=== PATIENT | female | born 1975 | race Hispanic/Latino ===

== ENCOUNTER 2018-06-13 13:14 | Outpatient (CLI) | payer OTHER | END 2018-06-13 13:15 | disposition home or self-care (01) | LOC: DTY/OP 13:14 | PROVIDERS: ATTEND Surgery | DX: E66.01 Morbid (severe) obesity due to excess calories (principal) | CPT/HCPCS: 97802 ==

== ENCOUNTER 2018-08-03 14:37 | Outpatient (CLI) | payer OTHER | END 2018-08-03 14:38 | disposition home or self-care (01) | LOC: DTY/OP 14:37 | PROVIDERS: ATTEND Surgery | DX: E66.01 Morbid (severe) obesity due to excess calories (principal) | CPT/HCPCS: 97802 ==

== ENCOUNTER 2018-08-14 11:24 | Outpatient (CLI) | payer OTHER | END 2018-08-14 11:25 | disposition home or self-care (01) | LOC: DTY/OP 11:24 | PROVIDERS: ATTEND Surgery | DX: E66.01 Morbid (severe) obesity due to excess calories (principal) | CPT/HCPCS: 97802 ==

== ENCOUNTER 2018-09-11 11:43 | Outpatient (CLI) | payer OTHER | END 2018-09-11 11:44 | disposition home or self-care (01) | LOC: DTY/OP 11:43 | PROVIDERS: ATTEND Family Medicine | DX: E66.01 Morbid (severe) obesity due to excess calories (principal) | CPT/HCPCS: 97802 ==

== ENCOUNTER 2018-11-16 05:34 | Outpatient (CLI) | payer OTHER ==
[2018-11-16 14:06] LABS: #Basophils 0.1 thou/uL (0.0-0.2); #Eosinphils 0.2 thou/uL (0.0-0.7); #Lymphocytes 2.9 thou/uL (1.20-3.40); #Monocytes 0.9 thou/uL (0.11-0.59); %Basophils 0.5 % (0.0-1.0); %Lymphocytes 26.1 % (21.0-51.0); %Monocytes 8.1 % (0.0-10.0); %Neutrophils 63.3 % (42.0-75.0); Hemoglobin 14.1 g/dL (12.0-16.0); Mean Corpuscular HGB CONC 34.5 g/dL (32.0-36.0); Mean Corpuscular Hemoglobin 34.3 pg (27.0-31.0); Mean Corpuscular Volume 99.5 fL (78.0-98.0); Mean Platelet Volume 10.2 fL (7.4-10.4); Platelet Count 221 thou/uL (130-400); RBC Distribution Width 10.5 % (11.5-14.5); White Blood Cell (WBC) Count 11.1 thou/uL (4.8-10.8)
--- NOTE | 2018-11-16 14:16 | RAD ---
EXAM: Chest 2 views: HISTORY: Preoperative radiograph COMPARISON: 01/08/2017 FINDINGS: There is a normal-sized cardiomediastinal silhouette. A cardiac monitoring device projects over the left chest wall. There is no evidence of consolidation, mass, or pleural effusion. The bones are unremarkable. IMPRESSION: No evidence of acute cardiopulmonary disease
[2018-11-16 14:21] LABS: Hemoglobin A1c 5.3 % (4.0-6.0)
[2018-11-16 14:25] LABS: ALT (SGPT) 37 U/L (8-55); AST (SGOT) 27 U/L (5-34); Albumin 4.1 g/dL (3.5-5.0); Alkaline Phosphatase 106 U/L (40-150); Anion Gap 10 mmol/L (10-20); BUN (Urea Nitrogen) 16 mg/dL (7.0-18.7); Bilirubin, Direct 0.2 mg/dL (0.1-0.3); Bilirubin, Total 0.4 mg/dL (0.2-1.2); Calc. Creatinine Clearance 0 mL/min (70-130); Carbon Dioxide 26 mmol/L (22-29); Chloride 105 mmol/L (98-107); Estimated GFR-MDRD 76; Globulin 3.2 g/dL (2.4-3.5); Glucose 92 mg/dL (70-105); Potassium 3.5 mmol/L (3.5-5.1); Protein, Total 7.3 g/dL (6.0-8.3); Sodium 137 mmol/L (136-145)
--- NOTE | 2018-11-17 07:05 | EKG ---
Test Reason : Blood Pressure : / mmHG Vent. Rate : 060 BPM Atrial Rate : 060 BPM P-R Int : 176 ms QRS Dur : 090 ms QT Int : 458 ms P-R-T Axes : 047 091 031 degrees QTc Int : 458 ms Normal sinus rhythm Rightward axis Borderline ECG No previous ECGs available Confirmed by DR. Minda TANNER ([id number]) on 11/17/2018 7:05:49 AM Referred By: ISAIAS Confirmed By:DR. Minda TANNER
== END 2018-11-16 05:35 | disposition home or self-care (01) ==
LOC: LABBT 05:34
PROVIDERS: ATTEND Surgery
DX: Z01.818 Encounter for other preprocedural examination (principal); E66.01 Morbid (severe) obesity due to excess calories
CPT/HCPCS: 71046; 80053; 80076; 83036; 85025; 93005; 93010

== ENCOUNTER 2018-11-16 11:15 | Inpatient (IN) | payer OTHER ==
[2018-11-21] MEDS ORDERED: Heparin 5,000 UNITS/ML VIAL ONE (10:20)
[2018-11-21] MEDS ORDERED: Bupivacaine/Epinephrine 0.25% 30 ML VIAL ONE ×2 (10:37→10:39)
[2018-11-21] MEDS ORDERED: Famotidine/PF 20 mg/2ml Vial ONE (11:08)
[2018-11-21] MEDS ORDERED: Fentanyl 100 MCG/2 ML VIAL ONE ×3 (11:08→14:05)
[2018-11-21] MEDS ORDERED: Meperidine HCl/PF 25 MG/ML VIAL ONE (11:08)
[2018-11-21] MEDS ORDERED: diphenhydrAMINE 50 MG/ML VIAL IVP PRN ×2 (13:17→15:32)
[2018-11-21] MEDS ORDERED: Dextrose 50% Abboject 50 ML SYRINGE SLOW IVP PRN (13:17)
[2018-11-21] MEDS ORDERED: hydrALAZINE 20 MG/ML VIAL SLOW IVP PRN (13:17)
[2018-11-21] MEDS ORDERED: Dextrose 5% in Water 1,000 ML IV PRN (13:17)
[2018-11-21] MEDS ORDERED: Hydrocodone-Acetamin 15 ML UDCUP PO PRN (13:17)
[2018-11-21] MEDS ORDERED: Promethazine HCl 25 MG/ML VIAL IM PRN ×3 (13:17→15:32)
[2018-11-21] MEDS ORDERED: Ondansetron PF 4 MG/2 ML Vial IVP PRN (13:17)
[2018-11-21] MEDS ORDERED: PROPOFOL 200 MG/20 ML VIAL ONE (13:24)
[2018-11-21] MEDS ORDERED: Rocuronium Bromide 10 MG/ML (10ML VIAL) ONE (13:24)
[2018-11-21] MEDS ORDERED: Lidocaine 1% PF 5 ML VIAL ONE (13:24)
[2018-11-21] MEDS ORDERED: Glycopyrrolate 0.2 MG/ML 5 ML SYRINGE ONE (13:24)
[2018-11-21] MEDS ORDERED: Metoclopramide HCl 10 MG/2 ML VIAL ONE (13:24)
[2018-11-21] MEDS ORDERED: Ondansetron PF 4 MG/2 ML Vial ONE (13:24)
[2018-11-21] MEDS ORDERED: Dexamethasone 20 MG/5 ML VIAL ONE (13:24)
[2018-11-21] MEDS ORDERED: Ketorolac Tromethamine 30 MG/ML VIAL ONE (13:24)
[2018-11-21] MEDS ORDERED: Meperidine HCl/PF 25 MG/ML VIAL SLOW IVP PRN (13:31)
[2018-11-21] MEDS ORDERED: Promethazine HCl 25 MG/ML VIAL SLOW IVP PRN (13:31)
[2018-11-21] MEDS ORDERED: Ondansetron HCl/PF 4 MG/2 ML Vial IVP PRN (13:31)
[2018-11-21] MEDS ORDERED: Promethazine HCl 25 MG/ML VIAL ONE (14:05)
[2018-11-21] MEDS ORDERED: diphenhydrAMINE 50 MG/ML VIAL IM PRN (15:32)
[2018-11-21] MEDS ORDERED: Naloxone HCl 0.4 mg/ml Vial IV PRN (15:32)
[2018-11-21] MEDS ORDERED: Zolpidem Tartrate 5 MG TAB PO PRN (15:32)
[2018-11-21] MEDS ORDERED: fentaNYL Citrate/PF 2,000 MCG in Sodium Chloride 0.9% 60 ML IV PRN (15:32)
[2018-11-21] MEDS ORDERED: diphenhydrAMINE 25 MG CAP PO PRN (15:32)
[2018-11-21] MEDS ORDERED: CEFAZOLIN 2 GM in Premix Bag 1 BAG IVPB SCH (18:00)
[2018-11-21] MEDS ORDERED: Ketorolac Tromethamine 30 MG/ML VIAL IVP SCH (18:00)
[2018-11-21] MEDS: Communication Order-Pharmacy FS SCH (18:15)
[2018-11-21] MEDS: Ondansetron PF 4 MG/2 ML Vial IVP PRN (20:07)
[2018-11-21] MEDS: CEFAZOLIN 2 GM in Premix Bag 1 BAG IVPB SCH (20:08)
[2018-11-21] MEDS: Ketorolac Tromethamine 30 MG/ML VIAL IVP SCH (20:08)
[2018-11-21] MEDS: D5 1/2 NS w/20 mEq KCL 1,000 ML IV SCH ×2 (20:09→20:37)
[2018-11-21 22:57] VITALS: BMI 36.0
[2018-11-21] MEDS ORDERED: Sodium Chloride 0.9% 500 ML IVPB SCH (23:30)
[2018-11-21] MEDS ORDERED: Pantoprazole 40 MG VIAL IVP SCH (23:45)
[2018-11-22 00:30] LABS: Hemoglobin 12.9 g/dL (12.0-16.0)
[2018-11-22] MEDS: Ketorolac Tromethamine 30 MG/ML VIAL IVP SCH ×4 (02:55→19:47)
[2018-11-22] MEDS: Ondansetron PF 4 MG/2 ML Vial IVP PRN ×2 (02:56→09:45)
[2018-11-22] MEDS: CEFAZOLIN 2 GM in Premix Bag 1 BAG IVPB SCH (03:01)
[2018-11-22] MEDS: D5 1/2 NS w/20 mEq KCL 1,000 ML IV SCH ×3 (04:31→22:51)
[2018-11-22 07:44] LABS: #Lymphocytes 1.9 thou/uL (1.20-3.40); #Monocytes 1.4 thou/uL (0.11-0.59); #Neutrophils 10.2 thou/uL (1.40-6.50); %Basophils 0.4 % (0.0-1.0); %Eosinophils 0.1 % (0.0-10.0); %Lymphocytes 14.4 % (21.0-51.0); %Neutrophils 75.2 % (42.0-75.0); Hemoglobin 11.9 g/dL (12.0-16.0); Mean Corpuscular HGB CONC 33.2 g/dL (32.0-36.0); Mean Corpuscular Hemoglobin 33.9 pg (27.0-31.0); Mean Platelet Volume 10.3 fL (7.4-10.4); Platelet Count 189 thou/uL (130-400); RBC Distribution Width 10.5 % (11.5-14.5); Red Blood Cell (RBC) Count 3.51 mill/uL (4.20-5.40); White Blood Cell (WBC) Count 13.5 thou/uL (4.8-10.8)
[2018-11-22 08:02] LABS: Anion Gap 13 mmol/L (10-20); BUN (Urea Nitrogen) 19 mg/dL (7.0-18.7); Calc. Creatinine Clearance 155 mL/min (70-130); Calcium 8.1 mg/dL (7.8-10.44); Carbon Dioxide 18 mmol/L (22-29); Chloride 109 mmol/L (98-107); Estimated GFR-MDRD 85; Glucose 116 mg/dL (70-105); Potassium 3.7 mmol/L (3.5-5.1); Sodium 136 mmol/L (136-145)
[2018-11-22] MEDS: Pantoprazole 40 MG VIAL IVP SCH (08:22)
[2018-11-22] MEDS ORDERED: Enoxaparin Sodium 40 MG/0.4 ML SYRINGE SC SCH (09:00)
--- NOTE | 2018-11-22 10:39 | OP ---
DATE OF PROCEDURE: 11/21/2018 PREOPERATIVE DIAGNOSIS: Morbid obesity. PROCEDURES PERFORMED: Laparoscopic sleeve gastrectomy, hiatal hernia repair, and esophagogastroduodenoscopy. INDICATIONS: The patient is a 43-year-old female, morbidly obese, who has attempted multiple weight loss programs without success. FINDINGS: She had a moderate-size hiatal hernia, which was repaired with a posterior crural plication. A 38-Palestinian bougie was used. DESCRIPTION OF PROCEDURE: After informed consent was obtained, the patient was taken to the operating room and given general endotracheal anesthesia, placed in the supine position. Abdomen was prepped and draped in usual fashion. Local anesthesia was infiltrated subcutaneously and deep and a 12 mm incision was performed approximately 8 inches above the xiphoid slightly to the left. Veress needle inserted. Drop test performed. Pneumoperitoneum was created to a volume of 2 L of carbon dioxide. Utilizing a bladeless 12 mm trocar and 0-degree laparoscope, direct visual entry abdominal cavity was performed. Pneumoperitoneum was created to a pressure of 15 mmHg. A 0-degree laparoscope was inserted under direct vision. A Carline liver retractor was inserted. Left lobe of liver retracted superiorly. The pylorus was identified. A 12 mm port placed on the right beneath it and two 12s placed left subcostal. The omentum was taken off the greater curvature 5 cm from the pylorus utilizing the LigaSure. The short gastrics divided with LigaSure and left crura defined with LigaSure. The gastrophrenic ligament was opened utilizing the LigaSure and the peritoneum was incised anteriorly utilizing the LigaSure. Posteriorly, dissection was performed to completely reduce the hiatal hernia. The posterior crural plication was performed over the 38-Palestinian bougie leaving a gap anteriorly utilizing interrupted 0 Ethibond suture with this Sew-Right and Ti-Knot device. Then, the bougie was further advanced into the pylorus. The antrum was divided utilizing a linear 60 mm green load stapler to the bougie, a gold load along the bougie, and a series of blues through the angle of His. Intraoperative endoscopy was performed. The videoendoscope inserted under direct vision, advanced under direct vision into the sleeve. The staple line inspected. There was no bleeding. Staple line then tested by inflating the new stomach with pressurized air and water, there was no air leak. Stomach decompressed. Scope removed. The remnants of the stomach removed from the abdomen through the left lateral port site. The fascia closed with 0 Vicryl suture and the GraNee needle. The skin closed with interrupted 4-0 Rapide. Dermabond applied. The patient tolerated the procedure well. Sponge and needle count verified correct x2. Job ID: [id number]
[2018-11-22] MEDS ORDERED: GASTROGRAFIN 30 ML BOT ONE (11:51)
--- NOTE | 2018-11-22 14:55 | RAD ---
Upper GI series contrast swallow single column: DATE: 11/22/2018 HISTORY: 43-year-old female status post vertical gastric slightly TECHNIQUE: 15 mL of Gastrografin administered by mouth upright. 10 minute delayed supine KUB. FINDINGS: Contrast material fills the marrow gastric channel. There is delayed emptying into the duodenum, but eventually at the 10 minute image, contrast is present throughout the duodenum to the ligament of Treitz. There is no leakage. IMPRESSION: 1. Status post vertical sleeve gastrectomy. 2. No evidence of major complications.
[2018-11-22] MEDS: Communication Order-Pharmacy FS SCH (15:37)
--- NOTE | 2018-11-22 18:09 | PRG ---
DATE OF SERVICE: 11/22/2018 SUBJECTIVE: The patient has had a rough day today. She has had quite a bit of nausea. She is continuing to have pain on the left side and periumbilical. OBJECTIVE: VITAL SIGNS: Her temperature is 97.9, pulse 73, blood pressure 111/75. GENERAL: She looks okay. The incisions are healing well. There is no evidence of bleeding. LABORATORY DATA: Her white count is 13, H and H are 11.9 and 35.8. Her electrolytes are okay. Her swallow study was fine. No evidence of leak, traversed the stomach well. ASSESSMENT: Still having difficulty staying hydrated. PLAN: We will keep another night and continue IV fluids. Job ID: [id number]
[2018-11-23] MEDS: Ketorolac Tromethamine 30 MG/ML VIAL IVP SCH ×2 (02:01→08:20)
[2018-11-23] MEDS: D5 1/2 NS w/20 mEq KCL 1,000 ML IV SCH (05:26)
[2018-11-23] MEDS: Pantoprazole 40 MG VIAL IVP SCH (08:19)
[2018-11-23 12:02] VITALS: BP 116/79; TEMP 98.1
--- NOTE | 2018-11-24 08:48 | DIS ---
DATE OF ADMISSION: 11/21/2018 DATE OF DISCHARGE: 11/23/2018 DISCHARGE DIAGNOSES: Morbid obesity and hiatal hernia. PROCEDURES DURING ADMISSION: Laparoscopic sleeve gastrectomy, hiatal hernia repair, and esophagogastroduodenoscopy. HOSPITAL COURSE: The patient was admitted, taken to the operating room, where she underwent a sleeve gastrectomy and repair of hiatal hernia with intraoperative esophagogastroscopy. Postoperatively, she had a Gastrografin swallow, which was fine, however, she had excessive nausea and was unable to tolerate fluids that has now improved and she is tolerating fluids. She is discharged home in good condition on hydrocodone and Zofran. She will follow up with me in 2 weeks. Job ID: [id number]
== END 2018-11-23 12:11 | disposition home or self-care (01) | DRG 621 ==
LOC: SURG A 11-21 09:46 → EDSTATUS 11-21 11:15 → SURG B 11-21 13:17
PROVIDERS: ADMIT Surgery; ATTEND Surgery
PROC: 0DB64Z3 Excision of Stomach, Percutaneous Endoscopic Approach, Vertical (ICD-10-PCS; principal; 2018-11-21)
PROC: 0BQT4ZZ Repair Diaphragm, Percutaneous Endoscopic Approach (ICD-10-PCS; 2018-11-21)
PROC: 0DJ08ZZ Inspection of Upper Intestinal Tract, Via Natural or Artificial Opening Endoscopic (ICD-10-PCS; 2018-11-21)
DX: E66.01 Morbid (severe) obesity due to excess calories (principal); K44.9 Diaphragmatic hernia without obstruction or gangrene; Z68.36 Body mass index [BMI] 36.0-36.9, adult; Z88.8 Allergy status to other drugs, medicaments and biological substances
CPT/HCPCS: 36415; 74241; 80048; 85014; 85018; 85025; 88307; 88312; 94760; C9113; J0131; J0690; J1100; J1644; J1885; J2001; J2175; J2405; J2550; J2704; J2765; J3010; J3490; Q9963; S0028

== ENCOUNTER 2018-11-24 17:04 | Observation (INO) | payer OTHER ==
[~2018-11-24 17:04] MED LIST: ISOVUE-370 76%-LOCM 1 ML ONE; Iopamidol 370 76% 50 ML VIAL FS ONE
[2018-11-24] MEDS ORDERED: Fentanyl 100 MCG/2 ML VIAL ONE (17:51)
[2018-11-24] MEDS ORDERED: Ondansetron ODT 4 MG TAB PO PRN (21:10)
[2018-11-24] MEDS ORDERED: hydrALAZINE 20 MG/ML VIAL SLOW IVP PRN (21:10)
[2018-11-24] MEDS ORDERED: Ondansetron PF 4 MG/2 ML Vial IVP PRN (21:10)
[2018-11-24] MEDS ORDERED: Morphine 2 MG/ML SYRINGE SLOW IVP PRN (21:10)
[2018-11-24] MEDS ORDERED: Morphine 4 MG/ML VIAL SLOW IVP PRN (21:10)
[2018-11-24] MEDS ORDERED: Acetaminophen 500 MG TAB PO PRN (21:14)
[2018-11-24] MEDS ORDERED: traMADol HCl 50 MG TAB PO PRN ×2 (21:14)
[2018-11-24] MEDS ORDERED: Hydrocodone-Acetamin 15 ML UDCUP PO PRN (21:14)
[2018-11-24] MEDS ORDERED: Morphine 4 MG/ML VIAL ONE (21:36)
[2018-11-24] MEDS ORDERED: Enoxaparin Sodium 40 MG/0.4 ML SYRINGE SC SCH (22:00)
--- NOTE | 2018-11-24 22:32 | CT ---
Contrast-enhanced CT images abdomen and pelvis obtained on 11/24/2018. Comparison made to previous CT of abdomen and pelvis from 11/24/2018 at [facility]. Contrast-enhanced CT images of the abdomen pelvis obtained after administration of IV and oral contra st. A given areas of lung consolidation seen in the lung bases. No evidence of free intraperitoneal air seen. Gastric surgical krystyna seen. The liver and spleen are unremarkable. Gastric surgical krysytna seen. No evidence of hematoma or adjacent abscess seen. Contrast is seen in the small bowel and colon. No evidence of bowel obstruction seen. The urinary bladder is unremarkable. Both kidneys are unremarkable. Pancreas is unremarkable. IMPRESSION: 1: Bibasilar lung consolidation. 2: No evidence of perisurgical abnormality seen adjacent to the stomach.
[2018-11-24] MEDS: Ketorolac Tromethamine 30 MG/ML VIAL IVP PRN (23:18)
[2018-11-24] MEDS: D5 1/2 NS w/20 mEq KCL 1,000 ML IV SCH (23:20)
[2018-11-24] MEDS ORDERED: ALPRAZolam 1 MG TAB PO SCH (23:30)
--- NOTE | 2018-11-25 02:42 | HP ---
HISTORY OF PRESENT ILLNESS: Beba Tripathi is a 43-year-old female, morbidly obese, followed by Dr. Juan Alberto Thompson. The patient underwent workup through our bariatric program and underwent laparoscopic sleeve gastrectomy on 11/21/2018, this week. Dr. Thompson performed this operation repairing a moderate-sized hiatal hernia with a 38-Norwegian bougie, and postoperatively she did well, undergone upper GI series on 11/22/2018, revealing absence of any leak and without problems. She tolerated her diet and was discharged home on 11/23/2018, yesterday, . She lives out of town. She states that she takes flecainide for tachyarrhythmia. Her technician semiconductor development is in the [place] area. The patient tried to get a hold of him today, but could not. Her heart rate is up to 120. She presented to the [place] [facility] and underwent a CTA that was normal without PE. She underwent a CT scan of the abdomen and pelvis without contrast, noting absence of any air or fluid to suggest leak, but again this was performed without oral contrast. The patient's EKG is normal. She is in normal sinus rhythm at this institution and has not had sinus tachycardia since being evaluated. She is noted to have significant atelectasis on her CAT scan in [place], thought to have atelectasis or early pneumonia. She complains of quite a bit of abdominal pain, but no fever, no nausea, no vomiting. She did have a very small left pleural effusion which is not uncommon. She has findings of post cholecystectomy and post hysterectomy. Urinalysis was normal. Chest x-ray was normal. White count was 8.2, hemoglobin 12. Bilirubin 0.7, albumin 3.4. MEDICATIONS AT HOME: 1. Tizanidine. 2. Oxycodone. 3. Zofran. 4. Metoprolol. 5. Linzess. 6. Levsin. 7. Gabapentin. 8. Flecainide. 9. Colace. 10. Cholecalciferol. 11. Aspirin. 12. Alprazolam as needed at bedtime 1 mg. PAST MEDICAL HISTORY: 1. Laparoscopic sleeve gastrectomy as noted above. 2. Tachyarrhythmia, on flecainide. 3. Fibromyalgia. 4. History of GERD. 5. History of atrial tachycardia. 6. Anxiety. 7. Depression. PAST SURGICAL HISTORY: 1. Hemorrhoidectomy. 2. Cholecystectomy. 3. Appendectomy. 4. Tubal ligation. 5. livestock farm workers implant, left chest. Note, her metoprolol in the past was 50 b.i.d., flecainide in the past was 100 b.i.d., she has been taking Dexilant 60 mg a day and aspirin 81 mg a day. PHYSICAL EXAMINATION: VITAL SIGNS: Blood pressure 128/68, heart rate 78. HEAD, EARS, EYES, NOSE, AND THROAT: Unremarkable. LUNGS: Clear to auscultation, rhonchi at bases. Decreased breath sounds at base. No wheezing. ABDOMEN: Soft, mild tenderness. No peritoneal signs. EXTREMITIES: Unremarkable. ASSESSMENT AND PLAN: 1. Atelectasis. Increase mobility and incentive spirometer. 2. Repeat her CAT scan of abdomen with p.o. contrast and IV contrast tonight to rule out any complications, but on initial noncontrast CAT scan in [place], there is no evidence of leak or free air. I suspect her abdominal pain complaints are due to her atelectasis and lack of mobility, but we will await repeat CAT scan. 3. Anxiety. 4. Fibromyalgia. 5. Other medical problems as noted above. Job ID: [id number]
[2018-11-25] MEDS: Ketorolac Tromethamine 30 MG/ML VIAL IVP PRN ×2 (04:50→11:55)
[2018-11-25 05:51] LABS: #Basophils 0.1 thou/uL (0.0-0.2); #Eosinphils 0.2 thou/uL (0.0-0.7); #Lymphocytes 2.1 thou/uL (1.20-3.40); #Monocytes 0.6 thou/uL (0.11-0.59); #Neutrophils 3.7 thou/uL (1.40-6.50); %Basophils 0.8 % (0.0-1.0); %Eosinophils 3.4 % (0.0-10.0); %Lymphocytes 31.7 % (21.0-51.0); %Monocytes 8.3 % (0.0-10.0); %Neutrophils 55.9 % (42.0-75.0); Hemoglobin 10.7 g/dL (12.0-16.0); Mean Corpuscular HGB CONC 33.7 g/dL (32.0-36.0); Mean Corpuscular Hemoglobin 34.2 pg (27.0-31.0); Mean Platelet Volume 9.9 fL (7.4-10.4); Platelet Count 193 thou/uL (130-400); RBC Distribution Width 10.7 % (11.5-14.5); Red Blood Cell (RBC) Count 3.12 mill/uL (4.20-5.40); White Blood Cell (WBC) Count 6.7 thou/uL (4.8-10.8)
[2018-11-25 06:17] LABS: ALT (SGPT) 19 U/L (8-55); AST (SGOT) 22 U/L (5-34); Albumin 3.1 g/dL (3.5-5.0); Alkaline Phosphatase 78 U/L (40-150); Anion Gap 11 mmol/L (10-20); BUN (Urea Nitrogen) 5 mg/dL (7.0-18.7); Bilirubin, Total 0.5 mg/dL (0.2-1.2); Calc. Creatinine Clearance 167 mL/min (70-130); Carbon Dioxide 24 mmol/L (22-29); Chloride 108 mmol/L (98-107); Estimated GFR-MDRD Greater than 90; Globulin 2.3 g/dL (2.4-3.5); Glucose 102 mg/dL (70-105); Potassium 3.3 mmol/L (3.5-5.1); Protein, Total 5.4 g/dL (6.0-8.3); Sodium 140 mmol/L (136-145)
[2018-11-25] MEDS: D5 1/2 NS w/20 mEq KCL 1,000 ML IV SCH ×2 (08:20→15:39)
[2018-11-25] MEDS ORDERED: Pregabalin 75 MG CAP PO SCH ×2 (09:00)
[2018-11-25] MEDS ORDERED: Aspirin 81 mg Enteric Coated Tablet PO SCH (09:00)
[2018-11-25] MEDS ORDERED: Pantoprazole 40 MG GRANULES PACKET PO SCH (09:00)
[2018-11-25] MEDS ORDERED: Multivitamins, Adult 10 ML, Folic Acid 1 MG, Thiamine HCl 100 MG in Dextrose 5 %-0.45 %... IV SCH (09:00)
[2018-11-25] MEDS ORDERED: Aspirin Chewable 81 MG TAB PO SCH (09:00)
[2018-11-25] MEDS ORDERED: Flecainide 50 MG TAB PO SCH (09:00)
[2018-11-25] MEDS ORDERED: Multivitamins, Adult 10 ML, Thiamine HCl 100 MG, Folic Acid 1 MG in Dextrose 5 %-0.45 %... IV SCH (09:00)
[2018-11-25] MEDS ORDERED: Polyethylene Glycol 3350 17 GM Packet PO SCH (09:00)
[2018-11-25 12:26] VITALS: BP 115/70; TEMP 98.3
[2018-11-25 13:44] VITALS: BMI 35.2
--- NOTE | 2018-11-25 15:20 | PRG ---
DATE OF SERVICE: SUBJECTIVE: Beba Tripathi is doing well today. Her CT scan of her abdomen p.o. and IV contrast does not reveal any problems related to her sleeve gastrectomy. She is tolerating her bariatric liquids. OBJECTIVE: VITAL SIGNS: Temperature 98.3 degrees, pulse 67, blood pressure 115/70. LUNGS: Clear to auscultation. CARDIAC: Regular rate and rhythm without murmur or gallop. ABDOMEN: Soft. Tenderness postoperatively expected. Laparoscopic wounds well healed. EXTREMITIES: Unremarkable. No ankle edema. Homans negative. LABORATORY DATA: This morning, her white count is 6, hemoglobin 10.7. Her basic metabolic profile is normal. ASSESSMENT AND PLAN: Postoperative pain. Reassured the patient that should improve with time. Encouraged ambulation and mobility as she has atelectasis on her CAT scans. She has an incentive spirometer at home. She will take one from the hospital to home with her. She will resume her home medication. She will follow up with Dr. Thompson per appointment. Job ID: [id number]
[2018-11-25] MEDS ORDERED: Enoxaparin Sodium 40 MG/0.4 ML SYRINGE SC SCH (21:00)
[2018-11-25] MEDS ORDERED: ALPRAZolam 1 MG TAB PO SCH (21:00)
--- NOTE | 2018-11-26 05:01 | DIS ---
DATE OF ADMISSION: 11/24/2018 DATE OF DISCHARGE: 11/25/2018 DISCHARGE DIAGNOSES: 1. Postoperative pain and atelectasis. 2. Chronic medical problems include sleep apnea, morbid obesity, 5 foot 6 inches, 35 BMI, supraventricular tachycardia on flecainide and metoprolol, chronic low blood pressures 90s to 100. DISCHARGE MEDICATIONS: 1. Tizanidine 1 cap p.o. t.i.d. 2. Tylenol with hydrocodone p.r.n. 3. Metoprolol 1 tab p.o. b.i.d. at home, decreased to one tab daily here at the hospital due to blood pressures in 90s and 100s. 4. Levsin p.r.n. 5. Gabapentin. 6. Flecainide. 7. Colace. 8. Dexilant. 9. Aspirin. 10. Alprazolam. HISTORY: A 43-year-old female underwent laparoscopic sleeve gastrectomy early in the week, discharged home after normal swallow study, tolerating liquids, sent home 2 days postoperatively. She had pain and SVT of 120 at home. She had been on flecainide and metoprolol, and has a electronic prepress operator in [place]. She could not get hold of him. She presented to [facility], was transferred to this facility and admitted for pain control. She was hydrated. In [place], she underwent a CTA that was negative for pulmonary embolus but did reveal atelectasis. She underwent a noncontrast CAT scan abdomen, did not reveal any fluid collection or air. She did have soft tissue gas consistent with recent laparoscopy. The patient was transferred to this hospital and ER physician discussed with me. We repeated her CAT scan abdomen, p.o. and IV contrast and again, there was no evidence of leak or problems. Her white count and hemoglobin remained normal. She was observed overnight and discharged home the next day to resume her home medications. Her metoprolol was decreased from twice a day to once a day due to her chronic blood pressure in the in 90s to high 80s to low 100s, which is chronic. Her flecainide was resumed. She had been off this for several days. She was encouraged to see her electronic prepress operator in [place] in the next few days. Diet and activity as tolerated. No lifting restrictions. I told her she did not have to crush her medications. She can break in half or thirds for larger medications. She should use incentive spirometer frequently. She should be up in a chair and ambulate multiple times a day. Job ID: [id number]
== END 2018-11-25 16:17 | disposition home or self-care (01) ==
LOC: ERS 17:04 → 2SW 22:54
PROVIDERS: ADMIT Specialist; ATTEND Specialist
DX: J95.89 Other postprocedural complications and disorders of respiratory system, not elsewhere classified (principal); J98.11 Atelectasis; G89.18 Other acute postprocedural pain; M79.7 Fibromyalgia; K21.9 Gastro-esophageal reflux disease without esophagitis; F41.9 Anxiety disorder, unspecified; F32.9 Major depressive disorder, single episode, unspecified; G47.30 Sleep apnea, unspecified; I47.1 Supraventricular tachycardia; I95.9 Hypotension, unspecified; E66.01 Morbid (severe) obesity due to excess calories; Z68.35 Body mass index [BMI] 35.0-35.9, adult; Z79.82 Long term (current) use of aspirin; Z79.899 Other long term (current) drug therapy; Z88.5 Allergy status to narcotic agent; Z98.84 Bariatric surgery status; Z98.890 Other specified postprocedural states
CPT/HCPCS: 36415; 74177; 80053; 85025; 96361; 96374; 96375; 96376; G0378; J1650; J1885; J2270; J3010; J3411; J7042; Q9966; Q9967

== ENCOUNTER 2019-03-16 23:06 | Inpatient (IN) | payer OTHER ==
[2019-03-17] MEDS ORDERED: Ondansetron PF 4 MG/2 ML Vial ONE (00:09)
[2019-03-17] MEDS ORDERED: Morphine 4 MG/ML VIAL ONE (00:09)
[2019-03-17] MEDS ORDERED: Potassium Chloride 10 MEQ in Premix Bag 1 BAG IVPB SCH (02:15)
[2019-03-17 02:17] VITALS: BMI 26.8
--- NOTE | 2019-03-17 02:35 | PDOC.EVN ---
Event Note - Event Note Event Note: H&P dictated [id number]
[2019-03-17] MEDS: Sodium Chloride 0.9% 1,000 ML IV SCH ×3 (02:39→18:42)
[2019-03-17] MEDS: Morphine 4 MG/ML VIAL SLOW IVP PRN ×5 (02:44→19:45)
[2019-03-17] MEDS: metroNIDAZOLE 500 MG in Premix Bag 1 BAG IVPB SCH ×4 (03:05→20:02)
[2019-03-17] MEDS: Cefepime 1 GM in Sodium Chloride 0.9% 100 ML IVPB SCH ×2 (03:59→14:55)
--- NOTE | 2019-03-17 05:01 | HP ---
CHIEF COMPLAINT: Abdominal pain and diarrhea. HISTORY OF PRESENT ILLNESS: Ms. Tripathi is a 43-year-old female with a past medical history of atrial arrhythmias, ? fibrillation with implanted court recording monitor, gastric sleeve surgery, GERD, hypertension, presented to emergency room with abdominal pain and diarrhea that started yesterday. The patient started seeing blood after the abdominal pain started. Initially, it was dark and lately it became bright red. CT of the abdomen was done, which showed acute colitis. The patient was started on IV antibiotics. The patient is being admitted to hospital for further management. PAST MEDICAL HISTORY: 1. Atrial arrhythmia, ? fibrillation with implanted court recording monitor. 2. Hypertension. PAST SURGICAL HISTORY: 1. Gastric sleeve surgery. 2. Cholecystectomy. 3. Appendectomy. 4. Tubal ligation. 5. Hysterectomy. 6. Lumpectomy. SOCIAL HISTORY: Denies smoking, alcohol drinking, or drug abuse. FAMILY HISTORY: Reviewed and noncontributory. HOME MEDICATIONS: Please see home medication reconciliation form for updated medications. ALLERGIES: THE PATIENT IS ALLERGIC TO DILAUDID(HYDROMORPHONE). REVIEW OF SYSTEMS: Review of 14 systems is negative except what is mentioned in the history of present illness. PHYSICAL EXAMINATION: GENERAL: The patient is awake, alert, in moderate to severe distress secondary to pain. VITAL SIGNS: Blood pressure 113/71, pulse is 54, respiratory rate 18, temperature 98.9. HEAD AND NECK: Normocephalic, atraumatic. Neck is supple. No JVD. CHEST: Fair bilateral air entry. HEART: S1, S2. Regular, bradycardic. ABDOMEN: Soft, diffusely tender, bowel sounds present. NEUROLOGIC: Awake, alert, oriented x3. PSYCH: Normal mood. EXTREMITIES: No clubbing, no cyanosis. LABORATORY DATA: WBC count elevated to 16,000. Potassium was low at 3.3. CT of abdomen and pelvis as mentioned above in the history of present illness. ASSESSMENT AND PLAN: 1. Acute colitis. 2. Leukocytosis. 3. Hypokalemia. 4. History of atrial arrhythmia/atrial fibrillation with implanted court recording monitor. 5. Hypertension. PLAN: 1. Admit. 2. Keep n.p.o. 3. IV fluid hydration. 4. IV antibiotics. 5. Pain management. 6. Reconcile home medications. 7. DVT prophylaxis with SCDs/early ambulation. 8. Expected length of stay, 2 midnights or more. Job ID: [id number]
[2019-03-17] MEDS: Ondansetron PF 4 MG/2 ML Vial IVP PRN ×4 (05:26→19:46)
[2019-03-17 05:46] LABS: #Lymphocytes 2.2 thou/uL (1.20-3.40); #Monocytes 0.9 thou/uL (0.11-0.59); #Neutrophils 10.2 thou/uL (1.40-6.50); %Basophils 0.1 % (0.0-1.0); %Eosinophils 0.3 % (0.0-10.0); %Lymphocytes 16.3 % (21.0-51.0); %Monocytes 6.8 % (0.0-10.0); %Neutrophils 76.5 % (42.0-75.0); Hemoglobin 12.8 g/dL (12.0-16.0); Mean Corpuscular HGB CONC 34.4 g/dL (32.0-36.0); Mean Corpuscular Hemoglobin 35.1 pg (27.0-31.0); Mean Platelet Volume 10.7 fL (7.4-10.4); Platelet Count 167 thou/uL (130-400); RBC Distribution Width 11.5 % (11.5-14.5); Red Blood Cell (RBC) Count 3.64 mill/uL (4.20-5.40); White Blood Cell (WBC) Count 13.3 thou/uL (4.8-10.8)
[2019-03-17 06:06] LABS: Anion Gap 11 mmol/L (10-20); BUN (Urea Nitrogen) 12 mg/dL (7.0-18.7); Calc. Creatinine Clearance 129 mL/min (70-130); Calcium 8.2 mg/dL (7.8-10.44); Carbon Dioxide 19 mmol/L (22-29); Chloride 110 mmol/L (98-107); Estimated GFR-MDRD Greater than 90; Glucose 81 mg/dL (70-105); Potassium 3.6 mmol/L (3.5-5.1); Sodium 136 mmol/L (136-145)
[2019-03-17] MEDS: Famotidine/PF 20 mg/2ml Vial SLOW IVP SCH ×2 (08:37→20:03)
--- NOTE | 2019-03-17 17:00 | PDOC.HOSPP ---
- Subjective Encounter Date: 03/17/19 Encounter Time: 09:20 Subjective: Pt seen for followup re; ESRD needing dialysis. Feels well, no complaints. - Objective Vital Signs & Weight: Vital Signs (12 hours) Temp Pulse Resp BP Pulse Ox 03/17/19 08:03 98.2 F 59 L 16 97/61 96 Weight Weight 166 lb I&O: 03/16/19 03/17/19 03/18/19 06:59 06:59 06:59 Intake Total 400 Balance 400 Result Diagrams: 03/17/19 05:16 03/17/19 05:16 Additional Labs: Labs and MARs reviewed by tx Hospitalist ROS - Review of Systems Cardiovascular: denies: chest pain, palpitations, orthopnea, paroxysmal noc. dyspnea, edema, light headedness Gastrointestinal: denies: nausea, vomiting, abdominal pain, diarrhea, constipation, melena, hematochezia - Medication Medications: Active Medications Generic Name Dose Route Start Last Admin Trade Name Freq PRN Reason Stop Dose Admin Famotidine 20 mg 03/17/19 09:00 03/17/19 08:37 Pepcid SLOW IVP 20 mg Q12HR JOSE Administration Sodium Chloride 1,000 mls @ 125 mls/hr 03/17/19 02:15 03/17/19 10:51 Normal Saline 0.9% IV 1,000 mls .Q8H JOSE Administration Metronidazole 500 mg/ Device 100 mls @ 100 mls/hr 03/17/19 03:00 03/17/19 14: 54 IVPB 100 mls 0300,0900,1500,2100 JOSE Administration Cefepime HCl 1 gm/ Sodium 100 mls @ 200 mls/hr 03/17/19 04:00 03/17/19 14:55 Chloride IVPB 100 mls 0400,1600 JOSE Administration Morphine Sulfate 4 mg 03/17/19 02:14 03/17/19 14:54 Morphine SLOW IVP 4 mg Q4H PRN Administration Breakthrough Pain Ondansetron HCl 4 mg 03/17/19 05:14 03/17/19 14:53 Zofran IVP 4 mg Q4H PRN Administration Nausea/Vomiting - Exam General Appearance: NAD Eye: anicteric sclera ENT: moist mucosa Neck: supple Heart: RRR Respiratory: CTAB, no wheezes Gastrointestinal: soft, non-tender Extremities: 1+ LE edema Neurological: no weakness Psychiatric: normal affect, normal behavior Hosp A/P (1) ESRD needing dialysis Code(s): N18.6 - END STAGE RENAL DISEASE; Z99.2 - DEPENDENCE ON RENAL DIALYSIS Status: Acute (2) DM2 (diabetes mellitus, type 2) Status: Acute
[2019-03-17] MEDS ORDERED: Clopidogrel Bisulfate 75 MG TAB ONE (20:05)
--- NOTE | 2019-03-17 21:12 | CON ---
DATE OF CONSULTATION: 03/17/2019 CHIEF COMPLAINT: Bloody diarrhea. HISTORY OF PRESENT ILLNESS: Ms. Tripathi is a 43-year-old woman who was admitted with bloody diarrhea and abdominal pain. She woke up yesterday morning and ate her usual breakfast with lucio and eggs, and just did not feel like finishing her meal, but otherwise would not have any problems. By 11 a.m., she started having sharp, diffuse abdominal pain and cramping that became continuous and worse and then developed diarrhea that then became bloody diarrhea. She has had probably 20 stools in the last 2 days with the bloody diarrhea, now she is mostly just passing all blood with her most recent bowel movements. She has had nausea, but not vomiting with this. No fever; however, her white blood cell count was noted to be elevated. No sick contacts. She had a cervical ablation procedure on . She had gastric sleeve surgery back in November. She states that she has been drinking her usual fluids and protein shakes since her gastric sleeve surgery. She runs in the mornings for 5 miles, typically 3 days per week, but the last day that she ran was on Tuesday. The day before the onset of her symptoms, she just had a cauliflower pizza, but no other food intake. Her weight has been stable lately. She has had no prior history of bloody diarrhea. No chronic symptoms to go with this. The pain has been a continuous sharp pain since its onset and it is diffuse in her abdomen and does not radiate. PAST MEDICAL HISTORY: Hypertension, arrhythmia, gastroesophageal reflux. PAST SURGICAL HISTORY: Sleeve gastrectomy in November of 2018, cholecystectomy, appendectomy, tubal ligation, hysterectomy, lumpectomy. FAMILY HISTORY: Negative for GI malignancy. SOCIAL HISTORY: No alcohol, tobacco, or drugs. ALLERGIES: DILAUDID. MEDICATIONS: Prior to admission include, 1. Biotin. 2. Metoprolol. 3. Percocet occasionally. She took one dose this past , but none since then. 4. Aspirin 81 mg daily. 5. Flecainide. 6. Gabapentin. 7. Tizanidine. REVIEW OF SYSTEMS: Negative x10 systems reviewed, except as stated in the history of present illness. PHYSICAL EXAMINATION: VITAL SIGNS: Temperature 98.2, pulse 59, blood pressure 97/61. GENERAL: She is in no acute distress. She is alert and oriented x3. HEENT: Eyes have no scleral icterus. Oropharynx is clear without lesions. No cervical or supraclavicular lymphadenopathy. LUNGS: Clear to auscultation bilaterally. HEART: Regular rate and rhythm with a 2/6 systolic murmur at the left lower sternal border. ABDOMEN: Diffusely tender to light palpation, but it is soft. Bowel sounds are present. EXTREMITIES: No lower extremity edema. NEUROLOGIC: Cranial nerves are gross grossly intact. LABORATORY DATA: Creatinine 0.66. White blood cell count 13.3, hemoglobin 12.8, platelets 167. Eosinophil count 0.3. Her bilirubin 0.5, AST 17, ALT 20, alkaline phosphatase 98, albumin 4.2. IMAGING STUDIES: She had a CT scan of the abdomen and pelvis yesterday, which showed thickening in the right and left colon, but more so on the left. The celiac artery, superior mesenteric artery, and inferior mesenteric artery were identified and appeared patent. IMPRESSION: Acute colitis with bloody diarrhea. She most likely has an acute infectious colitis. Her Clostridium difficile is negative. The Campylobacter and Shiga toxin antigens are negative. We will await culture and check ova and parasite. Other possibility would be ischemic colitis given that she has been on blood pressure medication and is at increased risk for dehydration given her sleeve gastrectomy. There is no obvious hypotensive episode leading up to this, however. At this point, the treatment will be the same with fluids and antibiotics. RECOMMENDATIONS: 1. Await stool culture and ova and parasites. 2. Continue antibiotics. She is on ceftriaxone and metronidazole now. 3. Her symptoms certainly could persist for the next 5 to 7 days. 4. Continue IV fluids. Job ID: [id number]
[2019-03-18] MEDS: Sodium Chloride 0.9% 1,000 ML IV SCH ×3 (00:30→17:04)
[2019-03-18] MEDS: Ondansetron PF 4 MG/2 ML Vial IVP PRN ×2 (01:08→07:34)
[2019-03-18] MEDS: Morphine 4 MG/ML VIAL SLOW IVP PRN ×4 (01:08→21:07)
[2019-03-18] MEDS: metroNIDAZOLE 500 MG in Premix Bag 1 BAG IVPB SCH ×4 (03:15→21:01)
[2019-03-18] MEDS: Cefepime 1 GM in Sodium Chloride 0.9% 100 ML IVPB SCH ×2 (03:21→15:43)
[2019-03-18] MEDS ORDERED: tiZANidine HCl 4 MG TAB PO PRN (08:34)
[2019-03-18] MEDS ORDERED: Promethazine HCl 25 MG/ML VIAL IM/IV PRN (08:35)
[2019-03-18] MEDS ORDERED: oxyCODONE/Acetaminophen 5 mg/325 mg Tablet PO PRN (08:42)
[2019-03-18 09:00] LABS: #Eosinphils 0.1 thou/uL (0.0-0.7); #Lymphocytes 2.2 thou/uL (1.20-3.40); #Monocytes 0.7 thou/uL (0.11-0.59); #Neutrophils 8.1 thou/uL (1.40-6.50); %Basophils 0.2 % (0.0-1.0); %Eosinophils 0.7 % (0.0-10.0); %Lymphocytes 19.6 % (21.0-51.0); %Monocytes 6.4 % (0.0-10.0); Mean Corpuscular HGB CONC 34.4 g/dL (32.0-36.0); Mean Corpuscular Hemoglobin 35.3 pg (27.0-31.0); Platelet Count 156 thou/uL (130-400); RBC Distribution Width 11.4 % (11.5-14.5); Red Blood Cell (RBC) Count 3.41 mill/uL (4.20-5.40)
[2019-03-18] MEDS ORDERED: BIOTIN PO SCH (09:00)
[2019-03-18 09:24] LABS: Anion Gap 12 mmol/L (10-20); BUN (Urea Nitrogen) 6 mg/dL (7.0-18.7); Calc. Creatinine Clearance 145 mL/min (70-130); Calcium 7.7 mg/dL (7.8-10.44); Carbon Dioxide 19 mmol/L (22-29); Chloride 111 mmol/L (98-107); Estimated GFR-MDRD Greater than 90; Glucose 75 mg/dL (70-105); Potassium 3.5 mmol/L (3.5-5.1); Sodium 138 mmol/L (136-145)
[2019-03-18] MEDS: Famotidine/PF 20 mg/2ml Vial SLOW IVP SCH ×2 (09:29→20:57)
[2019-03-18] MEDS: Flecainide 50 MG TAB PO SCH ×2 (09:29→20:59)
[2019-03-18] MEDS: Gabapentin 300 MG CAP PO SCH ×2 (09:30→20:59)
[2019-03-18] MEDS: Metoprolol Tartrate 50 MG TAB PO SCH ×2 (09:31→21:00)
--- NOTE | 2019-03-18 11:06 | PRG ---
DATE OF SERVICE: 03/18/2019 SUBJECTIVE: Ms. Tripathi continues to have diarrhea, nonproductive urges. She is feeling a little bit better today than she was yesterday. OBJECTIVE: VITAL SIGNS: Temperature is 98.3, pulse 62, blood pressure 112/66. GENERAL: She is in no acute distress. Alert and oriented x3. LUNGS: Clear to auscultation bilaterally. HEART: Regular rate and rhythm without murmur. ABDOMEN: Soft, tender diffusely to light palpation without guarding. Bowel sounds are present. EXTREMITIES: No lower extremity edema. IMPRESSION: Acute infectious colitis. It is possible that she has ischemic colitis. However, given the acute nature and thickening of both sides of the colon, I would favor infectious. The treatment is same at this point with antibiotics and IV fluids. She will just need more time to get better. We will continue clear liquids today, but advance when she feels ready. RECOMMENDATIONS: 1. Continue current treatment with fluids and antibiotics. 2. Continue clear liquids for now and advance when she feels ready. 3. Await stool culture and ova and parasite. Job ID: [id number]
[2019-03-18] MEDS ORDERED: traMADol HCl 50 MG TAB PO PRN ×2 (11:43)
[2019-03-18] MEDS ORDERED: Acetaminophen/Codeine 30-300mg Tablet PO PRN ×2 (11:45)
[2019-03-18] MEDS ORDERED: Fentanyl 100 MCG/2 ML VIAL SLOW IVP PRN (11:49)
--- NOTE | 2019-03-18 16:53 | PDOC.HOSPP ---
- Subjective Encounter Date: 03/18/19 Encounter Time: 10:00 Subjective: Pt seen for followup re: colitis. c/o abdo pain. c/o nausea. No fevers. No bowel movement since yesterday. - Objective Vital Signs & Weight: Vital Signs (12 hours) Temp Pulse Resp BP Pulse Ox 03/18/19 08:02 98.3 F 62 16 112/66 95 Weight Weight 166 lb I&O: 03/17/19 03/18/19 03/19/19 06:59 06:59 06:59 Intake Total 400 1700 Balance 400 1700 Result Diagrams: 03/18/19 08:50 03/18/19 08:50 Additional Labs: Labs and MARs reviewed by [facility] Hospitalist ROS - Review of Systems Cardiovascular: denies: chest pain, palpitations, orthopnea, paroxysmal noc. dyspnea, edema, light headedness Gastrointestinal: reports: nausea, abdominal pain. denies: vomiting, diarrhea, constipation, melena, hematochezia - Medication Medications: Active Medications Generic Name Dose Route Start Last Admin Trade Name Antoineq PRN Reason Stop Dose Admin Famotidine 20 mg 03/17/19 09:00 03/18/19 09:29 Pepcid SLOW IVP 20 mg Q12HR JOSE Administration Flecainide Acetate 50 mg 03/18/19 09:00 03/18/19 09:29 Tambocor PO 50 mg BID JOSE Administration Gabapentin 300 mg 03/18/19 09:00 03/18/19 09:30 Neurontin PO 300 mg BID JOSE Administration Sodium Chloride 1,000 mls @ 125 mls/hr 03/17/19 02:15 03/18/19 09:30 Normal Saline 0.9% IV 1,000 mls .Q8H JOSE Administration Metronidazole 500 mg/ Device 100 mls @ 100 mls/hr 03/17/19 03:00 03/18/19 15: 43 IVPB 100 mls 0300,0900,1500,2100 JOSE Administration Cefepime HCl 1 gm/ Sodium 100 mls @ 200 mls/hr 03/17/19 04:00 03/18/19 15:43 Chloride IVPB 100 mls 0400,1600 JOSE Administration Metoprolol Tartrate 50 mg 03/18/19 09:00 03/18/19 09:31 Lopressor PO Not Given BID JOSE Morphine Sulfate 4 mg 03/17/19 02:14 03/18/19 07:35 Morphine SLOW IVP 4 mg Q4H PRN Administration Breakthrough Pain Promethazine HCl 25 mg 03/18/19 08:35 03/18/19 11:10 Phenergan IM/IV 25 mg Q6H PRN Administration Nausea/Vomiting - Exam General Appearance: NAD Eye: anicteric sclera ENT: moist mucosa Neck: supple Heart: RRR Respiratory: CTAB Gastrointestinal: soft, normal bowel sounds, tender to palpation Skin: no rashes Psychiatric: normal affect Hosp A/P (1) Colitis Code(s): K52.9 - NONINFECTIVE GASTROENTERITIS AND COLITIS, UNSPECIFIED Status : Acute (2) Abdominal pain Code(s): R10.9 - UNSPECIFIED ABDOMINAL PAIN Status: Acute (3) Tachyarrhythmia Code(s): R00.0 - TACHYCARDIA, UNSPECIFIED Status: Chronic - Plan continue antibiotics, out of bed/ambulate, DVT proph w/SCDs Continue cefepime and Flagyl, follow stool studies. GI following. Trial fentanyl for pain. Continue flecainide.
[2019-03-19] MEDS: Promethazine HCl 25 MG in Sodium Chloride 0.9% 50 ML IVPB PRN ×3 (01:07→23:43)
[2019-03-19] MEDS: Sodium Chloride 0.9% 1,000 ML IV SCH ×4 (01:10→20:40)
[2019-03-19] MEDS: metroNIDAZOLE 500 MG in Premix Bag 1 BAG IVPB SCH ×4 (02:30→20:45)
[2019-03-19] MEDS: Cefepime 1 GM in Sodium Chloride 0.9% 100 ML IVPB SCH ×2 (03:06→16:59)
[2019-03-19 06:09] LABS: #Eosinphils 0.1 thou/uL (0.0-0.7); #Lymphocytes 2.3 thou/uL (1.20-3.40); #Monocytes 0.7 thou/uL (0.11-0.59); #Neutrophils 6.2 thou/uL (1.40-6.50); %Basophils 0.1 % (0.0-1.0); %Eosinophils 0.6 % (0.0-10.0); %Lymphocytes 25.1 % (21.0-51.0); %Monocytes 7.4 % (0.0-10.0); %Neutrophils 66.9 % (42.0-75.0); Hemoglobin 12.8 g/dL (12.0-16.0); Mean Corpuscular HGB CONC 34.1 g/dL (32.0-36.0); Mean Platelet Volume 10.5 fL (7.4-10.4); Platelet Count 164 thou/uL (130-400); RBC Distribution Width 11.5 % (11.5-14.5); Red Blood Cell (RBC) Count 3.65 mill/uL (4.20-5.40); White Blood Cell (WBC) Count 9.3 thou/uL (4.8-10.8)
[2019-03-19 06:26] LABS: Anion Gap 10 mmol/L (10-20); BUN (Urea Nitrogen) 5 mg/dL (7.0-18.7); Calc. Creatinine Clearance 138 mL/min (70-130); Calcium 7.8 mg/dL (7.8-10.44); Carbon Dioxide 22 mmol/L (22-29); Chloride 111 mmol/L (98-107); Estimated GFR-MDRD Greater than 90; Glucose 84 mg/dL (70-105); Potassium 3.4 mmol/L (3.5-5.1); Sodium 140 mmol/L (136-145)
[2019-03-19] MEDS ORDERED: Docusate 100 MG CAP PO PRN (08:43)
[2019-03-19] MEDS ORDERED: Potassium Chloride 20 MEQ TAB PO SCH (08:45)
[2019-03-19] MEDS: Flecainide 50 MG TAB PO SCH ×2 (09:18→20:45)
[2019-03-19] MEDS: Gabapentin 300 MG CAP PO SCH ×2 (09:19→20:44)
[2019-03-19] MEDS: Famotidine 20 MG TAB PO SCH ×2 (09:23→20:43)
[2019-03-19] MEDS: Aspirin Chewable 81 MG TAB PO SCH (09:23)
[2019-03-19] MEDS: Saccharomyces boulardii 250 MG CAP PO SCH (09:23)
[2019-03-19] MEDS: Metoprolol Tartrate 50 MG TAB PO SCH ×2 (09:24→20:44)
[2019-03-19] MEDS: Morphine 4 MG/ML VIAL SLOW IVP PRN (09:37)
--- NOTE | 2019-03-19 13:14 | PRG ---
DATE OF SERVICE: 03/19/2019 SUBJECTIVE: Ms. Tripathi had no bowel movements yesterday, but has had multiple liquidy stools today. She only has some flecks of blood in the stool now. She is tolerating some clear liquids but taking very little by mouth. She is having no fever. OBJECTIVE: VITAL SIGNS: Her temperature is 98, pulse 72, blood pressure 132/86. GENERAL: She is in no acute distress. Alert and oriented x3. LUNGS: Clear to auscultation bilaterally. HEART: Regular rate and rhythm. ABDOMEN: Tender diffusely with light palpation. Bowel sounds are present. EXTREMITIES: No lower extremity edema. LABORATORY DATA: White blood cell count has come down to 9.3, hemoglobin 12.8, platelets 11.5. Creatinine 0.62. IMPRESSION: Acute bloody diarrhea, most likely secondary to an acute infectious colitis. The final stool culture is pending. Ova and parasites have been collected and are pending. Clostridium difficile was negative. I would expect most likely the stools , but this is still most likely infectious source. Ischemic colitis would be another consideration, but less likely. There is no obvious reason for her to have ischemic colitis at this point. Also, the colon was inflamed on both sides of the colon with two different vascular supplies. Overall, I think she is clinically improving. She did have an uptake in her diarrhea today, but the bleeding has decreased, and her white blood cell count coming down. RECOMMENDATIONS: 1. Continue fluids and antibiotics. Continue to advance her diet as she tolerates. She can take Levsin as needed. 2. Await the final stool study results. Job ID: [id number]
[2019-03-19] MEDS: Morphine 2 MG/ML SYRINGE SLOW IVP PRN ×2 (14:02→20:32)
[2019-03-19] MEDS: Potassium Chloride 20 MEQ TAB PO SCH (17:00)
--- NOTE | 2019-03-19 22:52 | PDOC.HOSPP ---
- Subjective Encounter Date: 03/19/19 Encounter Time: 08:15 Subjective: Patient seen and examined for abd pain/colitis. Diarrhea/Nausea +. No new complaints. No overnight events - Objective Vital Signs & Weight: Vital Signs (12 hours) Temp Pulse Resp BP Pulse Ox 03/19/19 20:00 98.0 F 56 L 20 107/59 L 95 Weight Weight 166 lb I&O: 03/18/19 03/19/19 03/20/19 06:59 06:59 06:59 Intake Total 1700 1675 Balance 1700 1675 Result Diagrams: 03/19/19 05:44 03/19/19 05:44 Radiology Reviewed by me: Yes (CT abd - colitis) Hospitalist ROS - Review of Systems Cardiovascular: denies: chest pain, palpitations, orthopnea, paroxysmal noc. dyspnea, edema, light headedness, other Gastrointestinal: denies: nausea, vomiting, abdominal pain, diarrhea, constipation, melena, hematochezia, other - Medication Medications: Active Medications Generic Name Dose Route Start Last Admin Trade Name Freq PRN Reason Stop Dose Admin Aspirin 81 mg 03/19/19 09:00 03/19/19 09:23 Aspirin Chewable PO 81 mg DAILY JOSE Administration Famotidine 20 mg 03/19/19 09:00 03/19/19 20:43 Pepcid PO 20 mg BID JOSE Administration Flecainide Acetate 50 mg 03/18/19 09:00 03/19/19 20:45 Tambocor PO 50 mg BID JOSE Administration Gabapentin 300 mg 03/18/19 09:00 03/19/19 20:44 Neurontin PO 300 mg BID JOSE Administration Hyoscyamine Sulfate 0.125 mg 03/18/19 08:34 03/19/19 20:56 Levsin PO 0.125 mg Q4H PRN Administration Abdominal Distention Sodium Chloride 1,000 mls @ 125 mls/hr 03/17/19 02:15 03/19/19 20:40 Normal Saline 0.9% IV 1,000 mls .Q8H JOSE Administration Metronidazole 500 mg/ Device 100 mls @ 100 mls/hr 03/17/19 03:00 03/19/19 20: 45 IVPB 100 mls 0300,0900,1500,2100 JOSE Administration Cefepime HCl 1 gm/ Sodium 100 mls @ 200 mls/hr 03/17/19 04:00 03/19/19 16:59 Chloride IVPB 100 mls 0400,1600 JOSE Administration Promethazine HCl 25 mg/ Sodium 51 mls @ 204 mls/hr 03/19/19 00:55 03/19/19 14 :35 Chloride IVPB 51 mls Q6H PRN Administration Nausea/Vomiting Metoprolol Tartrate 50 mg 03/18/19 09:00 03/19/19 20:44 Lopressor PO Not Given BID JOSE Morphine Sulfate 2 mg 03/19/19 11:40 03/19/19 20:32 Morphine SLOW IVP 03/21/19 11:41 2 mg Q4H PRN Administration Breakthrough Pain Potassium Chloride 20 meq 03/19/19 17:00 03/19/19 17:00 K-Dur PO 20 meq BID-WM JOSE Administration Promethazine HCl 25 mg 03/18/19 08:35 03/18/19 11:10 Phenergan IM/IV 25 mg Q6H PRN Administration Nausea/Vomiting Saccharomyces Boulardii 250 mg 03/19/19 09:00 03/19/19 09:23 Florastor PO 250 mg DAILY JOSE Administration - Exam General Appearance: NAD Heart: RRR, no rubs Respiratory: CTAB, no rales Gastrointestinal: soft, normal bowel sounds, tender to palpation (mild - generalized) Extremities: no edema Hosp A/P (1) Infectious colitis Code(s): A09 - INFECTIOUS GASTROENTERITIS AND COLITIS, UNSPECIFIED Status: Acute (2) DM2 (diabetes mellitus, type 2) Status: Chronic (3) Hypokalemia Code(s): E87.6 - HYPOKALEMIA Status: Acute (4) Tachyarrhythmia Code(s): R00.0 - TACHYCARDIA, UNSPECIFIED Status: Chronic - Plan DVT proph w/SCDs Advance diet as tolerated Restart ASA Cont Atbx Cont other home meds as above
[2019-03-20] MEDS: metroNIDAZOLE 500 MG in Premix Bag 1 BAG IVPB SCH ×4 (02:45→20:54)
[2019-03-20] MEDS: Sodium Chloride 0.9% 1,000 ML IV SCH ×3 (02:45→19:18)
[2019-03-20] MEDS: Morphine 2 MG/ML SYRINGE SLOW IVP PRN ×2 (03:10→13:13)
[2019-03-20] MEDS: Cefepime 1 GM in Sodium Chloride 0.9% 100 ML IVPB SCH ×2 (03:15→16:28)
[2019-03-20] MEDS: Potassium Chloride 20 MEQ TAB PO SCH ×2 (08:14→16:30)
[2019-03-20] MEDS: Saccharomyces boulardii 250 MG CAP PO SCH (08:14)
[2019-03-20] MEDS: Cyanocobalamin (Vitamin B-12) 1,000 MCG TAB PO SCH (08:14)
[2019-03-20] MEDS: Flecainide 50 MG TAB PO SCH ×2 (08:14→20:37)
[2019-03-20] MEDS: Aspirin Chewable 81 MG TAB PO SCH (08:15)
[2019-03-20] MEDS: Folic Acid 1 MG TAB PO SCH (08:15)
[2019-03-20] MEDS: Metoprolol Tartrate 50 MG TAB PO SCH ×2 (08:15→20:54)
[2019-03-20] MEDS: Famotidine 20 MG TAB PO SCH ×2 (08:16→20:37)
[2019-03-20] MEDS: Multivit, Therapeutic 1 TAB PO SCH (08:16)
[2019-03-20] MEDS: Gabapentin 300 MG CAP PO SCH ×2 (08:16→20:37)
--- NOTE | 2019-03-20 16:07 | PDOC.HOSPP ---
- Subjective Encounter Date: 03/20/19 Encounter Time: 15:57 Subjective: Patient seen and examined for colitis. Had 3 loose BM with small amt of blood. Gen abd pain. Nausea +. No new complaints. No overnight events - Objective Vital Signs & Weight: Vital Signs (12 hours) Temp Pulse Resp BP Pulse Ox 03/20/19 12:00 98 F 55 L 17 117/71 93 L 03/20/19 07:57 98 F 53 L 17 123/78 95 Weight Weight 166 lb I&O: 03/19/19 03/20/19 03/21/19 06:59 06:59 06:59 Intake Total 1675 1999 Balance 1675 1999 Result Diagrams: 03/19/19 05:44 03/19/19 05:44 Hospitalist ROS - Review of Systems Respiratory: denies: cough, dry, shortness of breath, hemoptysis, SOB with excertion, pleuritic pain, sputum, wheezing, other Cardiovascular: denies: chest pain, palpitations, orthopnea, paroxysmal noc. dyspnea, edema, light headedness, other - Medication Medications: Active Medications Generic Name Dose Route Start Last Admin Trade Name Freq PRN Reason Stop Dose Admin Aspirin 81 mg 03/19/19 09:00 03/20/19 08:15 Aspirin Chewable PO 81 mg DAILY JOSE Administration Cyanocobalamin 1,000 mcg 03/20/19 09:00 03/20/19 08:14 Vitamin B-12 PO 1,000 mcg DAILY JOSE Administration Famotidine 20 mg 03/19/19 09:00 03/20/19 08:16 Pepcid PO 20 mg BID JOSE Administration Flecainide Acetate 50 mg 03/18/19 09:00 03/20/19 08:14 Tambocor PO 50 mg BID JOSE Administration Folic Acid 1 mg 03/20/19 09:00 03/20/19 08:15 Folvite PO 1 mg DAILY JOSE Administration Gabapentin 300 mg 03/18/19 09:00 03/20/19 08:16 Neurontin PO 300 mg BID JOSE Administration Hyoscyamine Sulfate 0.125 mg 03/18/19 08:34 03/20/19 03:11 Levsin PO 0.125 mg Q4H PRN Administration Abdominal Distention Sodium Chloride 1,000 mls @ 125 mls/hr 03/17/19 02:15 03/20/19 09:34 Normal Saline 0.9% IV 1,000 mls .Q8H JOSE Administration Metronidazole 500 mg/ Device 100 mls @ 100 mls/hr 03/17/19 03:00 03/20/19 14: 27 IVPB 100 mls 0300,0900,1500,2100 JOSE Administration Cefepime HCl 1 gm/ Sodium 100 mls @ 200 mls/hr 03/17/19 04:00 03/20/19 03:15 Chloride IVPB 100 mls 0400,1600 OJSE Administration Promethazine HCl 25 mg/ Sodium 51 mls @ 204 mls/hr 03/19/19 00:55 03/19/19 23 :43 Chloride IVPB 51 mls Q6H PRN Administration Nausea/Vomiting Metoprolol Tartrate 50 mg 03/18/19 09:00 03/20/19 08:15 Lopressor PO 50 mg BID JOSE Administration Morphine Sulfate 2 mg 03/19/19 11:40 03/20/19 13:13 Morphine SLOW IVP 03/21/19 11:41 2 mg Q4H PRN Administration Breakthrough Pain Multivitamins 1 tab 03/20/19 09:00 03/20/19 08:16 Theragran PO 1 tab DAILY JOSE Administration Oxycodone/Acetaminophen 1 tab 03/18/19 08:42 03/20/19 08:14 Percocet 5/325 PO 1 tab TIDPRN PRN Administration Severe Pain (7-10) Potassium Chloride 20 meq 03/19/19 17:00 03/20/19 08:14 K-Dur PO 20 meq BID-WM JOSE Administration Promethazine HCl 25 mg 03/18/19 08:35 03/18/19 11:10 Phenergan IM/IV 25 mg Q6H PRN Administration Nausea/Vomiting Saccharomyces Boulardii 250 mg 03/19/19 09:00 03/20/19 08:14 Florastor PO 250 mg DAILY JOSE Administration - Exam General Appearance: ill appearing Neck: supple, no JVD Heart: RRR, no gallops Respiratory: CTAB, no rales Gastrointestinal: soft, normal bowel sounds, tender to palpation Extremities: no edema Psychiatric: A&O x 3 Hosp A/P (1) Infectious colitis Code(s): A09 - INFECTIOUS GASTROENTERITIS AND COLITIS, UNSPECIFIED Status: Acute (2) DM2 (diabetes mellitus, type 2) Status: Chronic (3) Hypokalemia Code(s): E87.6 - HYPOKALEMIA Status: Acute (4) Tachyarrhythmia Code(s): R00.0 - TACHYCARDIA, UNSPECIFIED Status: Chronic - Plan Cont Full liqd diet Stool w/u and culture - negative Cont current Atbx Ambulate Cont other home meds as above DC in 24-48 hr if stable
[2019-03-20] MEDS: Promethazine HCl 25 MG in Sodium Chloride 0.9% 50 ML IVPB PRN (16:20)
--- NOTE | 2019-03-20 18:49 | PRG ---
DATE OF SERVICE: 03/20/2019 SUBJECTIVE: Ms. Tripathi had 8 or 9 bowel movements yesterday; however, she only had a couple of bowel movements this morning. She has no nausea or vomiting. She still has the abdominal pain, but is doing a little bit better today. OBJECTIVE: VITAL SIGNS: Temperature 98.0, pulse 53, blood pressure 118/62. GENERAL: She is in no acute distress. Alert and oriented x3. HEENT: Eyes have no scleral icterus. LUNGS: Clear to auscultation bilaterally. HEART: Regular rate and rhythm without murmur. ABDOMEN: Soft, diffusely tender, but less so than before. Her bowel sounds are present. EXTREMITIES: No lower extremity edema. LABORATORY DATA: Her final stool culture was negative for enteric pathogens. Her ova and parasite rapid screen was also negative. C difficile was negative. IMPRESSION: Acute colitis, most likely infectious. She is clinically improving. Ischemic colitis is a consideration. However, she really has no risk factors for that and her CT showed thickening on both sides of the colon, so this is again less likely. RECOMMENDATIONS: Continue current supportive management with fluids and antibiotics and time. She will continue full liquid diet, but if she is feeling better tomorrow, then she can advance her diet further. Job ID: [id number]
[2019-03-20] MEDS: Morphine 4 MG/ML VIAL SLOW IVP PRN (20:27)
[2019-03-21] MEDS: Promethazine HCl 25 MG in Sodium Chloride 0.9% 50 ML IVPB PRN ×3 (00:01→13:01)
[2019-03-21] MEDS: Sodium Chloride 0.9% 1,000 ML IV SCH (01:58)
[2019-03-21] MEDS: Morphine 4 MG/ML VIAL SLOW IVP PRN ×5 (01:59→23:57)
[2019-03-21] MEDS: metroNIDAZOLE 500 MG in Premix Bag 1 BAG IVPB SCH ×4 (04:08→21:23)
[2019-03-21] MEDS: Cefepime 1 GM in Sodium Chloride 0.9% 100 ML IVPB SCH ×2 (05:36→16:09)
[2019-03-21 05:52] LABS: Hemoglobin 13.8 g/dL (12.0-16.0); Platelet Count 196 thou/uL (130-400)
[2019-03-21 06:13] LABS: Albumin 3.4 g/dL (3.5-5.0); Anion Gap 10 mmol/L (10-20); BUN (Urea Nitrogen) 4 mg/dL (7.0-18.7); BUN/Creatinine Ratio 6.25; Calc. Creatinine Clearance 133 mL/min (70-130); Calcium 8.4 mg/dL (7.8-10.44); Carbon Dioxide 26 mmol/L (22-29); Chloride 111 mmol/L (98-107); Estimated GFR-MDRD Greater than 90; Glucose 96 mg/dL (70-105); Phosphorus 3.6 mg/dL (2.3-4.7); Potassium 3.8 mmol/L (3.5-5.1); Sodium 143 mmol/L (136-145)
[2019-03-21] MEDS: 1/2 NS w/KCL 20 mEq 1,000 ML IV SCH ×2 (08:09→22:02)
[2019-03-21] MEDS: Saccharomyces boulardii 250 MG CAP PO SCH (08:11)
[2019-03-21] MEDS: Cyanocobalamin (Vitamin B-12) 1,000 MCG TAB PO SCH (08:11)
[2019-03-21] MEDS: Famotidine 20 MG TAB PO SCH ×2 (08:11→21:24)
[2019-03-21] MEDS: Flecainide 50 MG TAB PO SCH ×2 (08:11→21:24)
[2019-03-21] MEDS: Multivit, Therapeutic 1 TAB PO SCH (08:11)
[2019-03-21] MEDS: Gabapentin 300 MG CAP PO SCH ×2 (08:12→21:24)
[2019-03-21] MEDS: Potassium Chloride 20 MEQ TAB PO SCH (08:12)
[2019-03-21] MEDS: Folic Acid 1 MG TAB PO SCH (08:12)
[2019-03-21] MEDS: Metoprolol Tartrate 50 MG TAB PO SCH ×2 (08:13→21:24)
--- NOTE | 2019-03-21 15:47 | PRG ---
DATE OF SERVICE: 03/21/2019 SUBJECTIVE: Ms. Tripathi is feeling better today. She ate solid food and then vomited some of that back up; however, still overall she is doing better today than the previous several days. She has had 2 bowel movements today. No blood in the stool. OBJECTIVE: VITAL SIGNS: Temperature 97.6, pulse 52, blood pressure 119/76. GENERAL: She is in no acute distress. Alert and oriented x3. LUNGS: Clear to auscultation bilaterally. HEART: Regular rate and rhythm without murmur. ABDOMEN: Soft. She is tender diffusely to palpation, but less so than over the last few days. Her bowel sounds are present. EXTREMITIES: No lower extremity edema. LABORATORY DATA: Hemoglobin is 13.8, creatinine is 0.64. IMPRESSION: Acute colitis, most likely an acute infectious colitis. Her stool studies have been negative. I think ischemic colitis is less likely without any other obvious risk factors and thickening of the colon on both sides of the colon. She is clinically significantly improving. Her white count has returned to normal. Her diarrhea is improving. Her abdominal pain is improving. RECOMMENDATIONS: Continue fluids and antibiotics. If she is doing much better tomorrow and tolerating her diet, then she should be able to discharge home soon and antibiotics course can be completed with just what she has received here in the hospital. Job ID: [id number]
--- NOTE | 2019-03-21 15:52 | PDOC.HOSPP ---
- Subjective Encounter Date: 03/21/19 Encounter Time: 08:45 Subjective: Patient seen and examined for abd pain/colitis. Diarrhea/abd pain slowly improving. No fever or chills. No new complaints. No overnight events - Objective Vital Signs & Weight: Vital Signs (12 hours) Temp Pulse Resp BP Pulse Ox 03/21/19 08:00 97.6 F 52 L 16 119/76 93 L Weight Weight 166 lb I&O: 03/20/19 03/21/19 03/22/19 06:59 06:59 06:59 Intake Total 1999 1480 150 Balance 1999 1480 150 Result Diagrams: 03/21/19 05:36 03/21/19 05:36 Hospitalist ROS - Review of Systems Respiratory: denies: cough, dry, shortness of breath, hemoptysis, SOB with excertion, pleuritic pain, sputum, wheezing, other Cardiovascular: denies: chest pain, palpitations, orthopnea, paroxysmal noc. dyspnea, edema, light headedness, other - Medication Medications: Active Medications Generic Name Dose Route Start Last Admin Trade Name Antoineq PRN Reason Stop Dose Admin Aspirin 81 mg 03/19/19 09:00 03/20/19 08:15 Aspirin Chewable PO 81 mg DAILY JOSE Administration Cyanocobalamin 1,000 mcg 03/20/19 09:00 03/21/19 08:11 Vitamin B-12 PO 1,000 mcg DAILY JOSE Administration Famotidine 20 mg 03/19/19 09:00 03/21/19 08:11 Pepcid PO 20 mg BID JOSE Administration Flecainide Acetate 50 mg 03/18/19 09:00 03/21/19 08:11 Tambocor PO 50 mg BID JOSE Administration Folic Acid 1 mg 03/20/19 09:00 03/21/19 08:12 Folvite PO 1 mg DAILY JOSE Administration Gabapentin 300 mg 03/18/19 09:00 03/21/19 08:12 Neurontin PO 300 mg BID JOSE Administration Hyoscyamine Sulfate 0.125 mg 03/18/19 08:34 03/21/19 12:14 Levsin PO 0.125 mg Q4H PRN Administration Abdominal Distention Metronidazole 500 mg/ Device 100 mls @ 100 mls/hr 03/17/19 03:00 03/21/19 08: 09 IVPB 100 mls 0300,0900,1500,2100 JOSE Administration Cefepime HCl 1 gm/ Sodium 100 mls @ 200 mls/hr 03/17/19 04:00 03/21/19 05:36 Chloride IVPB 100 mls 0400,1600 JOSE Administration Promethazine HCl 25 mg/ Sodium 51 mls @ 102 mls/hr 03/20/19 16:01 03/21/19 13 :01 Chloride IVPB 51 mls Q6H PRN Administration Nausea Potassium Chloride/Sodium Chloride 1,000 mls @ 75 mls/hr 03/21/19 06:30 03/21 08:09 1/2 Ns W/Kcl 20 Meq IV 1,000 mls .[id number] JOSE Administration Metoprolol Tartrate 50 mg 03/18/19 09:00 03/21/19 08:13 Lopressor PO Not Given BID JOSE Morphine Sulfate 4 mg 03/20/19 16:00 03/21/19 12:13 Morphine SLOW IVP 03/22/19 16:01 4 mg Q4H PRN Administration Severe Pain (7-10) Multivitamins 1 tab 03/20/19 09:00 03/21/19 08:11 Theragran PO 1 tab DAILY JOSE Administration Oxycodone/Acetaminophen 1 tab 03/18/19 08:42 03/20/19 08:14 Percocet 5/325 PO 1 tab TIDPRN PRN Administration Severe Pain (7-10) Potassium Chloride 20 meq 03/19/19 17:00 03/21/19 08:12 K-Dur PO 20 meq BID-WM JOSE Administration Saccharomyces Boulardii 250 mg 03/19/19 09:00 03/21/19 08:11 Florastor PO 250 mg DAILY JOSE Administration - Exam General Appearance: NAD Heart: RRR, no rubs Respiratory: CTAB, no rales Gastrointestinal: soft, non-distended, tender to palpation (mild) Neurological: no new deficit Hosp A/P (1) Infectious colitis Code(s): A09 - INFECTIOUS GASTROENTERITIS AND COLITIS, UNSPECIFIED Status: Acute (2) DM2 (diabetes mellitus, type 2) Status: Chronic (3) Hypokalemia Code(s): E87.6 - HYPOKALEMIA Status: Acute (4) Tachyarrhythmia Code(s): R00.0 - TACHYCARDIA, UNSPECIFIED Status: Chronic - Plan Advance diet to low residue Cont Cefepime and Flagyl Cont Florastor Cont Potassium supp Change IVF to 1/2 NS DC IVF when tolerated Cont other home meds as above DC in 24-48 hr if stable
[2019-03-22] MEDS: Promethazine HCl 25 MG in Sodium Chloride 0.9% 50 ML IVPB PRN ×2 (01:06→11:30)
[2019-03-22] MEDS: 1/2 NS w/KCL 20 mEq 1,000 ML IV SCH (01:43)
[2019-03-22] MEDS: metroNIDAZOLE 500 MG in Premix Bag 1 BAG IVPB SCH ×2 (03:21→09:15)
[2019-03-22] MEDS: Morphine 4 MG/ML VIAL SLOW IVP PRN ×2 (04:53→09:08)
[2019-03-22] MEDS: Cefepime 1 GM in Sodium Chloride 0.9% 100 ML IVPB SCH (04:54)
[2019-03-22] MEDS: Metoprolol Tartrate 50 MG TAB PO SCH (09:07)
[2019-03-22] MEDS: Folic Acid 1 MG TAB PO SCH (09:07)
[2019-03-22] MEDS: Gabapentin 300 MG CAP PO SCH (09:07)
[2019-03-22] MEDS: Saccharomyces boulardii 250 MG CAP PO SCH (09:07)
[2019-03-22] MEDS: Multivit, Therapeutic 1 TAB PO SCH (09:07)
[2019-03-22] MEDS: Cyanocobalamin (Vitamin B-12) 1,000 MCG TAB PO SCH (09:07)
[2019-03-22] MEDS: Flecainide 50 MG TAB PO SCH (09:07)
[2019-03-22] MEDS: Famotidine 20 MG TAB PO SCH (09:07)
--- NOTE | 2019-03-22 11:49 | DIS ---
DATE OF ADMISSION: 03/17/2019 DATE OF DISCHARGE: 03/22/2019 DISCHARGE DISPOSITION: Home. FOLLOWUP: 1. Follow up with primary care physician, Dr. Stubbs in [place] in 1 week. 2. Follow up with Dr. Velazquez, Gastroenterology in 1 to 2 weeks. ALLERGIES: THE PATIENT IS ALLERGIC TO HYDROMORPHONE. THE PATIENT WAS SEEN ON THE DAY OF DISCHARGE. DENIES ANY NEW COMPLAINTS. VITAL SIGNS ON THE DAY OF DISCHARGE SHOWED TEMPERATURE 98.2, PULSE OF 56, RESPIRATIONS OF 18, BLOOD PRESSURE OF 120/80 WITH O2 SATURATION 95% ON ROOM AIR. BRIEF HOSPITAL COURSE: The patient is a 43-year-old female with hypertension and gastric sleeve surgery in the past, presented to the hospital with abdominal discomfort along with diarrhea. CT scan of the abdomen in the emergency room was consistent with diffuse colitis, particularly more pronounced within the left colon. She was monitored on the medical floor. Her WBC count on admission was 16.4, that improved to 9.3. She was initially kept n.p.o. Her diet was gradually advanced. She is currently on low residue diet. She was evaluated by Gastroenterology, Dr. Velazquez as well. The patient has been cleared by Dr. Velazquez for discharge. Her abdominal pain has significantly improved. DISCHARGE MEDICATIONS: 1. Florastor 250 mg daily. 2. Multivitamin one tablet daily. 3. Phenergan as needed. 4. All other home medications were left unchanged. FINAL DIAGNOSES: 1. Sepsis secondary to diffuse colitis, suspected infectious. 2. Diabetes mellitus type 2. 3. Hypokalemia. 4. Dehydration. 5. Abdominal pain with diarrhea on admission improved. 6. History of gastric sleeve surgery. 7. History of atrial arrhythmia. 8. Hypertension. 9. 3.3 cm cyst in the region of the left adnexa. Primary care physician advised to follow. 10. Mild protein calorie malnutrition. 11. Metabolic acidosis on admission secondary to diarrhea. PLAN: Plan of care was discussed with the patient in detail. She stated understanding. Job ID: [id number]
[2019-03-22 12:10] VITALS: BP 121/88; TEMP 98.1
== END 2019-03-22 12:43 | disposition home or self-care (01) | DRG 391 ==
LOC: ERS 23:06 → T4-B 03-17 00:43
PROVIDERS: ADMIT Internal Medicine; ATTEND Internal Medicine
DX: A09 Infectious gastroenteritis and colitis, unspecified (principal); A41.9 Sepsis, unspecified organism; E87.2 Acidosis; E44.1 Mild protein-calorie malnutrition; Z98.84 Bariatric surgery status; K21.9 Gastro-esophageal reflux disease without esophagitis; I10 Essential (primary) hypertension; Z90.49 Acquired absence of other specified parts of digestive tract; Z88.8 Allergy status to other drugs, medicaments and biological substances; E87.6 Hypokalemia; Z79.82 Long term (current) use of aspirin; N83.8 Other noninflammatory disorders of ovary, fallopian tube and broad ligament; Z68.26 Body mass index [BMI] 26.0-26.9, adult; I48.91 Unspecified atrial fibrillation
CPT/HCPCS: 36415; 80048; 80069; 82274; 83735; 85014; 85018; 85025; 85049; 87045; 87046; 87324; 87328; 87329; 87427; 87449; 96374; 96375; J0692; J2270; J2405; J2550; J3010; J3480; J3490; S0028

== ENCOUNTER 2019-08-07 14:48 | Inpatient (IN) | payer OTHER ==
[2019-08-07 17:31] VITALS: BMI 20.6
[2019-08-07] MEDS ORDERED: Multivit, Adult Inj 10 ML VIAL IV SCH (18:30)
[2019-08-07] MEDS ORDERED: Sodium Chloride 0.9% (PF) 10 ML VIAL FS PRN (19:14)
[2019-08-07] MEDS ORDERED: Multivitamins, Adult 10 ML in Sodium Chloride 0.9% 500 ML IV SCH (20:00)
[2019-08-07] MEDS: Ketorolac Tromethamine 30 MG/ML VIAL IVP PRN (21:00)
[2019-08-07] MEDS: D5 1/2 NS w/20 mEq KCL 1,000 ML IV SCH (21:00)
[2019-08-08] MEDS: Ondansetron PF 4 MG/2 ML Vial IVP PRN ×2 (00:11→06:21)
--- NOTE | 2019-08-08 01:02 | HP ---
CHIEF COMPLAINT: Intractable vomiting. HISTORY OF PRESENT ILLNESS: This is a 43-year-old female, underwent sleeve gastrectomy in November of 2018. She said that over the last 2 months, she has had progressive dysphagia. She was supposed to see Dr. Velazquez in a couple of weeks. Over the last couple days, she has been unable to take anything by mouth without vomiting. She reports no flatus since yesterday. She had diarrhea yet last night. PAST MEDICAL HISTORY: Atrial arrhythmias, hypertension. PAST SURGICAL HISTORY: She has had a sleeve cholecystectomy, appendectomy, bilateral tubal ligation, total abdominal hysterectomy, lumpectomy. SOCIAL HISTORY: No tobacco or alcohol. FAMILY HISTORY: Noncontributory. MEDICATIONS: Include tizanidine one t.i.d., oxycodone, Levsin, flecainide, gabapentin, aspirin, Zofran, multivitamins, and Phenergan. OBJECTIVE: VITAL SIGNS: Her temperature is 97.4, pulse 68, blood pressure 114/69. GENERAL: She is awake, alert. She has an NG tube in place, is not actively vomiting at this time. HEENT: Unremarkable. LUNGS: Clear. HEART: Regular rate and rhythm. ABDOMEN: Soft, nondistended. She has some tenderness, but no peritoneal signs and it is fairly generalized. EXTREMITIES: Unremarkable. LABORATORY DATA: Her white count is 6.5, H and H 12 and 41, and platelet count 218. PTT 27. Electrolytes are fine. Liver function tests normal. Urinalysis showed trace ketones. CT scan of the abdomen and pelvis showed no free fluid, no free air, no abnormality. ASSESSMENT: Progressive dysphagia. PLAN: EKG, thiamine, multivitamins, Protonix, Toradol, GI consultation, hydration. Job ID: [id number]
[2019-08-08 05:35] LABS: #Eosinphils 0.1 thou/uL (0.0-0.7); #Lymphocytes 2.6 thou/uL (1.20-3.40); #Monocytes 0.6 thou/uL (0.11-0.59); %Basophils 0.6 % (0.0-1.0); %Eosinophils 2.2 % (0.0-10.0); %Lymphocytes 48.7 % (21.0-51.0); %Monocytes 10.9 % (0.0-10.0); %Neutrophils 37.6 % (42.0-75.0); Hemoglobin 11.2 g/dL (12.0-16.0); Mean Corpuscular HGB CONC 31.9 g/dL (32.0-36.0); Mean Corpuscular Hemoglobin 32.8 pg (27.0-31.0); Mean Platelet Volume 9.9 fL (7.4-10.4); Platelet Count 168 thou/uL (130-400); RBC Distribution Width 10.5 % (11.5-14.5); Red Blood Cell (RBC) Count 3.43 mill/uL (4.20-5.40); White Blood Cell (WBC) Count 5.3 thou/uL (4.8-10.8)
[2019-08-08] MEDS: Ketorolac Tromethamine 30 MG/ML VIAL IVP PRN ×2 (05:36→20:40)
[2019-08-08] MEDS: D5 1/2 NS w/20 mEq KCL 1,000 ML IV SCH ×3 (05:37→20:29)
[2019-08-08 05:53] LABS: Anion Gap 8 mmol/L (10-20); BUN (Urea Nitrogen) 7 mg/dL (7.0-18.7); Calc. Creatinine Clearance 108 mL/min (70-130); Calcium 7.7 mg/dL (7.8-10.44); Carbon Dioxide 25 mmol/L (22-29); Chloride 111 mmol/L (98-107); Estimated GFR-MDRD Greater than 90; Glucose 93 mg/dL (70-105); Potassium 3.8 mmol/L (3.5-5.1); Sodium 140 mmol/L (136-145)
[2019-08-08] MEDS ORDERED: Acetaminophen 650 MG Suppository PR PRN (08:54)
[2019-08-08] MEDS ORDERED: Acetaminophen 325 MG TAB PO PRN (08:54)
[2019-08-08] MEDS ORDERED: Pantoprazole 40 MG VIAL IVP SCH (09:00)
[2019-08-08] MEDS ORDERED: Enoxaparin Sodium 40 MG/0.4 ML SYRINGE SC SCH (09:00)
[2019-08-08] MEDS ORDERED: Multivit, Adult Inj 10 ML VIAL IV SCH (09:30)
[2019-08-08] MEDS ORDERED: Magnesium 2 GM/50 ML 2 GM in Premix Bag 1 BAG IVPB SCH (09:45)
--- NOTE | 2019-08-08 10:32 | CON ---
DATE OF CONSULTATION: 08/08/2019 REASON FOR CONSULTATION: Medical management. CHIEF COMPLAINT: Nausea and vomiting. HISTORY OF PRESENT ILLNESS: The patient is a 43-year-old female with progressive worsening dysphagia over the last 2 months or so, presented to the emergency room with intractable vomiting and nausea. She is admitted under General Surgery. She presented to [facility] initially and was transferred to this facility. She also has generalized abdominal pain. She has some loose stool as well. She was unable to keep any food down. The swallowing difficulty is mainly for solids. However, recently, she has difficulty with liquids as well. At this time, the patient's symptoms have partially improved. She has NG tube in place. PAST MEDICAL HISTORY: 1. Diabetes mellitus type 2, diet controlled. 2. History of atrial arrhythmias, on flecainide. 3. Hypertension. 4. History of left adnexal cyst. 5. Hospitalization for diffuse colitis in March of 2019. PAST SURGICAL HISTORY: 1. Gastric sleeve surgery. 2. Cholecystectomy. 3. Appendectomy. 4. Tubal ligation. 5. Hysterectomy. 6. Lumpectomy. ALLERGIES: THE PATIENT IS ALLERGIC TO DILAUDID. SOCIAL HISTORY: No smoking, alcohol, or drug use. FAMILY HISTORY: Negative for heart disease. REVIEW OF SYSTEMS: All other review of systems was reviewed and was found negative. CURRENT HOME MEDICATIONS: 1. Flecainide 25 mg b.i.d. 2. Gabapentin 300 mg b.i.d. 3. Oxycodone as needed. 4. Tizanidine as needed. 5. Phenergan as needed. 6. Multivitamin as needed. 7. Aspirin 81 mg daily. 8. Levsin as needed. 9. Zofran as needed. PHYSICAL EXAMINATION: VITAL SIGNS: In the emergency room showed temperature 97.4, pulse rate of 80, respirations of 20, blood pressure 131/85, with O2 saturation 100% on room air. GENERAL: A 43-year-old female, in mild distress due to abdominal discomfort. HEENT: Head, atraumatic and normocephalic. Sclerae are anicteric. Moist mucous membrane. NG tube noted. NECK: Supple. No JVD. LUNGS: Clear to auscultation bilaterally. No wheezing, rales, or rhonchi. HEART: S1 and S2 present. Regular. No rubs or gallops. ABDOMEN: Soft. Generalized tender. No guarding or rigidity. EXTREMITIES: No edema or calf tenderness. NEUROLOGIC: Grossly nonfocal. Moves all 4 extremities. PSYCHIATRIC: Alert, awake, and oriented x3. SKIN: Warm and dry. LYMPH NODES: No palpable lymph nodes in the neck. PERIPHERAL VASCULAR: Radial pulses palpable bilaterally. MUSCULOSKELETAL: No joint swelling or tenderness. LABORATORY FINDINGS: CBC showed WBC 5.3 with hemoglobin 11.2, hematocrit 35.3, platelets 168. Chemistry showed sodium 140, potassium 3.8, chloride 111, bicarb 25, BUN of 7, creatinine 0.61, magnesium 1.7. CT scan of the abdomen was negative for acute findings. IMPRESSION: 1. Nausea, vomiting, diarrhea with dysphagia. 2. History of atrial arrhythmia, on flecainide. 3. Hypertension. 4. History of diabetes mellitus in the past, currently diet controlled. 5. Hypomagnesemia. 6. Macrocytic anemia. Vitamin B12, thiamine, and folic acid were normal 4 months ago. 7. Dehydration. PLAN: The patient is currently admitted under General Surgery Service. We will continue NG tube suctioning. We will replace magnesium. Continue IV fluids with dextrose and potassium. DVT prophylaxis. We will resume low-dose aspirin after 24 hours. Resume gabapentin. Continue IV PPIs. Consult walking program. We will add IV morphine for pain control. She is allergic to hydromorphone, however, is able to tolerate IV morphine. The patient understands the above plan of care. Thank you, Dr. Thompson, for this consultation. We will follow with you. Job ID: [id number]
[2019-08-08] MEDS ORDERED: Lidocaine 1% PF 5 ML VIAL ONE (10:42)
[2019-08-08] MEDS ORDERED: PROPOFOL 200 MG/20 ML VIAL ONE (10:42)
--- NOTE | 2019-08-08 11:16 | PRG ---
DATE OF SERVICE: 08/08/2019 SUBJECTIVE: The patient is still having some nausea, but is better. She has had very minimal out through her NG tube. OBJECTIVE: GENERAL: She is not retching. She looks comfortable. VITAL SIGNS: Her temperature is 97.7, pulse is 58, blood pressure is 105/68. ABDOMEN: Soft, nondistended. Again, only about 50 mL out her NG tube. LABORATORY DATA: White count 5.3, H and H of 11 and 35, platelet count 168. Electrolytes are fine. ASSESSMENT: Intractable vomiting. PLAN: GI consultation. We will discontinue the NG tube. Job ID: [id number]
[2019-08-08] MEDS ORDERED: Promethazine HCl 25 MG/ML VIAL SLOW IVP PRN (13:57)
[2019-08-08] MEDS ORDERED: Promethazine HCl 25 MG/ML VIAL IM PRN (13:57)
[2019-08-08] MEDS ORDERED: Ondansetron HCl/PF 4 MG/2 ML Vial IVP PRN (13:57)
[2019-08-08] MEDS: Morphine 2 MG/ML SYRINGE SLOW IVP PRN ×2 (14:27→18:34)
[2019-08-08] MEDS: Flecainide 50 MG TAB PER TUBE SCH ×2 (14:28→20:39)
--- NOTE | 2019-08-08 17:06 | OP ---
DATE OF PROCEDURE: 08/08/2019 PROCEDURE PERFORMED: Esophagogastroduodenoscopy with biopsy and snare polypectomy. PREMEDICATION: Given by Anesthesiology Department. PREPROCEDURE DIAGNOSES: 1. Nausea, vomiting, and associated abdominal pain. 2. History of gastric sleeve, 11/2018. 3. Unremarkable abdominal and pelvic CT. POSTPROCEDURE DIAGNOSES: 1. Patent sleeve with a 1 cm linear ulcer at the proximal edge of the sleeve. 2. A 6 mm sessile antral polyp. 3. Otherwise, normal upper endoscopy without any evidence of gastric outlet obstruction. DESCRIPTION OF PROCEDURE: Written consents were obtained prior to procedure. After adequate sedation, forward-viewing endoscope was advanced down the stomach under direct vision to the third portion of the duodenum. The duodenum and the bulb appeared normal. Pylorus was patent. A 6 mm sessile polyp was noted in the gastric antrum. This was removed with snare electrocautery with good hemostasis and retrieved. The antrum appeared normal. The distal margin of the sleeve began at 45 cm, and the proximal margin of the sleeve is located at approximately 40 cm. GE junction is located at 36 cm. In the proximal margin, a 1 cm linear ulcer was seen. The sleeve itself appears normal. There was passage of the scope without resistance. Biopsies were obtained from the antrum for Helicobacter pylori. The GE junction and the esophagus appeared normal. ASSESSMENT: 1. Linear ulcer in the proximal edge of the sleeve, unknown whether this is the cause of her nausea and vomiting or not. 2. Antral polyp, status post polypectomy. 3. Otherwise, normal upper endoscopy. RECOMMENDATIONS: 1. Await biopsy result. 2. Pantoprazole 40 mg p.o. b.i.d. Job ID: [id number]
[2019-08-08] MEDS: Promethazine HCl 12.5 MG in Sodium Chloride 0.9% 50 ML IVPB PRN (17:14)
--- NOTE | 2019-08-08 17:57 | CON ---
DATE OF CONSULTATION: 08/08/2019 HISTORY OF PRESENT ILLNESS: Ms. Tripathi is a 43-year-old female, who was admitted to the hospital with chief complaint of having persistent nausea and vomiting. Her history is significant for gastric sleeve in November 2018, with subsequent 110-pound weight loss. She did fairly well until 4 months ago when she was admitted with bloody diarrhea and abdominal pain. CT scan performed at that time showed diffuse thickening of the colon consistent with colitis. Stool studies were negative. However, she was empirically treated with antibiotics for presumptive infectious colitis and eventually did make a full recovery. She was evaluated by Dr. Velazquez at that time. She now presents with a 2-month history of intermittent nausea and vomiting unrelated to eating. However, over the last 3 days, the nausea and vomiting had been more persistent to the point of not be able to keep anything down. She describes having diffuse abdominal pain without any localization. There is no evidence of GI bleeding such as melena, hematochezia, or rectal bleeding. She reports having lost 3 to 5 pounds over the last 1 week. PAST MEDICAL HISTORY: 1. Hypertension. 2. History of arrhythmia. 3. GE reflux disease. 4. Status post sleeve gastrectomy in 11/2018. 5. Status post cholecystectomy/appendectomy. 6. Status post tubal ligation. 7. Status post hysterectomy. 8. History of lumpectomy. ALLERGIES: HYDROMORPHONE. MEDICATIONS: At home include: 1. Tizanidine 1 mg t.i.d. as needed. 2. Levsin sublingual as needed. 3. Flecainide 25 mg b.i.d. 4. Gabapentin unknown dose p.o. b.i.d. 5. Aspirin 81 mg daily. 6. Multivitamin. 7. Percocet p.r.n. as needed for pain. SOCIAL HISTORY: The patient denies any tobacco or alcohol usage. FAMILY HISTORY: Negative for any known GI problem, liver disease, or GI malignancy. REVIEW OF SYSTEMS: Ten-point review of systems did not show any other pertinent positives or negatives. PHYSICAL EXAMINATION: VITAL SIGNS: Temperature is 97.7, blood pressure 105/68, pulse of 58. GENERAL: She is alert and comfortable from the NG tube, but otherwise in no distress. HEENT: Exam shows anicteric sclerae. Oropharynx is clear. NECK: Supple. CV: Shows normal S1 and S2. Regular rate and rhythm. CHEST: Shows breath sounds. ABDOMEN: Flat. No distention. No tympany. Mildly diffusely tender, but no peritoneal sign such as guarding or rebound. She does have active bowel sounds. EXTREMITIES: Exam shows no edema. LABORATORY DATA: WBCs 5.3, hemoglobin 11.2, platelet count 168. Electrolytes within normal range. Magnesium 1.7. ASSESSMENT: 1. Two-month history of intermittent nausea and vomiting, now with much more persistence. There is persistence of symptoms over the last 3 days. She does describe diffuse abdominal pain, but a benign abdomen on physical exam. 2. Status post sleeve gastrectomy in 11/2018. RECOMMENDATIONS: 1. Diagnostic upper endoscopy to evaluate for any peptic ulcer disease, gastric outlet obstruction, or any other etiology for her symptoms. 2. Further recommendation to follow pending above findings. Job ID: [id number]
[2019-08-08] MEDS: Gabapentin 300 MG CAP PO SCH (20:30)
[2019-08-09] MEDS: Morphine 2 MG/ML SYRINGE SLOW IVP PRN ×5 (00:03→22:28)
[2019-08-09] MEDS: Promethazine HCl 12.5 MG in Sodium Chloride 0.9% 50 ML IVPB PRN ×2 (00:22→08:23)
[2019-08-09] MEDS: D5 1/2 NS w/20 mEq KCL 1,000 ML IV SCH ×4 (02:56→20:11)
[2019-08-09 05:26] LABS: #Eosinphils 0.2 thou/uL (0.0-0.7); #Lymphocytes 2.4 thou/uL (1.20-3.40); #Monocytes 0.7 thou/uL (0.11-0.59); #Neutrophils 5.1 thou/uL (1.40-6.50); %Basophils 0.5 % (0.0-1.0); %Eosinophils 2.6 % (0.0-10.0); %Lymphocytes 28.4 % (21.0-51.0); %Monocytes 8.2 % (0.0-10.0); %Neutrophils 60.4 % (42.0-75.0); Hemoglobin 10.8 g/dL (12.0-16.0); Mean Corpuscular HGB CONC 32.6 g/dL (32.0-36.0); Mean Platelet Volume 10.3 fL (7.4-10.4); Platelet Count 166 thou/uL (130-400); RBC Distribution Width 10.5 % (11.5-14.5); Red Blood Cell (RBC) Count 3.18 mill/uL (4.20-5.40); White Blood Cell (WBC) Count 8.5 thou/uL (4.8-10.8)
[2019-08-09 05:46] LABS: ALT (SGPT) Less than 7 U/L (8-55); AST (SGOT) 13 U/L (5-34); Albumin 2.7 g/dL (3.5-5.0); Alkaline Phosphatase 64 U/L (40-110); Anion Gap 9 mmol/L (10-20); BUN (Urea Nitrogen) Less than 4 mg/dL (7.0-18.7); Bilirubin, Total 0.5 mg/dL (0.2-1.2); Calc. Creatinine Clearance 106 mL/min (70-130); Calcium 7.7 mg/dL (7.8-10.44); Carbon Dioxide 23 mmol/L (22-29); Chloride 111 mmol/L (98-107); Estimated GFR-MDRD Greater than 90; Globulin 2.2 g/dL (2.4-3.5); Glucose 88 mg/dL (70-105); Magnesium 1.8 mg/dL (1.6-2.6); Potassium 4.1 mmol/L (3.5-5.1); Protein, Total 4.9 g/dL (6.0-8.3); Sodium 139 mmol/L (136-145)
[2019-08-09] MEDS ORDERED: Magnesium Sulfate 2 GM in Sodium Chloride 0.9% 100 ML IVPB SCH (07:45)
[2019-08-09] MEDS ORDERED: Magnesium 2 GM/50 ML 2 GM in Premix Bag 1 BAG IVPB SCH (08:00)
[2019-08-09] MEDS: Gabapentin 300 MG CAP PO SCH ×2 (08:22→20:04)
[2019-08-09] MEDS: Flecainide 50 MG TAB PO SCH ×2 (08:23→20:04)
[2019-08-09] MEDS: Multivit, Therapeutic 1 TAB PO SCH (08:23)
[2019-08-09] MEDS ORDERED: Aspirin Chewable 81 MG TAB PO SCH (09:00)
[2019-08-09] MEDS ORDERED: Aspirin 325 MG TAB PO SCH (09:00)
--- NOTE | 2019-08-09 11:39 | PRG ---
DATE OF SERVICE: 08/09/2019 The patient had an EGD yesterday that showed a linear ulcer in the upper part of her sleeve. She was started on liquids, but she says that whenever she tries to drink anything it creates pain and nausea. OBJECTIVE: VITAL SIGNS: 98.2, pulse 73, blood pressure 98/57. GENERAL: She is awake, alert, does not appear to be in any distress. GI: Her abdomen is soft, nondistended, really no significant tenderness. LABORATORY DATA: White count is 8.5, H and H 10 and 33, platelet count 166. Electrolytes are okay. ASSESSMENT: Dysphagia related to this ulcer. PLAN: Repeat the CT with oral contrast just to be sure that there are no other anatomical issues and also start Carafate slurry. Job ID: [id number]
[2019-08-09] MEDS ORDERED: Iopamidol 370 76% 100 ML VIAL ONE (13:16)
[2019-08-09] MEDS: Metoclopramide HCl 10 MG/2 ML VIAL IVP PRN ×2 (13:43→20:03)
--- NOTE | 2019-08-09 14:55 | CT ---
CT abdomen with IV and oral contrast HISTORY: Abdominal pain. Odynophagia. Bariatric surgery. COMPARISON: 08/07/2019. FINDINGS: Minimal left pleural fluid and atelectasis at left base now evident. Postoperative changes of the stomach consistent with recent bariatric surgery. No fluid or contrast seen outside of the stomach or bowel. Large amount of stool within the partially visualized portions of the colon has increased. The gallbl adder is surgically absent. Pelvis was not imaged. IMPRESSION: Recent bariatric surgery. No evidence of complication. No acute abnormalities are demonst rated. Constipation.
[2019-08-09] MEDS: Promethazine 25 MG TAB PO PRN (15:39)
[2019-08-09] MEDS: Sucralfate 1 GM/10 ML UDCUP PO SCH (20:05)
--- NOTE | 2019-08-09 20:15 | PRG ---
DATE OF SERVICE: 08/09/2019 SUBJECTIVE: A 43-year-old female with worsening nausea along with vomiting and dysphagia of 2 months duration. The patient underwent EGD yesterday by Dr. Mcknight that showed 1 cm linear ulcer at the proximal edge of the sleeve. She continues to have some nausea. Abdominal pain has somewhat improved. No fever or chills reported. REVIEW OF SYSTEMS: No chest pain, palpitations, lightheadedness, dizziness, or syncope reported. OBJECTIVE: VITAL SIGNS: Temperature 97.3, pulse of 60, respirations 18, blood pressure of 100/63, respirations of 18, O2 saturation 98% on room air. GENERAL: A 43-year-old female, in no apparent distress. LUNGS: Clear to auscultation bilaterally. No wheezing, rales, or rhonchi. HEART: S1 and S2 present, regular. ABDOMEN: Soft. Mild epigastric tenderness. No rebound or guarding. Bowel sounds present. EXTREMITIES: No edema or calf tenderness. NEUROLOGIC: Grossly nonfocal. LABORATORY FINDINGS: Magnesium 1.8, creatinine 0.62, sodium 139, potassium 4.1. Hemoglobin 10.8, hematocrit 33.1. CT scan of the abdomen and pelvis by my review was negative for acute findings. It showed findings consistent with constipation. IMPRESSION: 1. Nausea, vomiting, diarrhea, probably due to gastric ulcer. 2. History of gastric sleeve in November of 2018. 3. History of atrial arrhythmia, on flecainide. 4. Hypomagnesemia. 5. Hypertension. 6. Macrocytic anemia. 7. Dehydration. 8. History of diabetes in the past. PLAN: Magnesium will be replaced. We will continue PPIs. We will reduce IV fluid to [address] scan was reviewed. The patient was advised to ambulate with a walking program. Continue flecainide and gabapentin. Sucralfate was added. We will continue clear liquid diet. Job ID: [id number]
[2019-08-09] MEDS: Ketorolac Tromethamine 30 MG/ML VIAL IVP PRN (20:35)
[2019-08-09] MEDS ORDERED: Enoxaparin Sodium 40 MG/0.4 ML SYRINGE SC SCH (21:00)
--- NOTE | 2019-08-09 21:11 | PRG ---
DATE OF SERVICE: 08/09/2019 SUBJECTIVE: Ms. Tripathi still has epigastric discomfort and nausea. She is tolerating some clear liquids now. OBJECTIVE: VITAL SIGNS: Temperature 98.4, pulse 68, and blood pressure 107/72. GENERAL: She is in no acute distress. Alert and oriented x3. LUNGS: Clear to auscultation bilaterally. HEART: Regular rate and rhythm without murmur. ABDOMEN: Soft, tender in the epigastric region without guarding. Bowel sounds are present. EXTREMITIES: No lower extremity edema. LABORATORY DATA: White blood cell count 8.5, hemoglobin 10.8, platelets 166, creatinine 0.62, bilirubin 0.5, and albumin 2.7. IMPRESSION: Gastric ulcer in the proximal stomach, which could be the cause of her nausea and epigastric abdominal pain. This is proximal to the gastric sleeve. She did undergo sleeve gastrectomy last spring. She has not been on a proton-pump inhibitor for the last few months and it may just be that she will clinically improve when she has been on the proton pump inhibitor for a couple weeks. In the meantime, we will try to optimize her nutrition with full liquids and protein supplementation. RECOMMENDATIONS: 1. Proton-pump inhibitor daily. 2. We will try to advance to full liquid diet in the morning. However, it could take a couple of weeks before we see full benefit from the proton-pump inhibitor and healing hopefully of the ulceration. Job ID: [id number]
[2019-08-10] MEDS: Promethazine 25 MG TAB PO PRN ×2 (03:52→10:57)
[2019-08-10] MEDS: Morphine 2 MG/ML SYRINGE SLOW IVP PRN ×3 (03:53→13:59)
[2019-08-10] MEDS: Metoclopramide HCl 10 MG/2 ML VIAL IVP PRN (08:55)
[2019-08-10] MEDS: Flecainide 50 MG TAB PO SCH (08:55)
[2019-08-10] MEDS: Gabapentin 300 MG CAP PO SCH (08:56)
[2019-08-10] MEDS: Multivit, Therapeutic 1 TAB PO SCH (08:57)
[2019-08-10] MEDS: Sucralfate 1 GM/10 ML UDCUP PO SCH (08:59)
[2019-08-10] MEDS ORDERED: Clopidogrel Bisulfate 75 MG TAB PO SCH (09:00)
--- NOTE | 2019-08-10 09:29 | PDOC.HOSPP ---
- Subjective Encounter Date: 08/10/19 Encounter Time: 08:00 Subjective: Patient seen and examined for for med mngt. Some nausea without vomiting. Abd pain slightly better. No new complaints. No overnight events - Objective Vital Signs & Weight: Vital Signs (12 hours) Temp Pulse Resp BP Pulse Ox 08/10/19 07:52 98 F 67 20 100/63 94 L 08/10/19 03:56 97.6 F 70 16 101/66 96 08/10/19 00:12 98.1 F 72 16 103/64 97 Weight Weight 127 lb 13.89 oz I&O: 08/09/19 08/10/19 08/11/19 06:59 06:59 06:59 Intake Total 4440 3230 Output Total 2900 2500 Balance 1540 730 Result Diagrams: 08/09/19 04:53 08/09/19 04:53 Radiology Reviewed by me: Yes (CT abd - negative) Hospitalist ROS - Review of Systems Respiratory: denies: cough, dry, shortness of breath, hemoptysis, SOB with excertion, pleuritic pain, sputum, wheezing, other Cardiovascular: denies: chest pain, palpitations, orthopnea, paroxysmal noc. dyspnea, edema, light headedness, other - Medication Medications: Active Medications Generic Name Dose Route Start Last Admin Trade Name Freq PRN Reason Stop Dose Admin Clopidogrel Bisulfate 75 mg 08/10/19 09:00 08/10/19 08:56 Plavix PO 75 mg DAILY JOSE Administration Enoxaparin Sodium 40 mg 08/09/19 21:00 08/09/19 20:05 Lovenox SC 40 mg 2100 JOSE Administration Flecainide Acetate 25 mg 08/09/19 09:00 08/10/19 08:55 Tambocor PO 25 mg BID JOSE Administration Gabapentin 300 mg 08/08/19 21:00 08/10/19 08:56 Neurontin PO 300 mg BID JOSE Administration Thiamine HCl 100 mg/ Sodium 51 mls @ 100 mls/hr 08/07/19 20:00 08/09/19 20:04 Chloride IVPB 51 mls 2000 JOSE Administration Promethazine HCl 12.5 mg/ 50.5 mls @ 102 mls/hr 08/08/19 08:40 08/09/19 08:23 Sodium Chloride IVPB 50.5 mls Q6H PRN Administration Nausea Potassium Chloride/Dextrose/Sod Cl 1,000 mls @ 70 mls/hr 08/09/19 07:42 08/09 20:11 D5 1/2 Ns W/20 Meq Kcl IV 1,000 mls .[id number] JOSE Administration Metoclopramide HCl 10 mg 08/09/19 08:44 08/10/19 08:55 Reglan IVP 10 mg Q6H PRN Administration Nausea/Vomiting Morphine Sulfate 2 mg 08/08/19 08:40 08/10/19 08:57 Morphine SLOW IVP 08/11/19 08:41 2 mg Q4H PRN Administration Pain Multivitamins 1 tab 08/09/19 09:00 08/10/19 08:57 Theragran PO Not Given DAILY JOSE Pantoprazole Sodium 40 mg 08/08/19 21:00 08/10/19 08:56 Protonix PO 40 mg BID JOSE Administration Promethazine HCl 25 mg 08/09/19 07:42 08/10/19 03:52 Phenergan PO 25 mg Q6H PRN Administration Nausea Sucralfate 1 gm 08/09/19 21:00 08/10/19 08:59 Carafate PO 1 gm BID JOSE Administration - Exam General Appearance: NAD Heart: RRR, no gallops Respiratory: no wheezes, no rales Gastrointestinal: soft, non-distended, normal bowel sounds, no guarding, no rigidity, tender to palpation Neurological: no new deficit Hosp A/P - Plan DVT proph w/SCDs IMPRESSION: 1. Nausea, vomiting, diarrhea, probably due to gastric ulcer. 2. History of gastric sleeve in November of 2018. 3. History of atrial arrhythmia, on flecainide. 4. Hypomagnesemia - replaced. 5. Hypertension. 6. Macrocytic anemia. 7. Dehydration. 8. History of diabetes in the past. PLAN: Continue PPIs/Sucralfate Cont gentle IVF Pain control Continue flecainide and gabapentin. Advance diet as tolerated Consult paper cutter
[2019-08-10 11:19] VITALS: TEMP 97.6
--- NOTE | 2019-08-10 15:34 | PRG ---
DATE OF SERVICE: 08/10/2019 SUBJECTIVE: Ms. Tripathi feels a little better today. She has continued her proton pump inhibitor. She is tolerating some full liquids. She is taking the Ensure, but did vomit a small amount this morning. She is taking in more than she missed on. OBJECTIVE: VITAL SIGNS: Temperature is 97.6, pulse 70, and blood pressure 104/71. GENERAL: She is in no acute distress. Alert and oriented x3. LUNGS: Clear to auscultation bilaterally. HEART: Regular rate and rhythm without murmur. ABDOMEN: Soft. Mild tenderness in the epigastric region without guarding. Bowel sounds are present. EXTREMITIES: No lower extremity edema. IMPRESSION: 1. Nausea and vomiting and upper abdominal pain. 2. Proximal gastric ulcer above the level of the gastric sleeve. This could be the cause of her symptoms and she will be treated with a proton pump inhibitor and continued on full liquids for now. RECOMMENDATIONS: 1. She will continue proton pump inhibitor and full liquids. 2. Anticipate discharge home today. Job ID: [id number]
[2019-08-10 17:46] VITALS: BP 104/69
--- NOTE | 2019-08-13 09:32 | DIS ---
DATE OF ADMISSION: 08/07/2019 DATE OF DISCHARGE: 08/10/2019 DISCHARGE DIAGNOSES: Gastric ulcer, nausea, vomiting, dehydration. PROCEDURES DURING ADMISSION: EGD, CT scan of abdomen and pelvis with contrast. HOSPITAL COURSE: The patient was admitted. She was given IV fluids, antiemetics. NG tube was placed for the first night to control emesis. GI saw her. They performed endoscopy that showed an ulcer of the upper portion of the stomach as the probable source. The patient had been taking aspirin for heart valvular issues. The aspirin was stopped. She was treated with proton pump inhibitor. She is feeling much better. She is tolerating full liquids. She is discharged home on full liquid diet. We switched her aspirin to Plavix. We will continue Dexilant. She will follow up with me in 2 weeks. Job ID: [id number]
== END 2019-08-10 15:25 | disposition home or self-care (01) | DRG 384 ==
LOC: SURG B 16:46
PROVIDERS: ADMIT Surgery; ATTEND Surgery
PROC: 0DB78ZZ Excision of Stomach, Pylorus, Via Natural or Artificial Opening Endoscopic (ICD-10-PCS; principal; 2019-08-08)
PROC: 0DB78ZX Excision of Stomach, Pylorus, Via Natural or Artificial Opening Endoscopic, Diagnostic (ICD-10-PCS; 2019-08-08)
DX: K25.9 Gastric ulcer, unspecified as acute or chronic, without hemorrhage or perforation (principal); I10 Essential (primary) hypertension; Z90.49 Acquired absence of other specified parts of digestive tract; Z98.51 Tubal ligation status; Z90.710 Acquired absence of both cervix and uterus; E11.9 Type 2 diabetes mellitus without complications; E83.42 Hypomagnesemia; D53.9 Nutritional anemia, unspecified; E86.0 Dehydration; K21.9 Gastro-esophageal reflux disease without esophagitis; K31.7 Polyp of stomach and duodenum; Z98.84 Bariatric surgery status; Z88.8 Allergy status to other drugs, medicaments and biological substances; Z79.82 Long term (current) use of aspirin; Z79.899 Other long term (current) drug therapy
CPT/HCPCS: 36415; 74160; 80048; 80053; 83735; 84425; 85025; 88305; 88312; C9113; J1650; J1885; J2001; J2270; J2405; J2550; J2704; J2765; J3411; J3475; J7050; Q0169; Q9967

== ENCOUNTER 2019-10-24 14:23 | Outpatient (CLI) | payer OTHER ==
[2019-10-24 15:20] LABS: #Basophils 0.1 thou/uL (0.0-0.2); #Eosinphils 0.1 thou/uL (0.0-0.7); #Lymphocytes 2.5 thou/uL (1.20-3.40); #Monocytes 0.4 thou/uL (0.11-0.59); #Neutrophils 2.9 thou/uL (1.40-6.50); %Basophils 1.1 % (0.0-1.0); %Eosinophils 1.3 % (0.0-10.0); %Lymphocytes 42.2 % (21.0-51.0); %Monocytes 6.1 % (0.0-10.0); %Neutrophils 49.4 % (42.0-75.0); Mean Corpuscular Hemoglobin 34.1 pg (27.0-31.0); Mean Platelet Volume 10.4 fL (7.4-10.4); Platelet Count 195 thou/uL (130-400); RBC Distribution Width 10.7 % (11.5-14.5); Red Blood Cell (RBC) Count 4.12 mill/uL (4.20-5.40); White Blood Cell (WBC) Count 5.8 thou/uL (4.8-10.8)
[2019-10-24 15:41] LABS: ALT (SGPT) 13 U/L (8-55); AST (SGOT) 20 U/L (5-34); Albumin 4.7 g/dL (3.5-5.0); Alkaline Phosphatase 98 U/L (40-110); Anion Gap 16 mmol/L (10-20); BUN (Urea Nitrogen) 10 mg/dL (7.0-18.7); Bilirubin, Total 0.5 mg/dL (0.2-1.2); Calc. Creatinine Clearance 0 mL/min (70-130); Calcium 9.5 mg/dL (7.8-10.44); Carbon Dioxide 23 mmol/L (22-29); Chloride 107 mmol/L (98-107); Estimated GFR-MDRD 80; Globulin 3.2 g/dL (2.4-3.5); Glucose 75 mg/dL (70-105); Potassium 3.8 mmol/L (3.5-5.1); Protein, Total 7.9 g/dL (6.0-8.3); Sodium 142 mmol/L (136-145)
--- NOTE | 2019-10-26 06:56 | EKG ---
Test Reason : PREOP Blood Pressure : / mmHG Vent. Rate : 070 BPM Atrial Rate : 070 BPM P-R Int : 130 ms QRS Dur : 134 ms QT Int : 426 ms P-R-T Axes : 066 110 056 degrees QTc Int : 460 ms Normal sinus rhythm Right bundle branch block Abnormal ECG Confirmed by DR. Minda TANNER ([id number]) on 10/26/2019 6:55:48 AM Referred By: ISAIAS Confirmed By:DR. Minda TANNER
== END 2019-10-24 14:24 | disposition home or self-care (01) ==
LOC: LABBT 14:23
PROVIDERS: ATTEND Surgery
DX: Z01.818 Encounter for other preprocedural examination (principal); E43 Unspecified severe protein-calorie malnutrition; R13.10 Dysphagia, unspecified
CPT/HCPCS: 80053; 85025; 93005; 93010

== ENCOUNTER 2019-10-24 14:30 | Inpatient (IN) | payer OTHER ==
[2019-10-31] MEDS ORDERED: Bupivacaine 0.25% HCL 30 ML VIAL ONE (06:42)
[2019-10-31] MEDS ORDERED: Lidocaine 1% w/Epinephrine 1:100K 20 ML VIAL ONE (06:42)
[2019-10-31] MEDS ORDERED: Heparin 5,000 UNITS/ML VIAL ONE (06:51)
[2019-10-31] MEDS ORDERED: Midazolam HCl 2 mg/2 ml Vial ONE (07:10)
[2019-10-31] MEDS ORDERED: Fentanyl 250 MCG/5 ML VIAL ONE ×2 (07:17→10:23)
[2019-10-31] MEDS ORDERED: PROPOFOL 200 MG/20 ML VIAL ONE (08:17)
[2019-10-31] MEDS ORDERED: Ondansetron PF 4 MG/2 ML Vial ONE (08:17)
[2019-10-31] MEDS ORDERED: Rocuronium Bromide 10 MG/ML (10ML VIAL) ONE (08:17)
[2019-10-31] MEDS ORDERED: Metoprolol Tartrate 5 MG/5 ML VIAL ONE (08:17)
[2019-10-31] MEDS ORDERED: Heparin 1,000 UNITS/ML VIAL ONE (09:04)
[2019-10-31] MEDS ORDERED: Fentanyl 100 MCG/2 ML VIAL ONE ×3 (10:25→14:22)
[2019-10-31] MEDS ORDERED: SUGAMMADEX SODIUM 200 MG/2 ML VIAL ONE (11:06)
[2019-10-31] MEDS ORDERED: hydrALAZINE 20 MG/ML VIAL SLOW IVP PRN (11:21)
[2019-10-31] MEDS ORDERED: Dextrose 50% Abboject 50 ML SYRINGE SLOW IVP PRN (11:21)
[2019-10-31] MEDS ORDERED: Promethazine HCl 25 MG/ML VIAL IM PRN ×2 (11:21→11:24)
[2019-10-31] MEDS ORDERED: Dextrose 5% in Water 1,000 ML IV PRN (11:21)
[2019-10-31] MEDS ORDERED: diphenhydrAMINE 50 MG/ML VIAL IVP PRN ×2 (11:21→11:24)
[2019-10-31] MEDS ORDERED: Ondansetron PF 4 MG/2 ML Vial IVP PRN (11:21)
[2019-10-31] MEDS ORDERED: Naloxone HCl 0.4 mg/ml Vial IV PRN (11:24)
[2019-10-31] MEDS ORDERED: diphenhydrAMINE 25 MG CAP PO PRN (11:24)
[2019-10-31] MEDS ORDERED: diphenhydrAMINE 50 MG/ML VIAL IM PRN (11:24)
[2019-10-31] MEDS ORDERED: Ondansetron HCl/PF 4 MG/2 ML Vial IVP PRN ×2 (11:24→12:18)
[2019-10-31] MEDS ORDERED: Promethazine HCl 25 MG/ML VIAL SLOW IVP PRN (11:24)
[2019-10-31] MEDS ORDERED: Communication Order-Pharmacy FS SCH (11:30)
[2019-10-31] MEDS ORDERED: Meperidine HCl/PF 25 MG/ML VIAL ONE (11:41)
[2019-10-31] MEDS ORDERED: Meperidine HCl/PF 25 MG/ML VIAL IV PRN (12:18)
[2019-10-31] MEDS ORDERED: Meperidine HCl/PF 25 MG/ML VIAL SLOW IVP PRN (12:18)
[2019-10-31] MEDS ORDERED: Promethazine HCl 25 MG/ML VIAL IM/IV PRN (12:18)
--- NOTE | 2019-10-31 13:08 | OP ---
DATE OF PROCEDURE: 10/31/2019 PREOPERATIVE DIAGNOSES: Severe malnutrition, dysphagia, one year after sleeve gastrectomy. FINDINGS: Very large hiatal hernia with a partial gastric obstruction due to adhesions within the hiatal hernia, severe angulation of the sleeve. PROCEDURE PERFORMED: Laparoscopic Kelly-en-Y gastric bypass, esophagogastroduodenoscopy, and hiatal hernia repair. DESCRIPTION OF PROCEDURE: After informed consent was obtained, the patient was taken to the operating room, given general endotracheal anesthesia, placed in supine position. Abdomen was prepped and draped in usual fashion. Local anesthesia infiltrated subcutaneously and deep. A 12 mm incision was performed approximately 8 inches above the xiphoid slightly to the left. Veress needle inserted. Drop test performed. Pneumoperitoneum was created to a volume of 2 L of carbon dioxide. Utilizing a bladeless 12 mm trocar and 0-degree laparoscope, direct visual entry in abdominal cavity was performed, pneumoperitoneum was created to a pressure of 15 mmHg. A 0-degree laparoscope inserted under direct vision, one 12 mm port was placed on the left and two on the right. The ligament of Treitz was found, 50 cm measured off, and the jejunum was divided utilizing the 90 mm white load stapler. Then, distally it was measured off 80 cm, and a [id number] functional end-to-end anastomosis was performed. The enterotomies were performed, the linear 60 mm white load stapler was placed within each limb of bowel, closed and fired. The common enterotomy was inspected, no bleeding. Common enterotomy closed with a running PDS V-Loc. Then, the patient was placed in reverse Trendelenburg position. Carline liver retractor inserted. Left lobe of liver retracted superiorly, noticed a large hiatal hernia. I had to dissect this out, there was a lot of scarring, the sleeve of the stomach was angulated and scarred within the hiatal hernia. I was able to get it all dissected out. Then, distal to the right gastric artery, the sleeve was divided with a 60 mm blue load stapler. Then, the Kelly limb was brought up, after the potential hernia space of Williamson was closed with a 2-0 silk suture tied intracorporeally, a gastrotomy was performed first with electrocautery, then further dilated with [place] dissector and then a blunt dissector. Then enterotomy was performed in the Kelly limb. The linear 60 mm blue load stapler was inserted, one limb in the Kelly limb, one limb in the gastric pouch, closed and fired. The common enterotomy closed with a running 3-0 V-Loc PDS. Then, endoscopy was performed. There was a blind pouch. There was no opening there. So, I took this down. It turned out, I had gone submucosal, did not enter the mucosa, so I took off this, divided the Kelly limb just distal to this and took that tissue off the stomach, using the scope as an internal guide, it was very difficult to get through the mucosa for some reason. I was able to cauterize down to the mucosa, then finally was able to right on the scope, open up that mucosa. Allowed the scope to penetrate so that I could be sure I got this within the lumen. Then, again in the Kelly limb, an enterotomy was performed on the side. The blue load 60 mm stapler inserted in the Kelly limb, then into this gastric pouch through the defined mucosal opening. I looked back with the scope and ensured that the silver of the scope was within the stomach and it was. This was closed, held for 20 seconds and fired. The common enterotomy closed with a running 3-0 PDS V-Loc, then re-scoped and checked for air. There was no air leak. It was patent into the Kelly limb. The stomach decompressed. Scope removed. Hemostasis was assured. The fascia closed with a 2-0 Vicryl in the GraNee needle. Skin closed with interrupted 4-0 Rapide. Dermabond applied. The patient tolerated the procedure well, transferred to Recovery in good condition. Sponge and needle count verified correct x2. Job ID: [id number]
[2019-10-31] MEDS: Ketorolac Tromethamine 30 MG/ML VIAL IVP SCH ×3 (15:51→23:19)
[2019-10-31] MEDS: 1/2 NS w/KCL 20 mEq 1,000 ML IV SCH ×3 (15:51→19:57)
[2019-10-31] MEDS ORDERED: Sodium Chloride 0.9% 500 ML IV SCH (17:00)
[2019-10-31 17:26] LABS: #Lymphocytes 0.3 thou/uL (1.20-3.40); #Monocytes 0.5 thou/uL (0.11-0.59); #Neutrophils 9.5 thou/uL (1.40-6.50); %Basophils 0.2 % (0.0-1.0); %Eosinophils 0.1 % (0.0-10.0); %Lymphocytes 3.2 % (21.0-51.0); %Monocytes 4.8 % (0.0-10.0); %Neutrophils 91.8 % (42.0-75.0); Hemoglobin 12.6 g/dL (12.0-16.0); Mean Corpuscular HGB CONC 33.8 g/dL (32.0-36.0); Mean Corpuscular Hemoglobin 34.4 pg (27.0-31.0); Mean Platelet Volume 9.4 fL (7.4-10.4); Platelet Count 152 thou/uL (130-400); RBC Distribution Width 10.6 % (11.5-14.5); Red Blood Cell (RBC) Count 3.66 mill/uL (4.20-5.40); White Blood Cell (WBC) Count 10.4 thou/uL (4.8-10.8)
[2019-10-31] MEDS ORDERED: Flecainide 50 MG TAB PO SCH (17:45)
[2019-10-31] MEDS ORDERED: Fentanyl 100 MCG/2 ML VIAL SLOW IVP PRN (18:28)
[2019-10-31] MEDS: Ondansetron PF 4 MG/2 ML Vial IVP PRN (19:03)
[2019-10-31] MEDS: Zolpidem Tartrate 5 MG TAB PO PRN (20:20)
[2019-11-01] MEDS: fentaNYL Citrate/PF 2,000 MCG in Sodium Chloride 0.9% 60 ML IV PRN ×2 (04:19→15:53)
[2019-11-01] MEDS: Ketorolac Tromethamine 30 MG/ML VIAL IVP SCH ×4 (04:59→23:04)
[2019-11-01 05:19] LABS: #Lymphocytes 1.2 thou/uL (1.20-3.40); #Monocytes 0.3 thou/uL (0.11-0.59); #Neutrophils 7.5 thou/uL (1.40-6.50); %Basophils 0.3 % (0.0-1.0); %Eosinophils 0.2 % (0.0-10.0); %Lymphocytes 13.4 % (21.0-51.0); %Monocytes 2.8 % (0.0-10.0); %Neutrophils 83.4 % (42.0-75.0); Hemoglobin 11.6 g/dL (12.0-16.0); Mean Corpuscular HGB CONC 33.6 g/dL (32.0-36.0); Mean Platelet Volume 9.5 fL (7.4-10.4); Platelet Count 121 thou/uL (130-400); RBC Distribution Width 10.6 % (11.5-14.5); Red Blood Cell (RBC) Count 3.33 mill/uL (4.20-5.40)
[2019-11-01] MEDS: Promethazine HCl 25 MG/ML VIAL IM PRN ×3 (05:34→17:57)
[2019-11-01 05:38] LABS: Anion Gap 11 mmol/L (10-20); BUN (Urea Nitrogen) 12 mg/dL (7.0-18.7); Calc. Creatinine Clearance 107 mL/min (70-130); Calcium 7.8 mg/dL (7.8-10.44); Carbon Dioxide 22 mmol/L (22-29); Chloride 105 mmol/L (98-107); Estimated GFR-MDRD Greater than 90; Glucose 79 mg/dL (70-105); Potassium 3.9 mmol/L (3.5-5.1); Sodium 134 mmol/L (136-145)
[2019-11-01] MEDS: Ondansetron PF 4 MG/2 ML Vial IVP PRN (08:41)
[2019-11-01] MEDS: Pantoprazole 40 MG VIAL IVP SCH (08:41)
[2019-11-01] MEDS: Enoxaparin Sodium 40 MG/0.4 ML SYRINGE SC SCH (08:41)
[2019-11-01] MEDS: Flecainide 50 MG TAB PO SCH ×2 (08:41→20:49)
--- NOTE | 2019-11-01 10:19 | PRG ---
DATE OF SERVICE: 11/01/2019 SUBJECTIVE: The patient is 1 day status post revision of sleeve gastrectomy to gastric bypass with repair of hiatal hernia. She is having a lot of pain, having difficulty getting comfortable. She has some nausea. She is not taking much by mouth. PHYSICAL EXAMINATION: VITAL SIGNS: Her temperature is 98.4, pulse 90, and blood pressure 95/60. GENERAL: She is awake, but very uncomfortable. ABDOMEN: Nondistended. Incisions looked okay. : She is urinating. LABORATORY DATA: Her white count is 9, hemoglobin and hematocrit are 11.6 and 34, platelet count 121. Her electrolytes are fine. She had not had her x-ray yet. ASSESSMENT: This pain maybe from combination of things, the hiatal hernia repair which is very uncomfortable, the placement of fascial sutures, especially since she has lost a lot of weight, is very uncomfortable causing muscle spasms. The plan is to get the Gastrografin swallow, make sure everything is okay. Allow her to have some liquids. We will not send her home until she is more comfortable. Job ID: [id number]
--- NOTE | 2019-11-01 10:54 | RAD ---
Exam: 15 mL Gastrografin swallow HISTORY: Status post Kelly-en-Y. Gastric sleeve revision Exposure: 0.6 minutes, 8.15 Gy per centimeter square FINDINGS: Patient was ministered 15 cc of Gastrografin which passed from the esophagus into the resid ual stomach and into the Kelly-en-Y loop. No evidence of leak or extravasation. Postprocedure 2 view chest radiograph demonstrates pneumoperitoneum, compatible with patient's recent surgery. No leak or extravasation. IMPRESSION: No leak or extravasation
[2019-11-01] MEDS: 1/2 NS w/KCL 20 mEq 1,000 ML IV SCH ×2 (11:14→18:00)
--- NOTE | 2019-11-01 13:58 | RAD ---
CHEST TWO VIEWS: 11/01/19 INDICATION: History of postop for gastric sleeve procedure. FINDINGS: There is mild pneumoperitoneum overlying the hemidiaphragms. There is chest wall emphysema seen bilat erally. No definite pneumothorax is evident. The lungs are clear. There is surgical clips within the upper abdomen. There is enteric contrast within loops of small bowel in the left upper quadrant. Ther e is a loop recorder on the left chest wall. IMPRESSION: 1. Pneumoperitoneum with chest wall emphysema likely postoperative in nature. 2. No definite acute cardiopulmonary abnormality. POS: BH
[2019-11-01] MEDS: Zolpidem Tartrate 5 MG TAB PO PRN (23:49)
[2019-11-02] MEDS: Ketorolac Tromethamine 30 MG/ML VIAL IVP SCH ×3 (05:29→18:30)
[2019-11-02] MEDS: 1/2 NS w/KCL 20 mEq 1,000 ML IV SCH ×3 (05:31→18:29)
--- NOTE | 2019-11-02 09:30 | PRG ---
DATE OF SERVICE: 11/02/2019 SUBJECTIVE: The patient she feels a little bit better. She is tolerating some clear liquids. OBJECTIVE: VITAL SIGNS: Her temperature is 98.2, pulse 91, and blood pressure 98/61. GENERAL: She is in the shower. Wounds are okay. ASSESSMENT: Doing well. PLAN: She will need to stay another day at least for pain control. Job ID: [id number]
[2019-11-02] MEDS: Enoxaparin Sodium 40 MG/0.4 ML SYRINGE SC SCH (10:16)
[2019-11-02] MEDS: Flecainide 50 MG TAB PO SCH ×2 (10:16→20:39)
[2019-11-02] MEDS: Promethazine HCl 25 MG/ML VIAL IM PRN ×2 (10:16→15:50)
[2019-11-02] MEDS: Pantoprazole 40 MG VIAL IVP SCH (10:16)
[2019-11-02] MEDS: fentaNYL Citrate/PF 2,000 MCG in Sodium Chloride 0.9% 60 ML IV PRN ×2 (10:18→22:30)
[2019-11-02] MEDS: Acetaminophen 500 MG TAB PO SCH (18:30)
[2019-11-02] MEDS: Zolpidem Tartrate 5 MG TAB PO PRN (22:05)
[2019-11-02] MEDS: Ondansetron PF 4 MG/2 ML Vial IVP PRN (22:05)
[2019-11-03] MEDS: Ketorolac Tromethamine 30 MG/ML VIAL IVP SCH ×4 (00:15→17:44)
[2019-11-03] MEDS: Acetaminophen 500 MG TAB PO SCH ×4 (00:16→17:44)
[2019-11-03] MEDS: 1/2 NS w/KCL 20 mEq 1,000 ML IV SCH ×4 (04:15→20:31)
[2019-11-03] MEDS: Ondansetron PF 4 MG/2 ML Vial IVP PRN (04:36)
[2019-11-03] MEDS: Enoxaparin Sodium 40 MG/0.4 ML SYRINGE SC SCH (09:19)
[2019-11-03] MEDS: Flecainide 50 MG TAB PO SCH ×2 (09:19→20:30)
[2019-11-03] MEDS: Pantoprazole 40 MG VIAL IVP SCH (09:19)
[2019-11-03] MEDS: Promethazine HCl 25 MG/ML VIAL IM PRN ×2 (09:19→20:30)
[2019-11-03] MEDS: fentaNYL Citrate/PF 2,000 MCG in Sodium Chloride 0.9% 60 ML IV PRN (15:53)
--- NOTE | 2019-11-03 18:16 | PRG ---
DATE OF SERVICE: 11/03/2019 SUBJECTIVE: Ms. Tripathi is seen for Dr. Thompson. OBJECTIVE: Temperature 98 degrees, heart rate 82, blood pressure 105/67. She still complains of epigastric pain. ROLLER COASTER ENGINEER is helping her control this. She is taking Phenergan and Zofran. She is tolerating her liquids. She is not having any vomiting. LABORATORY DATA: None. PHYSICAL EXAMINATION: Lungs: Clear to auscultation. CARDIAC: Regular rate and rhythm. No murmur or gallop. ABDOMEN: Soft. Surgical wounds look good. Abdomen is not distended. It is not tympanitic. EXTREMITIES: Unremarkable. ASSESSMENT AND PLAN: Status post conversion sleeve gastrectomy, Kelly-en-Y gastric bypass and hiatal hernia repair. Pain from her hiatal hernia repair as expected. Continue ROLLER COASTER ENGINEER pump and pain control. She is tolerating liquids. Whenever we can get her pain under control, she will be discharged home on liquids. She is 3 days postoperatively. Job ID: [id number]
[2019-11-03] MEDS: Zolpidem Tartrate 5 MG TAB PO PRN (20:30)
[2019-11-04] MEDS: Ketorolac Tromethamine 30 MG/ML VIAL IVP SCH ×4 (00:17→19:16)
[2019-11-04] MEDS: Acetaminophen 500 MG TAB PO SCH ×3 (00:18→12:27)
[2019-11-04] MEDS: Promethazine HCl 25 MG/ML VIAL IM PRN ×3 (05:18→21:04)
[2019-11-04] MEDS: Enoxaparin Sodium 40 MG/0.4 ML SYRINGE SC SCH (07:39)
[2019-11-04] MEDS: Pantoprazole 40 MG VIAL IVP SCH (07:40)
[2019-11-04] MEDS: Flecainide 50 MG TAB PO SCH ×2 (07:40→21:04)
[2019-11-04] MEDS: fentaNYL Citrate/PF 2,000 MCG in Sodium Chloride 0.9% 60 ML IV PRN ×2 (09:26→19:15)
[2019-11-04] MEDS: 1/2 NS w/KCL 20 mEq 1,000 ML IV SCH (12:26)
--- NOTE | 2019-11-04 14:44 | PRG ---
DATE OF SERVICE: 11/04/2019 SUBJECTIVE: Ms. Tripathi states she feels somewhat better today, but she is still having pain, requiring a CHEMICAL PROCESS ENGINEER. OBJECTIVE: VITAL SIGNS: Temperature 97.8, pulse 74, blood pressure 110/71. LUNGS: Clear to auscultation. CARDIAC: Regular rate and rhythm without murmur or gallop. ABDOMEN: Soft, nondistended, nontender. Surgical wounds look good. LABORATORY DATA: No labs since 10/31. ASSESSMENT AND PLAN: Postoperative hiatal hernia repair. Pain. Continue CHEMICAL PROCESS ENGINEER. The patient had on 11/01/2019 upper GI contrast that was negative and a chest x-ray that was unremarkable. Management per Dr. Thompson tomorrow. Job ID: [id number]
[2019-11-04] MEDS: Zolpidem Tartrate 5 MG TAB PO PRN (21:04)
[2019-11-05] MEDS: Ketorolac Tromethamine 30 MG/ML VIAL IVP SCH ×3 (00:52→11:09)
[2019-11-05] MEDS: Promethazine HCl 25 MG/ML VIAL IM PRN ×4 (03:25→20:01)
[2019-11-05] MEDS: 1/2 NS w/KCL 20 mEq 1,000 ML IV SCH ×2 (03:30→20:05)
[2019-11-05] MEDS: Enoxaparin Sodium 40 MG/0.4 ML SYRINGE SC SCH (08:03)
[2019-11-05] MEDS: Flecainide 50 MG TAB PO SCH ×2 (08:03→19:55)
[2019-11-05] MEDS: Pantoprazole 40 MG VIAL IVP SCH (08:03)
--- NOTE | 2019-11-05 09:30 | PRG ---
DATE OF SERVICE: 11/05/2019 SUBJECTIVE: The patient is still hurting quite a bit, but it has improved. She is passing some gas. She is tolerating some clear liquids. PHYSICAL EXAMINATION: VITAL SIGNS: Temperature 98, pulse 73, blood pressure is 105/67. GENERAL: She is awake, alert. She looks better. LUNGS: Clear. ABDOMEN: Soft, nondistended. Incisions healing well. ASSESSMENT: Pain, probably related to the hiatal hernia repair. PLAN: Full liquid diet. When she is able to take enough orally, I will let her go home. Job ID: [id number]
[2019-11-05] MEDS: Hydrocodone-Acetamin 15 ML UDCUP PO PRN ×3 (11:09→21:31)
[2019-11-05] MEDS: Ketorolac Tromethamine 30 MG/ML VIAL IVP PRN (18:47)
[2019-11-06] MEDS: Hydrocodone-Acetamin 15 ML UDCUP PO PRN ×3 (01:23→21:55)
[2019-11-06] MEDS: Promethazine HCl 25 MG/ML VIAL IM PRN (01:25)
[2019-11-06] MEDS ORDERED: Nitroglycerin 0.4 MG TAB (25 Tab Bottle) ONE (05:30)
[2019-11-06] MEDS: Nitroglycerin 0.4 MG TAB (25 Tab Bottle) SL PRN ×2 (05:31→05:40)
[2019-11-06] MEDS ORDERED: Morphine 4 MG/ML VIAL SLOW IVP SCH (05:45)
[2019-11-06 05:55] LABS: #Eosinphils 0.3 thou/uL (0.0-0.7); #Lymphocytes 2.4 thou/uL (1.20-3.40); #Monocytes 0.6 thou/uL (0.11-0.59); #Neutrophils 4.4 thou/uL (1.40-6.50); %Basophils 0.5 % (0.0-1.0); %Eosinophils 4.4 % (0.0-10.0); %Lymphocytes 30.4 % (21.0-51.0); %Monocytes 8.2 % (0.0-10.0); %Neutrophils 56.4 % (42.0-75.0); Hemoglobin 10.8 g/dL (12.0-16.0); Mean Corpuscular HGB CONC 32.9 g/dL (32.0-36.0); Mean Corpuscular Hemoglobin 34.3 pg (27.0-31.0); Mean Platelet Volume 8.4 fL (7.4-10.4); Platelet Count 239 thou/uL (130-400); RBC Distribution Width 10.7 % (11.5-14.5); Red Blood Cell (RBC) Count 3.14 mill/uL (4.20-5.40); White Blood Cell (WBC) Count 7.8 thou/uL (4.8-10.8)
[2019-11-06 06:02] LABS: INR-International Normal Ratio 0.9; Prothrombin Time 12.4 SEC (12.0-14.7)
--- NOTE | 2019-11-06 06:07 | PDOC.HHP ---
Hospitalist HPI - History of Present Illness Abdominal pain History of Present Illness: Patient is a 44 year old female with PMH dysphagia, atrial arrhythmia, HTN admitted to surgery service under Dr Thompson for hiatal hernia repair, gastric bypass, EGD performed 10/31/19, internal medicine consulted for abdominal pain, severe and sudden, 04/12, patient in distress on arrival, wincing and guarding, complains of pain most in the epigastric region, sent for emergent CT on concern for surgical complication, CT read rapidly and reported as contrast from previous swallow study passing through to colon, subcutaneous and retrosternal air, unable to tell if normal post surgical appearance or complication from ct imaging alone, patient transferred to [facility], communicated with Dr Thompson who will evaluate patient this morning. EKG without STEMI. Hospitalist ROS - Review of Systems Constitutional: denies: fever, chills, sweats, weakness, malaise, other Eyes: denies: pain, vision change, conjunctivae inflammation, eyelid inflammation, redness, other ENT: denies: ear pain, ear discharge, nose pain, nose discharge, nose congestion , mouth pain, mouth swelling, throat pain, throat swelling, other Respiratory: denies: cough, dry, shortness of breath, hemoptysis, SOB with excertion, pleuritic pain, sputum, wheezing, other Cardiovascular: reports: chest pain. denies: palpitations, orthopnea, paroxysmal noc. dyspnea, edema, light headedness, other Gastrointestinal: reports: abdominal pain. denies: nausea, vomiting, diarrhea, constipation, melena, hematochezia, other Genitourinary: denies: dysuria, frequency, incontinence, hematuria, retention, other Musculoskeletal: denies: neck pain, shoulder pain, arm pain, back pain, hand pain, leg pain, foot pain, other Skin: denies: rash, lesions, denis, bruising, other Neurological: denies: weakness, numbness, incoordination, change in speech, confusion, seizures, other All other systems reviewed; all pertinent +/- noted in HPI/Subj - Medication Medications: Active Medications Generic Name Dose Route Start Last Admin Trade Name Freq PRN Reason Stop Dose Admin Hydrocodone Bitart/Acetaminophen 15 ml 10/31/19 11:21 11/06/19 01:23 Hydrocodone-Apap 7.5-325/15 PO 15 ml Q4H PRN Administration Moderate Pain (4-6) Enoxaparin Sodium 40 mg 11/01/19 09:00 11/05/19 08:03 Lovenox SC 40 mg 0900 JOSE Administration Flecainide Acetate 50 mg 11/01/19 09:00 11/05/19 19:55 Tambocor PO 50 mg BID JOSE Administration Potassium Chloride/Sodium Chloride 1,000 mls @ 60 mls/hr 11/03/19 17:08 11/04 20:05 1/2 Ns W/Kcl 20 Meq IV 1,000 mls .[id number] JOSE Administration Ketorolac Tromethamine 30 mg 11/05/19 18:37 11/05/19 18:47 Toradol IVP 11/10/19 18:38 30 mg Q6H PRN Administration Pain Ondansetron HCl 4 mg 10/31/19 11:24 11/03/19 04:36 Zofran IVP 4 mg Q6H PRN Administration Nausea/Vomiting Pantoprazole Sodium 40 mg 11/01/19 09:00 11/05/19 08:03 Protonix IVP 40 mg DAILY JOSE Administration Promethazine HCl 12.5 mg 10/31/19 11:24 11/06/19 01:25 Phenergan IM 12.5 mg Q4H PRN Administration Nausea/Vomiting Sodium Chloride 10 ml 10/31/19 11:21 11/05/19 08:03 Flush - Normal Saline IVF 10 ml PRN PRN Administration Saline Flush Zolpidem Tartrate 5 mg 10/31/19 11:24 11/04/19 21:04 Ambien PO 5 mg HSPRN PRN Administration Insomnia Hospitalist History - Past Medical History Other Medical History: htn atrial arrhythmia - Past Surgical History Other Surgical History: sleeve cholecystectomy, appendectomy, tubal ligation, hysterctomy, lumpectomy - Family History Family History: reports: no pertinent history - Social History Smoking Status: Never smoker Alcohol: reports: None - Exam General Appearance: NAD, awake alert, ill appearing Eye: PERRL, anicteric sclera ENT: normocephalic atraumatic, no oropharyngeal lesions, moist mucosa Neck: supple, symmetric, no JVD, no thyromegaly, no lymphadenopathy, no carotid bruit Heart: RRR, no murmur, no gallops, no rubs, normal peripheral pulses Respiratory: CTAB, no wheezes, no rales, no ronchi, normal chest expansion, no tachypnea, normal percussion Gastrointestinal: tender to palpation Gastrointestinal - other findings: guarding, rigid, peritoneal signs and extreme tenderness Extremities: no cyanosis, no clubbing, no edema Skin: normal turgor, no lesions, no rashes Neurological: cranial nerve grossly intact, normal sensation to touch, no weakness, no focal deficits, no new deficit Musculoskeletal: normal tone, normal strength, no muscle wasting Psychiatric: normal affect, normal behavior, A&O x 3 Hospitalist Results - Labs Result Diagrams: 11/06/19 05:36 11/01/19 04:57 Lab results: WBC 7.8 thou/uL (4.8-10.8) 11/06/19 05:36 Hgb 10.8 g/dL (12.0-16.0) L 11/06/19 05:36 Hct 32.7 % (36.0-47.0) L 11/06/19 05:36 MCV 104.0 fL (78.0-98.0) H 11/06/19 05:36 Plt Count 239 thou/uL (130-400) 11/06/19 05:36 Neutrophils % 56.4 % (42.0-75.0) 11/06/19 05:36 Sodium 134 mmol/L (136-145) L 11/01/19 04:57 Potassium 3.9 mmol/L (3.5-5.1) 11/01/19 04:57 Chloride 105 mmol/L (98-107) 11/01/19 04:57 Carbon Dioxide 22 mmol/L (22-29) 11/01/19 04:57 BUN 12 mg/dL (7.0-18.7) 11/01/19 04:57 Creatinine 0.61 mg/dL (0.6-1.1) 11/01/19 04:57 Glucose 79 mg/dL (70-105) 11/01/19 04:57 Calcium 7.8 mg/dL (7.8-10.44) 11/01/19 04:57 - EKG Interpretation EKG: EKG reviewed, sinus tachycardia, no stemi Hospitalist H&P A/P - Plan Plan: Patient is a 44 year old female with PMH dysphagia, atrial arrhythmia, HTN admitted to surgery service under Dr Thompson for hiatal hernia repair, gastric bypass, EGD performed 10/31/19, internal medicine consulted for abdominal pain. # severe abdominal pain - sudden and with signs concerning for intestinal emergency, sent for CT on concern for surgical complication, CT read rapidly and reported as contrast from previous swallow study passing through to colon, subcutaneous and retrosternal air, unable to tell if normal post surgical appearance or complication from ct imaging alone, CTA without thoracic process, patient transferred to [facility], communicated with Dr Thompson who will evaluate patient this morning. EKG without STEMI. - transferred to [facility] - morphine PRN w benadryl if itching - NPO - updated Dr Thompson, appreciate surgery and radiology prompt response and assistance - empiric zosyn and vancomycin, blood cultures, lactic acid, chemostry/ hematology labs 45 minutes critical care time
[2019-11-06 06:15] LABS: ALT (SGPT) 28 U/L (8-55); AST (SGOT) 33 U/L (5-34); Albumin 3.1 g/dL (3.5-5.0); Alkaline Phosphatase 102 U/L (40-110); Anion Gap 17 mmol/L (10-20); BUN (Urea Nitrogen) Less than 4 mg/dL (7.0-18.7); Bilirubin, Total 0.7 mg/dL (0.2-1.2); Calc. Creatinine Clearance 107 mL/min (70-130); Calcium 8.5 mg/dL (7.8-10.44); Carbon Dioxide 24 mmol/L (22-29); Chloride 105 mmol/L (98-107); Estimated GFR-MDRD Greater than 90; Globulin 2.6 g/dL (2.4-3.5); Glucose 75 mg/dL (70-105); Lipase 8 U/L (8-78); Protein, Total 5.7 g/dL (6.0-8.3); Sodium 142 mmol/L (136-145)
[2019-11-06] MEDS: Piperacillin/Tazobactam 3.375 GM in Sodium Chloride 0.9% 100 ML IVPB SCH ×4 (06:27→23:55)
[2019-11-06] MEDS ORDERED: Aspirin 325 MG TAB PO SCH (06:30)
[2019-11-06] MEDS ORDERED: Thiamine HCl 200 MG/2 ML VIAL SLOW IVP SCH (07:00)
--- NOTE | 2019-11-06 07:16 | PRG ---
DATE OF SERVICE: 11/06/2019 SUBJECTIVE: At 04:30 this morning, the patient called the nursing with severe chest pain, high epigastric, radiating to both shoulders down both arms to the wrists and then down her leg, especially the left leg. No nausea or vomiting. OBJECTIVE: VITAL SIGNS: When she is writhing around in pain, her heart rate is about 117. When she is lying still, it goes to 90. Blood pressure was 115/79 at 03:30 this morning. Now, it is like 150 systolic. LABORATORY DATA: Her white count is 7.8, H and H 10 and 32, platelet count of 239, normal differential. Her electrolytes are normal. Her troponin is normal. She had a CT angio, that did not show any pulmonary embolus. CT of the abdomen and pelvis with IV and oral contrast showed no leak. There was some persistent free air. ASSESSMENT AND PLAN: Severe abdominal pain, very irregular and unusual with radiation pattern that is very unusual. appears distended. Incisions show no evidence of infection. Possible thiamine deficiency. We will give her thiamine IV and multivitamins, start her on TPN and pain control. If it persists, a diagnostic laparoscopy may be indicated. Job ID: [id number]
--- NOTE | 2019-11-06 07:38 | CT ---
CTA CHEST WITH CONTRAST CT ABDOMEN AND PELVIS WITH CONTRAST: Date: 11/06/2019 HISTORY: Status post recent gastric sleeve procedure/gastric bypass with sudden onset of abdominal and chest p ain. TECHNIQUE: 1. Multiple contiguous axial images were obtained in a CTA of the chest with contrast per pulmonary embolism protocol. 3D oblique MIP reformats and direct coronal reformats were performed. 2. Multiple contiguous axial images were obtained in a CT of the abdomen and pelvis with contrast. S agittal and coronal reformats were performed. FINDINGS: CTA CHEST: There are small bilateral pleural effusions with adjacent atelectasis. The pulmonary arteries are wel l opacified without filling defects to suggest pulmonary emboli. There is a small pericardial effusio n seen anteriorly. There is a small amount of air behind the sternum. There may also be a small amoun t of air adjacent to the esophagus in the posterior mediastinum. Air is seen in the chest wall. Diffu se soft tissue anasarca is seen. The bones of the thorax are unremarkable. CT ABDOMEN/PELVIS: The patient is status post cholecystectomy. Postsurgical changes are seen in the stomach. There is en largement of the common bile duct to 9 mm with mild central intrahepatic biliary dilatation. This may be a reservoir effect for cholecystectomy. The liver, kidneys, adrenal glands, spleen, and pancreas are unremarkable. A small amount of free air in the abdomen is likely secondary to recent surgery. The large and small bowel are normal in caliber. The uterus is not definitely seen and may have been removed. Diffuse soft tissue anasarca is seen. No abdominal or pelvic lymphadenopathy seen. The large and smal l bowel are normal in caliber. Contrast is seen in the colon and stomach from recent contrast adminis tration from upper GI on 11/01/2019. The bones of the pelvis and lumbar spine are unremarkable. IMPRESSION: 1. No evidence of pulmonary thromboembolism. 2. Small bilateral pleural effusions with adjacent atelectasis. 3. Small pericardial effusion. 4. There is air in the mediastinum, chest wall, and a small amount of free air in the abdomen. This most likely is secondary to recent surgery. 5. Enlargement of the biliary tree is likely a reservoir effect from cholecystectomy. 6. There is enteric contrast in the stomach and colon. There is no evidence of obvious leak of contr ast from the patient's gastric sleeve/bypass. Dr. Aterno notified of findings at 0615 hours on 11/06/2019. CODE CR. POS: NATALY
[2019-11-06] MEDS ORDERED: Vancomycin 1 GM in Premix Bag 1 BAG IVPB SCH (08:00)
[2019-11-06] MEDS ORDERED: Cyanocobalamin 1000 MCG/ML VIAL IM SCH (09:00)
[2019-11-06] MEDS: Morphine 4 MG/ML VIAL SLOW IVP PRN ×5 (09:18→23:55)
[2019-11-06] MEDS ORDERED: Succinylcholine Chloride 20 MG/ML 10 ml SYRINGE FS ONE (09:56)
[2019-11-06] MEDS ORDERED: Lidocaine 1% PF 5 ML VIAL ONE (09:56)
[2019-11-06] MEDS ORDERED: Ketorolac Tromethamine 30 MG/ML VIAL ONE (09:56)
[2019-11-06] MEDS ORDERED: Ondansetron PF 4 MG/2 ML Vial ONE (09:56)
[2019-11-06] MEDS ORDERED: Rocuronium Bromide 10 MG/ML (10ML VIAL) ONE (09:56)
[2019-11-06] MEDS ORDERED: PROPOFOL 200 MG/20 ML VIAL ONE (09:56)
[2019-11-06] MEDS ORDERED: Glycopyrrolate 0.2 MG/ML 5 ML SYRINGE ONE (09:56)
[2019-11-06] MEDS ORDERED: Iopamidol 370 76% 100 ML VIAL ONE (10:14)
[2019-11-06] MEDS ORDERED: Iopamidol 370 76% 50 ML VIAL FS ONE (10:14)
--- NOTE | 2019-11-06 10:39 | SPC ---
Ultrasound guided left upper extremity PICC placement HISTORY: Malnutrition. Needs long-term IV access for parenteral nutrition. FINDINGS: Informed consent obtained prior to the procedure. An appropriate access site was determined with ultrasound guidance. The area was then meticulously pr epped and draped in usual sterile fashion. Skin overlying the left brachial vein anesthetized with 1% buffered lidocaine. Utilizing direct sonog raphic guidance, vascular access is obtained via the left brachial vein, and an 0.018in guidewire was advanced to the cavoatrial junction. Intravascular length is calculated at 39 cm, and the PICC is cut accordingly. Needle is removed and replaced with a peel-away sheath. The PICC was advanced over the wire. Wire and peel-away sheath were removed. The tip of the catheter overlies the cavoatrial junction. The catheter was accessed and aspirated/flushed easily. FINDINGS: Technically successful placement of a 39 centimeter double-lumen 5 [place] left upper extremity PICC l ine. IMPRESSION: Successful ultrasound guided placement of a left upper extremity PICC.
[2019-11-06] MEDS: Flecainide 50 MG TAB PO SCH ×2 (11:06→21:32)
[2019-11-06] MEDS: Enoxaparin Sodium 40 MG/0.4 ML SYRINGE SC SCH (11:11)
[2019-11-06] MEDS ORDERED: CEFAZOLIN 2 GM in Premix Bag 1 BAG IVPB SCH (11:15)
[2019-11-06] MEDS: Pantoprazole 40 MG VIAL IVP SCH (11:24)
[2019-11-06 12:01] LABS: CRP (Inflammatory) 12.58 mg/dL (= or < 0.5)
[2019-11-06] MEDS ORDERED: Fentanyl 100 MCG/2 ML VIAL ONE ×3 (13:48→16:25)
[2019-11-06] MEDS ORDERED: Bupivacaine PF 0.5% 30 ML VIAL ONE (13:54)
[2019-11-06] MEDS ORDERED: Lidocaine 1% w/Epinephrine 1:100K 20 ML VIAL ONE (13:54)
[2019-11-06] MEDS ORDERED: Promethazine HCl 25 MG/ML VIAL IM PRN (16:00)
[2019-11-06] MEDS ORDERED: Vancomycin HCl 750 MG in Sodium Chloride 0.9% 250 ML 250 ML IVPB SCH (16:00)
[2019-11-06] MEDS ORDERED: Promethazine HCl 25 MG/ML VIAL SLOW IVP PRN (16:00)
[2019-11-06] MEDS ORDERED: Ondansetron HCl/PF 4 MG/2 ML Vial IVP PRN (16:00)
[2019-11-06] MEDS: Dextrose 5 %-0.45 % NaCl 1,000 ML IV SCH ×2 (16:47→19:00)
[2019-11-06 19:14] LABS: ALT (SGPT) 28 U/L (8-55); AST (SGOT) 37 U/L (5-34); Albumin 2.8 g/dL (3.5-5.0); Alkaline Phosphatase 96 U/L (40-110); Anion Gap 15 mmol/L (10-20); BUN (Urea Nitrogen) Less than 4 mg/dL (7.0-18.7); Bilirubin, Total 0.5 mg/dL (0.2-1.2); Calc. Creatinine Clearance 112 mL/min (70-130); Calcium 8.2 mg/dL (7.8-10.44); Carbon Dioxide 26 mmol/L (22-29); Cardiac Risk 4.5 (Less than 4.5); Chloride 104 mmol/L (98-107); Cholesterol 112 mg/dl (< 200 Desired); Estimated GFR-MDRD Greater than 90; Globulin 2.8 g/dL (2.4-3.5); Glucose 93 mg/dL (70-105); HDL Cholesterol 25 mg/dL (>60 Neg Risk); LDL Cholesterol, Calculated 65 mg/dL; Magnesium 1.5 mg/dL (1.6-2.6); Phosphorus 4.3 mg/dL (2.3-4.7); Potassium 3.8 mmol/L (3.5-5.1); Protein, Total 5.6 g/dL (6.0-8.3); Sodium 141 mmol/L (136-145); Triglycerides 108 mg/dL (Less than 150)
[2019-11-06] MEDS: Gabapentin 300 MG CAP PO SCH (21:32)
[2019-11-06] MEDS: Multivitamins, Adult 10 ML, TRACE ELEMENT CONCENTRATE 1 ML in D15W-AA 5% with Lytes 2,0... IV SCH (21:46)
[2019-11-06] MEDS: Ondansetron PF 4 MG/2 ML Vial IVP PRN (21:46)
[2019-11-07] MEDS: Morphine 4 MG/ML VIAL SLOW IVP PRN ×8 (03:31→23:01)
[2019-11-07] MEDS: Dextrose 5 %-0.45 % NaCl 1,000 ML IV SCH (04:53)
[2019-11-07] MEDS: Piperacillin/Tazobactam 3.375 GM in Sodium Chloride 0.9% 100 ML IVPB SCH ×4 (05:24→22:51)
[2019-11-07] MEDS: Promethazine HCl 25 MG/ML VIAL IM PRN (05:40)
[2019-11-07] MEDS: Ketorolac Tromethamine 30 MG/ML VIAL IVP PRN (05:41)
[2019-11-07 06:43] LABS: Band 6 % (5-11); Eosinophils 1 % (0-10); Hemoglobin 9.3 g/dL (12.0-16.0); Lymphocytes 21 % (21-51); MDiff Complete? YES; Macrocytosis SLIGHT = 6-15 cells (100X) (0-5/hpf); Mean Corpuscular Hemoglobin 33.7 pg (27.0-31.0); Mean Platelet Volume 8.1 fL (7.4-10.4); Monocytes 6 % (0-10); Neutrophil 66 % (42-75); Platelet Count 253 thou/uL (130-400); Platelet Morphology Comment Appears Adequate; RBC Distribution Width 10.8 % (11.5-14.5); Red Blood Cell (RBC) Count 2.74 mill/uL (4.20-5.40)
[2019-11-07 06:48] LABS: ALT (SGPT) 25 U/L (8-55); AST (SGOT) 32 U/L (5-34); Albumin 2.6 g/dL (3.5-5.0); Alkaline Phosphatase 81 U/L (40-110); Anion Gap 9 mmol/L (10-20); BUN (Urea Nitrogen) 5 mg/dL (7.0-18.7); Bilirubin, Total 0.4 mg/dL (0.2-1.2); Calc. Creatinine Clearance 114 mL/min (70-130); Calcium 7.8 mg/dL (7.8-10.44); Carbon Dioxide 30 mmol/L (22-29); Chloride 104 mmol/L (98-107); Estimated GFR-MDRD Greater than 90; Globulin 2.6 g/dL (2.4-3.5); Glucose 133 mg/dL (70-105); Magnesium 1.6 mg/dL (1.6-2.6); Potassium 3.5 mmol/L (3.5-5.1); Protein, Total 5.2 g/dL (6.0-8.3); Sodium 139 mmol/L (136-145)
[2019-11-07 06:50] LABS: Phosphorus 3.3 mg/dL (2.3-4.7)
--- NOTE | 2019-11-07 07:49 | OP ---
DATE OF PROCEDURE: 11/06/2019 PREOPERATIVE DIAGNOSIS: Severe epigastric abdominal pain postoperatively. PROCEDURES PERFORMED: Diagnostic laparoscopy, esophagogastroduodenoscopy, removal of anterior diaphragmatic suture, culture of peritoneal fluid. INDICATIONS: The patient is a 44-year-old female, who is one week status post revision of sleeve to gastric bypass for malnutrition and repair of a large hiatal hernia. She has had severe pain since surgery, which became much worse last night with tachycardia. A CT scan did not show leak and did show some free air. FINDINGS: There was some bloody peritoneal fluid, which was sent for culture. The anastomosis was inspected. There was no evidence of abscess or air leak. Both the gastrojejunostomy as well as the jejunojejunostomy were inspected. The diaphragmatic crura suture, the Ethibond was removed from the anterior one, it was left in place posterior. The endoscope was inserted under direct vision and advanced into the gastric pouch and into the Kelly limb. This Kelly limb was then insufflated with air maximally. There was no evidence of air leak. The Kelly limb and stomach decompressed. The scope was removed. The abdomen was thoroughly irrigated. Irrigation fluid was removed. Trocars and retractors were removed. The skin was closed with interrupted 4-0 Rapide. Dermabond was applied. The patient tolerated the procedure well, transferred to Recovery in good condition. Sponge and needle count verified, correct x2. Job ID: [id number]
[2019-11-07] MEDS: Enoxaparin Sodium 40 MG/0.4 ML SYRINGE SC SCH (08:27)
[2019-11-07] MEDS: Gabapentin 300 MG CAP PO SCH ×2 (08:27→21:00)
[2019-11-07] MEDS: Flecainide 50 MG TAB PO SCH ×2 (08:27→21:00)
[2019-11-07] MEDS: Pantoprazole 40 MG VIAL IVP SCH (08:27)
--- NOTE | 2019-11-07 10:37 | PDOC.HOSPP ---
- Subjective Encounter Date: 11/07/19 Encounter Time: 08:30 Subjective: Patient seen and examined. No overnight events, pt reports that with IM injection she gets more pain as she has no more muscles - Objective Vital Signs & Weight: Vital Signs (12 hours) Temp Pulse Resp BP Pulse Ox 11/07/19 07:13 98.4 F 82 14 129/88 95 11/07/19 03:33 98.5 F 80 16 115/77 94 L 11/07/19 00:06 98.8 F 89 18 128/84 94 L Weight Weight 128 lb Most Recent Monitor Data Heart Rate from ECG 74 NIBP 168/98 NIBP BP-Mean 121 Respiration from ECG 22 SpO2 100 I&O: 11/06/19 11/07/19 11/08/19 06:59 06:59 06:59 Intake Total 1920 1746 Output Total 2200 Balance 1920 -454 Result Diagrams: 11/07/19 06:15 11/07/19 06:15 Radiology Reviewed by me: Yes EKG Reviewed by me: Yes Hospitalist ROS - Review of Systems Eyes: denies: pain, vision change, conjunctivae inflammation, eyelid inflammation, redness, other ENT: denies: ear pain, ear discharge, nose pain, nose discharge, nose congestion , mouth pain, mouth swelling, throat pain, throat swelling, other Respiratory: denies: cough, dry, shortness of breath, hemoptysis, SOB with excertion, pleuritic pain, sputum, wheezing, other Cardiovascular: denies: chest pain, palpitations, orthopnea, paroxysmal noc. dyspnea, edema, light headedness, other Gastrointestinal: reports: nausea, abdominal pain. denies: vomiting, diarrhea, constipation, melena, hematochezia, other Genitourinary: denies: dysuria, frequency, incontinence, hematuria, retention, other Musculoskeletal: denies: neck pain, shoulder pain, arm pain, back pain, hand pain, leg pain, foot pain, other Skin: denies: rash, lesions, denis, bruising, other - Medication Medications: Active Medications Generic Name Dose Route Start Last Admin Trade Name Freq PRN Reason Stop Dose Admin Hydrocodone Bitart/Acetaminophen 15 ml 10/31/19 11:21 11/06/19 21:55 Hydrocodone-Apap 7.5-325/15 PO 15 ml Q4H PRN Administration Moderate Pain (4-6) Cyanocobalamin 1,000 mcg 11/06/19 09:00 11/06/19 11:10 Vitamin B-12 IM 1,000 mcg Q30D [facility] Administration Enoxaparin Sodium 40 mg 11/01/19 09:00 11/07/19 08:27 Lovenox SC 40 mg 0900 [facility] Administration Flecainide Acetate 50 mg 11/01/19 09:00 11/07/19 08:27 Tambocor PO 50 mg BID JOSE Administration Gabapentin 300 mg 11/06/19 21:00 11/07/19 08:27 Neurontin PO 300 mg BID [facility] Administration Piperacillin Sod/Tazobactam 100 mls @ 200 mls/hr 11/06/19 06:00 11/07/19 05: 24 Sod 3.375 gm/ Sodium Chloride IVPB 100 mls Q6HR JOSE Administration Thiamine HCl 100 mg/ Sodium 51 mls @ 100 mls/hr 11/06/19 08:00 11/07/19 10:34 Chloride IVPB 51 mls Q24HR JOSE Administration Dextrose/Sodium Chloride 1,000 mls @ 125 mls/hr 11/06/19 11:30 11/07/19 04:53 D5 1/2 Ns IV Not Given .Q8H JOSE Multivitamins 10 ml/ Chromium/ 2,261 mls @ 94.208 mls/hr 11/06/19 22:00 11/05 21:46 Copper/Manganese/Seleni/Zn 1 IV 2,261 mls ml/ Amino Acids/Electrolytes/ 2200 JOSE Administration Fat Emulsion Intravenous Ketorolac Tromethamine 30 mg 11/05/19 18:37 11/07/19 05:41 Toradol IVP 11/10/19 18:38 30 mg Q6H PRN Administration Pain Morphine Sulfate 4 mg 11/06/19 05:58 11/07/19 08:27 Morphine SLOW IVP 4 mg Q2H PRN Administration severe pain 4-10 Nitroglycerin 0.4 mg 11/06/19 06:20 11/06/19 05:40 Nitrostat SL 0.4 mg Q5MIN PRN Administration Chest Pain Ondansetron HCl 4 mg 10/31/19 11:24 11/06/19 21:46 Zofran IVP 4 mg Q6H PRN Administration Nausea/Vomiting Pantoprazole Sodium 40 mg 11/01/19 09:00 11/07/19 08:27 Protonix IVP 40 mg DAILY JOSE Administration Promethazine HCl 12.5 mg 10/31/19 11:24 11/07/19 05:40 Phenergan IM 12.5 mg Q4H PRN Administration Nausea/Vomiting Sodium Chloride 10 ml 10/31/19 11:21 11/05/19 08:03 Flush - Normal Saline IVF 10 ml PRN PRN Administration Saline Flush Zolpidem Tartrate 5 mg 10/31/19 11:24 11/04/19 21:04 Ambien PO 5 mg HSPRN PRN Administration Insomnia - Exam General Appearance: NAD, awake alert Eye: PERRL, anicteric sclera ENT: normocephalic atraumatic, no oropharyngeal lesions Neck: supple, symmetric, no JVD, no thyromegaly Heart: RRR, no murmur, no gallops, no rubs Respiratory: CTAB, no wheezes, no rales, no ronchi Gastrointestinal: soft, non-tender, non-distended Gastrointestinal - other findings: surgical site clean Extremities: no cyanosis, no clubbing Skin: normal turgor, no lesions Neurological: no focal deficits Musculoskeletal: normal tone, normal strength, generalized weakness, diffuse muscle atrophy Psychiatric: normal affect, normal behavior Hosp A/P (1) Peritonitis Code(s): K65.9 - PERITONITIS, UNSPECIFIED Status: Suspected (2) Abdominal pain Code(s): R10.9 - UNSPECIFIED ABDOMINAL PAIN Status: Acute Qualifiers: Abdominal location: generalized Qualified Code(s): R10.84 - Generalized abdominal pain (3) Protein-calorie malnutrition, moderate Code(s): E44.0 - MODERATE PROTEIN-CALORIE MALNUTRITION Status: Chronic (4) Macrocytic anemia Code(s): D53.9 - NUTRITIONAL ANEMIA, UNSPECIFIED Status: Chronic - Plan old records reviewed/req, continue antibiotics curently on TPN continue empiric zosyn pending culture result will change phenergan from IM to IV medication reviewed and continue to provide symptomatic care
--- NOTE | 2019-11-07 11:33 | PDOC.HOSPP ---
- Subjective Encounter Date: 11/07/19 Subjective: Patient is alert, awake but complains of abdominal pain. - Objective Vital Signs & Weight: Vital Signs (12 hours) Temp Pulse Resp BP Pulse Ox 11/07/19 07:13 98.4 F 82 14 129/88 95 11/07/19 03:33 98.5 F 80 16 115/77 94 L 11/07/19 00:06 98.8 F 89 18 128/84 94 L Weight Weight 128 lb Most Recent Monitor Data Heart Rate from ECG 74 NIBP 168/98 NIBP BP-Mean 121 Respiration from ECG 22 SpO2 100 I&O: 11/06/19 11/07/19 11/08/19 06:59 06:59 06:59 Intake Total 1920 1746 Output Total 2200 Balance 1920 -454 Result Diagrams: 11/07/19 06:15 11/07/19 06:15 Additional Labs: Accuchecks 11/07/19 10:42 POC Glucose 162 H Radiology Reviewed by me: Yes EKG Reviewed by me: Yes Hospitalist ROS - Review of Systems Constitutional: reports: weakness, malaise Eyes: reports: pain Cardiovascular: reports: palpitations Gastrointestinal: reports: nausea, vomiting. denies: abdominal pain, diarrhea, constipation, melena, hematochezia, other Genitourinary: denies: dysuria, frequency, incontinence, hematuria, retention, other Musculoskeletal: reports: hand pain, foot pain Skin: denies: rash, lesions, denis, bruising, other Neurological: reports: weakness, numbness. denies: incoordination, change in speech, confusion, seizures, other - Medication Medications: Active Medications Generic Name Dose Route Start Last Admin Trade Name Freq PRN Reason Stop Dose Admin Hydrocodone Bitart/Acetaminophen 15 ml 10/31/19 11:21 11/06/19 21:55 Hydrocodone-Apap 7.5-325/15 PO 15 ml Q4H PRN Administration Moderate Pain (4-6) Cyanocobalamin 1,000 mcg 11/06/19 09:00 11/06/19 11:10 Vitamin B-12 IM 1,000 mcg Q30D JOSE Administration Enoxaparin Sodium 40 mg 11/01/19 09:00 11/07/19 08:27 Lovenox SC 40 mg 09 JOSE Administration Flecainide Acetate 50 mg 11/01/19 09:00 11/07/19 08:27 Tambocor PO 50 mg BID JOSE Administration Gabapentin 300 mg 11/06/19 21:00 11/07/19 08:27 Neurontin PO 300 mg BID JOSE Administration Piperacillin Sod/Tazobactam 100 mls @ 200 mls/hr 11/06/19 06:00 11/07/19 05: 24 Sod 3.375 gm/ Sodium Chloride IVPB 100 mls Q6HR JOSE Administration Thiamine HCl 100 mg/ Sodium 51 mls @ 100 mls/hr 11/06/19 08:00 11/07/19 10:34 Chloride IVPB 51 mls Q24HR JOSE Administration Dextrose/Sodium Chloride 1,000 mls @ 125 mls/hr 11/06/19 11:30 11/07/19 04:53 D5 1/2 Ns IV Not Given .Q8H JOSE Multivitamins 10 ml/ Chromium/ 2,261 mls @ 94.208 mls/hr 11/06/19 22:00 11/05 21:46 Copper/Manganese/Seleni/Zn 1 IV 2,261 mls ml/ Amino Acids/Electrolytes/ 2200 JOSE Administration Fat Emulsion Intravenous Ketorolac Tromethamine 30 mg 11/05/19 18:37 11/07/19 05:41 Toradol IVP 11/10/19 18:38 30 mg Q6H PRN Administration Pain Morphine Sulfate 4 mg 11/06/19 05:58 11/07/19 10:46 Morphine SLOW IVP 4 mg Q2H PRN Administration severe pain 4-10 Nitroglycerin 0.4 mg 11/06/19 06:20 11/06/19 05:40 Nitrostat SL 0.4 mg Q5MIN PRN Administration Chest Pain Ondansetron HCl 4 mg 10/31/19 11:24 11/06/19 21:46 Zofran IVP 4 mg Q6H PRN Administration Nausea/Vomiting Pantoprazole Sodium 40 mg 11/01/19 09:00 11/07/19 08:27 Protonix IVP 40 mg DAILY JOSE Administration Sodium Chloride 10 ml 10/31/19 11:21 11/05/19 08:03 Flush - Normal Saline IVF 10 ml PRN PRN Administration Saline Flush Zolpidem Tartrate 5 mg 10/31/19 11:24 11/04/19 21:04 Ambien PO 5 mg HSPRN PRN Administration Insomnia - Exam General Appearance: ill appearing Eye: PERRL, anicteric sclera ENT: normocephalic atraumatic Neck: supple Heart: RRR Respiratory: CTAB Gastrointestinal: soft, tender to palpation Extremities: no cyanosis, no clubbing, no edema Skin: normal turgor, no lesions, no rashes Neurological: cranial nerve grossly intact, normal sensation to touch, no weakness Musculoskeletal: normal tone Musculoskeletal - other findings: muscle bulk decreased Psychiatric: A&O x 3 Hosp A/P (1) Thiamine deficiency Code(s): E51.9 - THIAMINE DEFICIENCY, UNSPECIFIED Status: Acute (2) Macrocytic anemia Code(s): D53.9 - NUTRITIONAL ANEMIA, UNSPECIFIED Status: Chronic (3) Protein-calorie malnutrition, moderate Code(s): E44.0 - MODERATE PROTEIN-CALORIE MALNUTRITION Status: Chronic (4) Peritonitis Code(s): K65.9 - PERITONITIS, UNSPECIFIED Status: Suspected (5) Abdominal pain Code(s): R10.9 - UNSPECIFIED ABDOMINAL PAIN Status: Acute Qualifiers: Abdominal location: generalized Qualified Code(s): R10.84 - Generalized abdominal pain (6) Infectious colitis Code(s): A09 - INFECTIOUS GASTROENTERITIS AND COLITIS, UNSPECIFIED Status: Acute (7) Tachyarrhythmia Code(s): R00.0 - TACHYCARDIA, UNSPECIFIED Status: Chronic - Plan old records reviewed/req, PT/OT, DVT proph w/SCDs 44 year old with protein calorie malnutrition, s/p gastric sleeve consulted for thiamine deficiency. Thiamine level pending. Agree with thiamine and B12 supplementation. Continue supportive measures. Continue medical management per primary team. Patient should follow up with neurologist as outpatient for extensive peripheral neuropathy work up and management. No further recommendations from neurological standpoint.
[2019-11-07] MEDS ORDERED: Diabetic Tussin 200 MG/10 ML UDCUP PO PRN (11:36)
[2019-11-07] MEDS ORDERED: Senokot S 8.6-50 MG TAB PO PRN (11:36)
[2019-11-07] MEDS ORDERED: Cepastat Lozenges 1 LOZ PO PRN (11:36)
[2019-11-07] MEDS ORDERED: Artificial Tears 18 DROP/0.9 ML EA EYE PRN (11:36)
[2019-11-07] MEDS ORDERED: Bisacodyl 5 MG TAB PO PRN (11:36)
[2019-11-07] MEDS ORDERED: Calcium Carbonate 500 MG ChewTAB PO PRN (11:36)
[2019-11-07] MEDS: Promethazine HCl 12.5 MG in Sodium Chloride 0.9% 50 ML IVPB PRN ×2 (12:38→21:01)
--- NOTE | 2019-11-07 13:04 | PRG ---
DATE OF SERVICE: 11/07/2019 SUBJECTIVE: She states that she is still having quite a bit of pain, she says it is better than last time however. She is complaining of some nausea, but she is taking a lot of narcotics. PHYSICAL EXAMINATION: VITAL SIGNS: Her temperature is 97.6, pulse 88, blood pressure 123/84. GENERAL: She is awake, alert. She is getting her TPN. ABDOMEN: Soft and nondistended. The incisions are healing well. LABORATORY DATA: Her white count is 9, hemoglobin and hematocrit are 9.3 and 28, platelet count 253. Electrolytes are fine. Cultures of the peritoneal fluid, no organisms. ASSESSMENT: Stable. PLAN: I have encouraged her to kind of be careful with the narcotics, they are going to make her constipated, may be the cause of her nausea. I would like to get her out of bed. We are going to start her on clear liquid diet. Job ID: [id number]
[2019-11-07] MEDS: Multivitamins, Adult 10 ML, TRACE ELEMENT CONCENTRATE 1 ML in D15W-AA 5% with Lytes 2,0... IV SCH (22:51)
[2019-11-08] MEDS: Dextrose 5 %-0.45 % NaCl 1,000 ML IV SCH (00:54)
[2019-11-08] MEDS: Morphine 4 MG/ML VIAL SLOW IVP PRN ×3 (03:13→18:29)
[2019-11-08] MEDS: Promethazine HCl 12.5 MG in Sodium Chloride 0.9% 50 ML IVPB PRN ×3 (03:20→20:17)
[2019-11-08] MEDS: Piperacillin/Tazobactam 3.375 GM in Sodium Chloride 0.9% 100 ML IVPB SCH ×2 (06:25→12:44)
[2019-11-08 06:45] LABS: Band 11 % (5-11); Eosinophils 2 % (0-10); Hemoglobin 9.7 g/dL (12.0-16.0); Lymphocytes 20 % (21-51); MDiff Complete? YES; Mean Corpuscular HGB CONC 32.2 g/dL (32.0-36.0); Mean Corpuscular Hemoglobin 33.2 pg (27.0-31.0); Mean Platelet Volume 7.9 fL (7.4-10.4); Monocytes 14 % (0-10); Neutrophil 53 % (42-75); Platelet Count 297 thou/uL (130-400); Platelet Morphology Comment Appears Adequate; RBC Distribution Width 11.1 % (11.5-14.5); Red Blood Cell (RBC) Count 2.92 mill/uL (4.20-5.40); White Blood Cell (WBC) Count 8.3 thou/uL (4.8-10.8)
[2019-11-08 06:53] LABS: Phosphorus 3.9 mg/dL (2.3-4.7)
[2019-11-08 06:56] LABS: ALT (SGPT) 29 U/L (8-55); AST (SGOT) 44 U/L (5-34); Albumin 2.8 g/dL (3.5-5.0); Alkaline Phosphatase 85 U/L (40-110); Anion Gap 12 mmol/L (10-20); BUN (Urea Nitrogen) 9 mg/dL (7.0-18.7); Bilirubin, Total 0.4 mg/dL (0.2-1.2); Calc. Creatinine Clearance 118 mL/min (70-130); Calcium 7.8 mg/dL (7.8-10.44); Carbon Dioxide 28 mmol/L (22-29); Chloride 107 mmol/L (98-107); Estimated GFR-MDRD Greater than 90; Globulin 2.9 g/dL (2.4-3.5); Glucose 90 mg/dL (70-105); Magnesium 1.8 mg/dL (1.6-2.6); Potassium 3.7 mmol/L (3.5-5.1); Protein, Total 5.7 g/dL (6.0-8.3); Sodium 143 mmol/L (136-145)
[2019-11-08] MEDS: Gabapentin 300 MG CAP PO SCH ×2 (09:55→19:35)
[2019-11-08] MEDS: Flecainide 50 MG TAB PO SCH ×2 (09:56→19:35)
[2019-11-08] MEDS: Pantoprazole 40 MG VIAL IVP SCH (09:56)
[2019-11-08] MEDS: Enoxaparin Sodium 40 MG/0.4 ML SYRINGE SC SCH (09:56)
[2019-11-08] MEDS: Hydrocodone-Acetamin 15 ML UDCUP PO PRN ×4 (09:59→22:25)
--- NOTE | 2019-11-08 10:06 | PDOC.HOSPP ---
- Subjective Encounter Date: 11/08/19 Encounter Time: 08:30 Subjective: Patient seen and examined. No new complaints. No overnight events - Objective Vital Signs & Weight: Vital Signs (12 hours) Temp Pulse Resp BP Pulse Ox 11/08/19 08:10 98.0 F 82 14 133/93 H 97 11/08/19 04:00 98.8 F 88 18 120/81 96 11/08/19 00:00 98.8 F 88 16 116/76 95 Weight Admit Weight 128 lb Weight 130 lb Most Recent Monitor Data Heart Rate from ECG 74 NIBP 168/98 NIBP BP-Mean 121 Respiration from ECG 22 SpO2 100 I&O: 11/07/19 11/08/19 11/09/19 06:59 06:59 06:59 Intake Total 1746 1868 Output Total 2200 Balance -454 1868 Result Diagrams: 11/08/19 06:00 11/08/19 06:00 Additional Labs: Accuchecks 11/07/19 11/07/19 15:43 10:42 POC Glucose 136 H 162 H Hospitalist ROS - Review of Systems ENT: denies: ear pain, ear discharge, nose pain, nose discharge, nose congestion , mouth pain, mouth swelling, throat pain, throat swelling, other Respiratory: denies: cough, dry, shortness of breath, hemoptysis, SOB with excertion, pleuritic pain, sputum, wheezing, other Cardiovascular: denies: chest pain, palpitations, orthopnea, paroxysmal noc. dyspnea, edema, light headedness, other Gastrointestinal: reports: abdominal pain. denies: nausea, vomiting, diarrhea, constipation, melena, hematochezia, other Genitourinary: denies: dysuria, frequency, incontinence, hematuria, retention, other Musculoskeletal: denies: neck pain, shoulder pain, arm pain, back pain, hand pain, leg pain, foot pain, other Skin: denies: rash, lesions, denis, bruising, other - Medication Medications: Active Medications Generic Name Dose Route Start Last Admin Trade Name Freq PRN Reason Stop Dose Admin Hydrocodone Bitart/Acetaminophen 15 ml 10/31/19 11:21 11/08/19 09:59 Hydrocodone-Apap 7.5-325/15 PO 15 ml Q4H PRN Administration Moderate Pain (4-6) Cyanocobalamin 1,000 mcg 11/06/19 09:00 11/06/19 11:10 Vitamin B-12 IM 1,000 mcg Q30D JOSE Administration Enoxaparin Sodium 40 mg 11/01/19 09:00 11/08/19 09:56 Lovenox SC 40 mg 0900 JOSE Administration Flecainide Acetate 50 mg 11/01/19 09:00 11/08/19 09:56 Tambocor PO 50 mg BID JOSE Administration Gabapentin 300 mg 11/06/19 21:00 11/08/19 09:55 Neurontin PO 300 mg BID JOSE Administration Piperacillin Sod/Tazobactam 100 mls @ 200 mls/hr 11/06/19 06:00 11/08/19 06: 25 Sod 3.375 gm/ Sodium Chloride IVPB 100 mls Q6HR JOSE Administration Thiamine HCl 100 mg/ Sodium 51 mls @ 100 mls/hr 11/06/19 08:00 11/08/19 09:58 Chloride IVPB 51 mls Q24HR JOSE Administration Multivitamins 10 ml/ Chromium/ 2,261 mls @ 94.208 mls/hr 11/06/19 22:00 11/06 22:51 Copper/Manganese/Seleni/Zn 1 IV 2,261 mls ml/ Amino Acids/Electrolytes/ 2200 JOSE Administration Fat Emulsion Intravenous Promethazine HCl 12.5 mg/ 50.5 mls @ 202 mls/hr 11/07/19 10:35 11/08/19 03:20 Sodium Chloride IVPB 50.5 mls Q6H PRN Administration Nausea/Vomiting Ketorolac Tromethamine 30 mg 11/05/19 18:37 11/07/19 05:41 Toradol IVP 11/10/19 18:38 30 mg Q6H PRN Administration Pain Morphine Sulfate 4 mg 11/06/19 05:58 11/08/19 06:24 Morphine SLOW IVP 4 mg Q2H PRN Administration severe pain 4-10 Nitroglycerin 0.4 mg 11/06/19 06:20 11/06/19 05:40 Nitrostat SL 0.4 mg Q5MIN PRN Administration Chest Pain Ondansetron HCl 4 mg 10/31/19 11:24 11/06/19 21:46 Zofran IVP 4 mg Q6H PRN Administration Nausea/Vomiting Pantoprazole Sodium 40 mg 11/01/19 09:00 11/08/19 09:56 Protonix IVP 40 mg DAILY JOSE Administration Sodium Chloride 10 ml 10/31/19 11:21 11/05/19 08:03 Flush - Normal Saline IVF 10 ml PRN PRN Administration Saline Flush Zolpidem Tartrate 5 mg 10/31/19 11:24 11/04/19 21:04 Ambien PO 5 mg HSPRN PRN Administration Insomnia - Exam General Appearance: NAD, awake alert Eye: PERRL, anicteric sclera ENT: normocephalic atraumatic, no oropharyngeal lesions Neck: supple, symmetric, no JVD, no thyromegaly Heart: RRR, no murmur, no gallops, no rubs Respiratory: CTAB, no wheezes, no rales, no ronchi Gastrointestinal: soft, non-tender, non-distended, normal bowel sounds Extremities: no cyanosis, no clubbing, no edema Skin: normal turgor, no lesions Neurological: no focal deficits Musculoskeletal: normal tone, normal strength Psychiatric: normal affect, normal behavior Hosp A/P (1) Peritonitis Code(s): K65.9 - PERITONITIS, UNSPECIFIED Status: Suspected (2) Abdominal pain Code(s): R10.9 - UNSPECIFIED ABDOMINAL PAIN Status: Acute Qualifiers: Abdominal location: generalized Qualified Code(s): R10.84 - Generalized abdominal pain (3) Protein-calorie malnutrition, moderate Code(s): E44.0 - MODERATE PROTEIN-CALORIE MALNUTRITION Status: Chronic (4) Macrocytic anemia Code(s): D53.9 - NUTRITIONAL ANEMIA, UNSPECIFIED Status: Chronic (5) Thiamine deficiency Code(s): E51.9 - THIAMINE DEFICIENCY, UNSPECIFIED Status: Acute - Plan old records reviewed/req, continue antibiotics curently on TPN continue empiric zosyn pending culture result will change phenergan from IM to IV medication reviewed and continue to provide symptomatic care 11/08/19 if culture negative by tomorrow, consider DC antibiotics diet as tolerated continue TPN possible DC when cleared by surgeon and tolerates diet ambulate as tolerated minimize narcotics
--- NOTE | 2019-11-08 12:46 | PRG ---
DATE OF SERVICE: 11/08/2019 SUBJECTIVE: The patient states she feels better, less pain. She is tolerating some clear liquids, but not enough yet. She is on TPN. OBJECTIVE: VITAL SIGNS: Her temperature is 98, pulse 82, blood pressure 133/93. GENERAL: She looks good. She looks . ABDOMEN: Soft, nondistended, and nontender. Incisions healing well. ASSESSMENT: Stable. PLAN: Full liquid diet. We will discharge when she is able to take enough volume p.o. Job ID: [id number]
[2019-11-08] MEDS: Ondansetron PF 4 MG/2 ML Vial IVP PRN (13:06)
[2019-11-08] MEDS: Multivitamins, Adult 10 ML, TRACE ELEMENT CONCENTRATE 1 ML in D15W-AA 5% with Lytes 2,0... IV SCH (22:25)
[2019-11-08] MEDS: Zolpidem Tartrate 5 MG TAB PO PRN (22:56)
[2019-11-09] MEDS: Morphine 4 MG/ML VIAL SLOW IVP PRN ×2 (02:47→17:48)
[2019-11-09] MEDS: Hydrocodone-Acetamin 15 ML UDCUP PO PRN ×5 (03:28→20:54)
[2019-11-09 03:58] LABS: Phosphorus 4.2 mg/dL (2.3-4.7)
[2019-11-09 04:01] LABS: ALT (SGPT) 31 U/L (8-55); AST (SGOT) 44 U/L (5-34); Albumin 2.8 g/dL (3.5-5.0); Alkaline Phosphatase 85 U/L (40-110); Anion Gap 12 mmol/L (10-20); BUN (Urea Nitrogen) 9 mg/dL (7.0-18.7); Bilirubin, Total 0.4 mg/dL (0.2-1.2); Calc. Creatinine Clearance 112 mL/min (70-130); Calcium 8.2 mg/dL (7.8-10.44); Carbon Dioxide 27 mmol/L (22-29); Chloride 108 mmol/L (98-107); Estimated GFR-MDRD Greater than 90; Globulin 2.8 g/dL (2.4-3.5); Glucose 80 mg/dL (70-105); Magnesium 2.1 mg/dL (1.6-2.6); Potassium 3.9 mmol/L (3.5-5.1); Protein, Total 5.6 g/dL (6.0-8.3); Sodium 143 mmol/L (136-145)
[2019-11-09 04:09] LABS: Band 3 % (5-11); Hemoglobin 9.7 g/dL (12.0-16.0); MDiff Complete? YES; Mean Corpuscular HGB CONC 33.7 g/dL (32.0-36.0); Mean Corpuscular Hemoglobin 34.7 pg (27.0-31.0); Mean Platelet Volume 8.1 fL (7.4-10.4); Monocytes 5 % (0-10); Platelet Count 341 thou/uL (130-400); RBC Distribution Width 11.3 % (11.5-14.5); White Blood Cell (WBC) Count 7.3 thou/uL (4.8-10.8)
[2019-11-09 04:17] LABS: Lymphocytes 40 % (21-51); Neutrophil 47 % (42-75)
[2019-11-09 04:18] LABS: Eosinophils 5 % (0-10)
--- NOTE | 2019-11-09 08:17 | PRG ---
DATE OF SERVICE: 11/09/2019 SUBJECTIVE: The patient is doing better. She is taking more by mouth. No bowel movement, but passing flatus. Pain has improved. She had a little bit of nausea yesterday, but that is none since. OBJECTIVE: VITAL SIGNS: Temperature 98, pulse 83, and blood pressure 123/79. GENERAL: She is up walking. She is very cachectic. GASTROINTESTINAL: Her abdomen is soft and nondistended. The incisions are healing well. LABORATORY DATA: White count 7.3, H and H 9.7 and 28, platelet count 341. Electrolytes are fine. ASSESSMENT: Severe malnutrition, improving. PLAN: Continue TPN. Hopefully, she can tolerate more and may be go home on Tuesday. Job ID: [id number]
[2019-11-09] MEDS: Flecainide 50 MG TAB PO SCH ×2 (08:27→20:56)
[2019-11-09] MEDS: Gabapentin 300 MG CAP PO SCH ×2 (08:27→20:56)
[2019-11-09] MEDS: Pantoprazole 40 MG VIAL IVP SCH (08:27)
[2019-11-09] MEDS: Enoxaparin Sodium 40 MG/0.4 ML SYRINGE SC SCH (08:27)
[2019-11-09] MEDS: Ondansetron PF 4 MG/2 ML Vial IVP PRN ×2 (09:32→17:44)
[2019-11-09] MEDS: Ketorolac Tromethamine 30 MG/ML VIAL IVP PRN ×2 (09:39→15:30)
[2019-11-09] MEDS: Promethazine HCl 12.5 MG in Sodium Chloride 0.9% 50 ML IVPB PRN ×2 (11:51→21:06)
[2019-11-09 14:08] VITALS: BMI 20.9
--- NOTE | 2019-11-09 16:12 | PDOC.HOSPP ---
- Subjective Encounter Date: 11/09/19 Subjective: The patient was seen and examined. She is still complaining of abdominal pain and nausea. She is able to tolerate some liquid diet. She tries to ambulate as much as she can. - Objective Vital Signs & Weight: Vital Signs (12 hours) Temp Pulse Resp BP Pulse Ox 11/09/19 15:06 98.7 F 86 16 120/73 100 11/09/19 11:10 98 F 86 18 127/80 99 11/09/19 07:12 98 F 83 16 123/79 97 11/09/19 04:13 98.4 F 60 16 118/79 95 Weight Admit Weight 128 lb Weight 130 lb Most Recent Monitor Data Heart Rate from ECG 74 NIBP 168/98 NIBP BP-Mean 121 Respiration from ECG 22 SpO2 100 I&O: 11/08/19 11/09/19 11/10/19 06:59 06:59 06:59 Intake Total 1868 2648 Balance 1868 2648 Result Diagrams: 11/09/19 03:20 11/09/19 03:20 Hospitalist ROS - Medication Medications: Active Medications Generic Name Dose Route Start Last Admin Trade Name Freq PRN Reason Stop Dose Admin Hydrocodone Bitart/Acetaminophen 15 ml 10/31/19 11:21 11/09/19 12:17 Hydrocodone-Apap 7.5-325/15 PO 15 ml Q4H PRN Administration Moderate Pain (4-6) Cyanocobalamin 1,000 mcg 11/06/19 09:00 11/06/19 11:10 Vitamin B-12 IM 1,000 mcg Q30D JOSE Administration Enoxaparin Sodium 40 mg 11/01/19 09:00 11/09/19 08:27 Lovenox SC 40 mg 0900 JOSE Administration Flecainide Acetate 50 mg 11/01/19 09:00 11/09/19 08:27 Tambocor PO 50 mg BID JOSE Administration Gabapentin 300 mg 11/06/19 21:00 11/09/19 08:27 Neurontin PO 300 mg BID JOSE Administration Thiamine HCl 100 mg/ Sodium 51 mls @ 100 mls/hr 11/06/19 08:00 11/09/19 08:28 Chloride IVPB 51 mls Q24HR JOSE Administration Multivitamins 10 ml/ Chromium/ 2,261 mls @ 94.208 mls/hr 11/06/19 22:00 11/07 22:25 Copper/Manganese/Seleni/Zn 1 IV 2,261 mls ml/ Amino Acids/Electrolytes/ 2200 JOSE Administration Fat Emulsion Intravenous Promethazine HCl 12.5 mg/ 50.5 mls @ 202 mls/hr 11/07/19 10:35 11/09/19 11:51 Sodium Chloride IVPB 50.5 mls Q6H PRN Administration Nausea/Vomiting Ketorolac Tromethamine 30 mg 11/05/19 18:37 11/09/19 15:30 Toradol IVP 11/10/19 18:38 30 mg Q6H PRN Administration Pain Morphine Sulfate 4 mg 11/06/19 05:58 11/09/19 02:47 Morphine SLOW IVP 4 mg Q2H PRN Administration severe pain 4-10 Nitroglycerin 0.4 mg 11/06/19 06:20 11/06/19 05:40 Nitrostat SL 0.4 mg Q5MIN PRN Administration Chest Pain Ondansetron HCl 4 mg 10/31/19 11:24 11/09/19 09:32 Zofran IVP 4 mg Q6H PRN Administration Nausea/Vomiting Pantoprazole Sodium 40 mg 11/01/19 09:00 11/09/19 08:27 Protonix IVP 40 mg DAILY JOSE Administration Sodium Chloride 10 ml 10/31/19 11:21 11/05/19 08:03 Flush - Normal Saline IVF 10 ml PRN PRN Administration Saline Flush Zolpidem Tartrate 5 mg 10/31/19 11:24 11/08/19 22:56 Ambien PO 5 mg HSPRN PRN Administration Insomnia - Exam General Appearance: awake alert ENT: normocephalic atraumatic Neck: supple Heart: RRR Respiratory: normal chest expansion, no tachypnea Gastrointestinal: soft, non-distended, normal bowel sounds, tender to palpation Hosp A/P (1) Complications of gastric bypass surgery Code(s): K91.89 - OTH POSTPROCEDURAL COMPLICATIONS AND DISORDERS OF DGSTV SYS; Y83.2 - ANASTOMOS,BYPASS OR GRFT CAUSE ABN REACT/COMPL, W/O MISADVNT Status: Acute (2) Thiamine deficiency Code(s): E51.9 - THIAMINE DEFICIENCY, UNSPECIFIED Status: Acute (3) Macrocytic anemia Code(s): D53.9 - NUTRITIONAL ANEMIA, UNSPECIFIED Status: Chronic (4) Protein-calorie malnutrition, moderate Code(s): E44.0 - MODERATE PROTEIN-CALORIE MALNUTRITION Status: Chronic (5) Peritonitis Code(s): K65.9 - PERITONITIS, UNSPECIFIED Status: Suspected (6) Tachyarrhythmia Code(s): R00.0 - TACHYCARDIA, UNSPECIFIED Status: Chronic - Plan The patient status post gastric bypass. Patient's laparotomy did not reveal any acute complications related to her persistent pain. Cultures of peritoneal fluid were obtained and did not show any growth. Peritonitis is unlikely and IV antibiotics will be discontinued. Continue PPN and continue to advance diet as tolerated. Encourage ambulation. Continue post gastric bypass management per surgical team.
[2019-11-09] MEDS: Zolpidem Tartrate 5 MG TAB PO PRN (22:11)
[2019-11-09] MEDS: Multivitamins, Adult 10 ML, TRACE ELEMENT CONCENTRATE 1 ML in D15W-AA 5% with Lytes 2,0... IV SCH (22:11)
[2019-11-10] MEDS: Morphine 4 MG/ML VIAL SLOW IVP PRN ×3 (00:28→18:39)
[2019-11-10] MEDS: Hydrocodone-Acetamin 15 ML UDCUP PO PRN ×5 (02:32→20:39)
[2019-11-10 05:53] LABS: Hemoglobin 8.7 g/dL (12.0-16.0); Mean Corpuscular HGB CONC 32.5 g/dL (32.0-36.0); Mean Corpuscular Hemoglobin 33.6 pg (27.0-31.0); Mean Platelet Volume 8.3 fL (7.4-10.4); Platelet Count 355 thou/uL (130-400); RBC Distribution Width 11.5 % (11.5-14.5); Red Blood Cell (RBC) Count 2.57 mill/uL (4.20-5.40); White Blood Cell (WBC) Count 8.8 thou/uL (4.8-10.8)
[2019-11-10 06:00] LABS: Band 3 % (5-11); Eosinophils 5 % (0-10); Lymphocytes 39 % (21-51); MDiff Complete? YES; Monocytes 11 % (0-10); Neutrophil 42 % (42-75)
[2019-11-10 06:07] LABS: Phosphorus 4.5 mg/dL (2.3-4.7)
[2019-11-10 06:12] LABS: Albumin 2.7 g/dL (3.5-5.0); Alkaline Phosphatase 75 U/L (40-110); Anion Gap 9 mmol/L (10-20); BUN (Urea Nitrogen) 11 mg/dL (7.0-18.7); Bilirubin, Total 0.3 mg/dL (0.2-1.2); Calc. Creatinine Clearance 105 mL/min (70-130); Calcium 7.9 mg/dL (7.8-10.44); Carbon Dioxide 27 mmol/L (22-29); Chloride 107 mmol/L (98-107); Estimated GFR-MDRD Greater than 90; Globulin 2.7 g/dL (2.4-3.5); Glucose 85 mg/dL (70-105); Potassium 4.3 mmol/L (3.5-5.1); Protein, Total 5.4 g/dL (6.0-8.3); Sodium 139 mmol/L (136-145)
[2019-11-10 06:13] LABS: ALT (SGPT) 25 U/L (8-55); AST (SGOT) 24 U/L (5-34); Magnesium 2.2 mg/dL (1.6-2.6)
[2019-11-10] MEDS: Enoxaparin Sodium 40 MG/0.4 ML SYRINGE SC SCH (08:25)
[2019-11-10] MEDS: Ondansetron PF 4 MG/2 ML Vial IVP PRN (08:25)
[2019-11-10] MEDS: Pantoprazole 40 MG VIAL IVP SCH (08:25)
[2019-11-10] MEDS: Flecainide 50 MG TAB PO SCH ×2 (08:26→20:38)
[2019-11-10] MEDS: Gabapentin 300 MG CAP PO SCH ×2 (08:26→20:38)
--- NOTE | 2019-11-10 09:19 | PRG ---
DATE OF SERVICE: 11/10/2019 SUBJECTIVE: Ms. Tripathi is complaining more bloating today. She has not had a bowel movement since surgery. She is ambulating, not taking much p.o., just a small amount of liquids. OBJECTIVE: VITAL SIGNS: She is afebrile. Vital signs are stable. ABDOMEN: Soft. Her wounds are healing well. ASSESSMENT: Postop gastric bypass, hiatal hernia repair with postop diagnostic laparoscopy negative. PLAN: Continue slow advance of liquids. We will add MiraLAX. She takes Linzess at home for her chronic constipation, but I cannot see that is available here in the hospital. Job ID: [id number]
[2019-11-10] MEDS: Polyethylene Glycol 3350 17 GM Packet PO SCH (09:35)
[2019-11-10] MEDS: Promethazine HCl 12.5 MG in Sodium Chloride 0.9% 50 ML IVPB PRN ×2 (13:11→21:38)
--- NOTE | 2019-11-10 18:57 | PDOC.HOSPP ---
- Subjective Encounter Date: 11/10/19 Encounter Time: 10:00 Subjective: no overnight events. This morning, complains of worsening abdominal pain with some nausea, mostly epigastric, bloating and increased gas passage, not having a bowel movement for about a week. Pain worse after a meal. Otherwise no complaints. - Objective Vital Signs & Weight: Vital Signs (12 hours) Temp Pulse Resp BP Pulse Ox 11/10/19 16:02 99.4 F 82 16 108/71 97 11/10/19 10:49 98.9 F 85 16 117/74 99 11/10/19 07:02 98.7 F 85 16 123/74 98 Weight Admit Weight 128 lb Weight 130 lb Most Recent Monitor Data Heart Rate from ECG 74 NIBP 168/98 NIBP BP-Mean 121 Respiration from ECG 22 SpO2 100 I&O: 11/09/19 11/10/19 11/11/19 06:59 06:59 06:59 Intake Total 2648 2936 2484 Balance 2648 2936 2484 Result Diagrams: 11/10/19 05:35 11/10/19 05:35 Hospitalist ROS - Review of Systems Constitutional: denies: fever, chills, sweats, weakness, malaise, other Respiratory: denies: cough, dry, shortness of breath, hemoptysis, SOB with excertion, pleuritic pain, sputum, wheezing, other Cardiovascular: denies: chest pain, palpitations, orthopnea, paroxysmal noc. dyspnea, edema, light headedness, other Gastrointestinal: reports: nausea, abdominal pain, constipation. denies: vomiting, diarrhea, melena, hematochezia, other - Medication Medications: Active Medications Generic Name Dose Route Start Last Admin Trade Name Freq PRN Reason Stop Dose Admin Hydrocodone Bitart/Acetaminophen 15 ml 11/10/19 12:46 11/10/19 17:05 Hydrocodone-Apap 7.5-325/15 PO 15 ml Q4H PRN Administration Pain Cyanocobalamin 1,000 mcg 11/06/19 09:00 11/06/19 11:10 Vitamin B-12 IM 1,000 mcg Q30D JOSE Administration Enoxaparin Sodium 40 mg 11/01/19 09:00 11/10/19 08:25 Lovenox SC 40 mg 09 [facility] Administration Flecainide Acetate 50 mg 11/01/19 09:00 11/10/19 08:26 Tambocor PO 50 mg BID JOSE Administration Gabapentin 300 mg 11/06/19 21:00 11/10/19 08:26 Neurontin PO 300 mg BID JOSE Administration Thiamine HCl 100 mg/ Sodium 51 mls @ 100 mls/hr 11/06/19 08:00 11/10/19 08:26 Chloride IVPB 51 mls Q24HR JOSE Administration Multivitamins 10 ml/ Chromium/ 2,261 mls @ 94.208 mls/hr 11/06/19 22:00 11/08 22:11 Copper/Manganese/Seleni/Zn 1 IV 2,261 mls ml/ Amino Acids/Electrolytes/ 2200 JOSE Administration Fat Emulsion Intravenous Promethazine HCl 12.5 mg/ 50.5 mls @ 202 mls/hr 11/07/19 10:35 11/10/19 13:11 Sodium Chloride IVPB 50.5 mls Q6H PRN Administration Nausea/Vomiting Morphine Sulfate 4 mg 11/06/19 05:58 11/10/19 18:39 Morphine SLOW IVP 4 mg Q2H PRN Administration severe pain 4-10 Nitroglycerin 0.4 mg 11/06/19 06:20 11/06/19 05:40 Nitrostat SL 0.4 mg Q5MIN PRN Administration Chest Pain Ondansetron HCl 4 mg 10/31/19 11:24 11/10/19 08:25 Zofran IVP 4 mg Q6H PRN Administration Nausea/Vomiting Pantoprazole Sodium 40 mg 11/01/19 09:00 11/10/19 08:25 Protonix IVP 40 mg DAILY JOSE Administration Polyethylene Glycol 17 gm 11/10/19 09:00 11/10/19 09:35 Miralax PO 17 gm DAILY JOSE Administration Sodium Chloride 10 ml 10/31/19 11:21 11/05/19 08:03 Flush - Normal Saline IVF 10 ml PRN PRN Administration Saline Flush Zolpidem Tartrate 5 mg 10/31/19 11:24 11/09/19 22:11 Ambien PO 5 mg HSPRN PRN Administration Insomnia - Exam General Appearance: awake alert General - other findings: in moderate distress due to abdominal pain Heart: RRR, no murmur, no gallops, no rubs Gastrointestinal: soft, non-distended Gastrointestinal - other findings: diffuse tenderness, attenuated bowel sounds Extremities: no edema Psychiatric: normal affect, normal behavior, A&O x 3 Hosp A/P - Plan #abdominal pain #R&Y gastric bypass -worsening abdominal pain, diffuse but mostly epigastric -has been on pantoprazole IVP, less likley marginal ulceration -no bowel movement for more than a week, attenuated bowel sounds -early dumping syndrome vs. constipation; -consider reducing simple carbohydrates in meals to determine if helps; defer to surgery -miralax as per surgery -consider abdominal xray
[2019-11-10] MEDS: Multivitamins, Adult 10 ML, TRACE ELEMENT CONCENTRATE 1 ML in D15W-AA 5% with Lytes 2,0... IV SCH (22:07)
[2019-11-10] MEDS: Zolpidem Tartrate 5 MG TAB PO PRN (22:07)
[2019-11-11] MEDS: Hydrocodone-Acetamin 15 ML UDCUP PO PRN ×5 (01:20→21:01)
[2019-11-11] MEDS: Ondansetron PF 4 MG/2 ML Vial IVP PRN ×3 (06:36→21:01)
[2019-11-11 07:21] LABS: Phosphorus 4.6 mg/dL (2.3-4.7)
[2019-11-11 07:25] LABS: ALT (SGPT) 28 U/L (8-55); AST (SGOT) 34 U/L (5-34); Albumin 3.2 g/dL (3.5-5.0); Alkaline Phosphatase 88 U/L (40-110); Anion Gap 12 mmol/L (10-20); BUN (Urea Nitrogen) 12 mg/dL (7.0-18.7); Bilirubin, Total 0.2 mg/dL (0.2-1.2); Calc. Creatinine Clearance 99 mL/min (70-130); Calcium 8.1 mg/dL (7.8-10.44); Carbon Dioxide 26 mmol/L (22-29); Chloride 107 mmol/L (98-107); Estimated GFR-MDRD Greater than 90; Glucose 102 mg/dL (70-105); Magnesium 2.1 mg/dL (1.6-2.6); Protein, Total 6.2 g/dL (6.0-8.3); Sodium 141 mmol/L (136-145)
[2019-11-11 08:19] LABS: Band 3 % (5-11); Eosinophils 1 % (0-10); Hemoglobin 9.5 g/dL (12.0-16.0); Lymphocytes 32 % (21-51); MDiff Complete? YES; Mean Corpuscular HGB CONC 32.9 g/dL (32.0-36.0); Mean Platelet Volume 8.3 fL (7.4-10.4); Monocytes 6 % (0-10); Neutrophil 56 % (42-75); Platelet Count 435 thou/uL (130-400); RBC Distribution Width 11.6 % (11.5-14.5); Red Blood Cell (RBC) Count 2.78 mill/uL (4.20-5.40); White Blood Cell (WBC) Count 9.2 thou/uL (4.8-10.8)
[2019-11-11] MEDS: Flecainide 50 MG TAB PO SCH ×2 (08:57→20:00)
[2019-11-11] MEDS: Pantoprazole 40 MG VIAL IVP SCH (08:57)
[2019-11-11] MEDS: Polyethylene Glycol 3350 17 GM Packet PO SCH (08:57)
[2019-11-11] MEDS: Gabapentin 300 MG CAP PO SCH ×2 (08:58→20:00)
[2019-11-11] MEDS: Enoxaparin Sodium 40 MG/0.4 ML SYRINGE SC SCH (08:58)
[2019-11-11] MEDS: Morphine 4 MG/ML VIAL SLOW IVP PRN ×2 (09:02→12:50)
[2019-11-11] MEDS ORDERED: Milk Of Magnesia 30 ML UDCUP PO SCH (09:15)
--- NOTE | 2019-11-11 09:34 | PRG ---
DATE OF SERVICE: 11/11/2019 SUBJECTIVE: Ms. Tripathi feels better than yesterday. Her bloating is slightly improved. She did have small bowel movement with MiraLAX. The Linzess is not available in the hospital. OBJECTIVE: VITAL SIGNS: She is afebrile, and her vital signs are stable. ABDOMEN: Soft and appropriately tender. LABORATORY DATA: White blood cell count is 9, hemoglobin 9.5. Creatinine 0.67. Pre-albumin yesterday was 10. ASSESSMENT: Postoperative gastric bypass, protein-calorie malnutrition. PLAN: Continue TPN, liquid diet. I really think that some of her bloating is related to being backed up. We will give her a dose of milk of magnesia and continue the MiraLAX, but she seems to be improving daily. Job ID: [id number]
[2019-11-11] MEDS: Promethazine HCl 12.5 MG in Sodium Chloride 0.9% 50 ML IVPB PRN ×2 (10:53→17:41)
--- NOTE | 2019-11-11 15:49 | EKG ---
Test Reason : STAT Blood Pressure : / mmHG Vent. Rate : 112 BPM Atrial Rate : 112 BPM P-R Int : 000 ms QRS Dur : 128 ms QT Int : 394 ms P-R-T Axes : 082 105 028 degrees QTc Int : 537 ms Sinus tachycardia Right bundle branch block Abnormal ECG When compared with ECG of 24-OCT-2019 14:56, Vent. rate has increased BY 42 BPM Confirmed by MAIN CESPEDES (2) on 11/11/2019 3:49:30 PM Referred By: ISAIAS Confirmed By:MAIN CESPEDES
--- NOTE | 2019-11-11 22:06 | PDOC.HOSPP ---
- Subjective Encounter Date: 11/11/19 Encounter Time: 11:00 Subjective: no overnight events. This morning, abdominal pain mildly improved. Attempts to be mobile but limited by pain. Flatulence persists. otherwise no complaints. - Objective Vital Signs & Weight: Vital Signs (12 hours) Temp Pulse Resp BP Pulse Ox 11/11/19 19:24 99.1 F 87 18 101/62 100 11/11/19 15:14 98.4 F 102 H 14 101/63 97 11/11/19 12:30 97.9 F 81 14 118/75 100 Weight Admit Weight 128 lb Weight 130 lb Most Recent Monitor Data Heart Rate from ECG 74 NIBP 168/98 NIBP BP-Mean 121 Respiration from ECG 22 SpO2 100 I&O: 11/10/19 11/11/19 11/12/19 06:59 06:59 06:59 Intake Total 2936 6158 7808 Output Total 2180 Balance 2936 6158 5623 Result Diagrams: 11/11/19 06:50 11/11/19 06:50 Hospitalist ROS - Review of Systems Constitutional: denies: fever, chills, sweats, weakness, malaise, other ENT: denies: ear pain, ear discharge, nose pain, nose discharge, nose congestion , mouth pain, mouth swelling, throat pain, throat swelling, other Respiratory: denies: cough, dry, shortness of breath, hemoptysis, SOB with excertion, pleuritic pain, sputum, wheezing, other Cardiovascular: denies: chest pain, palpitations, orthopnea, paroxysmal noc. dyspnea, edema, light headedness, other Gastrointestinal: reports: nausea, abdominal pain, constipation. denies: vomiting, diarrhea, melena, hematochezia - Medication Medications: Active Medications Generic Name Dose Route Start Last Admin Trade Name Freq PRN Reason Stop Dose Admin Hydrocodone Bitart/Acetaminophen 15 ml 11/10/19 12:46 11/11/19 21:01 Hydrocodone-Apap 7.5-325/15 PO 15 ml Q4H PRN Administration Pain Cyanocobalamin 1,000 mcg 11/06/19 09:00 11/06/19 11:10 Vitamin B-12 IM 1,000 mcg Q30D JOSE Administration Enoxaparin Sodium 40 mg 11/01/19 09:00 11/11/19 08:58 Lovenox SC 40 mg 0900 JOSE Administration Flecainide Acetate 50 mg 11/01/19 09:00 11/11/19 20:00 Tambocor PO 50 mg BID JOSE Administration Gabapentin 300 mg 11/06/19 21:00 11/11/19 20:00 Neurontin PO 300 mg BID JOSE Administration Thiamine HCl 100 mg/ Sodium 51 mls @ 100 mls/hr 11/06/19 08:00 11/11/19 08:57 Chloride IVPB 51 mls Q24HR JOSE Administration Multivitamins 10 ml/ Chromium/ 2,261 mls @ 94.208 mls/hr 11/06/19 22:00 11/09 22:07 Copper/Manganese/Seleni/Zn 1 IV 2,261 mls ml/ Amino Acids/Electrolytes/ 2200 JOSE Administration Fat Emulsion Intravenous Promethazine HCl 12.5 mg/ 50.5 mls @ 202 mls/hr 11/07/19 10:35 11/11/19 17:41 Sodium Chloride IVPB 50.5 mls Q6H PRN Administration Nausea/Vomiting Morphine Sulfate 4 mg 11/06/19 05:58 11/11/19 12:50 Morphine SLOW IVP 4 mg Q2H PRN Administration severe pain 4-10 Nitroglycerin 0.4 mg 11/06/19 06:20 11/06/19 05:40 Nitrostat SL 0.4 mg Q5MIN PRN Administration Chest Pain Ondansetron HCl 4 mg 10/31/19 11:24 11/11/19 21:01 Zofran IVP 4 mg Q6H PRN Administration Nausea/Vomiting Pantoprazole Sodium 40 mg 11/01/19 09:00 11/11/19 08:57 Protonix IVP 40 mg DAILY JOSE Administration Polyethylene Glycol 17 gm 11/10/19 09:00 11/11/19 08:57 Miralax PO 17 gm DAILY JOSE Administration Sodium Chloride 10 ml 10/31/19 11:21 11/05/19 08:03 Flush - Normal Saline IVF 10 ml PRN PRN Administration Saline Flush Zolpidem Tartrate 5 mg 10/31/19 11:24 11/10/19 22:07 Ambien PO 5 mg HSPRN PRN Administration Insomnia - Exam General Appearance: awake alert General - other findings: mild distress due to pain Heart: RRR, no murmur, no gallops, no rubs Respiratory: CTAB, no wheezes, no rales, no ronchi Gastrointestinal: soft, non-distended, tender to palpation Gastrointestinal - other findings: improved bowel sounds compared to yesterday Extremities: no edema Psychiatric: normal affect, normal behavior, A&O x 3 Hosp A/P - Plan #abdominal pain #R&Y gastric bypass -remains constipated but bowel sounds improved -surgery added milk of magnesia -if no bowel movement, should consider AXR to determine if there is distal impaction requiring disimpaction
[2019-11-11] MEDS: Multivitamins, Adult 10 ML, TRACE ELEMENT CONCENTRATE 1 ML in D15W-AA 5% with Lytes 2,0... IV SCH (22:09)
[2019-11-11 22:37] LABS: Vitamin B6-Pyridoxal Phosphate 2.5 ug/L (2.0-32.8)
[2019-11-11] MEDS: Zolpidem Tartrate 5 MG TAB PO PRN (23:22)
[2019-11-12] MEDS: Hydrocodone-Acetamin 15 ML UDCUP PO PRN ×5 (02:06→20:40)
[2019-11-12] MEDS: Promethazine HCl 12.5 MG in Sodium Chloride 0.9% 50 ML IVPB PRN ×2 (02:07→20:29)
[2019-11-12 03:17] LABS: ALT (SGPT) 24 U/L (8-55); AST (SGOT) 23 U/L (5-34); Albumin 2.8 g/dL (3.5-5.0); Alkaline Phosphatase 78 U/L (40-110); Anion Gap 11 mmol/L (10-20); BUN (Urea Nitrogen) 12 mg/dL (7.0-18.7); Bilirubin, Total Less than 0.2 mg/dL (0.2-1.2); Calc. Creatinine Clearance 92 mL/min (70-130); Calcium 7.6 mg/dL (7.8-10.44); Carbon Dioxide 26 mmol/L (22-29); Chloride 109 mmol/L (98-107); Estimated GFR-MDRD 88; Globulin 2.7 g/dL (2.4-3.5); Glucose 94 mg/dL (70-105); Magnesium 2.1 mg/dL (1.6-2.6); Phosphorus 4.1 mg/dL (2.3-4.7); Protein, Total 5.5 g/dL (6.0-8.3); Sodium 142 mmol/L (136-145)
[2019-11-12] MEDS: Ondansetron PF 4 MG/2 ML Vial IVP PRN ×2 (06:05→12:50)
[2019-11-12] MEDS ORDERED: Mineral Oil PER 1 ML PO SCH (09:00)
--- NOTE | 2019-11-12 09:32 | PRG ---
DATE OF SERVICE: 11/12/2019 SUBJECTIVE: The patient is reporting that she still has crampy abdominal pain. She had some small rabbit pellets out of her bottom. She is passing gas. She is tolerating some liquids. OBJECTIVE: VITAL SIGNS: Her temperature is 98, pulse 81, and blood pressure 106/65. GENERAL: She looks better. GASTROINTESTINAL: Her abdomen is soft, nondistended, and nontender. Incisions are healing well. ASSESSMENT: Doing well. PLAN: We will try some mineral oil p.o. When her bowels work, we will let her go home, if she is tolerating more by mouth. Job ID: [id number]
[2019-11-12] MEDS: Gabapentin 300 MG CAP PO SCH ×2 (09:41→20:35)
[2019-11-12] MEDS: Enoxaparin Sodium 40 MG/0.4 ML SYRINGE SC SCH (09:41)
[2019-11-12] MEDS: Pantoprazole 40 MG VIAL IVP SCH (09:41)
[2019-11-12] MEDS: Flecainide 50 MG TAB PO SCH ×2 (09:41→20:35)
[2019-11-12] MEDS: Polyethylene Glycol 3350 17 GM Packet PO SCH (09:42)
--- NOTE | 2019-11-12 16:16 | PDOC.HOSPP ---
- Subjective Encounter Date: 11/12/19 Encounter Time: 09:00 Subjective: no overnight events. Had two very small bowel movements. Was started on mineral oil by surgery. Pain somewhat improved but still flatulent - Objective Vital Signs & Weight: Vital Signs (12 hours) Temp Pulse Resp BP Pulse Ox 11/12/19 15:56 98.8 F 97 16 112/76 94 L 11/12/19 12:00 96 11/12/19 11:07 98.4 F 86 18 109/69 96 11/12/19 08:00 98 11/12/19 07:10 98.5 F 81 16 106/65 98 Weight Admit Weight 128 lb Weight 130 lb Most Recent Monitor Data Heart Rate from ECG 74 NIBP 168/98 NIBP BP-Mean 121 Respiration from ECG 22 SpO2 100 I&O: 11/11/19 11/12/19 11/13/19 06:59 06:59 06:59 Intake Total 6158 7808 Output Total 2185 Balance 6158 5686 Result Diagrams: 11/11/19 06:50 11/12/19 02:41 Hospitalist ROS - Review of Systems Constitutional: denies: fever, chills, sweats, weakness, malaise, other Respiratory: denies: cough, dry, shortness of breath, hemoptysis, SOB with excertion, pleuritic pain, sputum, wheezing, other Cardiovascular: denies: chest pain, palpitations, orthopnea, paroxysmal noc. dyspnea, edema, light headedness, other Gastrointestinal: reports: abdominal pain, constipation. denies: nausea, vomiting, diarrhea, melena, hematochezia Genitourinary: denies: dysuria, frequency, incontinence, hematuria, retention - Medication Medications: Active Medications Generic Name Dose Route Start Last Admin Trade Name Freq PRN Reason Stop Dose Admin Hydrocodone Bitart/Acetaminophen 15 ml 11/10/19 12:46 11/12/19 15:44 Hydrocodone-Apap 7.5-325/15 PO 15 ml Q4H PRN Administration Pain Cyanocobalamin 1,000 mcg 11/06/19 09:00 11/06/19 11:10 Vitamin B-12 IM 1,000 mcg Q30D JOSE Administration Enoxaparin Sodium 40 mg 11/01/19 09:00 11/12/19 09:41 Lovenox SC 40 mg 0900 JOSE Administration Flecainide Acetate 50 mg 11/01/19 09:00 11/12/19 09:41 Tambocor PO 50 mg BID JOSE Administration Gabapentin 300 mg 11/06/19 21:00 11/12/19 09:41 Neurontin PO 300 mg BID JOSE Administration Thiamine HCl 100 mg/ Sodium 51 mls @ 100 mls/hr 11/06/19 08:00 11/12/19 09:40 Chloride IVPB 51 mls Q24HR JOSE Administration Multivitamins 10 ml/ Chromium/ 2,261 mls @ 94.208 mls/hr 11/06/19 22:00 11/10 22:09 Copper/Manganese/Seleni/Zn 1 IV 2,261 mls ml/ Amino Acids/Electrolytes/ 2200 JOSE Administration Fat Emulsion Intravenous Promethazine HCl 12.5 mg/ 50.5 mls @ 202 mls/hr 11/07/19 10:35 11/12/19 02:07 Sodium Chloride IVPB 50.5 mls Q6H PRN Administration Nausea/Vomiting Morphine Sulfate 4 mg 11/06/19 05:58 11/11/19 12:50 Morphine SLOW IVP 4 mg Q2H PRN Administration severe pain 4-10 Nitroglycerin 0.4 mg 11/06/19 06:20 11/06/19 05:40 Nitrostat SL 0.4 mg Q5MIN PRN Administration Chest Pain Ondansetron HCl 4 mg 10/31/19 11:24 11/12/19 12:50 Zofran IVP 4 mg Q6H PRN Administration Nausea/Vomiting Pantoprazole Sodium 40 mg 11/01/19 09:00 11/12/19 09:41 Protonix IVP 40 mg DAILY JOSE Administration Polyethylene Glycol 17 gm 11/10/19 09:00 11/12/19 09:42 Miralax PO 17 gm DAILY JOSE Administration Sodium Chloride 10 ml 10/31/19 11:21 11/05/19 08:03 Flush - Normal Saline IVF 10 ml PRN PRN Administration Saline Flush Zolpidem Tartrate 5 mg 10/31/19 11:24 11/11/19 23:22 Ambien PO 5 mg HSPRN PRN Administration Insomnia - Exam General Appearance: NAD, awake alert Neck: no JVD Heart: RRR, no murmur, no gallops, no rubs, normal peripheral pulses Respiratory: CTAB, no wheezes, no rales, no ronchi, normal chest expansion, no tachypnea, normal percussion Gastrointestinal: soft, non-distended, normal bowel sounds Gastrointestinal - other findings: mildly diffusely tender Extremities: no edema Psychiatric: normal affect, normal behavior, A&O x 3 Hosp A/P - Plan #abdominal pain #R&Y gastric bypass -remains constipated, hyperactive bowel sounds; surgery added mineral oil
[2019-11-12] MEDS: Morphine 4 MG/ML VIAL SLOW IVP PRN ×2 (18:33→23:43)
[2019-11-12] MEDS: Multivitamins, Adult 10 ML, TRACE ELEMENT CONCENTRATE 1 ML in D15W-AA 5% with Lytes 2,0... IV SCH (22:06)
[2019-11-12] MEDS: Zolpidem Tartrate 5 MG TAB PO PRN (22:06)
[2019-11-13] MEDS: Hydrocodone-Acetamin 15 ML UDCUP PO PRN ×3 (01:13→15:28)
[2019-11-13] MEDS: Ondansetron PF 4 MG/2 ML Vial IVP PRN ×2 (01:15→10:51)
[2019-11-13] MEDS: tiZANidine HCl 4 MG TAB PO PRN ×2 (02:55→11:53)
[2019-11-13] MEDS: Promethazine HCl 12.5 MG in Sodium Chloride 0.9% 50 ML IVPB PRN (02:55)
[2019-11-13] MEDS: Enoxaparin Sodium 40 MG/0.4 ML SYRINGE SC SCH (09:43)
[2019-11-13] MEDS: Flecainide 50 MG TAB PO SCH (09:43)
[2019-11-13] MEDS: Polyethylene Glycol 3350 17 GM Packet PO SCH (09:44)
[2019-11-13] MEDS: Pantoprazole 40 MG VIAL IVP SCH (09:44)
[2019-11-13] MEDS: Gabapentin 300 MG CAP PO SCH (09:44)
--- NOTE | 2019-11-13 10:26 | ULT ---
EXAM: Bilateral lower extremity venous Doppler HISTORY: Right thigh pain. FINDINGS: Grayscale, color-flow, Doppler evaluation, spectral analysis of the bilateral lower extremity venous structures is performed with 2-D imaging. The bilateral common femoral, superficial femoral, popliteal, posterior tibial, proximal greater saphenous and profunda femoral veins are imaged. There is normal luminal compressibility, flow, and augmentation in the visualized deep venous structu res of the bilateral lower extremities. IMPRESSION: No evidence of a deep vein thrombosis in the visualized deep venous structures bilateral lower extrem ities.
[2019-11-13 15:47] VITALS: BP 94/60; TEMP 98.4
--- NOTE | 2019-11-14 08:40 | PQF ---
IRLANDADGALECIA, FRANCIS [id number] [facility] A- 3329 [id number] CLINICAL DOCUMENTATION CLARIFICATION FORM: POST DISCHARGE Addendum to original discharge summary date: ____ Late entry note date: __ DATE: 11/14/2019 ATTN: Francis Agarwal Please exercise your independent, professional judgment in responding to the clarification form. Clinical indicators are provided on the bottom of this form for your review Please check appropriate box(s): Conflicting documentation was noted in the Medical Record, please clarify if patient is being treated/monitored for: [ ] Severe protein calorie malnutrition [ x] Moderate protein calorie malnutrition [ ] Other diagnosis For continuity of documentation, please document condition throughout progress notes and discharge summary. Thank You. CLINICAL INDICATORS - SIGNS / SYMPTOMS/ LABS "Preoperative Dx: severe malnutrition" - 10/30 Operative note Jay "Protein calorie malnutrition, moderate" - 11/[address] Dalton BMI 20.9 - Dietitian Notes 11/11 Labs Albumin: 11/05=2.8 11/08=2.8 11/11=2.8 RISK FACTORS 44 year old female - HP 11/05 Dr. Gorman s/p gastric bypass - HP 11/05 Dr. Gorman Hiatal hernia PN p1 10/31 Infectious colitis PN p7 11/11 TREATMENT PICC placement for fci IV access for parenteral nutrition Interventional Proc 11/06/19 Dominic Lo MD TPN - Hospitalist PN 11/[address] Omar Dalton IVF SEP 04 Dietitian consult Consult 11/12 Recommend Ensure enlive Consult 11/12 (This form is maintained as a part of the permanent medical record) 2014 [employer]. All Rights Reserved [email or web address]
--- NOTE | 2019-11-14 08:43 | PQF ---
DG FOURNIER, NIMESH [id number] [facility] A- 3329 [id number] CLINICAL DOCUMENTATION CLARIFICATION FORM: POST DISCHARGE Addendum to original discharge summary date: ____ Late entry note date: __ DATE: 11/14/2019 ATTN: Nimesh Agarwal Please exercise your independent, professional judgment in responding to the clarification form. Clinical indicators are provided on the bottom of this form for your review Please check appropriate box(s) to clarify if the following diagnosis has been ruled in or ruled out: Peritonitis? Peritonitis [ ] Ruled in diagnosis [ ] Continue to treat [ ] Resolved [ x ] Ruled out diagnosis [ ] Cannot rule out diagnosis [ ] Other diagnosis In addition, please specify: Present on Admission (POA): [ ] Yes [ ] No [ ] Unable to determine For continuity of documentation, please document condition throughout progress notes and discharge summary. Thank You. CLINICAL INDICATORS - SIGNS / SYMPTOMS / LABS "severe abdominal pain, very irregular and unusual with radiation pattern" - PN 11/05 Dr. Thompson "there was some bloody peritoneal fluid" - 11/[address] Thompson "peritonitis is unlikely and IV antibiotics will be discontinued" - Hospitalist PN 11/08 Dr. James Peritonitis - Hospitalist PN 11/06 Dr. Dalton small amount of free air in the abdomen - CT of abdomen Collected 11/05 Labs WBC: 10/30=10.4 11/06=9.0 11/08=7.3 11/10=9.2 Vital signs 11/07: temp=98.9 Pulse=88 Respi=16 GJ=816/77 Peritoneal fluid:No organism seen - Collected 11/05 RISK FACTORS s/p gastric bypass - HP 11/05 Dr. Gorman Hiatal hernia PN p1 10/31 PCM PN p6 11/11 Infectious colitis PN p7 11/11 TREATMENTS Diagnostic Laparoscopy - 11/[address] Thompson Vancomycin HCl 200mL @ 200mL/hr IVPB - SEP 05 CT of abdomen/Pelvis Collected 11/05 Peritoneal fluid culture Collected 11/05 Cefazolin 2gm IV SEP 04 IVF SEP 04 MTDD
--- NOTE | 2019-11-14 10:04 | DIS ---
DATE OF ADMISSION: 10/31/2019 DATE OF DISCHARGE: 11/13/2019 DISCHARGE DIAGNOSES: Severe malnutrition, hiatal hernia, severe abdominal pain, constipation. PROCEDURES DURING ADMISSION: Laparoscopic Kelly-en-Y gastric bypass, esophagogastroduodenoscopy, subsequent diagnostic laparoscopy and esophagogastroduodenoscopy, PICC line placement, TPN therapy. HOSPITAL COURSE: The patient was admitted and taken to the operating room. She underwent a conversion from sleeve to gastric bypass and repair of hiatal hernia. She had excruciating pain postoperatively. CAT scan looked fine, but she continued to have pain. Due to the fact she still had a little bit more free-air than I would like and her pain level despite normal labs, I took her back to the OR for a laparoscopy, really looked at everything, could not find any problems. I wound up cutting one diaphragmatic stitch thinking maybe that was contributing to her pain. Postprocedure, she continued to have pain and developed severe constipation probably related to all the narcotics she was using. We put a PICC line in, treated with TPN as she was not taking much orally. Eventually, we gave her laxatives. The bowels started working and she was able to tolerate full liquids well. She is now discharged on hydrocodone elixir, Zofran. She is afebrile. She is tolerating liquids well. She will follow up with me in 2 weeks. Job ID: [id number]
== END 2019-11-13 18:00 | disposition home or self-care (01) | DRG 327 ==
LOC: SURG A 10-31 06:00 → IMCU/EMU 11-06 06:11 → SURG A 11-06 17:49
PROVIDERS: ADMIT Surgery; ATTEND Surgery
PROC: 0D164ZA Bypass Stomach to Jejunum, Percutaneous Endoscopic Approach (ICD-10-PCS; principal; 2019-10-31)
PROC: 0BQT4ZZ Repair Diaphragm, Percutaneous Endoscopic Approach (ICD-10-PCS; 2019-10-31)
PROC: 0W9G4ZX Drainage of Peritoneal Cavity, Percutaneous Endoscopic Approach, Diagnostic (ICD-10-PCS; 2019-11-06)
PROC: 0BC Respiratory System, Extirpation (ICD-10-PCS; 2019-11-06)
PROC: 02HV33Z Insertion of Infusion Device into Superior Vena Cava, Percutaneous Approach (ICD-10-PCS; 2019-11-06)
PROC: B548ZZA Ultrasonography of Superior Vena Cava, Guidance (ICD-10-PCS; 2019-11-06)
DX: K95.89 Other complications of other bariatric procedure (principal); K44.0 Diaphragmatic hernia with obstruction, without gangrene; E51.9 Thiamine deficiency, unspecified; A09 Infectious gastroenteritis and colitis, unspecified; R64 Cachexia; E44.0 Moderate protein-calorie malnutrition; Z11.59 Encounter for screening for other viral diseases; R13.10 Dysphagia, unspecified; I49.8 Other specified cardiac arrhythmias; D53.9 Nutritional anemia, unspecified; G62.9 Polyneuropathy, unspecified; K59.00 Constipation, unspecified; Y83.8 Other surgical procedures as the cause of abnormal reaction of the patient, or of later complication, without mention of misadventure at the time of the procedure; Z68.21 Body mass index [BMI] 21.0-21.9, adult; I10 Essential (primary) hypertension; Z79.899 Other long term (current) drug therapy; Z90.710 Acquired absence of both cervix and uterus
CPT/HCPCS: 36415; 36416; 36569; 71046; 71275; 74177; 74240; 80048; 80053; 80061; 82085; 82550; 82607; 82746; 83605; 83690; 83735; 84100; 84134; 84207; 84425; 84484; 85007; 85025; 85027; 85610; 85652; 85730; 86140; 87040; 87070; 87205; 87635; 93005; 93010; 93970; 94760; C1751; C9113; J0690; J1644; J1650; J1885; J2001; J2175; J2250; J2270; J2405; J2543; J2550; J2704; J3010; J3370; J3411; J3420; J3480; J3490; Q9967; S0020; U0003

== ENCOUNTER 2019-10-30 08:01 | Outpatient (CLI) | payer OTHER ==
[2019-10-30 17:06] LABS: SARS-CoV-2 MS2 Positive; SARS-CoV-2 N Gene Negative; SARS-CoV-2 S Gene Negative; SARS-CoV-2 orf1ab Negative
== END 2019-10-30 08:02 | disposition home or self-care (01) ==
LOC: LABBT 08:01
PROVIDERS: ATTEND Surgery
DX: Z01.812 Encounter for preprocedural laboratory examination (principal); Z11.59 Encounter for screening for other viral diseases; E43 Unspecified severe protein-calorie malnutrition; R13.10 Dysphagia, unspecified
CPT/HCPCS: 87635; U0003

== ENCOUNTER 2019-12-18 10:10 | Outpatient (CLI) | payer OTHER ==
[2019-12-18 14:22] LABS: #Eosinphils 0.1 thou/uL (0.0-0.7); #Lymphocytes 2.1 thou/uL (1.20-3.40); #Monocytes 0.5 thou/uL (0.11-0.59); #Neutrophils 3.7 thou/uL (1.40-6.50); %Basophils 0.6 % (0.0-1.0); %Eosinophils 1.5 % (0.0-10.0); %Lymphocytes 33.1 % (21.0-51.0); %Monocytes 7.3 % (0.0-10.0); %Neutrophils 57.5 % (42.0-75.0); Hemoglobin 13.1 g/dL (12.0-16.0); Mean Corpuscular HGB CONC 33.1 g/dL (32.0-36.0); Mean Corpuscular Hemoglobin 34.4 pg (27.0-31.0); Mean Platelet Volume 9.2 fL (7.4-10.4); Platelet Count 237 thou/uL (130-400); RBC Distribution Width 11.5 % (11.5-14.5); Red Blood Cell (RBC) Count 3.81 mill/uL (4.20-5.40); White Blood Cell (WBC) Count 6.5 thou/uL (4.8-10.8)
[2019-12-18 14:45] LABS: ALT (SGPT) 22 U/L (8-55); AST (SGOT) 21 U/L (5-34); Albumin 4.6 g/dL (3.5-5.0); Alkaline Phosphatase 97 U/L (40-110); Anion Gap 15 mmol/L (10-20); BUN (Urea Nitrogen) 12 mg/dL (7.0-18.7); Bilirubin, Total 0.6 mg/dL (0.2-1.2); Calc. Creatinine Clearance 0 mL/min (70-130); Calcium 8.9 mg/dL (7.8-10.44); Carbon Dioxide 25 mmol/L (22-29); Chloride 107 mmol/L (98-107); Estimated GFR-MDRD 86; Globulin 3.1 g/dL (2.4-3.5); Glucose 91 mg/dL (70-105); Potassium 3.7 mmol/L (3.5-5.1); Protein, Total 7.7 g/dL (6.0-8.3); Sodium 143 mmol/L (136-145)
[2019-12-19 12:46] LABS: SARS-CoV-2 MS2 Positive; SARS-CoV-2 N Gene Negative; SARS-CoV-2 S Gene Negative; SARS-CoV-2 orf1ab Negative
== END 2019-12-18 10:11 | disposition home or self-care (01) ==
LOC: LABBT 10:10
PROVIDERS: ATTEND Surgery
DX: Z01.818 Encounter for other preprocedural examination (principal); R13.10 Dysphagia, unspecified; E46 Unspecified protein-calorie malnutrition
CPT/HCPCS: 80053; 85025; 87635; 93005; 93010; U0003

== ENCOUNTER 2019-12-21 07:08 | Inpatient (IN) | payer OTHER ==
[2019-12-21] MEDS ORDERED: Bupivacaine 0.25% HCL 30 ML VIAL ONE (08:53)
[2019-12-21] MEDS ORDERED: Lidocaine 1% w/Epinephrine 1:100K 20 ML VIAL ONE (08:53)
[2019-12-21] MEDS ORDERED: Fentanyl 100 MCG/2 ML VIAL ONE ×3 (08:58→12:26)
[2019-12-21] MEDS ORDERED: Dextrose 50% Abboject 50 ML SYRINGE SLOW IVP PRN (10:42)
[2019-12-21] MEDS ORDERED: diphenhydrAMINE 50 MG/ML VIAL IVP PRN (10:42)
[2019-12-21] MEDS ORDERED: Dextrose 5% in Water 1,000 ML IV PRN (10:42)
[2019-12-21] MEDS ORDERED: Promethazine HCl 25 MG/ML VIAL IM PRN ×2 (10:42→11:26)
[2019-12-21] MEDS ORDERED: hydrALAZINE 20 MG/ML VIAL SLOW IVP PRN (10:42)
[2019-12-21] MEDS ORDERED: PROPOFOL 200 MG/20 ML VIAL ONE (10:52)
[2019-12-21] MEDS ORDERED: Glycopyrrolate 0.2 MG/ML 5 ML SYRINGE ONE (10:52)
[2019-12-21] MEDS ORDERED: Ondansetron PF 4 MG/2 ML Vial ONE (10:52)
[2019-12-21] MEDS ORDERED: Lidocaine 1% PF 5 ML VIAL ONE (10:52)
[2019-12-21] MEDS ORDERED: Dexamethasone 20 MG/5 ML VIAL ONE (10:52)
[2019-12-21] MEDS ORDERED: Rocuronium Bromide 10 MG/ML (10ML VIAL) ONE (10:52)
[2019-12-21] MEDS ORDERED: Promethazine HCl 25 MG/ML VIAL ONE (10:58)
[2019-12-21] MEDS ORDERED: Promethazine HCl 25 MG/ML VIAL SLOW IVP PRN (11:26)
--- NOTE | 2019-12-21 13:03 | OP ---
DATE OF PROCEDURE: 12/21/2019 PREOPERATIVE DIAGNOSIS: Severe malnutrition. PROCEDURE PERFORMED: Laparoscopic placement of feeding jejunostomy tube. INDICATIONS: This is a 44-year-old female, who has severe dysphagia and malnutrition. She has lost two-thirds of her body weight and cannot maintain her nutrition. FINDINGS: 12-Sinhala tube placed just distal to the jejunojejunostomy anastomosis on the left side. DESCRIPTION OF PROCEDURE: After informed consent was obtained, the patient was taken to the operating room, given general endotracheal anesthesia. She was placed in the supine position. Her abdomen was prepped and draped in usual fashion. Local anesthesia was infiltrated subcutaneously and deep. A 5-mm incision was performed right lateral abdomen. A Veress needle inserted. Drop test performed. Pneumoperitoneum was created to a volume of 2 L of carbon dioxide. Utilizing a bladeless 5-mm trocar and 0-degree laparoscope, direct visual entry into the abdominal cavity was performed. Pneumoperitoneum was created to a pressure of 15 mmHg. A 0-degree laparoscope inserted under direct vision. The second 5-mm port and then an 8-mm port were also placed on the right lateral abdomen. The Kelly limb was traced down to the jejunojejunostomy, then found the distal limb. Then, a 5-mm incision was performed on the left and a 5-mm trocar inserted intra-abdominally. Then, the grasper was brought through this 5-mm port and the port removed, so I could grasp the 12-Sinhala feeding jejunostomy tube and brought into the abdominal cavity. Then, the antimesenteric border of the jejunum was scored with electrocautery and opened utilizing a [place] dissector. Then, the jejunostomy tube was threaded into the bowel and threaded distally all the way to the balloon. The balloon was inserted intraluminal and then inflated with 3 mL of saline and that allowed to position the tube. A pursestring of 2-0 silk was then placed around this opening and then a Witzel maneuver was performed to suture bowel over the tube for a distance of 2 cm. Then, the jejunum was approximated to the anterior abdominal wall with 2 interrupted 2-0 silk sutures, one to the lateral aspect and one to the medial aspect. The system was checked and flushed easily with saline. Then, the hemostasis was assured. The bowel was run, it looked good. The abdomen was decompressed. Scope removed. Trocars were removed. The wafer was sutured to the abdominal wall with a 2-0 Prolene suture and a sterile bandage applied. The incisions were closed with interrupted 4-0 Rapide. Dermabond applied. The patient tolerated the procedure well, transferred to Recovery in good condition. Sponge and needle count verified correct x2. Job ID: [id number]
[2019-12-21] MEDS: Ketorolac Tromethamine 30 MG/ML VIAL IVP SCH ×3 (13:15→23:21)
[2019-12-21] MEDS: D5 1/2 NS w/20 mEq KCL 1,000 ML IV SCH ×2 (13:16→18:04)
[2019-12-21] MEDS: Morphine 4 MG/ML VIAL SLOW IVP PRN ×2 (13:54→15:35)
[2019-12-21] MEDS: Ondansetron PF 4 MG/2 ML Vial IVP PRN (15:35)
[2019-12-21] MEDS: CEFAZOLIN 2 GM in Premix Bag 1 BAG IVPB SCH (18:04)
[2019-12-21] MEDS: Hydrocodone-Acetamin 15 ML UDCUP PO PRN (20:04)
[2019-12-21] MEDS: Gabapentin 300 MG CAP PO SCH (20:05)
[2019-12-21] MEDS: Promethazine HCl 25 MG/ML VIAL SLOW IVP PRN ×2 (20:05→23:00)
[2019-12-21] MEDS: Flecainide 50 MG TAB PO SCH (20:05)
[2019-12-21] MEDS: Morphine 2 MG/ML SYRINGE SLOW IVP PRN (22:52)
[2019-12-21] MEDS: Zolpidem Tartrate 5 MG TAB PO PRN (22:53)
[2019-12-22] MEDS: CEFAZOLIN 2 GM in Premix Bag 1 BAG IVPB SCH (01:18)
[2019-12-22] MEDS: D5 1/2 NS w/20 mEq KCL 1,000 ML IV SCH ×4 (01:18→22:11)
[2019-12-22] MEDS: Hydrocodone-Acetamin 15 ML UDCUP PO PRN ×4 (02:49→18:33)
[2019-12-22] MEDS: Promethazine HCl 25 MG/ML VIAL SLOW IVP PRN ×4 (03:08→20:38)
[2019-12-22] MEDS: Ketorolac Tromethamine 30 MG/ML VIAL IVP SCH ×4 (05:03→23:41)
[2019-12-22] MEDS: Morphine 4 MG/ML VIAL SLOW IVP PRN ×6 (05:03→22:07)
[2019-12-22] MEDS: Enoxaparin Sodium 40 MG/0.4 ML SYRINGE SC SCH (07:33)
[2019-12-22] MEDS: Flecainide 50 MG TAB PO SCH ×2 (07:33→20:08)
[2019-12-22] MEDS: Gabapentin 300 MG CAP PO SCH ×2 (07:33→20:08)
[2019-12-22] MEDS: Pantoprazole 40 MG VIAL IVP SCH (07:34)
[2019-12-22] MEDS: Ondansetron PF 4 MG/2 ML Vial IVP PRN (12:42)
[2019-12-22 12:59] LABS: #Eosinphils 0.1 thou/uL (0.0-0.7); #Lymphocytes 2.9 thou/uL (1.20-3.40); #Monocytes 0.5 thou/uL (0.11-0.59); #Neutrophils 4.1 thou/uL (1.40-6.50); %Basophils 0.6 % (0.0-1.0); %Eosinophils 1.9 % (0.0-10.0); %Lymphocytes 37.8 % (21.0-51.0); %Monocytes 5.9 % (0.0-10.0); %Neutrophils 53.7 % (42.0-75.0); Hemoglobin 10.2 g/dL (12.0-16.0); Mean Corpuscular HGB CONC 33.8 g/dL (32.0-36.0); Mean Corpuscular Hemoglobin 35.3 pg (27.0-31.0); Mean Platelet Volume 9.4 fL (7.4-10.4); Platelet Count 174 thou/uL (130-400); RBC Distribution Width 11.4 % (11.5-14.5); White Blood Cell (WBC) Count 7.7 thou/uL (4.8-10.8)
--- NOTE | 2019-12-22 13:04 | PRG ---
DATE OF SERVICE: 12/22/2019 SUBJECTIVE: Ms. Tripathi is postoperative day #1 from a laparoscopic jejunostomy, feeding tube placed by Dr. Thompson. She is receiving tube feeds at 30 mL/h. She is also still receiving IV fluids and liquid diet. She tells me she is tolerating all this well. She has appropriate abdominal discomfort. No nausea or vomiting. She has not yet had a bowel movement. OBJECTIVE: VITAL SIGNS: She is afebrile, pulse 69, and blood pressure 99/62. LUNGS: Clear to auscultation. ABDOMEN: Soft with minimal tenderness. Bowel sounds present and normoactive. Jejunostomy feeding tube was in the left upper abdomen. LABORATORY DATA: There are no labs. ASSESSMENT AND PLAN: The patient is stable, receiving tube feeds through her feeding jejunostomy. We will continue these over the weekend and assess her for discharge home with tube feeds to be in this next week. Job ID: [id number]
[2019-12-22 13:22] LABS: Anion Gap 8 mmol/L (10-20); BUN (Urea Nitrogen) 8 mg/dL (7.0-18.7); Calc. Creatinine Clearance 83 mL/min (70-130); Calcium 7.7 mg/dL (7.8-10.44); Carbon Dioxide 28 mmol/L (22-29); Chloride 110 mmol/L (98-107); Estimated GFR-MDRD Greater than 90; Glucose 121 mg/dL (70-105); Potassium 3.9 mmol/L (3.5-5.1); Sodium 142 mmol/L (136-145)
[2019-12-22] MEDS: Zolpidem Tartrate 5 MG TAB PO PRN (22:07)
[2019-12-23] MEDS: Hydrocodone-Acetamin 15 ML UDCUP PO PRN ×3 (00:56→10:58)
[2019-12-23] MEDS: Morphine 4 MG/ML VIAL SLOW IVP PRN ×6 (02:35→20:41)
[2019-12-23] MEDS: Promethazine HCl 25 MG/ML VIAL SLOW IVP PRN ×5 (02:36→21:43)
[2019-12-23] MEDS: D5 1/2 NS w/20 mEq KCL 1,000 ML IV SCH ×2 (05:09→17:43)
[2019-12-23] MEDS: Ketorolac Tromethamine 30 MG/ML VIAL IVP SCH ×4 (05:28→23:20)
[2019-12-23] MEDS: Gabapentin 300 MG CAP PO SCH ×2 (08:38→20:46)
[2019-12-23] MEDS: Flecainide 50 MG TAB PO SCH ×2 (08:38→20:46)
[2019-12-23] MEDS: Enoxaparin Sodium 40 MG/0.4 ML SYRINGE SC SCH (08:38)
[2019-12-23] MEDS: Pantoprazole 40 MG VIAL IVP SCH (08:39)
--- NOTE | 2019-12-23 09:33 | PRG ---
DATE OF SERVICE: 12/23/2019 SUBJECTIVE: Ms. Tripathi remains in her bed on the surgical floor. She is postoperative day #2 from laparoscopic jejunostomy feeding tube. She complains of appropriate soreness. She tells me that she has been up walking. She notes abdominal soreness at the operative sites. She denies vomiting. She has taken a clear liquid diet. She denies bowel movement. OBJECTIVE: VITAL SIGNS: On examination, she is afebrile. Pulse is 81, blood pressure 101/67. LUNGS: Clear to auscultation. ABDOMEN: Soft with minimal tenderness. Bowel sounds are present, but hypoactive. ASSESSMENT AND PLAN: In summary, she is stable. Continues to receive tube feeds in treatment of her malnutrition. Continue current care. Job ID: [id number]
[2019-12-23] MEDS: Ondansetron PF 4 MG/2 ML Vial IVP PRN ×2 (10:58→20:39)
[2019-12-23] MEDS: Zolpidem Tartrate 5 MG TAB PO PRN (21:43)
[2019-12-24] MEDS: Hydrocodone-Acetamin 15 ML UDCUP PO PRN ×2 (00:50→11:06)
[2019-12-24] MEDS: D5 1/2 NS w/20 mEq KCL 1,000 ML IV SCH ×3 (00:58→17:07)
[2019-12-24] MEDS: Morphine 4 MG/ML VIAL SLOW IVP PRN ×6 (02:32→19:35)
[2019-12-24] MEDS: Ondansetron PF 4 MG/2 ML Vial IVP PRN ×2 (04:38→19:32)
[2019-12-24] MEDS: Ketorolac Tromethamine 30 MG/ML VIAL IVP SCH ×3 (05:26→17:14)
[2019-12-24] MEDS: Promethazine HCl 25 MG/ML VIAL SLOW IVP PRN ×5 (06:26→20:49)
[2019-12-24] MEDS: Enoxaparin Sodium 40 MG/0.4 ML SYRINGE SC SCH (08:13)
[2019-12-24] MEDS: Gabapentin 300 MG CAP PO SCH ×2 (08:14→20:51)
[2019-12-24] MEDS: Flecainide 50 MG TAB PO SCH ×2 (08:14→20:51)
[2019-12-24] MEDS: Pantoprazole 40 MG VIAL IVP SCH (08:15)
[2019-12-24] MEDS ORDERED: Bisacodyl 10 MG SUPP PR PRN (13:32)
--- NOTE | 2019-12-24 13:55 | PRG ---
DATE OF SERVICE: 12/24/2019 SUBJECTIVE: The patient reports she is still having quite a bit of pain, more so on the left than the right. She is still having a difficult time taking much by mouth, but she is taking some. The tube feedings are going fine. She did pass some gas. No bowel movement. OBJECTIVE: VITAL SIGNS: On exam, her temperature is 98.3, pulse 108, and blood pressure 106/70. GENERAL: She is awake, alert. Grimaces periodically. LUNGS: Clear. ABDOMEN: Soft. Really does not appear to be distended at all. Wounds are fine. ASSESSMENT: Abdominal pain of unclear etiology. PLAN: We will check some labs. Continue tube feedings. Job ID: [id number]
[2019-12-24] MEDS: Zolpidem Tartrate 5 MG TAB PO PRN (21:59)
[2019-12-25] MEDS: Ketorolac Tromethamine 30 MG/ML VIAL IVP SCH ×4 (00:54→17:52)
[2019-12-25] MEDS: Morphine 4 MG/ML VIAL SLOW IVP PRN ×6 (00:57→22:11)
[2019-12-25] MEDS: Promethazine HCl 25 MG/ML VIAL SLOW IVP PRN ×2 (00:59→08:09)
[2019-12-25] MEDS: D5 1/2 NS w/20 mEq KCL 1,000 ML IV SCH ×4 (01:02→20:09)
[2019-12-25] MEDS: Hydrocodone-Acetamin 15 ML UDCUP PO PRN ×3 (02:15→20:04)
[2019-12-25 04:45] LABS: #Eosinphils 0.1 thou/uL (0.0-0.7); #Monocytes 0.5 thou/uL (0.11-0.59); #Neutrophils 4.5 thou/uL (1.40-6.50); %Basophils 0.3 % (0.0-1.0); %Lymphocytes 28.1 % (21.0-51.0); %Monocytes 6.8 % (0.0-10.0); %Neutrophils 62.6 % (42.0-75.0); Hemoglobin 10.5 g/dL (12.0-16.0); Mean Corpuscular HGB CONC 32.7 g/dL (32.0-36.0); Mean Corpuscular Hemoglobin 34.4 pg (27.0-31.0); Mean Platelet Volume 10.1 fL (7.4-10.4); Platelet Count 183 thou/uL (130-400); RBC Distribution Width 11.4 % (11.5-14.5); Red Blood Cell (RBC) Count 3.06 mill/uL (4.20-5.40); White Blood Cell (WBC) Count 7.1 thou/uL (4.8-10.8)
[2019-12-25 05:25] LABS: ALT (SGPT) 20 U/L (8-55); AST (SGOT) 20 U/L (5-34); Albumin 3.3 g/dL (3.5-5.0); Alkaline Phosphatase 117 U/L (40-110); Anion Gap 8 mmol/L (10-20); BUN (Urea Nitrogen) 9 mg/dL (7.0-18.7); Bilirubin, Total 0.2 mg/dL (0.2-1.2); Calc. Creatinine Clearance 0 mL/min (70-130); Calcium 8.2 mg/dL (7.8-10.44); Carbon Dioxide 32 mmol/L (22-29); Chloride 104 mmol/L (98-107); Estimated GFR-MDRD Greater than 90; Globulin 2.7 g/dL (2.4-3.5); Glucose 144 mg/dL (70-105); Potassium 4.6 mmol/L (3.5-5.1); Sodium 139 mmol/L (136-145)
[2019-12-25] MEDS: Gabapentin 300 MG CAP PO SCH ×2 (08:06→19:51)
[2019-12-25] MEDS: Flecainide 50 MG TAB PO SCH ×2 (08:06→19:50)
[2019-12-25] MEDS: Enoxaparin Sodium 40 MG/0.4 ML SYRINGE SC SCH (08:09)
[2019-12-25] MEDS: Pantoprazole 40 MG VIAL IVP SCH (08:09)
[2019-12-25] MEDS ORDERED: Multivit, Adult Inj 10 ML VIAL IV SCH (09:15)
[2019-12-25] MEDS ORDERED: Fleet Enema 133 ML BOT PR SCH (09:15)
--- NOTE | 2019-12-25 09:28 | PRG ---
DATE OF SERVICE: 12/25/2019 SUBJECTIVE: The patient is consuming some oral things of food, but not much. She is on full nutrition via J-tube. Her pain is better. She still is real depressed. OBJECTIVE: Her temperature is 97.5, pulse 101, blood pressure 117/75. She is awake and alert. Her abdomen is soft, nondistended, nontender. She is passing flatus. No bowel movement. LABORATORY DATA: White count 7.1, hemoglobin and hematocrit 10 and 32, platelet count 183. Her electrolytes are fine. ASSESSMENT: Severe malnutrition. PLAN: We will work with the dietitian to get her on a 12-hour feeding schedule so that we can get her home with Home Health. Job ID: [id number]
[2019-12-25] MEDS ORDERED: Multivitamins, Adult 10 ML in D5 1/2 NS w/20 mEq KCL 1,000 ML IV SCH (10:00)
[2019-12-25] MEDS ORDERED: Sodium Bicarbonate Tab 325 MG TAB PER TUBE PRN (10:10)
[2019-12-25] MEDS ORDERED: Pancrelipase DR 12000 1 CAP PER TUBE PRN (10:10)
[2019-12-25] MEDS: ALPRAZolam 1 MG TAB PO PRN (16:05)
[2019-12-25] MEDS: Ondansetron PF 4 MG/2 ML Vial IVP PRN (19:40)
[2019-12-25] MEDS: Nystatin 500,000 UNITS/5 ML UDCUP SSW SCH (20:19)
[2019-12-25] MEDS: Zolpidem Tartrate 5 MG TAB PO PRN (22:18)
[2019-12-26] MEDS: Ketorolac Tromethamine 30 MG/ML VIAL IVP SCH ×3 (00:42→11:22)
[2019-12-26] MEDS: Morphine 4 MG/ML VIAL SLOW IVP PRN ×5 (03:00→19:45)
[2019-12-26] MEDS: Promethazine HCl 25 MG/ML VIAL SLOW IVP PRN ×4 (03:03→19:45)
[2019-12-26] MEDS: D5 1/2 NS w/20 mEq KCL 1,000 ML IV SCH ×3 (03:11→20:27)
[2019-12-26] MEDS: Hydrocodone-Acetamin 15 ML UDCUP PO PRN (05:27)
[2019-12-26] MEDS: Ondansetron PF 4 MG/2 ML Vial IVP PRN (05:29)
[2019-12-26] MEDS: Gabapentin 300 MG CAP PO SCH ×2 (08:28→19:44)
[2019-12-26] MEDS: Nystatin 500,000 UNITS/5 ML UDCUP SSW SCH ×2 (08:29→19:44)
[2019-12-26] MEDS: Enoxaparin Sodium 40 MG/0.4 ML SYRINGE SC SCH (08:29)
[2019-12-26] MEDS: Pantoprazole 40 MG VIAL IVP SCH (08:30)
[2019-12-26] MEDS: Flecainide 50 MG TAB PO SCH ×2 (08:36→20:26)
[2019-12-26] MEDS: ALPRAZolam 1 MG TAB PO PRN (17:30)
--- NOTE | 2019-12-26 19:01 | PRG ---
DATE OF SERVICE: 12/26/2019 SUBJECTIVE: Ms. Tripathi is complaining of intermittent nausea. She is doing some clear liquids. She is urinating frequently. OBJECTIVE: VITAL SIGNS: She is afebrile. Vital signs are stable. ABDOMEN: Soft, appropriately tender. No infection. ASSESSMENT: Chronic failure to thrive, now with feeding J-tube. Continue night J-tube feeds. Full liquids as tolerated with TKO IV fluids. Continue in the hospital until she is tolerating the tube feeds without question. Job ID: [id number]
[2019-12-27] MEDS: Hydrocodone-Acetamin 15 ML UDCUP PO PRN ×4 (00:18→20:31)
[2019-12-27] MEDS: Promethazine HCl 25 MG/ML VIAL SLOW IVP PRN ×3 (00:42→20:32)
[2019-12-27] MEDS: Ondansetron PF 4 MG/2 ML Vial IVP PRN ×2 (02:45→14:06)
[2019-12-27] MEDS: Morphine 4 MG/ML VIAL SLOW IVP PRN ×4 (02:45→22:18)
[2019-12-27] MEDS: Enoxaparin Sodium 40 MG/0.4 ML SYRINGE SC SCH (08:21)
[2019-12-27] MEDS: Gabapentin 300 MG CAP PO SCH ×2 (08:22→20:34)
[2019-12-27] MEDS: Pantoprazole 40 MG VIAL IVP SCH (08:27)
[2019-12-27] MEDS: Flecainide 50 MG TAB PO SCH ×2 (08:39→20:34)
[2019-12-27] MEDS: Nystatin 500,000 UNITS/5 ML UDCUP SSW SCH ×2 (08:39→20:34)
[2019-12-27] MEDS: Morphine 2 MG/ML SYRINGE SLOW IVP PRN (09:46)
[2019-12-27] MEDS: ALPRAZolam 1 MG TAB PO PRN (12:54)
[2019-12-27] MEDS: Metoclopramide HCl 10 MG TAB PO SCH ×2 (14:06→20:35)
[2019-12-27] MEDS: D5 1/2 NS w/20 mEq KCL 1,000 ML IV SCH (20:34)
[2019-12-27] MEDS: Zolpidem Tartrate 5 MG TAB PO PRN (22:21)
[2019-12-28] MEDS: Morphine 4 MG/ML VIAL SLOW IVP PRN ×2 (00:18→05:36)
[2019-12-28] MEDS: Hydrocodone-Acetamin 15 ML UDCUP PO PRN ×5 (04:00→22:36)
[2019-12-28] MEDS: Promethazine HCl 25 MG/ML VIAL SLOW IVP PRN (04:00)
[2019-12-28] MEDS: Ondansetron PF 4 MG/2 ML Vial IVP PRN (05:36)
[2019-12-28] MEDS: ALPRAZolam 1 MG TAB PO PRN (06:31)
--- NOTE | 2019-12-28 09:48 | PRG ---
DATE OF SERVICE: 12/28/2019 SUBJECTIVE: Ms. Tripathi remains depressed ___with slightly improved nausea on the Reglan. She received Xanax, Lortab, and morphine overnight for discomfort. OBJECTIVE: VITAL SIGNS: She is afebrile. Vital signs are stable. ABDOMEN: Soft. She is minimally distended, but she has active bowel sounds. Her wounds are healing well. ASSESSMENT: Chronic failure to thrive after multiple abdominal procedures, now with feeding jejunostomy tube, getting nighttime feeds. PLAN: We will stop morphine, stop Phenergan, and use only the Lortab for pain. Encouraged her to continue ambulation. Home Health is setting ___up for home___ ____ feedings, likely needs to be here for few more days until slightly clinically improved. Dr. Robles is covering for the weekend. Job ID: [id number] MTDD
[2019-12-28] MEDS: Flecainide 50 MG TAB PO SCH ×2 (09:58→19:55)
[2019-12-28] MEDS: Enoxaparin Sodium 40 MG/0.4 ML SYRINGE SC SCH (09:58)
[2019-12-28] MEDS: Gabapentin 300 MG CAP PO SCH ×2 (09:58→19:55)
[2019-12-28] MEDS: Nystatin 500,000 UNITS/5 ML UDCUP SSW SCH ×2 (09:59→19:55)
[2019-12-28] MEDS: Metoclopramide HCl 10 MG TAB PO SCH ×3 (09:59→19:55)
[2019-12-28] MEDS: Pantoprazole 40 MG VIAL IVP SCH (09:59)
--- NOTE | 2019-12-28 11:17 | PQF ---
CLINICAL DOCUMENTATION IMPROVEMENT CLARIFICATION FORM: ICD-10 Updated PLEASE DO AN ADDENDUM TO THE PROGRESS NOTE WITH ANY DOCUMENTATION UPDATES OR ADDITIONS AND CARRY THROUGH TO DC SUMMARY. THANK YOU. DATE: 12/28/19 ATTN: DR. ESPARZA Please exercise your independent, professional judgment in responding to the clarification form. Clinical indicators are provided on the bottom of this form for your review Please check appropriate box(s): [ ] Severe Malnutrition & Adult FTT is a complication of previous bariatric gastric bypass procedures [ ] Severe Malnutrition & Adult FTT is NOT a complication of previous bariatric gastric bypass procedures [ x ] Unable to determine In addition, please specify: Present on Admission (POA): [ x ] Yes [ ] No [ ] Unable to determine For continuity of documentation, please document condition throughout progress notes and discharge summary. Thank You. CLINICAL INDICATORS - SIGNS / SYMPTOMS / LABS / RESULTS AND LOCATION IN EMR No H&P in chart. Anesthesiologist H&P: Gastric Sleeve 2018, Gastric Bypass Kelly-en-Y Oct 2019; HX from [employer] consult: Revision of gastric sleeve to Kelly-en-Y 10/30-11/13/19. She has continued to be unable to tolerate adequate PO intake & has continued to lose weight. She reports inability to tolerate very much PO intake d/t nausea & some vomiting & dry heaving. RISKS: Dysphagia, Severe Malnutrition, Adult FTT, inability to tolerate adequate PO intake TREATMENT: Placement of feeding jejunostomy tube, Nocturnal tube feedings (This form is maintained as a part of the permanent medical record) 2014 [employer]. All Rights Reserved [email or web address]
[2019-12-28] MEDS: Zolpidem Tartrate 5 MG TAB PO PRN (21:23)
[2019-12-29] MEDS: Metoclopramide HCl 10 MG TAB PO SCH ×3 (08:01→21:21)
[2019-12-29] MEDS: Nystatin 500,000 UNITS/5 ML UDCUP SSW SCH ×2 (08:01→21:21)
[2019-12-29] MEDS: Flecainide 50 MG TAB PO SCH ×2 (08:02→21:21)
[2019-12-29] MEDS: Gabapentin 300 MG CAP PO SCH ×2 (08:02→21:20)
[2019-12-29] MEDS: Hydrocodone-Acetamin 15 ML UDCUP PO PRN ×4 (08:02→21:54)
[2019-12-29] MEDS: Pantoprazole 40 MG VIAL IVP SCH (08:02)
[2019-12-29] MEDS: Enoxaparin Sodium 40 MG/0.4 ML SYRINGE SC SCH (08:03)
[2019-12-29] MEDS: Ondansetron PF 4 MG/2 ML Vial IVP PRN (12:08)
[2019-12-29] MEDS: ALPRAZolam 1 MG TAB PO PRN ×2 (15:27)
--- NOTE | 2019-12-29 19:53 | PRG ---
DATE OF SERVICE: 12/29/2019 SUBJECTIVE: Beba Tripathi is doing well today. She complains of epigastric pain at times. This is chronic. OBJECTIVE: VITAL SIGNS: Temperature 98.3 degrees, heart rate 99, and blood pressure 103/76. LUNGS: Clear to auscultation. CARDIAC: Regular rate and rhythm without murmur or gallop. ABDOMEN: Soft, nontender. Surgical wounds look good. EXTREMITIES: Unremarkable. She is tolerating liquids. LABORATORY DATA: White count 7 and hemoglobin 10.1. Basic metabolic profile is normal on 12/24. ASSESSMENT AND PLAN: Overall, the patient is doing well. Continue jejunal feedings. Continue liquids as tolerated. Job ID: [id number]
[2019-12-29] MEDS: Zolpidem Tartrate 5 MG TAB PO PRN (21:53)
[2019-12-30] MEDS: ALPRAZolam 1 MG TAB PO PRN ×3 (01:10→23:53)
[2019-12-30] MEDS: Hydrocodone-Acetamin 15 ML UDCUP PO PRN ×5 (03:05→22:06)
[2019-12-30 06:29] LABS: #Basophils 0.1 thou/uL (0.0-0.2); #Eosinphils 0.2 thou/uL (0.0-0.7); #Lymphocytes 2.3 thou/uL (1.20-3.40); #Monocytes 0.7 thou/uL (0.11-0.59); #Neutrophils 3.9 thou/uL (1.40-6.50); %Basophils 0.8 % (0.0-1.0); %Eosinophils 2.2 % (0.0-10.0); %Lymphocytes 32.9 % (21.0-51.0); %Monocytes 9.7 % (0.0-10.0); %Neutrophils 54.5 % (42.0-75.0); Hemoglobin 10.6 g/dL (12.0-16.0); Mean Corpuscular HGB CONC 33.4 g/dL (32.0-36.0); Mean Corpuscular Hemoglobin 34.6 pg (27.0-31.0); Mean Platelet Volume 8.2 fL (7.4-10.4); Platelet Count 267 thou/uL (130-400); RBC Distribution Width 11.3 % (11.5-14.5); Red Blood Cell (RBC) Count 3.05 mill/uL (4.20-5.40); White Blood Cell (WBC) Count 7.1 thou/uL (4.8-10.8)
[2019-12-30 06:54] LABS: ALT (SGPT) 39 U/L (8-55); AST (SGOT) 36 U/L (5-34); Albumin 3.1 g/dL (3.5-5.0); Alkaline Phosphatase 108 U/L (40-110); Anion Gap 8 mmol/L (10-20); BUN (Urea Nitrogen) 14 mg/dL (7.0-18.7); Bilirubin, Total 0.2 mg/dL (0.2-1.2); Calc. Creatinine Clearance 97 mL/min (70-130); Calcium 8.1 mg/dL (7.8-10.44); Carbon Dioxide 32 mmol/L (22-29); Chloride 103 mmol/L (98-107); Estimated GFR-MDRD Greater than 90; Globulin 2.8 g/dL (2.4-3.5); Glucose 107 mg/dL (70-105); Phosphorus 3.5 mg/dL (2.3-4.7); Protein, Total 5.9 g/dL (6.0-8.3); Sodium 139 mmol/L (136-145)
[2019-12-30] MEDS: Nystatin 500,000 UNITS/5 ML UDCUP SSW SCH ×2 (08:04→22:06)
[2019-12-30] MEDS: Enoxaparin Sodium 40 MG/0.4 ML SYRINGE SC SCH (08:05)
[2019-12-30] MEDS: Pantoprazole 40 MG VIAL IVP SCH (08:05)
[2019-12-30] MEDS: Gabapentin 300 MG CAP PO SCH ×2 (08:05→22:05)
[2019-12-30] MEDS: Flecainide 50 MG TAB PO SCH ×2 (08:05→22:05)
[2019-12-30] MEDS: Metoclopramide HCl 10 MG TAB PO SCH ×3 (08:05→22:05)
[2019-12-30] MEDS: Ondansetron PF 4 MG/2 ML Vial IVP PRN (18:46)
[2019-12-30] MEDS: Zolpidem Tartrate 5 MG TAB PO PRN (22:05)
[2019-12-31] MEDS: Hydrocodone-Acetamin 15 ML UDCUP PO PRN ×2 (04:10→08:21)
[2019-12-31] MEDS: Ondansetron PF 4 MG/2 ML Vial IVP PRN (04:14)
[2019-12-31] MEDS: Nystatin 500,000 UNITS/5 ML UDCUP SSW SCH (08:20)
[2019-12-31] MEDS: Gabapentin 300 MG CAP PO SCH (08:21)
[2019-12-31] MEDS: Enoxaparin Sodium 40 MG/0.4 ML SYRINGE SC SCH (08:21)
[2019-12-31] MEDS: Flecainide 50 MG TAB PO SCH (08:21)
[2019-12-31] MEDS: Metoclopramide HCl 10 MG TAB PO SCH (08:21)
[2019-12-31] MEDS: Pantoprazole 40 MG VIAL IVP SCH (08:21)
[2019-12-31 11:14] VITALS: BP 111/75; TEMP 98.6
[2019-12-31] MEDS: ALPRAZolam 1 MG TAB PO PRN (12:48)
--- NOTE | 2019-12-31 14:03 | PRG ---
DATE OF SERVICE: 12/31/2019 SUBJECTIVE: Ms. Tripathi is significantly better today. She is not complaining of any nausea. She is smiling and happy, tolerating small amounts of p.o. intake. She is doing the tube feeds overnight and not having bloating or diarrhea. OBJECTIVE: VITAL SIGNS: She is afebrile. Her vital signs are stable. ABDOMEN: Her abdominal wounds are well healed. ASSESSMENT: Chronic failure to thrive, now with feeding jejunostomy tube, going home today. We will send over prescription for the Reglan, which seems to have helped. She already has Zofran at home. She has some Lortab elixir at home, but I recommended Tylenol for pain. I recommend that she do milk of magnesia for constipation. Job ID: [id number]
[2019-12-31] MEDS ORDERED: Hydrocodone-Acetamin 15 ML UDCUP PO SCH (15:00)
[2019-12-31 15:11] VITALS: BMI 17.9
== END 2019-12-31 15:18 | disposition home or self-care (01) | DRG 391 ==
LOC: SDC 07:08 → SURG B 10:49
PROVIDERS: ADMIT Surgery; ATTEND Surgery
PROC: 0DHA4UZ Insertion of Feeding Device into Jejunum, Percutaneous Endoscopic Approach (ICD-10-PCS; principal; 2019-12-21)
DX: R13.10 Dysphagia, unspecified (principal); E43 Unspecified severe protein-calorie malnutrition; Z68.1 Body mass index [BMI] 19.9 or less, adult; R62.7 Adult failure to thrive; G47.33 Obstructive sleep apnea (adult) (pediatric); M54.9 Dorsalgia, unspecified; M54.2 Cervicalgia; G89.29 Other chronic pain; F41.9 Anxiety disorder, unspecified; K59.00 Constipation, unspecified; Z90.710 Acquired absence of both cervix and uterus; Z79.899 Other long term (current) drug therapy
CPT/HCPCS: 80048; 80053; 83735; 84100; 85025; 87635; 93005; 94760; C9113; J0690; J1100; J1642; J1650; J1885; J2001; J2270; J2405; J2550; J2704; J3010; J3480; S0020; U0003

== ENCOUNTER 2020-01-17 00:30 | Observation (INO) | payer OTHER ==
[2020-01-18] MEDS: Morphine 4 MG/ML VIAL SLOW IVP PRN ×7 (03:01→20:14)
[2020-01-18] MEDS: Sodium Chloride 0.9% 1,000 ML IV SCH ×3 (03:07→23:30)
[2020-01-18 04:42] LABS: #Eosinphils 0.1 thou/uL (0.0-0.7); #Neutrophils 6.5 thou/uL (1.40-6.50); %Basophils 0.3 % (0.0-1.0); %Eosinophils 0.9 % (0.0-10.0); %Monocytes 10.7 % (0.0-10.0); %Neutrophils 67.1 % (42.0-75.0); Hemoglobin 11.2 g/dL (12.0-16.0); Mean Corpuscular HGB CONC 32.3 g/dL (32.0-36.0); Mean Corpuscular Hemoglobin 33.7 pg (27.0-31.0); Mean Platelet Volume 9.4 fL (7.4-10.4); Platelet Count 240 thou/uL (130-400); RBC Distribution Width 11.4 % (11.5-14.5); Red Blood Cell (RBC) Count 3.32 mill/uL (4.20-5.40); White Blood Cell (WBC) Count 9.7 thou/uL (4.8-10.8)
[2020-01-18 05:01] LABS: Anion Gap 11 mmol/L (10-20); BUN (Urea Nitrogen) 10 mg/dL (7.0-18.7); Calc. Creatinine Clearance 89 mL/min (70-130); Calcium 8.3 mg/dL (7.8-10.44); Carbon Dioxide 26 mmol/L (22-29); Chloride 108 mmol/L (98-107); Estimated GFR-MDRD Greater than 90; Glucose 81 mg/dL (70-105); Potassium 3.9 mmol/L (3.5-5.1); Sodium 141 mmol/L (136-145)
[2020-01-18] MEDS: Piperacillin/Tazobactam 3.375 GM in Sodium Chloride 0.9% 100 ML IVPB SCH ×4 (05:21→23:30)
[2020-01-18] MEDS: Ondansetron PF 4 MG/2 ML Vial IVP PRN (10:21)
[2020-01-18] MEDS ORDERED: Pantoprazole 40 MG VIAL IVP SCH (11:15)
[2020-01-18 12:18] VITALS: BMI 18.1
[2020-01-18] MEDS ORDERED: Ondansetron ODT 4 MG TAB PO PRN (14:57)
[2020-01-18] MEDS ORDERED: Promethazine 25 MG TAB PO PRN (14:59)
[2020-01-18] MEDS ORDERED: Promethazine HCl 25 MG in Sodium Chloride 0.9% 50 ML IVPB PRN (14:59)
[2020-01-18] MEDS: Scopolamine 1.5 mg/72 hour Patch TD SCH (16:00)
[2020-01-18] MEDS: Promethazine HCl 12.5 MG in Sodium Chloride 0.9% 50 ML IVPB PRN (17:27)
[2020-01-18] MEDS: Hydrocodone-Acetamin 15 ML UDCUP PO PRN (17:28)
[2020-01-18] MEDS: Flecainide 50 MG TAB PO SCH (20:14)
[2020-01-18] MEDS: Gabapentin 300 MG CAP PO SCH (20:14)
[2020-01-18] MEDS: Zolpidem Tartrate 5 MG TAB PO PRN (20:14)
--- NOTE | 2020-01-18 20:49 | HP ---
CHIEF COMPLAINT: Abdominal pain. HISTORY OF PRESENT ILLNESS: Ms. Tripathi is a 44-year-old woman with a rather complex recent surgical history. She has a history of morbid obesity and underwent a sleeve gastrectomy by Dr. Thompson in October 2018. After her surgery, she did lose weight successfully, but then became unable to swallow and developed abdominal pain and malnutrition. She was taken back to the operating room where she underwent revision of her sleeve to a laparoscopic Kelly-en-Y gastric bypass with repair of a hiatal hernia. She apparently had significant adhesions within the recurrent hiatal hernia, which was causing a partial gastric obstruction. Even after that surgery earlier this year, she has been having problems maintaining her weight, so she underwent a laparoscopic J-tube placement a couple of months ago by Dr. Thompson and since then she has really started gaining some weight back. She states that she was doing reasonably well her normal state of health until last Tuesday when she started to have left-sided abdominal pain. The abdominal pain slowly became worse to the point that she went to her local emergency room last night because the pain was unbearable. She has also had multiple episodes of nausea and vomiting. There is no blood or coffee-ground appearance to the emesis. She cannot identify any triggers for the pain. Morphine has helped with the pain, but really nothing else had. She has some Lortab, which she takes for chronic neck and back pain, but this was not controlling her symptoms at home. She also had Phenergan, but this was not controlling her nausea and vomiting. She states that eating does not make the pain worse, but it definitely makes nausea worse. She underwent a CT scan at her local emergency room, which showed some nonspecific thickening and mild dilatation of the jejunum near the jejunostomy. Her J-tube is placed just distal to this and there is no evidence of obstruction or perforation. PAST MEDICAL HISTORY: Morbid obesity, but now with malnutrition, anxiety, and chronic back and neck pain, irritable bowel disease, atrial tachycardia, and hypertension. PAST SURGICAL HISTORY: Cholecystectomy; appendectomy; bilateral tubal ligation; total abdominal hysterectomy; lumpectomy; sleeve gastrectomy in 2018, revised to a gastric bypass in 2019 with subsequent J-tube feeding tube placement; and an implantable electronic device monitor. SOCIAL HISTORY: She works as a nurse in [place]. She does not smoke, drink, or use illicit drugs. FAMILY HISTORY: Noncontributory. OUTPATIENT MEDICATIONS: Include: 1. Flecainide. 2. Linzess. 3. Reglan. 4. Xanax. 5. Biotin. 6. Calcium D plus minerals. 7. Dexilant. 8. Gabapentin. 9. Lortab Elixir. 10. Levsin. 11. Multivitamin. 12. Zanaflex. 13. Ambien. 14. Zofran. REVIEW OF SYSTEMS: Ten system review of systems is negative except per HPI. She has not had any fevers or chills. She has not had any melena or hematochezia. She has been having regular bowel movement. PHYSICAL EXAMINATION: VITAL SIGNS: The patient has been afebrile since her admission, heart rate 53, respirations 16, 97% saturated on room air, blood pressure 103/62. GENERAL: Reveals a thin, anxious-appearing woman, in no acute distress. She is not flushed or toxic in appearance. She is not jaundiced or icteric. BMI is 18. HEENT: Unremarkable. NECK: Supple without lymphadenopathy or thyroid nodules. HEART: Regular in its rate and rhythm without murmurs, rubs, or gallops. LUNGS: Clear to auscultation bilaterally. ABDOMEN: Soft and nondistended with healed laparoscopic incisions. Her J-tube site looks great. She does have tenderness with palpation in the left abdomen especially near the site of the J-tube, but does not have any rigidity, rebound, or guarding. Bowel sounds are present and appear normal. EXTREMITIES: Warm, well perfused without edema. NEUROLOGIC: No focal deficits. PSYCHIATRIC: Alert, oriented, and appropriate. LABORATORY DATA: Unremarkable. She does not have a white count this morning, although in the outside ER, was mildly elevated at 11.5, there is no left shift and her hematocrit is low but stable at 34. Electrolytes and LFTs are unremarkable. Lipase was normal and lactic acid was in the low. CT images are reviewed and I agree with the written report. She does have some fairly mild thickening and dilation of the jejunum near the jejunostomy, but no obvious obstruction. The tube appears to be in appropriate location. ASSESSMENT: Intractable abdominal pain, nausea, and vomiting requiring admission for symptomatic control. She may have a local enteritis, which is either inflammatory or infectious in nature. She was started on antibiotics from the outside ER and I have elected to continue these. We are going to treat her with bowel rest, IV fluids, and symptomatic management. If she does not improve, we may repeat her imaging or ask Gastroenterology to assist. She does have ongoing chronic pain issues, which may be exacerbating her current episode. Once her symptoms improve, I do plan to restart her tube feeds at night and to allow her to take oral intake as tolerated and I have restarted her home medication. Job ID: [id number]
[2020-01-19] MEDS: Hydrocodone-Acetamin 15 ML UDCUP PO PRN ×2 (00:25→21:26)
--- NOTE | 2020-01-19 02:31 | PRG ---
DATE OF SERVICE: 01/18/2020 SUBJECTIVE: The patient was seen this evening during rounds. She was sitting up in bed, asleep, with no signs of acute distress. Nursing reported no acute events. OBJECTIVE: VITAL SIGNS: Temperature 97.8, pulse 63, respirations 16, oxygen saturation 97% on room air, and blood pressure 113/66. GENERAL: Well-appearing middle-aged female, sitting up in bed with no signs of acute distress. PULMONARY: Equal chest rise and fall. No signs of acute respiratory distress. ASSESSMENT: 1. Intractable abdominal pain with associated nausea and vomiting, etiology either inflammatory or infectious. 2. Malnutrition. 3. History of chronic back pain, anxiety, IBD, tachycardia, hypertension, and hiatal hernia. PLAN: Continue n.p.o. Continue normal saline at [address] Barth and Trauma team to re-evaluate in the morning. Job ID: [id number]
[2020-01-19] MEDS: Morphine 4 MG/ML VIAL SLOW IVP PRN ×7 (03:20→20:37)
[2020-01-19] MEDS: ALPRAZolam 1 MG TAB PO PRN ×2 (03:26→16:34)
[2020-01-19] MEDS: Piperacillin/Tazobactam 3.375 GM in Sodium Chloride 0.9% 100 ML IVPB SCH ×4 (05:56→23:52)
[2020-01-19 06:30] LABS: Anion Gap 8 mmol/L (10-20); BUN (Urea Nitrogen) 10 mg/dL (7.0-18.7); Calc. Creatinine Clearance 91 mL/min (70-130); Carbon Dioxide 29 mmol/L (22-29); Chloride 108 mmol/L (98-107); Estimated GFR-MDRD Greater than 90; Glucose 67 mg/dL (70-105); Magnesium 1.9 mg/dL (1.6-2.6); Phosphorus 4.2 mg/dL (2.3-4.7); Potassium 3.7 mmol/L (3.5-5.1); Sodium 141 mmol/L (136-145)
[2020-01-19 06:55] LABS: Mean Corpuscular HGB CONC 33.1 g/dL (32.0-36.0); Mean Corpuscular Hemoglobin 34.6 pg (27.0-31.0); Mean Platelet Volume 9.6 fL (7.4-10.4); Platelet Count 205 thou/uL (130-400); RBC Distribution Width 11.1 % (11.5-14.5); Red Blood Cell (RBC) Count 3.19 mill/uL (4.20-5.40); White Blood Cell (WBC) Count 6.9 thou/uL (4.8-10.8)
[2020-01-19] MEDS: Ondansetron PF 4 MG/2 ML Vial IVP PRN (08:48)
[2020-01-19] MEDS: Sodium Chloride 0.9% 1,000 ML IV SCH ×2 (08:48→17:41)
[2020-01-19] MEDS: Gabapentin 300 MG CAP PO SCH ×2 (08:49→20:36)
[2020-01-19] MEDS: Calcium Carbonate 600 MG + Vit D TAB PO SCH (08:50)
[2020-01-19] MEDS: Flecainide 50 MG TAB PO SCH ×2 (08:50→20:36)
[2020-01-19] MEDS: Multivit, Chewable SF 1 TAB PO SCH (08:50)
[2020-01-19 08:52] LABS: Band 2 % (5-11); Eosinophils 2 % (0-10); Lymphocytes 43 % (21-51); MDiff Complete? YES; Monocytes 4 % (0-10); Neutrophil 49 % (42-75)
[2020-01-19] MEDS ORDERED: Pantoprazole 40 MG VIAL IVP SCH (09:00)
[2020-01-19] MEDS ORDERED: Biotin [Mega Biotin] 10,000 MCG PO SCH (09:00)
[2020-01-19] MEDS: Promethazine HCl 12.5 MG in Sodium Chloride 0.9% 50 ML IVPB PRN ×2 (11:50→21:23)
[2020-01-20] MEDS: Morphine 4 MG/ML VIAL SLOW IVP PRN ×3 (01:38→05:23)
[2020-01-20] MEDS: Sodium Chloride 0.9% 1,000 ML IV SCH (01:39)
[2020-01-20] MEDS: Ondansetron PF 4 MG/2 ML Vial IVP PRN ×3 (01:42→20:36)
[2020-01-20] MEDS: Promethazine HCl 12.5 MG in Sodium Chloride 0.9% 50 ML IVPB PRN ×2 (03:24→17:26)
--- NOTE | 2020-01-20 03:54 | PRG ---
DATE OF SERVICE: 01/19/2020 SUBJECTIVE: The patient was seen this evening during rounds. She was sitting up in bed, resting comfortably and asleep with no signs of acute distress. Nursing reported no acute events. OBJECTIVE: VITAL SIGNS: Temperature 97.6, pulse 64, respirations 16, oxygen saturation 98% on room air, blood pressure 102/60. GENERAL: Thin appearing middle-aged female, sitting up in bed, asleep with no signs of acute distress. PULMONARY: Equal chest rise and fall. No signs of acute respiratory distress. ASSESSMENT: 1. Intractable nausea, vomiting, and abdominal pain. Small bowel infection versus inflammation near previously placed J-tube. 2. History of malnutrition, chronic back pain, anxiety, irritable bowel syndrome, tachycardia, hypertension, hiatal hernia. PLAN: Continue current n.p.o. Continue Zosyn. Continue IV fluid hydration. Repeat blood work in the morning. Continue antibiotics. Job ID: [id number]
[2020-01-20] MEDS: Piperacillin/Tazobactam 3.375 GM in Sodium Chloride 0.9% 100 ML IVPB SCH ×4 (05:22→23:04)
[2020-01-20] MEDS: ALPRAZolam 1 MG TAB PO PRN ×2 (05:28→22:32)
[2020-01-20 06:03] LABS: Anion Gap 15 mmol/L (10-20); BUN (Urea Nitrogen) 10 mg/dL (7.0-18.7); Calc. Creatinine Clearance 91 mL/min (70-130); Calcium 7.9 mg/dL (7.8-10.44); Carbon Dioxide 19 mmol/L (22-29); Chloride 108 mmol/L (98-107); Estimated GFR-MDRD Greater than 90; Magnesium 1.7 mg/dL (1.6-2.6); Phosphorus 3.8 mg/dL (2.3-4.7); Potassium 3.8 mmol/L (3.5-5.1); Sodium 138 mmol/L (136-145)
[2020-01-20 06:11] LABS: Glucose 53 mg/dL (70-105)
[2020-01-20] MEDS ORDERED: Dextrose 50% Abboject 50 ML SYRINGE ONE (06:22)
[2020-01-20] MEDS ORDERED: Dextrose 50% Abboject 50 ML SYRINGE IVP SCH (06:30)
[2020-01-20 08:11] LABS: #Basophils 0.1 thou/uL (0.0-0.2); #Eosinphils 0.1 thou/uL (0.0-0.7); #Lymphocytes 2.3 thou/uL (1.20-3.40); #Monocytes 0.7 thou/uL (0.11-0.59); %Basophils 0.8 % (0.0-1.0); %Eosinophils 1.7 % (0.0-10.0); %Lymphocytes 31.5 % (21.0-51.0); %Monocytes 9.9 % (0.0-10.0); %Neutrophils 56.1 % (42.0-75.0); Hemoglobin 12.2 g/dL (12.0-16.0); MDiff Complete? YES; Mean Corpuscular HGB CONC 32.5 g/dL (32.0-36.0); Mean Corpuscular Hemoglobin 35.1 pg (27.0-31.0); Mean Platelet Volume 9.8 fL (7.4-10.4); Platelet Count 205 thou/uL (130-400); Red Blood Cell (RBC) Count 3.48 mill/uL (4.20-5.40); White Blood Cell (WBC) Count 7.2 thou/uL (4.8-10.8)
[2020-01-20 08:12] LABS: Macrocytosis SLIGHT = 6-15 cells (100X) (0-5/hpf)
[2020-01-20] MEDS: Flecainide 50 MG TAB PO SCH ×2 (09:28→20:37)
[2020-01-20] MEDS: Multivit, Chewable SF 1 TAB PO SCH (09:28)
[2020-01-20] MEDS: Gabapentin 300 MG CAP PO SCH ×2 (09:28→20:37)
[2020-01-20] MEDS: Calcium Carbonate 600 MG + Vit D TAB PO SCH (09:28)
[2020-01-20] MEDS: Dextrose 5 %-0.45 % NaCl 1,000 ML IV SCH ×2 (10:30→20:37)
[2020-01-20] MEDS: Hydrocodone-Acetamin 15 ML UDCUP PO PRN ×2 (12:26→20:36)
[2020-01-20] MEDS: tiZANidine HCl 4 MG TAB PO PRN (12:27)
--- NOTE | 2020-01-20 14:21 | PRG ---
DATE OF SERVICE: 01/20/2020 SUBJECTIVE: The patient was seen with Dr. Barth during morning rounds. The patient is currently awake, alert, in no distress. The patient does report some moderate pain that is controlled with her pain medicines. The patient has not done much walking and has mainly been in the bed crocheting. The patient did have a low blood sugar on her chemistry this morning, 53. The patient was given an amp of D50, in which it improved to 151. The patient has been n.p.o. The patient is passing gas. OBJECTIVE: VITAL SIGNS: Blood pressure 98/60, temperature 97.7, pulse 57, respirations 16, SpO2 of 99% on room air. GENERAL: Middle-aged female, cachectic, no acute distress. PULMONARY: Equal chest rise and fall, respirations are even and nonlabored. ABDOMEN: Soft, nondistended, PEG tube in place. EXTREMITIES: Moves all extremities. No focal deficits. ASSESSMENT: 1. Intractable nausea, vomiting, and abdominal pain. Small bowel infection versus inflammation near previously placed J-tube. 2. History of malnutrition, chronic back pain, anxiety, irritable bowel syndrome, tachycardia, hypertension, and hiatal hernia. PLAN: Supportive care. Continue antibiotics. We will change maintenance IV fluids to D5 and half-normal saline as the patient was hypoglycemic. We will start the patient on a full bariatric liquid diet. The patient has been instructed to walk as much as possible. Job ID: [id number]
[2020-01-20] MEDS: traMADol HCl 50 MG TAB PO PRN (15:34)
[2020-01-21] MEDS: tiZANidine HCl 4 MG TAB PO PRN (03:24)
[2020-01-21] MEDS: Promethazine HCl 12.5 MG in Sodium Chloride 0.9% 50 ML IVPB PRN (03:24)
[2020-01-21] MEDS: Piperacillin/Tazobactam 3.375 GM in Sodium Chloride 0.9% 100 ML IVPB SCH (05:48)
[2020-01-21] MEDS: Hydrocodone-Acetamin 15 ML UDCUP PO PRN ×2 (06:45→15:04)
[2020-01-21] MEDS: Dextrose 5 %-0.45 % NaCl 1,000 ML IV SCH ×2 (08:54→15:45)
[2020-01-21] MEDS: Gabapentin 300 MG CAP PO SCH ×2 (08:54→20:31)
[2020-01-21] MEDS: Multivit, Chewable SF 1 TAB PO SCH (08:55)
[2020-01-21] MEDS: Flecainide 50 MG TAB PO SCH ×2 (08:55→20:31)
[2020-01-21] MEDS: Calcium Carbonate 600 MG + Vit D TAB PO SCH (08:55)
[2020-01-21] MEDS: traMADol HCl 50 MG TAB PO PRN (11:38)
[2020-01-21] MEDS: ALPRAZolam 1 MG TAB PO PRN (14:13)
[2020-01-21] MEDS: Scopolamine 1.5 mg/72 hour Patch TD SCH (15:03)
[2020-01-21] MEDS: Zolpidem Tartrate 5 MG TAB PO PRN (21:27)
--- NOTE | 2020-01-21 22:48 | PDOC.GSPN ---
Surgery Progress Note: Subj - Subjective Narrative: nausea improved, still has mild pain Surgery Progress Note: Obj - Vital signs Vital signs: Vital Signs - Most Recent Temp Pulse Resp BP Pulse Ox 98.1 F 82 18 110/71 100 01/21/20 19:40 01/21/20 19:40 01/21/20 19:40 01/21/20 19:40 01/21/20 19:40 - Physical Exam General: no distress Cardiovascular: regular rate and rhythm Respiratory: clear to auscultation Abdomen: soft, non tender, positive bowel sounds Wound: other (sutures removed from j tube site) Surgery Progress Note: Results - Labs Result Diagrams: 01/20/20 05:18 01/20/20 05:18 Lab results: Laboratory Results - last 24 hr 01/21/20 01/21/20 11:06 17:25 POC Glucose 92 108 Surgery Progress Note: A/P - Problem (1) Abdominal pain Current Visit: No Code(s): R10.9 - UNSPECIFIED ABDOMINAL PAIN Status: Acute Qualifiers: - Plan Plan: Resume night time feeds -home if tolerates
[2020-01-22] MEDS: ALPRAZolam 1 MG TAB PO PRN (00:59)
[2020-01-22] MEDS: Hydrocodone-Acetamin 15 ML UDCUP PO PRN ×2 (00:59→10:16)
[2020-01-22] MEDS: Dextrose 5 %-0.45 % NaCl 1,000 ML IV SCH (03:13)
[2020-01-22] MEDS: traMADol HCl 50 MG TAB PO PRN (04:01)
[2020-01-22] MEDS: Flecainide 50 MG TAB PO SCH (10:17)
[2020-01-22] MEDS: Gabapentin 300 MG CAP PO SCH (10:17)
[2020-01-22] MEDS: Multivit, Chewable SF 1 TAB PO SCH (10:17)
[2020-01-22] MEDS: Calcium Carbonate 600 MG + Vit D TAB PO SCH (10:17)
--- NOTE | 2020-01-22 11:41 | DIS ---
DATE OF ADMISSION: 01/18/2020 DATE OF DISCHARGE: 01/22/2020 ADMIT DIAGNOSES: Abdominal pain, nausea, vomiting. DISCHARGE DIAGNOSES: Abdominal pain, nausea, vomiting. PROCEDURES: None. CONDITION ON DISCHARGE: Improved. STAFF: Nasir Stanford MD HOSPITAL COURSE: The patient has a long complex abdominal history. She has recently been on jejunal tube feeds secondary to her chronic failure to thrive and intractable nausea. She came to the emergency room with significant pain. CT scan showed some evidence of thickened bowel wall in the area of jejunojejunostomy. Upon admission, the patient did well. Her pain slowly resolved. Her sutures at her J-tube are pulling, so these sutures were removed. The plan is for her to go home today. She will return to see me in 2 weeks. Job ID: [id number]
[2020-01-22 15:12] VITALS: BP 108/68; TEMP 98.2
== END 2020-01-22 13:45 | disposition home or self-care (01) ==
LOC: EDSTATUS 00:30 → SURG A 01-18 00:30
PROVIDERS: ADMIT Surgery; ATTEND Surgery
DX: R10.9 Unspecified abdominal pain (principal); R11.2 Nausea with vomiting, unspecified; G89.29 Other chronic pain; M54.2 Cervicalgia; M54.9 Dorsalgia, unspecified; F41.9 Anxiety disorder, unspecified; I10 Essential (primary) hypertension; E46 Unspecified protein-calorie malnutrition; R62.7 Adult failure to thrive; Z68.1 Body mass index [BMI] 19.9 or less, adult; Z79.899 Other long term (current) drug therapy; Z88.5 Allergy status to narcotic agent; Z98.84 Bariatric surgery status
CPT/HCPCS: 36415; 36416; 80048; 83735; 84100; 85007; 85025; 85027; 96361; 96365; 96366; 96367; 96375; 96376; C9113; G0378; J1642; J2270; J2405; J2543; J2550; J3490; Q0162; Q0169

== ENCOUNTER 2020-11-25 10:48 | Inpatient (IN) | payer BC ==
[~2020-11-25 10:48] MED LIST changes: +Heparin 1,000 UNITS/ML VIAL ONE; -ISOVUE-370 76%-LOCM 1 ML ONE; -Iopamidol 370 76% 50 ML VIAL FS ONE
[2020-11-25 11:40] VITALS: BMI 17.4
[2020-11-25 12:17] LABS: ALT (SGPT) 15 U/L (8-55); AST (SGOT) 20 U/L (5-34); Alkaline Phosphatase 92 U/L (40-110); Anion Gap 8 mmol/L (10-20); BUN (Urea Nitrogen) 17 mg/dL (7.0-18.7); Bilirubin, Total 0.6 mg/dL (0.2-1.2); Calc. Creatinine Clearance 80 mL/min (70-130); Calcium 8.7 mg/dL (7.8-10.44); Carbon Dioxide 30 mmol/L (22-29); Chloride 106 mmol/L (98-107); Cholesterol 140 mg/dl (< 200 Desired); Globulin 2.9 g/dL (2.4-3.5); Glucose 101 mg/dL (70-105); HDL Cholesterol 71 mg/dL (>60 Neg Risk); LDL Cholesterol, Calculated 52 mg/dL; Magnesium 2.1 mg/dL (1.6-2.6); Potassium 4.3 mmol/L (3.5-5.1); Protein, Total 6.9 g/dL (6.0-8.3); Sodium 140 mmol/L (136-145); Triglycerides 84 mg/dL (Less than 150)
[2020-11-25] MEDS: Promethazine HCl 12.5 MG in Sodium Chloride 0.9% 50 ML IVPB PRN ×2 (13:27→20:34)
[2020-11-25] MEDS: D5 1/2 NS w/20 mEq KCL 1,000 ML IV SCH ×2 (13:35→21:51)
[2020-11-25 13:43] LABS: INR-International Normal Ratio 1.1; PTT 31.1 sec (22.9-36.1); Prothrombin Time 14.1 sec (12.0-14.7)
[2020-11-25] MEDS: Ketorolac Tromethamine 30 MG/ML VIAL IVP PRN ×2 (14:34→20:33)
[2020-11-25 17:56] LABS: SARS-CoV-2 PCR by NAA Not Detected (NotDetected)
[2020-11-25] MEDS: Ondansetron PF 4 MG/2 ML Vial IVP PRN (18:48)
[2020-11-25 21:47] LABS: #Lymphocytes 1.9 thou/uL (1.20-3.40); #Monocytes 0.5 thou/uL (0.11-0.59); %Basophils 0.4 % (0.0-1.0); %Eosinophils 0.6 % (0.0-10.0); %Lymphocytes 29.4 % (21.0-51.0); %Monocytes 7.3 % (0.0-10.0); %Neutrophils 62.3 % (42.0-75.0); Hemoglobin 12.2 g/dL (12.0-16.0); MDiff Complete? YES; Macrocytosis SLIGHT = 6-15 cells (100X) (0-5/hpf); Mean Corpuscular HGB CONC 33.9 g/dL (32.0-36.0); Mean Corpuscular Hemoglobin 35.6 pg (27.0-31.0); Mean Platelet Volume 9.2 fL (7.4-10.4); Platelet Count 204 thou/uL (130-400); RBC Distribution Width 10.3 % (11.5-14.5); Red Blood Cell (RBC) Count 3.44 mill/uL (4.20-5.40); White Blood Cell (WBC) Count 6.5 thou/uL (4.8-10.8)
[2020-11-25] MEDS: Fat Emulsion 250 ML IVPB SCH (21:51)
[2020-11-25] MEDS: Multivitamins, Adult 10 ML, TRACE ELEMENT CONCENTRATE 1 ML in D15W-AA 5% with Lytes 2,0... IV SCH (21:51)
[2020-11-26] MEDS: Ketorolac Tromethamine 30 MG/ML VIAL IVP PRN ×3 (02:23→22:39)
[2020-11-26] MEDS: Ondansetron PF 4 MG/2 ML Vial IVP PRN ×4 (02:26→22:39)
[2020-11-26] MEDS: Promethazine HCl 12.5 MG in Sodium Chloride 0.9% 50 ML IVPB PRN ×3 (04:23→20:40)
[2020-11-26 07:00] LABS: Ref Lab Test Ordered PANCREATIC POLYPEPTI; Reference Lab Name LABCORP
[2020-11-26] MEDS: D5 1/2 NS w/20 mEq KCL 1,000 ML IV SCH ×3 (07:20→22:37)
[2020-11-26] MEDS: Enoxaparin Sodium 40 MG/0.4 ML SYRINGE SC SCH (07:59)
[2020-11-26] MEDS ORDERED: Sodium Bicarbonate 2.5 MEQ/5 ML VIAL ONE (08:13)
[2020-11-26] MEDS ORDERED: Albumin 25% 100 ML ONE (08:13)
[2020-11-26] MEDS ORDERED: Lidocaine 1% PF 5 ML VIAL ONE (08:13)
[2020-11-26] MEDS ORDERED: Lorazepam 2 MG/ML VIAL SLOW IVP SCH (08:30)
[2020-11-26] MEDS ORDERED: Magnevist 469MG/ML 20 ML VIAL ONE (10:17)
[2020-11-26] MEDS: Fat Emulsion 250 ML IVPB SCH (22:38)
[2020-11-26] MEDS: Multivitamins, Adult 10 ML, TRACE ELEMENT CONCENTRATE 1 ML in D15W-AA 5% with Lytes 2,0... IV SCH (22:39)
[2020-11-27] MEDS: Promethazine HCl 12.5 MG in Sodium Chloride 0.9% 50 ML IVPB PRN ×3 (03:11→17:18)
[2020-11-27] MEDS: Ondansetron PF 4 MG/2 ML Vial IVP PRN ×3 (05:05→20:21)
[2020-11-27] MEDS: Ketorolac Tromethamine 30 MG/ML VIAL IVP PRN ×3 (05:05→20:07)
[2020-11-27] MEDS: Enoxaparin Sodium 40 MG/0.4 ML SYRINGE SC SCH (08:01)
[2020-11-27] MEDS: Multivitamins, Adult 10 ML, TRACE ELEMENT CONCENTRATE 1 ML in D15W-AA 5% with Lytes 2,0... IV SCH (22:04)
[2020-11-27] MEDS: Fat Emulsion 250 ML IVPB SCH (22:05)
[2020-11-28] MEDS: Promethazine HCl 12.5 MG in Sodium Chloride 0.9% 50 ML IVPB PRN ×3 (00:11→11:24)
[2020-11-28] MEDS: Ketorolac Tromethamine 30 MG/ML VIAL IVP PRN ×2 (03:05→08:29)
[2020-11-28] MEDS: Ondansetron PF 4 MG/2 ML Vial IVP PRN ×2 (03:08→08:29)
[2020-11-28 04:11] VITALS: TEMP 98.3
[2020-11-28] MEDS: Enoxaparin Sodium 40 MG/0.4 ML SYRINGE SC SCH (08:29)
[2020-11-28 11:34] VITALS: BP 124/79
== END 2020-11-28 15:15 | disposition home health service (06) | DRG 391 ==
LOC: SURG A 10:49
PROVIDERS: ADMIT Surgery; ATTEND Surgery
PROC: 02HV33Z Insertion of Infusion Device into Superior Vena Cava, Percutaneous Approach (ICD-10-PCS; principal; 2020-11-25)
PROC: B548ZZA Ultrasonography of Superior Vena Cava, Guidance (ICD-10-PCS; 2020-11-25)
DX: R11.2 Nausea with vomiting, unspecified (principal); E43 Unspecified severe protein-calorie malnutrition; Z68.1 Body mass index [BMI] 19.9 or less, adult; Z95.818 Presence of other cardiac implants and grafts; Z79.899 Other long term (current) drug therapy; Z88.5 Allergy status to narcotic agent; Z90.49 Acquired absence of other specified parts of digestive tract; Z98.51 Tubal ligation status; Z90.710 Acquired absence of both cervix and uterus; Z98.890 Other specified postprocedural states; Z83.3 Family history of diabetes mellitus; Z82.49 Family history of ischemic heart disease and other diseases of the circulatory system
CPT/HCPCS: 36415; 36569; 74183; 80053; 80061; 83735; 84100; 84134; 84425; 85025; 85610; 85730; A9579; C1751; J1610; J1642; J1644; J1650; J1885; J2060; J2405; J2550; J3480; P9047; U0003; U0005

== ENCOUNTER 2020-12-02 12:22 | Inpatient (IN) | payer BC ==
[2020-12-02] MEDS ORDERED: Midazolam HCl 2 mg/2 ml Vial ONE ×2 (15:33→15:42)
[2020-12-02] MEDS ORDERED: Fentanyl 100 MCG/2 ML VIAL ONE ×3 (15:33→18:12)
[2020-12-02] MEDS ORDERED: Dexamethasone 4 mg/ml Vial ONE (15:34)
[2020-12-02] MEDS ORDERED: Bupivacaine PF 0.5% 30 ML VIAL ONE (15:34)
[2020-12-02] MEDS ORDERED: EPINEPHrine 1 MG/ML AMP ONE (15:34)
[2020-12-02] MEDS ORDERED: Ketamine 50 MG/ML (10ML VIAL) ONE (15:42)
[2020-12-02] MEDS ORDERED: HYDROcodone/Acetaminophen 5/325 mg Tablet PO PRN ×2 (15:48)
[2020-12-02] MEDS ORDERED: Vancomycin 1 GM/200 ML BAG ONE (15:52)
[2020-12-02] MEDS ORDERED: ALPRAZolam 1 MG TAB PO PRN (15:52)
[2020-12-02] MEDS ORDERED: PHENYLEPHRINE-NS 100 MCG/ML 10 ML SYRINGE ONE (15:57)
[2020-12-02] MEDS ORDERED: Rocuronium Bromide 10 MG/ML (10ML VIAL) ONE (15:57)
[2020-12-02] MEDS ORDERED: Lidocaine 1% PF 5 ML VIAL ONE (15:57)
[2020-12-02] MEDS ORDERED: Glycopyrrolate 0.2 MG/ML 5 ML SYRINGE ONE (15:57)
[2020-12-02] MEDS ORDERED: Ondansetron PF 4 MG/2 ML Vial ONE ×2 (15:57→19:09)
[2020-12-02] MEDS ORDERED: PROPOFOL 200 MG/20 ML VIAL ONE (15:57)
[2020-12-02] MEDS ORDERED: Linaclotide [Linzess] 290 MCG Capsule PO PRN (16:07)
[2020-12-02 16:27] LABS: Troponin I Less than 0.010 ng/mL (< 0.028)
[2020-12-02] MEDS ORDERED: Zolpidem Tartrate 5 MG TAB PO PRN (18:06)
[2020-12-02] MEDS ORDERED: Ondansetron HCl/PF 4 MG/2 ML Vial IVP PRN (18:06)
[2020-12-02] MEDS ORDERED: Naloxone HCl 0.4 mg/ml Vial IV PRN ×2 (18:06→18:09)
[2020-12-02] MEDS ORDERED: diphenhydrAMINE 50 MG/ML VIAL IM PRN ×2 (18:06→18:09)
[2020-12-02] MEDS ORDERED: Promethazine HCl 25 MG/ML VIAL SLOW IVP PRN (18:06)
[2020-12-02] MEDS ORDERED: diphenhydrAMINE 25 MG CAP PO PRN ×2 (18:06→18:09)
[2020-12-02] MEDS ORDERED: Ondansetron PF 4 MG/2 ML Vial IVP PRN (18:06)
[2020-12-02] MEDS ORDERED: Promethazine HCl 25 MG/ML VIAL IM PRN ×2 (18:06)
[2020-12-02] MEDS ORDERED: diphenhydrAMINE 50 MG/ML VIAL IVP PRN ×2 (18:06→18:09)
[2020-12-02] MEDS ORDERED: Communication Order-Pharmacy FS SCH ×2 (18:15)
[2020-12-02] MEDS: Ondansetron PF 4 MG/2 ML Vial IVP PRN (19:47)
[2020-12-02 20:30] LABS: Troponin I Less than 0.010 ng/mL (< 0.028)
[2020-12-02] MEDS: Gabapentin 300 MG CAP PO SCH (21:01)
[2020-12-02] MEDS: Piperacillin/Tazobactam 3.375 GM in Sodium Chloride 0.9% 100 ML IVPB SCH (21:01)
[2020-12-02] MEDS: Flecainide 50 MG TAB PO SCH (21:02)
[2020-12-03] MEDS: Piperacillin/Tazobactam 3.375 GM in Sodium Chloride 0.9% 100 ML IVPB SCH ×5 (02:20→23:28)
[2020-12-03] MEDS ORDERED: Acetaminophen 325 MG TAB PO PRN (02:23)
[2020-12-03] MEDS ORDERED: Ketorolac Tromethamine 30 MG/ML VIAL IVP SCH ×3 (02:45→22:00)
[2020-12-03] MEDS: Vancomycin 1 GM in Premix Bag 1 BAG IVPB SCH ×2 (03:01→16:30)
[2020-12-03] MEDS: Sodium Chloride 0.9% 1,000 ML IV SCH ×2 (03:04→09:16)
[2020-12-03 04:08] LABS: Anion Gap 9 mmol/L (10-20); BUN (Urea Nitrogen) 11 mg/dL (7.0-18.7); Calc. Creatinine Clearance 88 mL/min (70-130); Calcium 7.3 mg/dL (7.8-10.44); Carbon Dioxide 23 mmol/L (22-29); Chloride 107 mmol/L (98-107); Glucose 140 mg/dL (70-105); Potassium 3.6 mmol/L (3.5-5.1); Sodium 135 mmol/L (136-145)
[2020-12-03 04:23] LABS: Band 15 % (5-11); Hemoglobin 9.8 g/dL (12.0-16.0); Hypochromia SLIGHT = 6-15 cells (100X) (0-5/hpf); Lymphocytes 6 % (21-51); MDiff Complete? YES; Macrocytosis SLIGHT = 6-15 cells (100X) (0-5/hpf); Mean Corpuscular HGB CONC 34.7 g/dL (32.0-36.0); Mean Corpuscular Hemoglobin 36.2 pg (27.0-31.0); Mean Platelet Volume 9.4 fL (7.4-10.4); Monocytes 10 % (0-10); Neutrophil 69 % (42-75); Platelet Count 145 thou/uL (130-400); Platelet Morphology Comment Appears Adequate; RBC Distribution Width 10.6 % (11.5-14.5); White Blood Cell (WBC) Count 17.8 thou/uL (4.8-10.8)
[2020-12-03] MEDS: Calcium Carbonate 600 MG + Vit D TAB PO SCH (08:44)
[2020-12-03] MEDS: Gabapentin 300 MG CAP PO SCH ×2 (08:45→20:12)
[2020-12-03] MEDS: Enoxaparin Sodium 30 MG/0.3 ML SYRINGE SC SCH (08:45)
[2020-12-03] MEDS: Flecainide 50 MG TAB PO SCH ×2 (08:54→20:12)
[2020-12-03] MEDS ORDERED: Acetaminophen 500 MG TAB PO SCH (10:00)
[2020-12-03] MEDS ORDERED: Fentanyl CADD 100 ML ONE (13:27)
[2020-12-03] MEDS: fentaNYL Citrate/PF 2,000 MCG in Sodium Chloride 0.9% 60 ML IV PRN (13:32)
[2020-12-03] MEDS ORDERED: Ketorolac Tromethamine 30 MG/ML VIAL ONE (14:09)
[2020-12-03] MEDS: Ketorolac Tromethamine 30 MG/ML VIAL IVP SCH ×2 (14:12→21:53)
[2020-12-03] MEDS: Promethazine HCl 25 MG/ML VIAL IM PRN (17:03)
[2020-12-03] MEDS: Acetaminophen 500 MG TAB PO SCH ×2 (17:03→23:27)
[2020-12-03] MEDS: CALCIUM PO SCH (20:13)
[2020-12-03] MEDS: [UNRECOGNIZED DRUG - OTHER] PO SCH (20:13)
[2020-12-03] MEDS: Metoprolol Tartrate 25 MG TAB PO SCH (20:13)
[2020-12-03] MEDS: MULTIVITAMIN PO SCH (20:13)
[2020-12-03] MEDS: [UNRECOGNIZED DRUG - OTHER] PO SCH (20:13)
[2020-12-04] MEDS: Vancomycin 1 GM in Premix Bag 1 BAG IVPB SCH ×2 (03:23→16:57)
[2020-12-04] MEDS: Sodium Chloride 0.9% 1,000 ML IV SCH (03:23)
[2020-12-04 03:42] LABS: #Eosinphils 0.2 thou/uL (0.0-0.7); #Lymphocytes 1.6 thou/uL (1.20-3.40); #Neutrophils 7.5 thou/uL (1.40-6.50); %Basophils 0.1 % (0.0-1.0); %Eosinophils 1.7 % (0.0-10.0); %Lymphocytes 15.5 % (21.0-51.0); %Monocytes 9.8 % (0.0-10.0); %Neutrophils 72.9 % (42.0-75.0); Hemoglobin 8.3 g/dL (12.0-16.0); Mean Corpuscular HGB CONC 33.9 g/dL (32.0-36.0); Mean Corpuscular Hemoglobin 36.1 pg (27.0-31.0); Mean Platelet Volume 9.6 fL (7.4-10.4); Platelet Count 116 thou/uL (130-400); RBC Distribution Width 10.7 % (11.5-14.5); Red Blood Cell (RBC) Count 2.31 mill/uL (4.20-5.40); White Blood Cell (WBC) Count 10.2 thou/uL (4.8-10.8)
[2020-12-04] MEDS: Ondansetron PF 4 MG/2 ML Vial IVP PRN (04:06)
[2020-12-04] MEDS: Piperacillin/Tazobactam 3.375 GM in Sodium Chloride 0.9% 100 ML IVPB SCH ×4 (06:08→23:48)
[2020-12-04] MEDS: Ketorolac Tromethamine 30 MG/ML VIAL IVP SCH ×3 (06:09→21:56)
[2020-12-04] MEDS: Acetaminophen 500 MG TAB PO SCH ×4 (06:12→23:49)
[2020-12-04] MEDS ORDERED: Fentanyl CADD 100 ML ONE ×2 (08:26→18:50)
[2020-12-04] MEDS: Enoxaparin Sodium 30 MG/0.3 ML SYRINGE SC SCH (08:30)
[2020-12-04] MEDS: Gabapentin 300 MG CAP PO SCH ×2 (08:30→20:37)
[2020-12-04] MEDS: Calcium Carbonate 600 MG + Vit D TAB PO SCH (08:31)
[2020-12-04] MEDS: Metoprolol Tartrate 25 MG TAB PO SCH ×2 (08:31→20:45)
[2020-12-04] MEDS: [UNRECOGNIZED DRUG - OTHER] PO SCH ×2 (08:32→20:38)
[2020-12-04] MEDS: [UNRECOGNIZED DRUG - OTHER] PO SCH ×2 (08:32→20:38)
[2020-12-04] MEDS: CALCIUM PO SCH ×2 (08:32→20:38)
[2020-12-04] MEDS: MULTIVITAMIN PO SCH ×2 (08:32→20:38)
[2020-12-04] MEDS: Flecainide 50 MG TAB PO SCH ×2 (08:33→20:37)
[2020-12-04] MEDS: Promethazine HCl 25 MG/ML VIAL IM PRN ×2 (09:36→18:34)
[2020-12-04] MEDS: Dronabinol 2.5 MG CAP PO SCH ×2 (10:52→17:02)
[2020-12-04] MEDS: Hydrocortisone Sod Succ/PF 100 mg/2 ml Vial IVP SCH ×3 (12:31→23:48)
[2020-12-04] MEDS: Linaclotide [Linzess] 290 MCG Capsule PO PRN (18:14)
[2020-12-04] MEDS: Zolpidem Tartrate 5 MG TAB PO PRN (22:03)
[2020-12-05] MEDS: Sodium Chloride 0.9% 1,000 ML IV SCH ×2 (02:01→22:07)
[2020-12-05] MEDS: Ondansetron PF 4 MG/2 ML Vial IVP PRN ×2 (03:35→13:01)
[2020-12-05] MEDS: Vancomycin 1 GM in Premix Bag 1 BAG IVPB SCH ×2 (03:35→15:40)
[2020-12-05] MEDS: Ketorolac Tromethamine 30 MG/ML VIAL IVP SCH ×3 (06:01→21:45)
[2020-12-05] MEDS: Acetaminophen 500 MG TAB PO SCH ×3 (06:01→18:13)
[2020-12-05] MEDS: Hydrocortisone Sod Succ/PF 100 mg/2 ml Vial IVP SCH ×3 (06:02→18:13)
[2020-12-05] MEDS: Piperacillin/Tazobactam 3.375 GM in Sodium Chloride 0.9% 100 ML IVPB SCH ×3 (06:02→18:14)
[2020-12-05] MEDS: Promethazine 25 MG TAB PO PRN ×2 (06:27→15:41)
[2020-12-05] MEDS: Metoprolol Tartrate 25 MG TAB PO SCH ×2 (08:29→21:42)
[2020-12-05] MEDS: Gabapentin 300 MG CAP PO SCH ×2 (08:33→21:43)
[2020-12-05] MEDS: Enoxaparin Sodium 30 MG/0.3 ML SYRINGE SC SCH (08:33)
[2020-12-05] MEDS: Calcium Carbonate 600 MG + Vit D TAB PO SCH (08:33)
[2020-12-05] MEDS: Flecainide 50 MG TAB PO SCH ×2 (08:33→21:43)
[2020-12-05] MEDS: [UNRECOGNIZED DRUG - OTHER] PO SCH ×2 (08:34→21:47)
[2020-12-05] MEDS: CALCIUM PO SCH ×2 (08:34→21:47)
[2020-12-05] MEDS: [UNRECOGNIZED DRUG - OTHER] PO SCH ×2 (08:35→21:47)
[2020-12-05] MEDS: MULTIVITAMIN PO SCH ×2 (08:35→21:47)
[2020-12-05] MEDS: Dronabinol 2.5 MG CAP PO SCH ×2 (10:36→18:13)
[2020-12-05] MEDS: fentaNYL Citrate/PF 2,000 MCG in Sodium Chloride 0.9% 60 ML IV PRN ×2 (10:36→21:49)
[2020-12-05] MEDS ORDERED: Fentanyl CADD 100 ML ONE (21:32)
[2020-12-05] MEDS: ALPRAZolam 1 MG TAB PO PRN (21:59)
[2020-12-06] MEDS: Piperacillin/Tazobactam 3.375 GM in Sodium Chloride 0.9% 100 ML IVPB SCH ×4 (00:43→16:32)
[2020-12-06] MEDS: Hydrocortisone Sod Succ/PF 100 mg/2 ml Vial IVP SCH ×4 (00:45→16:32)
[2020-12-06] MEDS: Acetaminophen 500 MG TAB PO SCH ×4 (00:48→16:33)
[2020-12-06] MEDS: Vancomycin 1 GM in Premix Bag 1 BAG IVPB SCH ×2 (04:30→16:32)
[2020-12-06] MEDS: Promethazine 25 MG TAB PO PRN ×2 (05:15→12:02)
[2020-12-06] MEDS: Ketorolac Tromethamine 30 MG/ML VIAL IVP SCH ×3 (05:19→21:22)
[2020-12-06] MEDS: Gabapentin 300 MG CAP PO SCH ×2 (07:39→21:23)
[2020-12-06] MEDS: Calcium Carbonate 600 MG + Vit D TAB PO SCH (07:39)
[2020-12-06] MEDS: Flecainide 50 MG TAB PO SCH ×2 (07:40→21:24)
[2020-12-06] MEDS: Metoprolol Tartrate 25 MG TAB PO SCH ×2 (07:40→21:23)
[2020-12-06] MEDS: Enoxaparin Sodium 30 MG/0.3 ML SYRINGE SC SCH (07:40)
[2020-12-06] MEDS: CALCIUM PO SCH ×2 (07:47→21:24)
[2020-12-06] MEDS: [UNRECOGNIZED DRUG - OTHER] PO SCH ×2 (07:47→21:24)
[2020-12-06] MEDS: MULTIVITAMIN PO SCH ×2 (07:47→21:24)
[2020-12-06] MEDS: [UNRECOGNIZED DRUG - OTHER] PO SCH ×2 (07:47→21:24)
[2020-12-06] MEDS: Dronabinol 2.5 MG CAP PO SCH ×2 (11:56→16:42)
[2020-12-06] MEDS ORDERED: Fentanyl CADD 100 ML ONE (14:18)
[2020-12-06] MEDS: Ondansetron PF 4 MG/2 ML Vial IVP PRN (21:21)
[2020-12-06] MEDS: Sodium Chloride 0.9% 1,000 ML IV SCH (21:55)
[2020-12-07] MEDS: Acetaminophen 500 MG TAB PO SCH ×4 (00:33→17:46)
[2020-12-07] MEDS: Piperacillin/Tazobactam 3.375 GM in Sodium Chloride 0.9% 100 ML IVPB SCH ×4 (00:34→17:46)
[2020-12-07] MEDS: ALPRAZolam 1 MG TAB PO PRN (00:34)
[2020-12-07] MEDS: Hydrocortisone Sod Succ/PF 100 mg/2 ml Vial IVP SCH ×4 (00:34→17:46)
[2020-12-07] MEDS: Ondansetron PF 4 MG/2 ML Vial IVP PRN ×2 (04:04→21:27)
[2020-12-07] MEDS: Vancomycin 1 GM in Premix Bag 1 BAG IVPB SCH ×2 (04:04→15:45)
[2020-12-07] MEDS: Ketorolac Tromethamine 30 MG/ML VIAL IVP SCH ×3 (05:56→21:26)
[2020-12-07] MEDS: Promethazine HCl 25 MG/ML VIAL IM PRN ×2 (07:30→15:45)
[2020-12-07] MEDS ORDERED: Fentanyl CADD 100 ML ONE ×2 (07:38→22:09)
[2020-12-07] MEDS: Metoprolol Tartrate 25 MG TAB PO SCH ×2 (09:32→21:27)
[2020-12-07] MEDS: Gabapentin 300 MG CAP PO SCH ×2 (09:32→21:28)
[2020-12-07] MEDS: Enoxaparin Sodium 30 MG/0.3 ML SYRINGE SC SCH (09:33)
[2020-12-07] MEDS: Calcium Carbonate 600 MG + Vit D TAB PO SCH (09:33)
[2020-12-07] MEDS: Flecainide 50 MG TAB PO SCH ×2 (09:33→21:28)
[2020-12-07] MEDS: MULTIVITAMIN PO SCH ×2 (09:36→21:29)
[2020-12-07] MEDS: CALCIUM PO SCH ×2 (09:36→21:29)
[2020-12-07] MEDS: [UNRECOGNIZED DRUG - OTHER] PO SCH ×2 (09:36→21:29)
[2020-12-07] MEDS: [UNRECOGNIZED DRUG - OTHER] PO SCH ×2 (09:36→21:29)
[2020-12-07] MEDS: Dronabinol 2.5 MG CAP PO SCH ×2 (11:21→17:46)
[2020-12-07] MEDS: Sodium Chloride 0.9% 1,000 ML IV SCH (21:28)
[2020-12-07] MEDS: fentaNYL Citrate/PF 2,000 MCG in Sodium Chloride 0.9% 60 ML IV PRN (22:28)
[2020-12-08] MEDS: Acetaminophen 500 MG TAB PO SCH ×2 (00:06→05:13)
[2020-12-08] MEDS: Piperacillin/Tazobactam 3.375 GM in Sodium Chloride 0.9% 100 ML IVPB SCH ×3 (00:07→12:50)
[2020-12-08] MEDS: Hydrocortisone Sod Succ/PF 100 mg/2 ml Vial IVP SCH ×4 (00:07→21:09)
[2020-12-08] MEDS: ALPRAZolam 1 MG TAB PO PRN ×2 (00:39→22:59)
[2020-12-08] MEDS: Vancomycin 1 GM in Premix Bag 1 BAG IVPB SCH ×2 (04:24→16:05)
[2020-12-08] MEDS ORDERED: Piperacillin/Tazobactam 3.375 GM VIAL ONE (05:03)
[2020-12-08] MEDS: Ketorolac Tromethamine 30 MG/ML VIAL IVP SCH ×2 (05:14→12:50)
[2020-12-08] MEDS: Ondansetron PF 4 MG/2 ML Vial IVP PRN ×2 (05:14→21:10)
[2020-12-08] MEDS: Promethazine HCl 25 MG/ML VIAL IM PRN ×2 (06:29→16:25)
[2020-12-08] MEDS: Metoprolol Tartrate 25 MG TAB PO SCH ×2 (09:18→21:08)
[2020-12-08] MEDS: Calcium Carbonate 600 MG + Vit D TAB PO SCH (09:18)
[2020-12-08] MEDS: Gabapentin 300 MG CAP PO SCH ×2 (09:18→21:08)
[2020-12-08] MEDS: Enoxaparin Sodium 30 MG/0.3 ML SYRINGE SC SCH (09:19)
[2020-12-08] MEDS: Flecainide 50 MG TAB PO SCH ×2 (09:19→21:08)
[2020-12-08] MEDS: [UNRECOGNIZED DRUG - OTHER] PO SCH ×2 (09:21→21:09)
[2020-12-08] MEDS: MULTIVITAMIN PO SCH ×2 (09:21→21:09)
[2020-12-08] MEDS: CALCIUM PO SCH ×2 (09:21→21:09)
[2020-12-08] MEDS: [UNRECOGNIZED DRUG - OTHER] PO SCH ×2 (09:21→21:09)
[2020-12-08] MEDS: Dronabinol 2.5 MG CAP PO SCH ×2 (10:21→16:33)
[2020-12-08] MEDS ORDERED: traMADol HCl 50 MG TAB PO PRN (10:44)
[2020-12-08] MEDS: HYDROcodone/Acetaminophen 10/325 mg Tablet PO PRN ×3 (13:27→21:10)
[2020-12-09] MEDS: Promethazine HCl 25 MG/ML VIAL IM PRN (02:11)
[2020-12-09 03:59] LABS: Vancomycin, Trough 14.8 ug/mL
[2020-12-09] MEDS: HYDROcodone/Acetaminophen 10/325 mg Tablet PO PRN ×3 (06:12→19:28)
[2020-12-09] MEDS: Gabapentin 300 MG CAP PO SCH ×2 (07:51→20:20)
[2020-12-09] MEDS: Calcium Carbonate 600 MG + Vit D TAB PO SCH (07:51)
[2020-12-09] MEDS: Metoprolol Tartrate 25 MG TAB PO SCH ×2 (07:51→20:22)
[2020-12-09] MEDS: Enoxaparin Sodium 30 MG/0.3 ML SYRINGE SC SCH (07:52)
[2020-12-09] MEDS: Hydrocortisone Sod Succ/PF 100 mg/2 ml Vial IVP SCH ×2 (07:52→20:29)
[2020-12-09] MEDS: [UNRECOGNIZED DRUG - OTHER] PO SCH ×2 (07:52→20:19)
[2020-12-09] MEDS: Flecainide 50 MG TAB PO SCH ×2 (07:52→20:20)
[2020-12-09] MEDS: [UNRECOGNIZED DRUG - OTHER] PO SCH ×2 (07:52→20:19)
[2020-12-09] MEDS: CALCIUM PO SCH ×2 (07:52→20:19)
[2020-12-09] MEDS: MULTIVITAMIN PO SCH ×2 (07:52→20:19)
[2020-12-09] MEDS: Promethazine 25 MG TAB PO PRN ×2 (07:52→16:23)
[2020-12-09] MEDS: Fentanyl 100 MCG/2 ML VIAL SLOW IVP PRN ×2 (07:53→16:19)
[2020-12-09] MEDS: Dronabinol 2.5 MG CAP PO SCH ×2 (12:57→17:05)
[2020-12-09] MEDS: Ondansetron PF 4 MG/2 ML Vial IVP PRN (20:25)
[2020-12-09] MEDS: ALPRAZolam 1 MG TAB PO PRN (22:26)
[2020-12-10] MEDS: Fentanyl 100 MCG/2 ML VIAL SLOW IVP PRN (00:46)
[2020-12-10] MEDS: Promethazine 25 MG TAB PO PRN ×4 (01:18→21:00)
[2020-12-10] MEDS: HYDROcodone/Acetaminophen 10/325 mg Tablet PO PRN ×5 (02:35→22:35)
[2020-12-10] MEDS: Metoprolol Tartrate 25 MG TAB PO SCH ×2 (08:13→20:51)
[2020-12-10] MEDS: Flecainide 50 MG TAB PO SCH ×2 (08:14→20:48)
[2020-12-10] MEDS: Gabapentin 300 MG CAP PO SCH ×2 (08:14→20:49)
[2020-12-10] MEDS: Calcium Carbonate 600 MG + Vit D TAB PO SCH (08:14)
[2020-12-10] MEDS: Hydrocortisone Sod Succ/PF 100 mg/2 ml Vial IVP SCH ×2 (08:15→20:50)
[2020-12-10] MEDS: [UNRECOGNIZED DRUG - OTHER] PO SCH ×2 (08:15→20:51)
[2020-12-10] MEDS: CALCIUM PO SCH ×2 (08:15→20:51)
[2020-12-10] MEDS: MULTIVITAMIN PO SCH ×2 (08:15→20:51)
[2020-12-10] MEDS: [UNRECOGNIZED DRUG - OTHER] PO SCH ×2 (08:15→20:51)
[2020-12-10] MEDS: Enoxaparin Sodium 30 MG/0.3 ML SYRINGE SC SCH (08:15)
[2020-12-10] MEDS: Dronabinol 2.5 MG CAP PO SCH ×2 (12:45→18:41)
[2020-12-10] MEDS: ALPRAZolam 1 MG TAB PO PRN (22:35)
[2020-12-11] MEDS: HYDROcodone/Acetaminophen 10/325 mg Tablet PO PRN ×5 (02:34→20:58)
[2020-12-11] MEDS: Promethazine 25 MG TAB PO PRN ×3 (02:34→17:03)
[2020-12-11] MEDS: Flecainide 50 MG TAB PO SCH ×2 (08:48→20:57)
[2020-12-11] MEDS: Enoxaparin Sodium 30 MG/0.3 ML SYRINGE SC SCH (08:49)
[2020-12-11] MEDS: Gabapentin 300 MG CAP PO SCH ×2 (08:49→20:58)
[2020-12-11] MEDS: Hydrocortisone Sod Succ/PF 100 mg/2 ml Vial IVP SCH (08:49)
[2020-12-11] MEDS: CALCIUM PO SCH ×2 (08:50→20:57)
[2020-12-11] MEDS: MULTIVITAMIN PO SCH ×2 (08:50→20:57)
[2020-12-11] MEDS: [UNRECOGNIZED DRUG - OTHER] PO SCH ×2 (08:50→20:57)
[2020-12-11] MEDS: [UNRECOGNIZED DRUG - OTHER] PO SCH ×2 (08:50→20:57)
[2020-12-11] MEDS: Calcium Carbonate 600 MG + Vit D TAB PO SCH (08:54)
[2020-12-11] MEDS: Dronabinol 2.5 MG CAP PO SCH ×2 (11:04→17:03)
[2020-12-11] MEDS: Linaclotide [Linzess] 290 MCG Capsule PO PRN (11:17)
[2020-12-11 12:49] LABS: Calc. Creatinine Clearance 127 mL/min (70-130)
[2020-12-11] MEDS: tiZANidine HCl 4 MG TAB PO PRN (13:15)
[2020-12-11] MEDS: ALPRAZolam 1 MG TAB PO PRN (20:58)
[2020-12-12] MEDS: HYDROcodone/Acetaminophen 10/325 mg Tablet PO PRN ×6 (00:47→21:05)
[2020-12-12] MEDS: Ondansetron PF 4 MG/2 ML Vial IVP PRN (00:48)
[2020-12-12] MEDS: Ondansetron ODT 4 MG TAB PO PRN ×2 (01:02→17:48)
[2020-12-12] MEDS: Promethazine 25 MG TAB PO PRN ×2 (01:02→10:06)
[2020-12-12] MEDS: tiZANidine HCl 4 MG TAB PO PRN ×3 (01:21→21:04)
[2020-12-12] MEDS: Gabapentin 300 MG CAP PO SCH ×2 (09:59→21:05)
[2020-12-12] MEDS: Flecainide 50 MG TAB PO SCH ×2 (09:59→21:06)
[2020-12-12] MEDS: CALCIUM PO SCH ×2 (10:00→21:06)
[2020-12-12] MEDS: [UNRECOGNIZED DRUG - OTHER] PO SCH ×2 (10:00→21:06)
[2020-12-12] MEDS: [UNRECOGNIZED DRUG - OTHER] PO SCH ×2 (10:01→21:06)
[2020-12-12] MEDS: MULTIVITAMIN PO SCH ×2 (10:01→21:06)
[2020-12-12] MEDS: Enoxaparin Sodium 30 MG/0.3 ML SYRINGE SC SCH (10:05)
[2020-12-12] MEDS: Calcium Carbonate 600 MG + Vit D TAB PO SCH (11:03)
[2020-12-12] MEDS: Dronabinol 2.5 MG CAP PO SCH ×2 (12:21→17:49)
[2020-12-13] MEDS: ALPRAZolam 1 MG TAB PO PRN ×2 (00:04→22:37)
[2020-12-13] MEDS: HYDROcodone/Acetaminophen 10/325 mg Tablet PO PRN ×6 (01:17→22:37)
[2020-12-13] MEDS: Zolpidem Tartrate 5 MG TAB PO PRN (02:34)
[2020-12-13] MEDS: tiZANidine HCl 4 MG TAB PO PRN ×2 (05:25→20:28)
[2020-12-13] MEDS: [UNRECOGNIZED DRUG - OTHER] PO SCH ×2 (08:28→20:22)
[2020-12-13] MEDS: MULTIVITAMIN PO SCH ×2 (08:28→20:22)
[2020-12-13] MEDS: [UNRECOGNIZED DRUG - OTHER] PO SCH ×2 (08:28→20:23)
[2020-12-13] MEDS: CALCIUM PO SCH ×2 (08:28→20:23)
[2020-12-13] MEDS: Promethazine 25 MG TAB PO PRN ×2 (08:29→16:58)
[2020-12-13] MEDS: Gabapentin 300 MG CAP PO SCH ×2 (08:29→20:22)
[2020-12-13] MEDS: Flecainide 50 MG TAB PO SCH ×2 (08:29→20:21)
[2020-12-13] MEDS: Calcium Carbonate 600 MG + Vit D TAB PO SCH (08:30)
[2020-12-13] MEDS: Enoxaparin Sodium 30 MG/0.3 ML SYRINGE SC SCH (08:30)
[2020-12-13] MEDS: Promethazine HCl 25 MG/ML VIAL IM PRN (12:19)
[2020-12-13] MEDS: Dronabinol 2.5 MG CAP PO SCH ×2 (12:55→16:59)
[2020-12-14] MEDS: HYDROcodone/Acetaminophen 10/325 mg Tablet PO PRN ×5 (02:46→21:23)
[2020-12-14] MEDS: Ondansetron ODT 4 MG TAB PO PRN (03:53)
[2020-12-14] MEDS: Gabapentin 300 MG CAP PO SCH ×2 (08:49→19:56)
[2020-12-14] MEDS: Calcium Carbonate 600 MG + Vit D TAB PO SCH ×2 (08:51→09:00)
[2020-12-14] MEDS: [UNRECOGNIZED DRUG - OTHER] PO SCH ×2 (08:54→19:57)
[2020-12-14] MEDS: MULTIVITAMIN PO SCH ×2 (08:54→19:57)
[2020-12-14] MEDS: CALCIUM PO SCH ×2 (08:54→19:57)
[2020-12-14] MEDS: [UNRECOGNIZED DRUG - OTHER] PO SCH ×2 (08:54→19:57)
[2020-12-14] MEDS: Enoxaparin Sodium 30 MG/0.3 ML SYRINGE SC SCH (08:54)
[2020-12-14] MEDS: Flecainide 50 MG TAB PO SCH ×2 (08:56→19:56)
[2020-12-14] MEDS: tiZANidine HCl 4 MG TAB PO PRN ×2 (08:58→21:23)
[2020-12-14] MEDS: Dronabinol 2.5 MG CAP PO SCH ×2 (11:49→18:02)
[2020-12-14] MEDS: Promethazine 25 MG TAB PO PRN (16:29)
[2020-12-15] MEDS: ALPRAZolam 1 MG TAB PO PRN (00:51)
[2020-12-15] MEDS: HYDROcodone/Acetaminophen 10/325 mg Tablet PO PRN ×3 (02:46→15:53)
[2020-12-15] MEDS: Promethazine HCl 25 MG/ML VIAL IM PRN (06:10)
[2020-12-15] MEDS: Gabapentin 300 MG CAP PO SCH (08:45)
[2020-12-15] MEDS: CALCIUM PO SCH (08:46)
[2020-12-15] MEDS: Enoxaparin Sodium 30 MG/0.3 ML SYRINGE SC SCH (08:46)
[2020-12-15] MEDS: [UNRECOGNIZED DRUG - OTHER] PO SCH (08:46)
[2020-12-15] MEDS: MULTIVITAMIN PO SCH (08:47)
[2020-12-15] MEDS: [UNRECOGNIZED DRUG - OTHER] PO SCH (08:47)
[2020-12-15] MEDS: Flecainide 50 MG TAB PO SCH (08:47)
[2020-12-15] MEDS: Calcium Carbonate 600 MG + Vit D TAB PO SCH (08:49)
[2020-12-15] MEDS: tiZANidine HCl 4 MG TAB PO PRN (11:37)
[2020-12-15] MEDS: Dronabinol 2.5 MG CAP PO SCH ×2 (11:38→18:03)
[2020-12-15 13:04] VITALS: BMI 25.2
[2020-12-15 17:06] VITALS: BP 92/58; TEMP 98.2
== END 2020-12-15 18:00 | disposition home health service (06) | DRG 270 ==
LOC: ERS 12:22 → ERHOLD 14:45 → CCU 19:22 → IMCU/EMU 12-05 08:48 → SURG A 12-10 18:19
PROVIDERS: ADMIT Internal Medicine; ATTEND Internal Medicine
PROC: 0W9D0ZZ Drainage of Pericardial Cavity, Open Approach (ICD-10-PCS; principal; 2020-12-02)
PROC: 0W3D0ZZ Control Bleeding in Pericardial Cavity, Open Approach (ICD-10-PCS; 2020-12-02)
PROC: 02PY03Z Removal of Infusion Device from Great Vessel, Open Approach (ICD-10-PCS; 2020-12-02)
PROC: 0B9P00Z Drainage of Left Pleura with Drainage Device, Open Approach (ICD-10-PCS; 2020-12-02)
PROC: 0B9N00Z Drainage of Right Pleura with Drainage Device, Open Approach (ICD-10-PCS; 2020-12-02)
PROC: 0DH67UZ Insertion of Feeding Device into Stomach, Via Natural or Artificial Opening (ICD-10-PCS; 2020-12-03)
DX: T82.524A Displacement of infusion catheter, initial encounter (principal); J98.51 Mediastinitis; E43 Unspecified severe protein-calorie malnutrition; I31.3 Pericardial effusion (noninflammatory); J90 Pleural effusion, not elsewhere classified; R64 Cachexia; I47.1 Supraventricular tachycardia; E27.40 Unspecified adrenocortical insufficiency; I48.91 Unspecified atrial fibrillation; K21.9 Gastro-esophageal reflux disease without esophagitis; I10 Essential (primary) hypertension; F50.9 Eating disorder, unspecified; I45.10 Unspecified right bundle-branch block; I87.8 Other specified disorders of veins; M79.7 Fibromyalgia; Z68.25 Body mass index [BMI] 25.0-25.9, adult; Z90.49 Acquired absence of other specified parts of digestive tract; Z98.51 Tubal ligation status; Z90.3 Acquired absence of stomach [part of]; Z90.710 Acquired absence of both cervix and uterus; Z88.5 Allergy status to narcotic agent; Z98.84 Bariatric surgery status; T82.838A Hemorrhage due to vascular prosthetic devices, implants and grafts, initial encounter; Y83.1 Surgical operation with implant of artificial internal device as the cause of abnormal reaction of the patient, or of later complication, without mention of misadventure at the time of the procedure
CPT/HCPCS: 36415; 71045; 80048; 80202; 82533; 82565; 85025; 93005; 93306; 96365; J0171; J0690; J1100; J1650; J1720; J1885; J2250; J2405; J2543; J2550; J2704; J3010; J3370; J3490; P9045; Q0162; Q0167; Q0169; S0020

== ENCOUNTER 2020-12-30 10:58 | Outpatient (CLI) | payer BC | END 2020-12-30 10:59 | disposition home or self-care (01) | LOC: BICRAD 10:58 | PROVIDERS: ATTEND Thoracic Surgery (Cardiothoracic Vascular Surgery) | DX: I31.3 Pericardial effusion (noninflammatory) (principal) | CPT/HCPCS: 71046 ==

== ENCOUNTER 2021-11-19 10:36 | Outpatient (CLI) | payer BC ==
[2021-11-19 21:27] LABS: SARS-CoV-2 PCR by NAA Not Detected (NotDetected)
== END 2021-11-19 10:37 | disposition home or self-care (01) ==
LOC: LABBT 10:36
PROVIDERS: ATTEND Internal Medicine Gastroenterology
DX: R10.33 Periumbilical pain (principal); R11.2 Nausea with vomiting, unspecified; Z20.822 Contact with and (suspected) exposure to COVID-19
CPT/HCPCS: U0003; U0005

== ENCOUNTER 2021-11-23 07:07 | Inpatient (IN) | payer BC ==
[2021-11-23] MEDS ORDERED: fentaNYL Citrate/PF 100 MCG/2 ML SYRINGE ONE (07:55)
[2021-11-23] MEDS ORDERED: Ketorolac Tromethamine 30 MG/ML VIAL ONE (08:23)
[2021-11-23] MEDS ORDERED: Ondansetron PF 4 MG/2 ML Vial ONE (08:23)
[2021-11-23] MEDS ORDERED: Dextrose 50% Abboject 50 ML SYRINGE SLOW IVP PRN (10:02)
[2021-11-23] MEDS ORDERED: hydrALAZINE 20 MG/ML VIAL SLOW IVP PRN (10:02)
[2021-11-23] MEDS ORDERED: Ondansetron PF 4 MG/2 ML Vial IVP PRN (10:02)
[2021-11-23] MEDS ORDERED: Dextrose 5% in Water 1,000 ML IV PRN (10:02)
[2021-11-23] MEDS ORDERED: diphenhydrAMINE 50 MG/ML VIAL IVP PRN (10:02)
[2021-11-23] MEDS ORDERED: Promethazine HCl 25 MG/ML VIAL IM PRN (10:02)
[2021-11-23] MEDS ORDERED: Zolpidem Tartrate 5 MG TAB PO PRN (10:08)
[2021-11-23] MEDS ORDERED: ALPRAZolam 1 MG TAB PO PRN (10:08)
[2021-11-23] MEDS ORDERED: ceFAZolin 2 GM/Dextrose 50 ML 2 GM in Premix Bag 1 BAG IVPB SCH (10:15)
[2021-11-23] MEDS ORDERED: CEFAZOLIN 2 GM in Sodium Chloride 0.9% 100 ML IVPB SCH (10:45)
[2021-11-23] MEDS: D5 1/2 NS w/20 mEq KCL 1,000 ML IV SCH ×2 (11:24→17:57)
[2021-11-23] MEDS: Hydrocodone-Acetamin 15 ML UDCUP PO PRN ×2 (11:34→18:15)
[2021-11-23] MEDS: Multivitamins, Adult 10 ML in D5 1/2 NS w/20 mEq KCL 1,000 ML IV SCH (14:44)
[2021-11-23] MEDS: Gabapentin 300 MG CAP PO SCH ×2 (14:45→21:34)
[2021-11-23] MEDS: tiZANidine HCl 4 MG TAB PO SCH ×2 (14:45→21:33)
[2021-11-23] MEDS: Dronabinol 2.5 MG CAP PO SCH (16:53)
[2021-11-23] MEDS: Flecainide 50 MG TAB PO SCH (21:34)
[2021-11-24] MEDS: Hydrocodone-Acetamin 15 ML UDCUP PO PRN ×2 (03:06→08:23)
[2021-11-24] MEDS: D5 1/2 NS w/20 mEq KCL 1,000 ML IV SCH ×5 (04:33→21:57)
[2021-11-24] MEDS: Dronabinol 2.5 MG CAP PO SCH ×2 (08:17→18:14)
[2021-11-24] MEDS: Gabapentin 300 MG CAP PO SCH ×3 (08:18→21:51)
[2021-11-24] MEDS: Flecainide 50 MG TAB PO SCH ×2 (08:18→21:53)
[2021-11-24] MEDS: tiZANidine HCl 4 MG TAB PO SCH ×3 (08:18→21:51)
[2021-11-24] MEDS ORDERED: Multivit, Adult Inj 10 ML VIAL IV SCH (09:00)
[2021-11-24] MEDS ORDERED: Pantoprazole 40 MG VIAL IVP SCH (09:00)
[2021-11-24] MEDS ORDERED: Ondansetron PF 4 MG/2 ML Vial ONE ×3 (12:52→18:42)
[2021-11-24] MEDS ORDERED: fentaNYL Citrate/PF 100 MCG/2 ML SYRINGE ONE (12:56)
[2021-11-24] MEDS ORDERED: Heparin 1,000 UNITS/ML VIAL ONE (13:09)
[2021-11-24] MEDS ORDERED: Bupivacaine 0.25% 10 ML VIAL ONE (13:11)
[2021-11-24] MEDS ORDERED: Lidocaine 1% w/Epinephrine 1:100K 20 ML VIAL ONE (13:11)
[2021-11-24] MEDS ORDERED: Sodium Chloride 0.9% 100 ML ONE (13:20)
[2021-11-24] MEDS ORDERED: CEFAZOLIN 2 GM VIAL ONE (13:20)
[2021-11-24] MEDS ORDERED: Glycopyrrolate 0.2 MG/ML 5 ML SYRINGE ONE (13:33)
[2021-11-24] MEDS ORDERED: PROPOFOL 200 MG/20 ML VIAL ONE (13:33)
[2021-11-24] MEDS ORDERED: Dexamethasone 20 MG/5 ML VIAL ONE (13:33)
[2021-11-24] MEDS ORDERED: Ketorolac Tromethamine 30 MG/ML VIAL ONE (13:33)
[2021-11-24] MEDS ORDERED: Rocuronium Bromide 10 MG/ML (10ML VIAL) ONE (13:33)
[2021-11-24] MEDS ORDERED: Lidocaine 1% PF 5 ML VIAL ONE (13:33)
[2021-11-24] MEDS ORDERED: Bacitracin Zinc Ointment 30 gm TUBE ONE (15:30)
[2021-11-24] MEDS ORDERED: Promethazine HCl 25 MG/ML VIAL IM PRN ×2 (15:34→15:47)
[2021-11-24] MEDS ORDERED: Ondansetron PF 4 MG/2 ML Vial IVP PRN (15:34)
[2021-11-24] MEDS ORDERED: Dextrose 5% in Water 1,000 ML IV PRN (15:34)
[2021-11-24] MEDS ORDERED: hydrALAZINE 20 MG/ML VIAL SLOW IVP PRN (15:34)
[2021-11-24] MEDS ORDERED: Hydrocodone-Acetamin 15 ML UDCUP PO PRN (15:34)
[2021-11-24] MEDS ORDERED: Dextrose 50% Abboject 50 ML SYRINGE SLOW IVP PRN (15:34)
[2021-11-24] MEDS ORDERED: Fentanyl 100 MCG/2 ML VIAL SLOW IVP PRN (15:37)
[2021-11-24] MEDS ORDERED: Ondansetron HCl/PF 4 MG/2 ML Vial IVP PRN (15:47)
[2021-11-24] MEDS ORDERED: Promethazine HCl 25 MG/ML VIAL IVPB PRN (15:47)
[2021-11-24] MEDS ORDERED: Fentanyl 100 MCG/2 ML VIAL ONE ×4 (15:49→17:34)
[2021-11-24] MEDS ORDERED: diphenhydrAMINE 50 MG/ML VIAL IVP PRN (17:09)
[2021-11-24] MEDS ORDERED: Naloxone HCl 0.4 mg/ml Vial IV PRN (17:09)
[2021-11-24] MEDS ORDERED: diphenhydrAMINE 50 MG/ML VIAL IM PRN (17:09)
[2021-11-24] MEDS ORDERED: PCA Communication Order-Pharmacy FS SCH (17:15)
[2021-11-24] MEDS ORDERED: Fentanyl 100 MCG/2 ML VIAL SLOW IVP SCH (17:30)
[2021-11-24] MEDS: Multivitamins, Adult 10 ML in D5 1/2 NS w/20 mEq KCL 1,000 ML IV SCH (18:13)
[2021-11-24] MEDS: Ketorolac Tromethamine 30 MG/ML VIAL IVP SCH (21:48)
[2021-11-24] MEDS: CEFAZOLIN 2 GM in Sodium Chloride 0.9% 100 ML IVPB SCH (22:06)
[2021-11-24] MEDS: Ondansetron PF 4 MG/2 ML Vial IVP PRN (22:18)
[2021-11-25] MEDS: Ketorolac Tromethamine 30 MG/ML VIAL IVP SCH ×5 (00:27→23:29)
[2021-11-25] MEDS: Zolpidem Tartrate 5 MG TAB PO PRN ×2 (00:28→23:29)
[2021-11-25] MEDS: CEFAZOLIN 2 GM in Sodium Chloride 0.9% 100 ML IVPB SCH (05:11)
[2021-11-25 05:55] LABS: Mean Corpuscular HGB CONC 32.8 g/dL (32.0-36.0); Mean Corpuscular Hemoglobin 34.8 pg (27.0-31.0); Mean Platelet Volume 8.4 fL (7.4-10.4); Platelet Count 166 thou/uL (130-400); RBC Distribution Width 10.4 % (11.5-14.5); Red Blood Cell (RBC) Count 3.16 mill/uL (4.20-5.40); White Blood Cell (WBC) Count 10.3 thou/uL (4.8-10.8)
[2021-11-25 06:13] LABS: Anion Gap 12 mmol/L (10-20); BUN (Urea Nitrogen) 6 mg/dL (7.0-18.7); Calc. Creatinine Clearance 65 mL/min (70-130); Calcium 7.9 mg/dL (7.8-10.44); Carbon Dioxide 24 mmol/L (22-29); Chloride 105 mmol/L (98-107); Glucose 135 mg/dL (70-105); Potassium 3.7 mmol/L (3.5-5.1); Sodium 137 mmol/L (136-145)
[2021-11-25 07:48] LABS: #Lymphocytes 1.3 thou/uL (1.20-3.40); #Monocytes 0.5 thou/uL (0.11-0.59); #Neutrophils 8.5 thou/uL (1.40-6.50); %Basophils 0.1 % (0.0-1.0); %Eosinophils 0.3 % (0.0-10.0); %Lymphocytes 12.3 % (21.0-51.0); %Monocytes 4.9 % (0.0-10.0); %Neutrophils 82.4 % (42.0-75.0); RBC Morphology Normal
[2021-11-25] MEDS: Flecainide 50 MG TAB PO SCH ×2 (08:54→20:20)
[2021-11-25] MEDS: Dronabinol 2.5 MG CAP PO SCH ×4 (08:54→18:03)
[2021-11-25] MEDS: Enoxaparin Sodium 30 MG/0.3 ML SYRINGE SC SCH (08:55)
[2021-11-25] MEDS: Ondansetron PF 4 MG/2 ML Vial IVP PRN (08:55)
[2021-11-25] MEDS: Gabapentin 300 MG CAP PO SCH ×3 (08:55→20:20)
[2021-11-25] MEDS: tiZANidine HCl 4 MG TAB PO SCH ×3 (08:56→20:20)
[2021-11-25] MEDS: D5 1/2 NS w/20 mEq KCL 1,000 ML IV SCH ×3 (08:56→20:20)
[2021-11-25] MEDS: Pantoprazole 40 MG VIAL IVP SCH (08:56)
[2021-11-25] MEDS: Multivitamins, Adult 10 ML in D5 1/2 NS w/20 mEq KCL 1,000 ML IV SCH (11:54)
[2021-11-25] MEDS: fentaNYL Citrate/PF 2,000 MCG in Sodium Chloride 0.9% 60 ML IV PRN (15:10)
[2021-11-25] MEDS ORDERED: Acetaminophen 650 MG/20.3 ML UDCUP PO PRN (19:46)
[2021-11-26] MEDS: Ondansetron PF 4 MG/2 ML Vial IVP PRN (03:23)
[2021-11-26] MEDS: D5 1/2 NS w/20 mEq KCL 1,000 ML IV SCH ×3 (04:25→23:00)
[2021-11-26] MEDS: Ketorolac Tromethamine 30 MG/ML VIAL IVP SCH ×4 (05:17→22:59)
[2021-11-26] MEDS: tiZANidine HCl 4 MG TAB PO SCH ×3 (08:34→20:06)
[2021-11-26] MEDS: Enoxaparin Sodium 30 MG/0.3 ML SYRINGE SC SCH (08:34)
[2021-11-26] MEDS: Flecainide 50 MG TAB PO SCH ×2 (08:35→20:05)
[2021-11-26] MEDS: Gabapentin 300 MG CAP PO SCH ×3 (08:35→20:05)
[2021-11-26] MEDS: Pantoprazole 40 MG VIAL IVP SCH (08:36)
[2021-11-26 10:33] LABS: Hemoglobin 10.7 g/dL (12.0-16.0); Mean Corpuscular HGB CONC 31.9 g/dL (32.0-36.0); Mean Corpuscular Hemoglobin 34.4 pg (27.0-31.0); Mean Platelet Volume 8.9 fL (7.4-10.4); Platelet Count 166 thou/uL (130-400); RBC Distribution Width 10.5 % (11.5-14.5); White Blood Cell (WBC) Count 16.4 thou/uL (4.8-10.8)
[2021-11-26 10:35] LABS: Anion Gap 8 mmol/L (10-20); BUN (Urea Nitrogen) 9 mg/dL (7.0-18.7); Calc. Creatinine Clearance 79 mL/min (70-130); Calcium 7.5 mg/dL (7.8-10.44); Carbon Dioxide 26 mmol/L (22-29); Chloride 107 mmol/L (98-107); Glucose 161 mg/dL (70-105); Potassium 4.1 mmol/L (3.5-5.1); Sodium 137 mmol/L (136-145)
[2021-11-26] MEDS: Dronabinol 2.5 MG CAP PO SCH ×2 (11:06→17:17)
[2021-11-26] MEDS: Acetaminophen 650 MG/20.3 ML UDCUP PO SCH ×2 (11:13→19:07)
[2021-11-26 12:17] LABS: Band 35 % (5-11); Eosinophils 2 % (0-10); Lymphocytes 12 % (21-51); MDiff Complete? YES; Macrocytosis SLIGHT = 6-15 cells (100X) (0-5/hpf); Monocytes 4 % (0-10); Neutrophil 47 % (42-75); Platelet Morphology Comment Appears Adequate; Polychromasia SLIGHT = 2-3 cells (100X) (0-2/hpf)
[2021-11-26] MEDS ORDERED: Sodium Chloride 0.9% 1,000 ML IV SCH ×2 (12:45→13:45)
[2021-11-26] MEDS ORDERED: Piperacillin/Tazobactam 3.375 GM in Sodium Chloride 0.9% 100 ML IVPB SCH (13:15)
[2021-11-26] MEDS: Norepinephrine 8 MG/0.9% NS 250 ML IVPB SCH ×2 (13:34→23:11)
[2021-11-26] MEDS: Multivitamins, Adult 10 ML in D5 1/2 NS w/20 mEq KCL 1,000 ML IV SCH (13:53)
[2021-11-26 14:32] LABS: ALT (SGPT) Less than 7 U/L (8-55); AST (SGOT) 18 U/L (5-34); Albumin 2.2 g/dL (3.5-5.0); Alkaline Phosphatase 93 U/L (40-110); Anion Gap 6 mmol/L (10-20); BUN (Urea Nitrogen) 10 mg/dL (7.0-18.7); Bilirubin, Total 0.4 mg/dL (0.2-1.2); Calc. Creatinine Clearance 73 mL/min (70-130); Carbon Dioxide 28 mmol/L (22-29); Chloride 110 mmol/L (98-107); Globulin 2.2 g/dL (2.4-3.5); Glucose 77 mg/dL (70-105); Magnesium 1.5 mg/dL (1.6-2.6); Potassium 3.7 mmol/L (3.5-5.1); Protein, Total 4.4 g/dL (6.0-8.3); Sodium 140 mmol/L (136-145)
[2021-11-26 14:34] LABS: Phosphorus 1.2 mg/dL (2.3-4.7)
[2021-11-26] MEDS ORDERED: Electrolyte Replacement Protocol 1 EACH FS PRN (14:34)
[2021-11-26] MEDS ORDERED: PHOS-NAK 1 PKT PACK PO SCH (14:45)
[2021-11-26] MEDS ORDERED: Magnesium 2 GM/50 ML(in water) 2 GM in Premix Bag 1 BAG IVPB SCH (14:45)
[2021-11-26] MEDS ORDERED: Potassium Phosphate 22 MMOL in Sodium Chloride 0.9% 250 ML 250 ML IVPB SCH (15:15)
[2021-11-26] MEDS ORDERED: Iopamidol-370 76% 500 ML 1 ML ONE (15:39)
[2021-11-26] MEDS ORDERED: GASTROGRAFIN 30 ML BOT ONE (15:39)
[2021-11-26] MEDS ORDERED: fentaNYL Citrate/PF 100 MCG/2 ML SYRINGE ONE (16:02)
[2021-11-26] MEDS ORDERED: Phenylephrine 10 MG/ML VIAL ONE (16:03)
[2021-11-26] MEDS ORDERED: Bupivacaine PF 0.5% 30 ML VIAL ONE (16:10)
[2021-11-26] MEDS ORDERED: Lidocaine 1% w/Epinephrine 1:100K 20 ML VIAL ONE (16:10)
[2021-11-26] MEDS ORDERED: Midazolam HCl 2 mg/2 ml Vial ONE (16:19)
[2021-11-26] MEDS ORDERED: Rocuronium Bromide 10 MG/ML (10ML VIAL) ONE (16:28)
[2021-11-26] MEDS ORDERED: PROPOFOL 200 MG/20 ML VIAL ONE (16:28)
[2021-11-26] MEDS ORDERED: Calcium Chloride 1 GM/10 ML Abboject SYRINGE ONE (16:28)
[2021-11-26] MEDS ORDERED: Succinylcholine 200 MG/10 ml SYRINGE FS ONE (16:28)
[2021-11-26] MEDS ORDERED: SUGAMMADEX SODIUM 200 MG/2 ML VIAL ONE (17:32)
[2021-11-26] MEDS ORDERED: Piperacillin/Tazobactam 3.375 GM VIAL ONE (17:45)
[2021-11-26] MEDS: Piperacillin/Tazobactam 3.375 GM in Sodium Chloride 0.9% 100 ML IVPB SCH (18:12)
[2021-11-26] MEDS: fentaNYL Citrate/PF 2,000 MCG in Sodium Chloride 0.9% 60 ML IV PRN (20:12)
[2021-11-26] MEDS: Promethazine HCl 25 MG/ML VIAL IM PRN (22:58)
[2021-11-27] MEDS: Piperacillin/Tazobactam 3.375 GM in Sodium Chloride 0.9% 100 ML IVPB SCH ×3 (00:21→16:42)
[2021-11-27 04:04] LABS: Hemoglobin A1c 4.8 % (4.0-6.0)
[2021-11-27 04:19] LABS: ALT (SGPT) 15 U/L (8-55); AST (SGOT) 30 U/L (5-34); Albumin 2.2 g/dL (3.5-5.0); Alkaline Phosphatase 110 U/L (40-110); Anion Gap 10 mmol/L (10-20); BUN (Urea Nitrogen) 9 mg/dL (7.0-18.7); Bilirubin, Total 0.5 mg/dL (0.2-1.2); Calc. Creatinine Clearance 82 mL/min (70-130); Calcium 7.4 mg/dL (7.8-10.44); Carbon Dioxide 22 mmol/L (22-29); Chloride 114 mmol/L (98-107); Globulin 2.3 g/dL (2.4-3.5); Glucose 106 mg/dL (70-105); Magnesium 1.9 mg/dL (1.6-2.6); Potassium 4.5 mmol/L (3.5-5.1); Protein, Total 4.5 g/dL (6.0-8.3); Sodium 141 mmol/L (136-145)
[2021-11-27 04:26] LABS: Phosphorus 2.7 mg/dL (2.3-4.7)
[2021-11-27 04:37] LABS: Band 44 % (5-11); Eosinophils 4 % (0-10); Hemoglobin 11.2 g/dL (12.0-16.0); Lymphocytes 8 % (21-51); MDiff Complete? YES; Macrocytosis MODERATE=16-30 cells (100X) (0-5/hpf); Mean Corpuscular HGB CONC 32.9 g/dL (32.0-36.0); Mean Corpuscular Hemoglobin 35.2 pg (27.0-31.0); Mean Platelet Volume 8.5 fL (7.4-10.4); Metamyelocyte 24 % (0-0); Monocytes 2 % (0-10); Myelocyte 3 % (0-0); Neutrophil 13 % (42-75); Ovalocytes SLIGHT = 2-5 cells (100X) (0-1/hpf); Platelet Count 161 thou/uL (130-400); Platelet Morphology Comment Appears Adequate; RBC Distribution Width 10.5 % (11.5-14.5); Red Blood Cell (RBC) Count 3.18 mill/uL (4.20-5.40); Reflex for Review?? YES; White Blood Cell (WBC) Count 3.4 thou/uL (4.8-10.8)
[2021-11-27] MEDS: Ketorolac Tromethamine 30 MG/ML VIAL IVP SCH ×3 (05:37→17:26)
[2021-11-27] MEDS ORDERED: Magnesium 2 GM/50 ML(in water) 2 GM in Premix Bag 1 BAG IVPB SCH (08:00)
[2021-11-27] MEDS ORDERED: Vancomycin 1 GM in Premix Bag 1 BAG IVPB SCH (08:15)
[2021-11-27] MEDS: D5 1/2 NS w/20 mEq KCL 1,000 ML IV SCH ×3 (08:47→21:49)
[2021-11-27] MEDS: Pantoprazole 40 MG VIAL IVP SCH (08:48)
[2021-11-27] MEDS: Enoxaparin Sodium 30 MG/0.3 ML SYRINGE SC SCH (08:48)
[2021-11-27] MEDS: Lactated Ringer's 500 ML IV SCH ×2 (09:04→10:05)
[2021-11-27] MEDS: Gabapentin 300 MG CAP PO SCH ×3 (09:05→21:36)
[2021-11-27] MEDS: tiZANidine HCl 4 MG TAB PO SCH ×3 (09:05→21:37)
[2021-11-27] MEDS: Flecainide 50 MG TAB PO SCH ×2 (09:11→21:36)
[2021-11-27] MEDS: Vancomycin HCl 750 MG in Sodium Chloride 0.9% 250 ML 250 ML IVPB SCH ×2 (10:00→21:46)
[2021-11-27] MEDS: Dronabinol 2.5 MG CAP PO SCH ×2 (11:59→17:27)
[2021-11-27] MEDS: Multivitamins, Adult 10 ML in D5 1/2 NS w/20 mEq KCL 1,000 ML IV SCH (13:08)
[2021-11-27] MEDS ORDERED: Multivitamins, Adult 10 ML, TRACE ELEMENT CONCENTRATE 1 ML in D15W-AA 5% w/o Lytes 2,00... IV SCH (14:00)
[2021-11-27] MEDS ORDERED: Fat Emulsion 250 ML IVPB SCH (14:00)
[2021-11-27] MEDS: SODIUM ACETATE IV SCH (14:28)
[2021-11-27] MEDS: POTASSIUM PHOSPHATE IV SCH (14:28)
[2021-11-27] MEDS: [UNRECOGNIZED DRUG - OTHER] IV SCH (14:28)
[2021-11-27] MEDS: FAT EMULSION IV SCH (14:28)
[2021-11-27] MEDS: Ondansetron PF 4 MG/2 ML Vial IVP PRN (18:38)
[2021-11-27] MEDS: Norepinephrine 8 MG/0.9% NS 250 ML IVPB SCH (21:51)
[2021-11-28] MEDS: Piperacillin/Tazobactam 3.375 GM in Sodium Chloride 0.9% 100 ML IVPB SCH ×3 (00:31→17:09)
[2021-11-28 04:34] LABS: Band 48 % (5-11); Eosinophils 1 % (0-10); Hemoglobin 9.6 g/dL (12.0-16.0); Hypochromia SLIGHT = 6-15 cells (100X) (0-5/hpf); Lymphocytes 2 % (21-51); MDiff Complete? YES; Macrocytosis SLIGHT = 6-15 cells (100X) (0-5/hpf); Mean Corpuscular Hemoglobin 34.5 pg (27.0-31.0); Mean Platelet Volume 8.8 fL (7.4-10.4); Neutrophil 49 % (42-75); Platelet Count 120 thou/uL (130-400); Platelet Morphology Comment Appears Decreased; RBC Distribution Width 10.7 % (11.5-14.5); Red Blood Cell (RBC) Count 2.77 mill/uL (4.20-5.40); White Blood Cell (WBC) Count 8.6 thou/uL (4.8-10.8)
[2021-11-28 04:40] LABS: ALT (SGPT) 10 U/L (8-55); AST (SGOT) 19 U/L (5-34); Alkaline Phosphatase 105 U/L (40-110); Anion Gap 6 mmol/L (10-20); BUN (Urea Nitrogen) 13 mg/dL (7.0-18.7); Bilirubin, Total 0.4 mg/dL (0.2-1.2); Calc. Creatinine Clearance 82 mL/min (70-130); Calcium 7.4 mg/dL (7.8-10.44); Carbon Dioxide 25 mmol/L (22-29); Chloride 113 mmol/L (98-107); Globulin 2.4 g/dL (2.4-3.5); Glucose 119 mg/dL (70-105); Potassium 3.7 mmol/L (3.5-5.1); Protein, Total 4.4 g/dL (6.0-8.3); Sodium 140 mmol/L (136-145)
[2021-11-28] MEDS: tiZANidine HCl 4 MG TAB PO SCH ×3 (08:26→21:25)
[2021-11-28] MEDS: Enoxaparin Sodium 30 MG/0.3 ML SYRINGE SC SCH (08:26)
[2021-11-28] MEDS: Pantoprazole 40 MG VIAL IVP SCH (08:26)
[2021-11-28] MEDS: Flecainide 50 MG TAB PO SCH ×2 (08:28→21:24)
[2021-11-28] MEDS: Nystatin 500,000 UNITS/5 ML UDCUP SSW SCH ×4 (08:28→21:25)
[2021-11-28] MEDS: Gabapentin 300 MG CAP PO SCH ×3 (08:28→21:24)
[2021-11-28] MEDS: Midodrine HCl 5 MG TAB PER TUBE SCH ×3 (08:31→21:25)
[2021-11-28] MEDS: fentaNYL Citrate/PF 2,000 MCG in Sodium Chloride 0.9% 60 ML IV PRN (08:45)
[2021-11-28] MEDS: Dronabinol 2.5 MG CAP PO SCH ×2 (11:47→17:09)
[2021-11-28] MEDS: SODIUM ACETATE IV SCH (14:06)
[2021-11-28] MEDS: [UNRECOGNIZED DRUG - OTHER] IV SCH (14:06)
[2021-11-28] MEDS: CALCIUM CHLORIDE IV SCH (14:06)
[2021-11-28] MEDS: POTASSIUM PHOSPHATE IV SCH (14:06)
[2021-11-29] MEDS: Piperacillin/Tazobactam 3.375 GM in Sodium Chloride 0.9% 100 ML IVPB SCH ×3 (00:56→16:07)
[2021-11-29 05:04] LABS: Band 12 % (5-11); Eosinophils 4 % (0-10); Hemoglobin 8.9 g/dL (12.0-16.0); Lymphocytes 13 % (21-51); MDiff Complete? YES; Macrocytosis MODERATE=16-30 cells (100X) (0-5/hpf); Mean Corpuscular HGB CONC 32.4 g/dL (32.0-36.0); Mean Corpuscular Hemoglobin 34.8 pg (27.0-31.0); Mean Platelet Volume 8.6 fL (7.4-10.4); Monocytes 3 % (0-10); Neutrophil 68 % (42-75); Platelet Count 123 thou/uL (130-400); Platelet Morphology Comment Appears Decreased; RBC Distribution Width 11.1 % (11.5-14.5); Red Blood Cell (RBC) Count 2.55 mill/uL (4.20-5.40)
[2021-11-29 05:42] LABS: Anion Gap 8 mmol/L (10-20); BUN (Urea Nitrogen) 14 mg/dL (7.0-18.7); Calc. Creatinine Clearance 99 mL/min (70-130); Carbon Dioxide 26 mmol/L (22-29); Chloride 111 mmol/L (98-107); Glucose 105 mg/dL (70-105); Magnesium 1.9 mg/dL (1.6-2.6); Phosphorus 2.5 mg/dL (2.3-4.7); Potassium 3.5 mmol/L (3.5-5.1); Sodium 141 mmol/L (136-145)
[2021-11-29] MEDS: D5 1/2 NS w/20 mEq KCL 1,000 ML IV SCH (06:48)
[2021-11-29] MEDS ORDERED: Magnesium 2 GM/50 ML(in water) 2 GM in Premix Bag 1 BAG IVPB SCH (08:00)
[2021-11-29] MEDS ORDERED: Potassium Chloride 20 MEQ TAB PO SCH (08:00)
[2021-11-29] MEDS: Nystatin 500,000 UNITS/5 ML UDCUP SSW SCH ×4 (08:06→21:08)
[2021-11-29] MEDS: tiZANidine HCl 4 MG TAB PO SCH ×3 (08:06→21:07)
[2021-11-29] MEDS: Flecainide 50 MG TAB PO SCH ×2 (08:06→21:07)
[2021-11-29] MEDS: Enoxaparin Sodium 30 MG/0.3 ML SYRINGE SC SCH (08:06)
[2021-11-29] MEDS: Midodrine HCl 5 MG TAB PER TUBE SCH ×3 (08:07→21:08)
[2021-11-29] MEDS: Gabapentin 300 MG CAP PO SCH ×3 (08:07→21:07)
[2021-11-29] MEDS: Pantoprazole 40 MG VIAL IVP SCH (08:29)
[2021-11-29 11:09] LABS: Base Excess (BEa) -0.7 mEq/L (-2.0 to +3.0); CO2 Tension 39.8 mmHg (35.0-45.0); Calcium, Ionized (arterial) 1.18 mmol/L (1.12-1.30); Hemoglobin (Hb) 9.2 g/dL (12.0-16.0); O2 Tension (PaO2), arterial 69.4 mmHg (80.0-100.0); Potassium - ABG Lab 3.88 mmol/L (3.70-5.30); Puncture Site LBA
[2021-11-29] MEDS: Dronabinol 2.5 MG CAP PO SCH ×2 (11:32→16:06)
[2021-11-29] MEDS: SODIUM ACETATE IV SCH (14:35)
[2021-11-29] MEDS: CALCIUM CHLORIDE IV SCH (14:35)
[2021-11-29] MEDS: POTASSIUM PHOSPHATE IV SCH (14:35)
[2021-11-29] MEDS: [UNRECOGNIZED DRUG - OTHER] IV SCH (14:35)
[2021-11-29] MEDS: Ondansetron PF 4 MG/2 ML Vial IVP PRN (16:01)
[2021-11-29] MEDS: Acetaminophen 325 MG TAB PO PRN (16:07)
[2021-11-29] MEDS: fentaNYL Citrate/PF 2,000 MCG in Sodium Chloride 0.9% 60 ML IV PRN (17:49)
[2021-11-30] MEDS: Piperacillin/Tazobactam 3.375 GM in Sodium Chloride 0.9% 100 ML IVPB SCH (01:02)
[2021-11-30] MEDS: Ondansetron PF 4 MG/2 ML Vial IVP PRN (01:08)
[2021-11-30] MEDS: Promethazine HCl 25 MG/ML VIAL IM PRN (05:03)
[2021-11-30] MEDS: Acetaminophen 325 MG TAB PO PRN (05:54)
[2021-11-30] MEDS: Enoxaparin Sodium 30 MG/0.3 ML SYRINGE SC SCH (08:18)
[2021-11-30] MEDS: tiZANidine HCl 4 MG TAB PO SCH ×3 (08:19→21:12)
[2021-11-30] MEDS: Gabapentin 300 MG CAP PO SCH ×3 (08:20→21:12)
[2021-11-30] MEDS: Flecainide 50 MG TAB PO SCH ×2 (08:20→21:12)
[2021-11-30] MEDS: Pantoprazole 40 MG VIAL IVP SCH (08:21)
[2021-11-30] MEDS: Nystatin 500,000 UNITS/5 ML UDCUP SSW SCH ×4 (08:21→21:12)
[2021-11-30] MEDS: Midodrine HCl 5 MG TAB PER TUBE SCH ×3 (08:54→21:12)
[2021-11-30] MEDS: Vancomycin HCl 1.25 GM in Sodium Chloride 0.9% 250 ML 250 ML IVPB SCH ×2 (08:54→21:13)
[2021-11-30 09:29] LABS: Anion Gap 12 mmol/L (10-20); BUN (Urea Nitrogen) 12 mg/dL (7.0-18.7); Calc. Creatinine Clearance 114 mL/min (70-130); Calcium 8.3 mg/dL (7.8-10.44); Carbon Dioxide 24 mmol/L (22-29); Chloride 107 mmol/L (98-107); Glucose 174 mg/dL (70-105); Potassium 3.8 mmol/L (3.5-5.1); Sodium 139 mmol/L (136-145)
[2021-11-30 09:36] LABS: Hemoglobin 10.9 g/dL (12.0-16.0); Mean Corpuscular HGB CONC 30.9 g/dL (32.0-36.0); Mean Corpuscular Hemoglobin 33.5 pg (27.0-31.0); Mean Platelet Volume 8.5 fL (7.4-10.4); Platelet Count 142 thou/uL (130-400); RBC Distribution Width 11.6 % (11.5-14.5); Red Blood Cell (RBC) Count 3.24 mill/uL (4.20-5.40); White Blood Cell (WBC) Count 11.3 thou/uL (4.8-10.8)
[2021-11-30 10:27] LABS: Band 1 % (5-11); Lymphocytes 11 % (21-51); MDiff Complete? YES; Macrocytosis SLIGHT = 6-15 cells (100X) (0-5/hpf); Monocytes 11 % (0-10); Neutrophil 77 % (42-75); Platelet Morphology Comment Appears Adequate
[2021-11-30] MEDS ORDERED: Hydrocortisone Sod Succ/PF 100 mg/2 ml Vial IVP SCH (10:30)
[2021-11-30] MEDS: Dronabinol 2.5 MG CAP PO SCH ×2 (12:41→22:24)
[2021-11-30] MEDS: Hydrocortisone Sod Succ/PF 100 mg/2 ml Vial IVP SCH ×2 (12:42→17:18)
[2021-11-30] MEDS ORDERED: Meropenem 1 GM in Sodium Chloride 0.9% 100 ML IVPB SCH ×3 (14:00→22:00)
[2021-11-30] MEDS: [UNRECOGNIZED DRUG - OTHER] IV SCH (14:31)
[2021-11-30] MEDS: FAT EMULSION IV SCH (14:31)
[2021-11-30] MEDS: POTASSIUM PHOSPHATE IV SCH (14:31)
[2021-11-30] MEDS: SODIUM ACETATE IV SCH (14:31)
[2021-11-30] MEDS: D5 1/2 NS w/20 mEq KCL 1,000 ML IV SCH (15:03)
[2021-11-30] MEDS: fentaNYL Citrate/PF 2,000 MCG in Sodium Chloride 0.9% 60 ML IV PRN (15:58)
[2021-11-30] MEDS: Zolpidem Tartrate 5 MG TAB PO PRN (22:02)
[2021-12-01] MEDS: Hydrocortisone Sod Succ/PF 100 mg/2 ml Vial IVP SCH ×5 (00:09→23:45)
[2021-12-01] MEDS: Meropenem 1 GM in Sodium Chloride 0.9% 100 ML IVPB SCH ×3 (02:08→17:10)
[2021-12-01] MEDS: Ondansetron PF 4 MG/2 ML Vial IVP PRN (02:12)
[2021-12-01 05:20] LABS: Band 9 % (5-11); Hemoglobin 9.9 g/dL (12.0-16.0); Hypochromia SLIGHT = 6-15 cells (100X) (0-5/hpf); Lymphocytes 9 % (21-51); MDiff Complete? YES; Macrocytosis MODERATE=16-30 cells (100X) (0-5/hpf); Mean Corpuscular HGB CONC 31.5 g/dL (32.0-36.0); Mean Corpuscular Hemoglobin 33.6 pg (27.0-31.0); Monocytes 9 % (0-10); Neutrophil 73 % (42-75); Platelet Count 161 thou/uL (130-400); Platelet Morphology Comment Appears Adequate; Polychromasia SLIGHT = 2-3 cells (100X) (0-2/hpf); RBC Distribution Width 11.6 % (11.5-14.5); Red Blood Cell (RBC) Count 2.94 mill/uL (4.20-5.40); White Blood Cell (WBC) Count 15.4 thou/uL (4.8-10.8)
[2021-12-01 05:31] LABS: Anion Gap 10 mmol/L (10-20); BUN (Urea Nitrogen) 17 mg/dL (7.0-18.7); Calc. Creatinine Clearance 114 mL/min (70-130); Carbon Dioxide 31 mmol/L (22-29); Chloride 104 mmol/L (98-107); Glucose 130 mg/dL (70-105); Potassium 3.8 mmol/L (3.5-5.1); Sodium 141 mmol/L (136-145)
[2021-12-01] MEDS: fentaNYL Citrate/PF 2,000 MCG in Sodium Chloride 0.9% 60 ML IV PRN ×2 (06:25→20:28)
[2021-12-01] MEDS: Enoxaparin Sodium 30 MG/0.3 ML SYRINGE SC SCH (09:02)
[2021-12-01] MEDS: Gabapentin 300 MG CAP PO SCH ×3 (09:03→20:28)
[2021-12-01] MEDS: tiZANidine HCl 4 MG TAB PO SCH ×3 (09:03→20:28)
[2021-12-01] MEDS: Nystatin 500,000 UNITS/5 ML UDCUP SSW SCH ×4 (09:03→20:28)
[2021-12-01] MEDS: Flecainide 50 MG TAB PO SCH ×2 (09:04→20:28)
[2021-12-01] MEDS: Pantoprazole 40 MG VIAL IVP SCH (09:05)
[2021-12-01] MEDS: Vancomycin HCl 1.25 GM in Sodium Chloride 0.9% 250 ML 250 ML IVPB SCH ×2 (09:10→21:43)
[2021-12-01] MEDS: Promethazine HCl 25 MG/ML VIAL IM PRN (09:56)
[2021-12-01] MEDS ORDERED: MD-Gastroview 120 ML BOT ONE (10:19)
[2021-12-01] MEDS: Midodrine HCl 5 MG TAB PER TUBE SCH ×3 (12:13→20:28)
[2021-12-01] MEDS: Dronabinol 2.5 MG CAP PO SCH ×2 (13:16→17:12)
[2021-12-01] MEDS: [UNRECOGNIZED DRUG - OTHER] IV SCH (15:08)
[2021-12-01] MEDS: SODIUM ACETATE IV SCH (15:08)
[2021-12-01] MEDS: POTASSIUM PHOSPHATE IV SCH (15:08)
[2021-12-01] MEDS: CALCIUM CHLORIDE IV SCH (15:08)
[2021-12-01] MEDS: Zolpidem Tartrate 5 MG TAB PO PRN (20:28)
[2021-12-01] MEDS: D5 1/2 NS w/20 mEq KCL 1,000 ML IV SCH (20:38)
[2021-12-01 20:54] LABS: Vancomycin, Trough 11.4 ug/mL
[2021-12-01] MEDS: Vancomycin 1 GM in Premix Bag 1 BAG IVPB SCH (21:47)
[2021-12-02] MEDS: Ondansetron PF 4 MG/2 ML Vial IVP PRN (02:03)
[2021-12-02] MEDS: Meropenem 1 GM in Sodium Chloride 0.9% 100 ML IVPB SCH ×3 (02:03→18:21)
[2021-12-02] MEDS: Vancomycin 1 GM in Premix Bag 1 BAG IVPB SCH ×3 (05:51→22:53)
[2021-12-02] MEDS: Hydrocortisone Sod Succ/PF 100 mg/2 ml Vial IVP SCH ×4 (05:51→23:00)
[2021-12-02] MEDS: Pantoprazole 40 MG VIAL IVP SCH (08:48)
[2021-12-02] MEDS: Gabapentin 300 MG CAP PO SCH ×3 (08:48→20:57)
[2021-12-02] MEDS: Flecainide 50 MG TAB PO SCH ×2 (08:48→20:58)
[2021-12-02] MEDS: Enoxaparin Sodium 30 MG/0.3 ML SYRINGE SC SCH (08:48)
[2021-12-02] MEDS: Nystatin 500,000 UNITS/5 ML UDCUP SSW SCH ×4 (08:49→20:59)
[2021-12-02] MEDS: tiZANidine HCl 4 MG TAB PO SCH ×3 (08:49→20:59)
[2021-12-02] MEDS: Midodrine HCl 5 MG TAB PER TUBE SCH ×3 (09:05→20:58)
[2021-12-02] MEDS: Dronabinol 2.5 MG CAP PO SCH ×2 (12:23→18:19)
[2021-12-02] MEDS: Promethazine HCl 25 MG/ML VIAL IM PRN ×2 (12:48→21:01)
[2021-12-02] MEDS: fentaNYL Citrate/PF 2,000 MCG in Sodium Chloride 0.9% 60 ML IV PRN (15:24)
[2021-12-02] MEDS: D5 1/2 NS w/20 mEq KCL 1,000 ML IV SCH (15:37)
[2021-12-02] MEDS: [UNRECOGNIZED DRUG - OTHER] IV SCH (15:42)
[2021-12-02] MEDS: POTASSIUM PHOSPHATE IV SCH (15:42)
[2021-12-02] MEDS: FAT EMULSION IV SCH (15:42)
[2021-12-02] MEDS: SODIUM ACETATE IV SCH (15:42)
[2021-12-02] MEDS ORDERED: Ketorolac Tromethamine 30 MG/ML VIAL ONE (16:14)
[2021-12-02 21:24] LABS: Vancomycin, Trough 20.4 ug/mL
[2021-12-03] MEDS: Meropenem 1 GM in Sodium Chloride 0.9% 100 ML IVPB SCH ×3 (01:02→18:59)
[2021-12-03] MEDS: Hydrocortisone Sod Succ/PF 100 mg/2 ml Vial IVP SCH ×3 (05:27→21:29)
[2021-12-03] MEDS: Vancomycin 1 GM in Premix Bag 1 BAG IVPB SCH ×2 (05:28→16:54)
[2021-12-03] MEDS: Ondansetron PF 4 MG/2 ML Vial IVP PRN ×2 (05:29→21:29)
[2021-12-03] MEDS: Promethazine HCl 25 MG/ML VIAL IM PRN ×2 (06:51→17:19)
[2021-12-03] MEDS: fentaNYL Citrate/PF 2,000 MCG in Sodium Chloride 0.9% 60 ML IV PRN ×2 (08:03→21:10)
[2021-12-03] MEDS ORDERED: Bisacodyl 10 MG SUPP PR PRN (09:24)
[2021-12-03] MEDS ORDERED: Bisacodyl 10 MG SUPP PR SCH (09:45)
[2021-12-03 10:21] LABS: SARS-CoV-2 NAA Rapid Test DETECTED (NotDetected)
[2021-12-03] MEDS: Gabapentin 300 MG CAP PO SCH ×3 (10:45→21:29)
[2021-12-03] MEDS: Enoxaparin Sodium 30 MG/0.3 ML SYRINGE SC SCH (10:45)
[2021-12-03] MEDS: tiZANidine HCl 4 MG TAB PO SCH ×3 (10:46→21:29)
[2021-12-03] MEDS: Flecainide 50 MG TAB PO SCH ×2 (10:46→21:29)
[2021-12-03] MEDS: Dronabinol 2.5 MG CAP PO SCH ×2 (10:49→16:50)
[2021-12-03] MEDS: Midodrine HCl 5 MG TAB PER TUBE SCH (12:51)
[2021-12-03] MEDS ORDERED: LINZESS PO PRN (13:14)
[2021-12-03] MEDS: Pantoprazole 40 MG VIAL IVP SCH (16:46)
[2021-12-03] MEDS: D5 1/2 NS w/20 mEq KCL 1,000 ML IV SCH (18:58)
[2021-12-03] MEDS: Zolpidem Tartrate 5 MG TAB PO PRN (21:29)
[2021-12-03 21:31] LABS: Vancomycin, Trough 27.4 ug/mL
[2021-12-04] MEDS: Vancomycin 1 GM in Premix Bag 1 BAG IVPB SCH ×4 (01:15→18:07)
[2021-12-04] MEDS: Meropenem 1 GM in Sodium Chloride 0.9% 100 ML IVPB SCH ×3 (02:30→18:44)
[2021-12-04] MEDS: Promethazine HCl 25 MG/ML VIAL IM PRN ×2 (05:05→14:54)
[2021-12-04] MEDS: D5 1/2 NS w/20 mEq KCL 1,000 ML IV SCH ×2 (05:42→16:14)
[2021-12-04] MEDS: Pantoprazole 40 MG VIAL IVP SCH (09:32)
[2021-12-04] MEDS: Gabapentin 300 MG CAP PO SCH ×3 (09:32→21:53)
[2021-12-04] MEDS: Enoxaparin Sodium 30 MG/0.3 ML SYRINGE SC SCH (09:32)
[2021-12-04] MEDS: Flecainide 50 MG TAB PO SCH ×2 (09:33→21:53)
[2021-12-04] MEDS: tiZANidine HCl 4 MG TAB PO SCH ×3 (09:33→21:53)
[2021-12-04] MEDS: Ondansetron PF 4 MG/2 ML Vial IVP PRN (09:36)
[2021-12-04] MEDS: Hydrocortisone Sod Succ/PF 100 mg/2 ml Vial IVP SCH ×2 (11:36→21:54)
[2021-12-04] MEDS: Dronabinol 2.5 MG CAP PO SCH ×2 (11:54→18:44)
[2021-12-04] MEDS: fentaNYL Citrate/PF 2,000 MCG in Sodium Chloride 0.9% 60 ML IV PRN (14:52)
[2021-12-04 17:43] LABS: Vancomycin, Trough 25.4 ug/mL
[2021-12-05] MEDS: Zolpidem Tartrate 5 MG TAB PO PRN ×2 (00:12→21:51)
[2021-12-05] MEDS: Promethazine HCl 25 MG/ML VIAL IM PRN ×3 (00:13→21:55)
[2021-12-05] MEDS: Vancomycin HCl 750 MG in Sodium Chloride 0.9% 250 ML 250 ML IVPB SCH ×3 (00:13→17:28)
[2021-12-05] MEDS: D5 1/2 NS w/20 mEq KCL 1,000 ML IV SCH ×3 (00:24→18:33)
[2021-12-05] MEDS: Meropenem 1 GM in Sodium Chloride 0.9% 100 ML IVPB SCH ×3 (02:02→18:25)
[2021-12-05] MEDS: Ondansetron PF 4 MG/2 ML Vial IVP PRN ×2 (04:25→18:25)
[2021-12-05] MEDS: Pantoprazole 40 MG VIAL IVP SCH (10:14)
[2021-12-05] MEDS: Gabapentin 300 MG CAP PO SCH ×3 (10:14→21:52)
[2021-12-05] MEDS: Flecainide 50 MG TAB PO SCH ×2 (10:14→21:51)
[2021-12-05] MEDS: Enoxaparin Sodium 30 MG/0.3 ML SYRINGE SC SCH (10:15)
[2021-12-05] MEDS: tiZANidine HCl 4 MG TAB PO SCH ×3 (10:15→21:51)
[2021-12-05 11:24] LABS: SARS-CoV-2 NAA Rapid Test Not Detected (NotDetected)
[2021-12-05] MEDS: Dronabinol 2.5 MG CAP PO SCH ×2 (11:45→18:25)
[2021-12-05 15:27] LABS: Calc. Creatinine Clearance 117 mL/min (70-130)
[2021-12-05] MEDS: fentaNYL Citrate/PF 2,000 MCG in Sodium Chloride 0.9% 60 ML IV PRN (19:21)
[2021-12-06 00:56] LABS: Vancomycin, Trough 22.1 ug/mL
[2021-12-06] MEDS: Vancomycin HCl 750 MG in Sodium Chloride 0.9% 250 ML 250 ML IVPB SCH ×3 (01:59→17:25)
[2021-12-06] MEDS: Ondansetron PF 4 MG/2 ML Vial IVP PRN (02:00)
[2021-12-06] MEDS: Meropenem 1 GM in Sodium Chloride 0.9% 100 ML IVPB SCH ×3 (03:25→18:39)
[2021-12-06] MEDS: D5 1/2 NS w/20 mEq KCL 1,000 ML IV SCH ×2 (05:41→13:36)
[2021-12-06] MEDS: Promethazine HCl 25 MG/ML VIAL IM PRN ×2 (05:43→12:31)
[2021-12-06 06:02] LABS: Calc. Creatinine Clearance 108 mL/min (70-130)
[2021-12-06] MEDS: Gabapentin 300 MG CAP PO SCH ×3 (08:42→20:44)
[2021-12-06] MEDS: Enoxaparin Sodium 30 MG/0.3 ML SYRINGE SC SCH (08:42)
[2021-12-06] MEDS: Pantoprazole 40 MG VIAL IVP SCH (08:42)
[2021-12-06] MEDS: tiZANidine HCl 4 MG TAB PO SCH ×3 (08:43→20:44)
[2021-12-06] MEDS: Flecainide 50 MG TAB PO SCH ×2 (08:43→20:44)
[2021-12-06] MEDS: fentaNYL Citrate/PF 2,000 MCG in Sodium Chloride 0.9% 60 ML IV PRN (12:28)
[2021-12-06] MEDS: Dronabinol 2.5 MG CAP PO SCH ×2 (12:31→17:25)
[2021-12-06] MEDS ORDERED: Sodium Chloride 0.9% 1,000 ML IV SCH (16:00)
[2021-12-06 16:25] LABS: #Eosinphils 0.2 thou/uL (0.0-0.7); #Lymphocytes 2.1 thou/uL (1.20-3.40); #Monocytes 0.9 thou/uL (0.11-0.59); #Neutrophils 13.5 thou/uL (1.40-6.50); %Basophils 0.2 % (0.0-1.0); %Eosinophils 1.1 % (0.0-10.0); %Lymphocytes 12.4 % (21.0-51.0); %Monocytes 5.4 % (0.0-10.0); Hemoglobin 8.7 g/dL (12.0-16.0); Mean Corpuscular HGB CONC 33.2 g/dL (32.0-36.0); Mean Corpuscular Hemoglobin 34.1 pg (27.0-31.0); Mean Platelet Volume 7.9 fL (7.4-10.4); Platelet Count 513 thou/uL (130-400); RBC Distribution Width 11.5 % (11.5-14.5); Red Blood Cell (RBC) Count 2.55 mill/uL (4.20-5.40); White Blood Cell (WBC) Count 16.7 thou/uL (4.8-10.8)
[2021-12-06 16:38] LABS: Anion Gap 11 mmol/L (10-20); BUN (Urea Nitrogen) 8 mg/dL (7.0-18.7); Calc. Creatinine Clearance 109 mL/min (70-130); Calcium 7.1 mg/dL (7.8-10.44); Carbon Dioxide 31 mmol/L (22-29); Chloride 104 mmol/L (98-107); Glucose 124 mg/dL (70-105); Potassium 3.9 mmol/L (3.5-5.1); Sodium 142 mmol/L (136-145)
[2021-12-06] MEDS: Acetaminophen 325 MG TAB PO PRN (20:43)
[2021-12-06] MEDS: Zolpidem Tartrate 5 MG TAB PO PRN (22:31)
[2021-12-07 00:46] LABS: Vancomycin, Trough 19.7 ug/mL
[2021-12-07] MEDS: Ondansetron PF 4 MG/2 ML Vial IVP PRN ×2 (00:50→09:37)
[2021-12-07] MEDS: Vancomycin HCl 750 MG in Sodium Chloride 0.9% 250 ML 250 ML IVPB SCH ×3 (01:20→17:27)
[2021-12-07] MEDS: D5 1/2 NS w/20 mEq KCL 1,000 ML IV SCH ×4 (02:59→22:43)
[2021-12-07] MEDS: Meropenem 1 GM in Sodium Chloride 0.9% 100 ML IVPB SCH ×3 (02:59→18:49)
[2021-12-07] MEDS: Promethazine HCl 25 MG/ML VIAL IM PRN ×3 (03:00→21:11)
[2021-12-07] MEDS: fentaNYL Citrate/PF 2,000 MCG in Sodium Chloride 0.9% 60 ML IV PRN (06:47)
[2021-12-07] MEDS ORDERED: Sodium Chloride 0.9% 500 ML IV SCH (07:45)
[2021-12-07] MEDS: Pantoprazole 40 MG VIAL IVP SCH (09:37)
[2021-12-07] MEDS: Acetaminophen 325 MG TAB PO PRN (09:38)
[2021-12-07] MEDS: Flecainide 50 MG TAB PO SCH ×2 (09:38→21:12)
[2021-12-07] MEDS: Enoxaparin Sodium 30 MG/0.3 ML SYRINGE SC SCH (09:38)
[2021-12-07] MEDS: tiZANidine HCl 4 MG TAB PO SCH ×2 (09:39→16:45)
[2021-12-07] MEDS: Gabapentin 300 MG CAP PO SCH ×3 (09:39→21:11)
[2021-12-07] MEDS: Dronabinol 2.5 MG CAP PO SCH ×2 (12:00→17:27)
[2021-12-07] MEDS ORDERED: Sodium Bicarbonate 2.5 MEQ/5 ML VIAL ONE (14:05)
[2021-12-07] MEDS ORDERED: Iopamidol-370 76% 500 ML 1 ML ONE (15:27)
[2021-12-07] MEDS: tiZANidine HCl 4 MG TAB PO PRN (22:34)
[2021-12-08 00:14] LABS: Vancomycin, Trough 19.9 ug/mL
[2021-12-08] MEDS: Vancomycin HCl 750 MG in Sodium Chloride 0.9% 250 ML 250 ML IVPB SCH ×3 (01:57→17:55)
[2021-12-08] MEDS: Meropenem 1 GM in Sodium Chloride 0.9% 100 ML IVPB SCH ×3 (02:38→17:55)
[2021-12-08] MEDS: Zolpidem Tartrate 5 MG TAB PO PRN (02:38)
[2021-12-08] MEDS: fentaNYL Citrate/PF 2,000 MCG in Sodium Chloride 0.9% 60 ML IV PRN ×2 (06:25→21:46)
[2021-12-08] MEDS: D5 1/2 NS w/20 mEq KCL 1,000 ML IV SCH ×2 (07:37→17:57)
[2021-12-08] MEDS: Gabapentin 300 MG CAP PO SCH ×3 (09:50→21:47)
[2021-12-08] MEDS: Flecainide 50 MG TAB PO SCH ×2 (09:51→21:49)
[2021-12-08] MEDS: Enoxaparin Sodium 30 MG/0.3 ML SYRINGE SC SCH (09:51)
[2021-12-08] MEDS: Pantoprazole 40 MG VIAL IVP SCH (09:52)
[2021-12-08] MEDS ORDERED: Sodium Chloride 0.9% 500 ML IV SCH (10:00)
[2021-12-08] MEDS: Promethazine HCl 25 MG/ML VIAL IM PRN ×2 (10:49→21:47)
[2021-12-08 11:50] LABS: #Eosinphils 0.1 thou/uL (0.0-0.7); #Lymphocytes 1.4 thou/uL (1.20-3.40); #Monocytes 0.6 thou/uL (0.11-0.59); #Neutrophils 8.3 thou/uL (1.40-6.50); %Basophils 0.4 % (0.0-1.0); %Eosinophils 0.9 % (0.0-10.0); %Lymphocytes 13.2 % (21.0-51.0); %Monocytes 5.6 % (0.0-10.0); %Neutrophils 79.9 % (42.0-75.0); Anion Gap 9 mmol/L (10-20); BUN (Urea Nitrogen) 5 mg/dL (7.0-18.7); Calc. Creatinine Clearance 107 mL/min (70-130); Calcium 7.2 mg/dL (7.8-10.44); Carbon Dioxide 30 mmol/L (22-29); Chloride 102 mmol/L (98-107); Glucose 95 mg/dL (70-105); Hemoglobin 8.7 g/dL (12.0-16.0); Mean Corpuscular Hemoglobin 34.5 pg (27.0-31.0); Mean Platelet Volume 7.9 fL (7.4-10.4); Platelet Count 640 thou/uL (130-400); RBC Distribution Width 11.4 % (11.5-14.5); Red Blood Cell (RBC) Count 2.53 mill/uL (4.20-5.40); Sodium 137 mmol/L (136-145); White Blood Cell (WBC) Count 10.4 thou/uL (4.8-10.8)
[2021-12-08] MEDS: Dronabinol 2.5 MG CAP PO SCH ×2 (13:08→17:54)
[2021-12-08] MEDS: Ondansetron PF 4 MG/2 ML Vial IVP PRN (13:12)
[2021-12-08] MEDS: Acetaminophen 325 MG TAB PO PRN (21:57)
[2021-12-09] MEDS: Vancomycin HCl 750 MG in Sodium Chloride 0.9% 250 ML 250 ML IVPB SCH ×3 (01:27→17:08)
[2021-12-09] MEDS: Meropenem 1 GM in Sodium Chloride 0.9% 100 ML IVPB SCH ×3 (01:33→18:47)
[2021-12-09] MEDS: D5 1/2 NS w/20 mEq KCL 1,000 ML IV SCH ×3 (03:43→23:36)
[2021-12-09] MEDS: tiZANidine HCl 4 MG TAB PO PRN ×3 (04:00→20:41)
[2021-12-09] MEDS: Pantoprazole 40 MG VIAL IVP SCH (09:04)
[2021-12-09] MEDS: Enoxaparin Sodium 30 MG/0.3 ML SYRINGE SC SCH (09:04)
[2021-12-09] MEDS: Mineral Oil PER 1 ML PER TUBE SCH (09:04)
[2021-12-09] MEDS: Flecainide 50 MG TAB PO SCH ×2 (09:05→20:33)
[2021-12-09] MEDS: Gabapentin 300 MG CAP PO SCH ×3 (09:05→20:33)
[2021-12-09] MEDS: Promethazine HCl 25 MG/ML VIAL IM PRN (09:06)
[2021-12-09] MEDS: Dronabinol 2.5 MG CAP PO SCH ×2 (11:20→17:34)
[2021-12-09] MEDS: Acetaminophen 325 MG TAB PO PRN (11:30)
[2021-12-09 13:17] LABS: #Eosinphils 0.1 thou/uL (0.0-0.7); #Lymphocytes 1.3 thou/uL (1.20-3.40); #Monocytes 0.8 thou/uL (0.11-0.59); #Neutrophils 8.7 thou/uL (1.40-6.50); %Basophils 0.1 % (0.0-1.0); %Lymphocytes 11.8 % (21.0-51.0); %Monocytes 7.6 % (0.0-10.0); %Neutrophils 79.5 % (42.0-75.0); Hemoglobin 8.1 g/dL (12.0-16.0); Mean Corpuscular Hemoglobin 34.5 pg (27.0-31.0); Mean Platelet Volume 7.2 fL (7.4-10.4); Platelet Count 626 thou/uL (130-400); RBC Distribution Width 11.2 % (11.5-14.5); Red Blood Cell (RBC) Count 2.34 mill/uL (4.20-5.40); White Blood Cell (WBC) Count 10.9 thou/uL (4.8-10.8)
[2021-12-09 13:35] LABS: Anion Gap 11 mmol/L (10-20); BUN (Urea Nitrogen) 5 mg/dL (7.0-18.7); Calc. Creatinine Clearance 104 mL/min (70-130); Calcium 7.2 mg/dL (7.8-10.44); Carbon Dioxide 28 mmol/L (22-29); Chloride 104 mmol/L (98-107); Glucose 145 mg/dL (70-105); Potassium 4.3 mmol/L (3.5-5.1); Sodium 139 mmol/L (136-145)
[2021-12-09] MEDS: fentaNYL Citrate/PF 2,000 MCG in Sodium Chloride 0.9% 60 ML IV PRN (15:50)
[2021-12-09 18:33] LABS: Bacteria/HPF None Seen HPF (None Seen); Bilirubin Negative (Negative); Blood, Urine Negative (Negative); Clarity Clear (Clear); Glucose, Urine (Dipstick) Normal (Negative); Ketone, Urine Negative (Negative); Leukocyte Negative Leu/uL (Negative); Nitrite Negative (Negative); Protein, Urine (Dipstick) Negative (Neg-Trace); RBC/HPF 0-3 HPF (0-3); Specific Gravity, Urine 1.006 (1.002-1.036); Squamous Epithelial 0-3 HPF (0-3); Urobilinogen Normal mg/dL (Less than 2); WBC/HPF None Seen HPF (0-3)
[2021-12-09 18:36] LABS: Urine Culture Reflex No No
[2021-12-09] MEDS: Ondansetron PF 4 MG/2 ML Vial IVP PRN (20:41)
[2021-12-09] MEDS: Zolpidem Tartrate 5 MG TAB PO PRN (23:23)
[2021-12-10] MEDS: Vancomycin HCl 750 MG in Sodium Chloride 0.9% 250 ML 250 ML IVPB SCH ×2 (01:35→09:31)
[2021-12-10] MEDS: Meropenem 1 GM in Sodium Chloride 0.9% 100 ML IVPB SCH ×3 (02:42→17:55)
[2021-12-10] MEDS: tiZANidine HCl 4 MG TAB PO PRN ×2 (05:38→12:16)
[2021-12-10] MEDS: Promethazine HCl 25 MG/ML VIAL IM PRN ×2 (05:39→20:56)
[2021-12-10 06:22] LABS: #Basophils 0.1 thou/uL (0.0-0.2); #Eosinphils 0.1 thou/uL (0.0-0.7); #Lymphocytes 2.4 thou/uL (1.20-3.40); #Neutrophils 7.3 thou/uL (1.40-6.50); %Basophils 0.6 % (0.0-1.0); %Eosinophils 1.2 % (0.0-10.0); %Monocytes 9.4 % (0.0-10.0); %Neutrophils 66.8 % (42.0-75.0); Hemoglobin 8.7 g/dL (12.0-16.0); Mean Corpuscular HGB CONC 32.9 g/dL (32.0-36.0); Mean Corpuscular Hemoglobin 34.4 pg (27.0-31.0); Mean Platelet Volume 7.7 fL (7.4-10.4); Platelet Count 673 thou/uL (130-400); RBC Distribution Width 11.3 % (11.5-14.5); Red Blood Cell (RBC) Count 2.52 mill/uL (4.20-5.40); White Blood Cell (WBC) Count 10.9 thou/uL (4.8-10.8)
[2021-12-10] MEDS: Ondansetron PF 4 MG/2 ML Vial IVP PRN (09:15)
[2021-12-10] MEDS: Pantoprazole 40 MG VIAL IVP SCH (09:19)
[2021-12-10] MEDS: Bisacodyl 10 MG SUPP PR PRN (09:21)
[2021-12-10] MEDS: Gabapentin 300 MG CAP PO SCH ×3 (09:22→20:56)
[2021-12-10] MEDS: Polyethylene Glycol 3350 17 GM Packet PER TUBE SCH (09:23)
[2021-12-10] MEDS: Flecainide 50 MG TAB PO SCH ×2 (09:24→20:56)
[2021-12-10] MEDS: Enoxaparin Sodium 30 MG/0.3 ML SYRINGE SC SCH (09:25)
[2021-12-10] MEDS: D5 1/2 NS w/20 mEq KCL 1,000 ML IV SCH ×2 (09:26→20:08)
[2021-12-10] MEDS: Mineral Oil PER 1 ML PER TUBE SCH (09:32)
[2021-12-10] MEDS: Dronabinol 2.5 MG CAP PO SCH ×2 (11:04→17:52)
[2021-12-10] MEDS: fentaNYL Citrate/PF 2,000 MCG in Sodium Chloride 0.9% 60 ML IV PRN (12:11)
[2021-12-10 16:19] LABS: Calc. Creatinine Clearance 116 mL/min (70-130); Vancomycin, Trough 21.4 ug/mL
[2021-12-10] MEDS ORDERED: Vancomycin HCl 500 MG in Sodium Chloride 0.9% 250 ML 250 ML IVPB SCH (17:00)
[2021-12-10] MEDS: Vancomycin HCl 500 MG in Sodium Chloride 0.9% 100 ML IVPB SCH (17:55)
[2021-12-11] MEDS: Zolpidem Tartrate 5 MG TAB PO PRN (00:28)
[2021-12-11] MEDS: Vancomycin HCl 500 MG in Sodium Chloride 0.9% 100 ML IVPB SCH ×2 (00:28→09:27)
[2021-12-11] MEDS: Meropenem 1 GM in Sodium Chloride 0.9% 100 ML IVPB SCH ×3 (01:39→18:49)
[2021-12-11] MEDS: fentaNYL Citrate/PF 2,000 MCG in Sodium Chloride 0.9% 60 ML IV PRN ×2 (04:21→18:57)
[2021-12-11] MEDS: tiZANidine HCl 4 MG TAB PO PRN ×3 (04:22→21:37)
[2021-12-11] MEDS: D5 1/2 NS w/20 mEq KCL 1,000 ML IV SCH ×2 (06:17→19:30)
[2021-12-11] MEDS: Enoxaparin Sodium 30 MG/0.3 ML SYRINGE SC SCH (09:42)
[2021-12-11] MEDS: Pantoprazole 40 MG VIAL IVP SCH (09:43)
[2021-12-11] MEDS: Promethazine HCl 25 MG/ML VIAL IM PRN ×2 (09:43→21:38)
[2021-12-11] MEDS: Flecainide 50 MG TAB PO SCH ×2 (09:44→21:38)
[2021-12-11] MEDS: Polyethylene Glycol 3350 17 GM Packet PER TUBE SCH (09:44)
[2021-12-11] MEDS: Gabapentin 300 MG CAP PO SCH ×3 (09:44→21:38)
[2021-12-11] MEDS: Mineral Oil PER 1 ML PER TUBE SCH (09:45)
[2021-12-11] MEDS: Bisacodyl 10 MG SUPP PR PRN (10:03)
[2021-12-11] MEDS: Dronabinol 2.5 MG CAP PO SCH ×2 (10:54→18:49)
[2021-12-11] MEDS: Ondansetron PF 4 MG/2 ML Vial IVP PRN ×2 (10:59→18:50)
[2021-12-11] MEDS: Acetaminophen 325 MG/10.15 ML UDCUP PO PRN (21:37)
[2021-12-12] MEDS: Meropenem 1 GM in Sodium Chloride 0.9% 100 ML IVPB SCH ×3 (01:50→18:13)
[2021-12-12] MEDS: D5 1/2 NS w/20 mEq KCL 1,000 ML IV SCH ×3 (01:50→21:34)
[2021-12-12] MEDS: Zolpidem Tartrate 5 MG TAB PO PRN (01:51)
[2021-12-12] MEDS: tiZANidine HCl 4 MG TAB PO PRN ×2 (06:23→16:17)
[2021-12-12] MEDS: Ondansetron PF 4 MG/2 ML Vial IVP PRN (06:23)
[2021-12-12] MEDS: Mineral Oil PER 1 ML PER TUBE SCH (10:21)
[2021-12-12] MEDS: Acetaminophen 325 MG/10.15 ML UDCUP PO PRN (10:26)
[2021-12-12] MEDS: Gabapentin 300 MG CAP PO SCH ×3 (10:26→21:33)
[2021-12-12] MEDS: Pantoprazole 40 MG VIAL IVP SCH (10:27)
[2021-12-12] MEDS: Flecainide 50 MG TAB PO SCH ×2 (10:27→21:32)
[2021-12-12] MEDS: Polyethylene Glycol 3350 17 GM Packet PER TUBE SCH (10:27)
[2021-12-12] MEDS: Enoxaparin Sodium 30 MG/0.3 ML SYRINGE SC SCH (10:27)
[2021-12-12] MEDS: Dronabinol 2.5 MG CAP PO SCH ×2 (10:28→18:13)
[2021-12-12] MEDS: Bisacodyl 10 MG SUPP PR PRN (10:41)
[2021-12-12] MEDS ORDERED: Acetaminophen 325 MG/10.15 ML UDCUP PO PRN (11:39)
[2021-12-12 12:48] LABS: #Eosinphils 0.2 thou/uL (0.0-0.7); #Lymphocytes 1.4 thou/uL (1.20-3.40); #Monocytes 1.1 thou/uL (0.11-0.59); #Neutrophils 8.9 thou/uL (1.40-6.50); %Basophils 0.2 % (0.0-1.0); %Eosinophils 1.6 % (0.0-10.0); %Lymphocytes 11.8 % (21.0-51.0); %Monocytes 9.8 % (0.0-10.0); %Neutrophils 76.6 % (42.0-75.0); Hemoglobin 9.3 g/dL (12.0-16.0); Mean Corpuscular HGB CONC 32.4 g/dL (32.0-36.0); Mean Corpuscular Hemoglobin 34.3 pg (27.0-31.0); Mean Platelet Volume 7.3 fL (7.4-10.4); Platelet Count 574 thou/uL (130-400); RBC Distribution Width 11.3 % (11.5-14.5); Red Blood Cell (RBC) Count 2.72 mill/uL (4.20-5.40); White Blood Cell (WBC) Count 11.6 thou/uL (4.8-10.8)
[2021-12-12 13:00] LABS: MDiff Complete? YES; Macrocytosis SLIGHT = 6-15 cells (100X) (0-5/hpf); Platelet Morphology Comment Appears Increased; Polychromasia SLIGHT = 2-3 cells (100X) (0-2/hpf)
[2021-12-12] MEDS: fentaNYL Citrate/PF 2,000 MCG in Sodium Chloride 0.9% 60 ML IV PRN (13:19)
[2021-12-12 13:20] LABS: Anion Gap 14 mmol/L (10-20); BUN (Urea Nitrogen) 5 mg/dL (7.0-18.7); Calc. Creatinine Clearance 101 mL/min (70-130); Calcium 8.4 mg/dL (7.8-10.44); Carbon Dioxide 25 mmol/L (22-29); Chloride 103 mmol/L (98-107); Glucose 118 mg/dL (70-105); Potassium 4.7 mmol/L (3.5-5.1); Sodium 137 mmol/L (136-145)
[2021-12-12] MEDS: Multivitamins, Adult 10 ML, TRACE ELEMENT CONCENTRATE 1 ML in CLINIMIX E 5/20 2,000 ML IV SCH (14:55)
[2021-12-12] MEDS: Promethazine HCl 25 MG/ML VIAL IM PRN (22:28)
[2021-12-13] MEDS: Zolpidem Tartrate 5 MG TAB PO PRN ×2 (00:32→21:40)
[2021-12-13] MEDS: Meropenem 1 GM in Sodium Chloride 0.9% 100 ML IVPB SCH ×3 (01:39→17:42)
[2021-12-13] MEDS: tiZANidine HCl 4 MG TAB PO PRN ×2 (04:43→13:20)
[2021-12-13] MEDS: fentaNYL Citrate/PF 2,000 MCG in Sodium Chloride 0.9% 60 ML IV PRN (05:10)
[2021-12-13] MEDS: D5 1/2 NS w/20 mEq KCL 1,000 ML IV SCH ×2 (07:30→17:42)
[2021-12-13] MEDS: Pantoprazole 40 MG VIAL IVP SCH (09:46)
[2021-12-13] MEDS: Gabapentin 300 MG CAP PO SCH ×3 (09:46→21:31)
[2021-12-13] MEDS: Enoxaparin Sodium 30 MG/0.3 ML SYRINGE SC SCH (09:47)
[2021-12-13] MEDS: Mineral Oil PER 1 ML PER TUBE SCH (09:48)
[2021-12-13] MEDS: Polyethylene Glycol 3350 17 GM Packet PER TUBE SCH (09:48)
[2021-12-13] MEDS: Dronabinol 2.5 MG CAP PO SCH ×2 (10:58→18:17)
[2021-12-13] MEDS: Bisacodyl 5 MG TAB PO PRN (10:58)
[2021-12-13] MEDS: Promethazine 25 MG TAB PO PRN ×2 (11:51→21:39)
[2021-12-13] MEDS: Flecainide 50 MG TAB PO SCH ×2 (14:30→21:31)
[2021-12-13] MEDS: Multivitamins, Adult 10 ML, TRACE ELEMENT CONCENTRATE 1 ML in CLINIMIX E 5/20 2,000 ML IV SCH (14:40)
[2021-12-14] MEDS: fentaNYL Citrate/PF 2,000 MCG in Sodium Chloride 0.9% 60 ML IV PRN (01:40)
[2021-12-14] MEDS: tiZANidine HCl 4 MG TAB PO PRN ×3 (01:49→23:40)
[2021-12-14] MEDS: D5 1/2 NS w/20 mEq KCL 1,000 ML IV SCH ×3 (02:20→21:20)
[2021-12-14] MEDS: Meropenem 1 GM in Sodium Chloride 0.9% 100 ML IVPB SCH ×3 (03:00→18:12)
[2021-12-14] MEDS: Promethazine HCl 25 MG/ML VIAL IM PRN (03:24)
[2021-12-14] MEDS: Promethazine 25 MG TAB PO PRN ×3 (03:24→20:53)
[2021-12-14] MEDS ORDERED: DC PCA Order Set 1 EACH FS ONE (09:24)
[2021-12-14] MEDS: Hydrocodone-Acetamin 15 ML UDCUP PO PRN ×4 (10:05→23:28)
[2021-12-14] MEDS: Gabapentin 300 MG CAP PO SCH ×3 (10:06→20:54)
[2021-12-14] MEDS: Polyethylene Glycol 3350 17 GM Packet PER TUBE SCH (10:07)
[2021-12-14] MEDS: Flecainide 50 MG TAB PO SCH ×2 (10:07→20:54)
[2021-12-14] MEDS: Enoxaparin Sodium 30 MG/0.3 ML SYRINGE SC SCH (10:07)
[2021-12-14] MEDS: Mineral Oil PER 1 ML PER TUBE SCH (10:07)
[2021-12-14] MEDS: Pantoprazole 40 MG VIAL IVP SCH (10:07)
[2021-12-14] MEDS ORDERED: Acetaminophen 650 MG/20.3 ML UDCUP PO PRN (11:15)
[2021-12-14] MEDS: Dronabinol 2.5 MG CAP PO SCH ×2 (11:27→18:12)
[2021-12-14] MEDS: fentaNYL 50 mcg/hour Patch TD SCH (11:27)
[2021-12-14] MEDS: Bisacodyl 5 MG TAB PO PRN (11:35)
[2021-12-14] MEDS: [UNRECOGNIZED DRUG - OTHER] IV SCH (14:37)
[2021-12-14] MEDS: TRACE ELEMENT IV SCH (14:37)
[2021-12-14] MEDS: MULTIVITAMINS IV SCH (14:37)
[2021-12-14] MEDS: FAT EMULSION IV SCH (14:37)
[2021-12-14] MEDS: Ondansetron PF 4 MG/2 ML Vial IVP PRN (18:14)
[2021-12-14] MEDS: Zolpidem Tartrate 5 MG TAB PO PRN (20:54)
[2021-12-15] MEDS: Meropenem 1 GM in Sodium Chloride 0.9% 100 ML IVPB SCH ×3 (02:15→19:20)
[2021-12-15] MEDS: Hydrocodone-Acetamin 15 ML UDCUP PO PRN ×4 (04:02→20:29)
[2021-12-15] MEDS: diphenhydrAMINE 25 MG CAP PO PRN (04:02)
[2021-12-15] MEDS: D5 1/2 NS w/20 mEq KCL 1,000 ML IV SCH ×2 (05:22→16:08)
[2021-12-15] MEDS: Mineral Oil PER 1 ML PER TUBE SCH (08:24)
[2021-12-15] MEDS: Enoxaparin Sodium 30 MG/0.3 ML SYRINGE SC SCH (08:26)
[2021-12-15] MEDS: Pantoprazole 40 MG VIAL IVP SCH (08:27)
[2021-12-15] MEDS: Polyethylene Glycol 3350 17 GM Packet PER TUBE SCH (08:27)
[2021-12-15] MEDS: Gabapentin 300 MG CAP PO SCH ×3 (08:27→20:29)
[2021-12-15] MEDS: Flecainide 50 MG TAB PO SCH ×2 (08:28→20:29)
[2021-12-15] MEDS ORDERED: Nitroglycerin 0.4 MG TAB (25 Tab Bottle) ONE (08:37)
[2021-12-15] MEDS: Dronabinol 2.5 MG CAP PO SCH ×2 (12:04→18:04)
[2021-12-15] MEDS: Multivitamins, Adult 10 ML, TRACE ELEMENT CONCENTRATE 1 ML in CLINIMIX E 5/20 2,000 ML IV SCH (15:01)
[2021-12-15] MEDS: tiZANidine HCl 4 MG TAB PO PRN (18:03)
[2021-12-15] MEDS: Zolpidem Tartrate 5 MG TAB PO PRN (20:29)
[2021-12-16] MEDS: Hydrocodone-Acetamin 15 ML UDCUP PO PRN ×5 (00:28→23:24)
[2021-12-16] MEDS: D5 1/2 NS w/20 mEq KCL 1,000 ML IV SCH ×2 (02:30→14:51)
[2021-12-16] MEDS: Meropenem 1 GM in Sodium Chloride 0.9% 100 ML IVPB SCH ×3 (02:30→17:33)
[2021-12-16] MEDS: tiZANidine HCl 4 MG TAB PO PRN ×2 (02:30→10:14)
[2021-12-16] MEDS: Mineral Oil PER 1 ML PER TUBE SCH (09:01)
[2021-12-16] MEDS: Promethazine 25 MG TAB PO PRN ×2 (09:08→16:26)
[2021-12-16] MEDS: Gabapentin 300 MG CAP PO SCH ×3 (09:09→21:26)
[2021-12-16] MEDS: Enoxaparin Sodium 30 MG/0.3 ML SYRINGE SC SCH (09:10)
[2021-12-16] MEDS: Flecainide 50 MG TAB PO SCH ×2 (09:13→21:26)
[2021-12-16] MEDS: Pantoprazole 40 MG VIAL IVP SCH (09:13)
[2021-12-16] MEDS: fentaNYL 50 mcg/hour Patch TD SCH (09:15)
[2021-12-16] MEDS: Polyethylene Glycol 3350 17 GM Packet PER TUBE SCH (09:17)
[2021-12-16] MEDS: Dronabinol 2.5 MG CAP PO SCH ×2 (10:07→18:21)
[2021-12-16] MEDS: Bisacodyl 5 MG TAB PO PRN (10:07)
[2021-12-16] MEDS: FAT EMULSION IV SCH (14:34)
[2021-12-16] MEDS: MULTIVITAMINS IV SCH (14:34)
[2021-12-16] MEDS: TRACE ELEMENT IV SCH (14:34)
[2021-12-16] MEDS: [UNRECOGNIZED DRUG - OTHER] IV SCH (14:34)
[2021-12-16] MEDS: diphenhydrAMINE 50 MG/ML VIAL IVP PRN (14:53)
[2021-12-16] MEDS: ALPRAZolam 1 MG TAB PO PRN (18:21)
[2021-12-16] MEDS: Zolpidem Tartrate 5 MG TAB PO PRN (23:25)
[2021-12-17] MEDS: diphenhydrAMINE 50 MG/ML VIAL IVP PRN (02:13)
[2021-12-17] MEDS: Meropenem 1 GM in Sodium Chloride 0.9% 100 ML IVPB SCH ×3 (02:16→17:02)
[2021-12-17] MEDS: tiZANidine HCl 4 MG TAB PO PRN (03:47)
[2021-12-17] MEDS: D5 1/2 NS w/20 mEq KCL 1,000 ML IV SCH ×3 (03:49→17:02)
[2021-12-17 06:31] LABS: #Eosinphils 0.4 thou/uL (0.0-0.7); #Lymphocytes 1.8 thou/uL (1.20-3.40); #Monocytes 0.6 thou/uL (0.11-0.59); #Neutrophils 3.1 thou/uL (1.40-6.50); %Basophils 0.7 % (0.0-1.0); %Eosinophils 6.2 % (0.0-10.0); %Lymphocytes 30.7 % (21.0-51.0); %Monocytes 10.1 % (0.0-10.0); %Neutrophils 52.3 % (42.0-75.0); Hemoglobin 8.1 g/dL (12.0-16.0); Mean Corpuscular HGB CONC 32.5 g/dL (32.0-36.0); Mean Corpuscular Hemoglobin 33.9 pg (27.0-31.0); Mean Platelet Volume 7.1 fL (7.4-10.4); Platelet Count 332 thou/uL (130-400); RBC Distribution Width 11.6 % (11.5-14.5)
[2021-12-17 06:46] LABS: Anion Gap 10 mmol/L (10-20); BUN (Urea Nitrogen) 20 mg/dL (7.0-18.7); Calc. Creatinine Clearance 114 mL/min (70-130); Calcium 8.2 mg/dL (7.8-10.44); Carbon Dioxide 29 mmol/L (22-29); Chloride 104 mmol/L (98-107); Glucose 78 mg/dL (70-105); Potassium 4.7 mmol/L (3.5-5.1); Sodium 138 mmol/L (136-145)
[2021-12-17] MEDS: Enoxaparin Sodium 30 MG/0.3 ML SYRINGE SC SCH (08:49)
[2021-12-17] MEDS: Bisacodyl 5 MG TAB PO PRN (08:50)
[2021-12-17] MEDS: Pantoprazole 40 MG VIAL IVP SCH (08:50)
[2021-12-17] MEDS: Flecainide 50 MG TAB PO SCH ×2 (08:51→21:14)
[2021-12-17] MEDS: Gabapentin 300 MG CAP PO SCH ×3 (08:51→21:14)
[2021-12-17] MEDS: Mineral Oil PER 1 ML PER TUBE SCH (08:53)
[2021-12-17] MEDS: Polyethylene Glycol 3350 17 GM Packet PER TUBE SCH (08:53)
[2021-12-17] MEDS: Hydrocodone-Acetamin 15 ML UDCUP PO PRN ×3 (09:04→21:15)
[2021-12-17] MEDS: ALPRAZolam 1 MG TAB PO PRN ×2 (09:05→17:01)
[2021-12-17] MEDS: Dronabinol 2.5 MG CAP PO SCH ×2 (12:02→17:01)
[2021-12-17] MEDS: Promethazine 25 MG TAB PO PRN (12:04)
[2021-12-17] MEDS: Multivitamins, Adult 10 ML, TRACE ELEMENT CONCENTRATE 1 ML in CLINIMIX E 5/20 2,000 ML IV SCH (14:17)
[2021-12-18] MEDS: Zolpidem Tartrate 5 MG TAB PO PRN ×2 (00:20→20:06)
[2021-12-18] MEDS: Meropenem 1 GM in Sodium Chloride 0.9% 100 ML IVPB SCH ×3 (03:08→17:52)
[2021-12-18] MEDS: Hydrocodone-Acetamin 15 ML UDCUP PO PRN ×4 (03:16→23:37)
[2021-12-18] MEDS: Flecainide 50 MG TAB PO SCH ×2 (08:39→20:06)
[2021-12-18] MEDS: Gabapentin 300 MG CAP PO SCH ×3 (08:40→20:06)
[2021-12-18] MEDS: Enoxaparin Sodium 40 MG/0.4 ML SYRINGE SC SCH (08:41)
[2021-12-18] MEDS: Pantoprazole 40 MG VIAL IVP SCH (08:41)
[2021-12-18] MEDS: Mineral Oil PER 1 ML PER TUBE SCH (08:42)
[2021-12-18] MEDS: Polyethylene Glycol 3350 17 GM Packet PER TUBE SCH (08:42)
[2021-12-18] MEDS: D5 1/2 NS w/20 mEq KCL 1,000 ML IV SCH ×2 (10:46→16:22)
[2021-12-18] MEDS: fentaNYL 50 mcg/hour Patch TD SCH (10:47)
[2021-12-18] MEDS: Dronabinol 2.5 MG CAP PO SCH ×2 (11:23→17:53)
[2021-12-18] MEDS: ALPRAZolam 1 MG TAB PO PRN (11:27)
[2021-12-18] MEDS: TRACE ELEMENT IV SCH (14:19)
[2021-12-18] MEDS: FAT EMULSION IV SCH (14:19)
[2021-12-18] MEDS: MULTIVITAMINS IV SCH (14:19)
[2021-12-18] MEDS: [UNRECOGNIZED DRUG - OTHER] IV SCH (14:19)
[2021-12-18] MEDS: Ondansetron PF 4 MG/2 ML Vial IVP PRN (17:55)
[2021-12-18] MEDS: Promethazine 25 MG TAB PO PRN (20:11)
[2021-12-18] MEDS: tiZANidine HCl 4 MG TAB PO PRN (20:12)
[2021-12-19] MEDS: Meropenem 1 GM in Sodium Chloride 0.9% 100 ML IVPB SCH ×3 (02:06→17:51)
[2021-12-19] MEDS: ALPRAZolam 1 MG TAB PO PRN ×2 (02:14→23:26)
[2021-12-19] MEDS: D5 1/2 NS w/20 mEq KCL 1,000 ML IV SCH ×2 (02:33→10:07)
[2021-12-19] MEDS: Hydrocodone-Acetamin 15 ML UDCUP PO PRN ×3 (06:19→18:54)
[2021-12-19] MEDS: Gabapentin 300 MG CAP PO SCH ×3 (08:56→20:26)
[2021-12-19] MEDS: tiZANidine HCl 4 MG TAB PO PRN ×2 (08:56→20:26)
[2021-12-19] MEDS: Flecainide 50 MG TAB PO SCH ×2 (08:57→20:26)
[2021-12-19] MEDS: Enoxaparin Sodium 40 MG/0.4 ML SYRINGE SC SCH (08:58)
[2021-12-19] MEDS: Pantoprazole 40 MG VIAL IVP SCH (08:58)
[2021-12-19] MEDS: Mineral Oil PER 1 ML PER TUBE SCH (08:59)
[2021-12-19] MEDS: Polyethylene Glycol 3350 17 GM Packet PER TUBE SCH (08:59)
[2021-12-19] MEDS: Dronabinol 2.5 MG CAP PO SCH ×2 (12:09→17:51)
[2021-12-19] MEDS: Promethazine 25 MG TAB PO PRN (12:27)
[2021-12-19] MEDS: Multivitamins, Adult 10 ML, TRACE ELEMENT CONCENTRATE 1 ML in CLINIMIX E 5/20 2,000 ML IV SCH (15:25)
[2021-12-19] MEDS: Zolpidem Tartrate 5 MG TAB PO PRN (20:26)
[2021-12-20] MEDS: D5 1/2 NS w/20 mEq KCL 1,000 ML IV SCH ×2 (00:11→13:18)
[2021-12-20] MEDS: Hydrocodone-Acetamin 15 ML UDCUP PO PRN ×4 (01:23→21:37)
[2021-12-20] MEDS: Meropenem 1 GM in Sodium Chloride 0.9% 100 ML IVPB SCH ×3 (01:27→17:46)
[2021-12-20] MEDS: diphenhydrAMINE 25 MG CAP PO PRN (04:37)
[2021-12-20] MEDS: tiZANidine HCl 4 MG TAB PO PRN ×2 (04:37→14:33)
[2021-12-20] MEDS: Enoxaparin Sodium 40 MG/0.4 ML SYRINGE SC SCH (10:08)
[2021-12-20] MEDS: Flecainide 50 MG TAB PO SCH ×2 (10:08→21:30)
[2021-12-20] MEDS: Gabapentin 300 MG CAP PO SCH ×3 (10:08→21:29)
[2021-12-20] MEDS: Pantoprazole 40 MG VIAL IVP SCH (10:09)
[2021-12-20] MEDS: fentaNYL 50 mcg/hour Patch TD SCH (10:10)
[2021-12-20] MEDS: Mineral Oil PER 1 ML PER TUBE SCH (10:11)
[2021-12-20] MEDS: Polyethylene Glycol 3350 17 GM Packet PER TUBE SCH (10:11)
[2021-12-20] MEDS: Ondansetron PF 4 MG/2 ML Vial IVP PRN (12:20)
[2021-12-20] MEDS: Dronabinol 2.5 MG CAP PO SCH ×2 (12:51→18:38)
[2021-12-20] MEDS: Promethazine 25 MG TAB PO PRN (12:51)
[2021-12-20] MEDS: Multivitamins, Adult 10 ML, TRACE ELEMENT CONCENTRATE 1 ML in CLINIMIX E 5/20 2,000 ML IV SCH (14:14)
[2021-12-20] MEDS: ALPRAZolam 1 MG TAB PO PRN (21:38)
[2021-12-20] MEDS: Zolpidem Tartrate 5 MG TAB PO PRN (23:50)
[2021-12-21] MEDS: Meropenem 1 GM in Sodium Chloride 0.9% 100 ML IVPB SCH ×3 (01:57→17:34)
[2021-12-21] MEDS: D5 1/2 NS w/20 mEq KCL 1,000 ML IV SCH ×3 (01:59→15:37)
[2021-12-21] MEDS: tiZANidine HCl 4 MG TAB PO PRN ×3 (06:09→20:53)
[2021-12-21 06:15] VITALS: BMI 18.6
[2021-12-21] MEDS ORDERED: MD-Gastroview 120 ML BOT ONE (08:00)
[2021-12-21] MEDS: Gabapentin 300 MG CAP PO SCH ×3 (08:31→20:53)
[2021-12-21] MEDS: Enoxaparin Sodium 40 MG/0.4 ML SYRINGE SC SCH (08:31)
[2021-12-21] MEDS: Polyethylene Glycol 3350 17 GM Packet PER TUBE SCH (08:32)
[2021-12-21] MEDS: Mineral Oil PER 1 ML PER TUBE SCH (08:32)
[2021-12-21] MEDS: Flecainide 50 MG TAB PO SCH ×2 (08:32→20:53)
[2021-12-21] MEDS: Pantoprazole 40 MG VIAL IVP SCH (08:32)
[2021-12-21] MEDS: Hydrocodone-Acetamin 15 ML UDCUP PO PRN ×2 (10:33→20:54)
[2021-12-21] MEDS: ALPRAZolam 1 MG TAB PO PRN ×2 (10:33→23:49)
[2021-12-21] MEDS: Dronabinol 2.5 MG CAP PO SCH ×2 (12:29→17:35)
[2021-12-21] MEDS: MULTIVITAMINS IV SCH (15:12)
[2021-12-21] MEDS: [UNRECOGNIZED DRUG - OTHER] IV SCH (15:12)
[2021-12-21] MEDS: FAT EMULSION IV SCH (15:12)
[2021-12-21] MEDS: TRACE ELEMENT IV SCH (15:12)
[2021-12-21] MEDS: Zolpidem Tartrate 5 MG TAB PO PRN (20:54)
[2021-12-22] MEDS: Meropenem 1 GM in Sodium Chloride 0.9% 100 ML IVPB SCH ×3 (01:08→18:37)
[2021-12-22] MEDS: diphenhydrAMINE 25 MG CAP PO PRN ×3 (03:25→21:25)
[2021-12-22] MEDS: Hydrocodone-Acetamin 15 ML UDCUP PO PRN ×4 (03:25→21:24)
[2021-12-22] MEDS: D5 1/2 NS w/20 mEq KCL 1,000 ML IV SCH ×3 (03:39→22:59)
[2021-12-22] MEDS: Enoxaparin Sodium 40 MG/0.4 ML SYRINGE SC SCH (09:34)
[2021-12-22] MEDS: Flecainide 50 MG TAB PO SCH ×2 (09:37→21:26)
[2021-12-22] MEDS: Gabapentin 300 MG CAP PO SCH ×3 (09:37→21:26)
[2021-12-22] MEDS: Mineral Oil PER 1 ML PER TUBE SCH (09:38)
[2021-12-22] MEDS: Polyethylene Glycol 3350 17 GM Packet PER TUBE SCH (09:38)
[2021-12-22] MEDS: fentaNYL 50 mcg/hour Patch TD SCH (09:47)
[2021-12-22] MEDS: Pantoprazole 40 MG VIAL IVP SCH (09:49)
[2021-12-22 11:03] LABS: Anion Gap 18 mmol/L (10-20); BUN (Urea Nitrogen) 19 mg/dL (7.0-18.7); Calc. Creatinine Clearance 40 mL/min (70-130); Calcium 8.7 mg/dL (7.8-10.44); Carbon Dioxide 20 mmol/L (22-29); Chloride 93 mmol/L (98-107); Sodium 124 mmol/L (136-145)
[2021-12-22 11:20] LABS: #Eosinphils 0.2 thou/uL (0.0-0.7); #Lymphocytes 2.5 thou/uL (1.20-3.40); #Monocytes 0.7 thou/uL (0.11-0.59); #Neutrophils 7.5 thou/uL (1.40-6.50); %Lymphocytes 23.3 % (21.0-51.0); %Monocytes 5.9 % (0.0-10.0); %Neutrophils 68.8 % (42.0-75.0); Hemoglobin 9.2 g/dL (12.0-16.0); Mean Corpuscular HGB CONC 31.3 g/dL (32.0-36.0); Mean Corpuscular Hemoglobin 35.7 pg (27.0-31.0); Mean Platelet Volume 8.2 fL (7.4-10.4); Platelet Count 306 thou/uL (130-400); RBC Distribution Width 12.9 % (11.5-14.5); Red Blood Cell (RBC) Count 2.58 mill/uL (4.20-5.40); White Blood Cell (WBC) Count 10.9 thou/uL (4.8-10.8)
[2021-12-22 11:36] LABS: Glucose 1650 mg/dL (70-105); Potassium 6.8 mmol/L (3.5-5.1)
[2021-12-22 11:53] LABS: MDiff Complete? YES; Macrocytosis MODERATE=16-30 cells (100X) (0-5/hpf); Platelet Morphology Comment Appears Adequate; Polychromasia SLIGHT = 2-3 cells (100X) (0-2/hpf)
[2021-12-22 12:49] LABS: Anion Gap 12 mmol/L (10-20); BUN (Urea Nitrogen) 22 mg/dL (7.0-18.7); Calc. Creatinine Clearance 88 mL/min (70-130); Calcium 8.7 mg/dL (7.8-10.44); Carbon Dioxide 28 mmol/L (22-29); Chloride 104 mmol/L (98-107); Glucose 104 mg/dL (70-105); Potassium 4.3 mmol/L (3.5-5.1); Sodium 140 mmol/L (136-145)
[2021-12-22] MEDS: ALPRAZolam 1 MG TAB PO PRN (13:31)
[2021-12-22] MEDS: Multivitamins, Adult 10 ML, TRACE ELEMENT CONCENTRATE 1 ML in CLINIMIX E 5/20 2,000 ML IV SCH (14:08)
[2021-12-22] MEDS: Dronabinol 2.5 MG CAP PO SCH ×2 (16:06→16:08)
[2021-12-22] MEDS: Zolpidem Tartrate 5 MG TAB PO PRN (21:25)
[2021-12-23] MEDS: ALPRAZolam 1 MG TAB PO PRN ×2 (00:18→22:31)
[2021-12-23] MEDS: Meropenem 1 GM in Sodium Chloride 0.9% 100 ML IVPB SCH ×3 (02:58→19:05)
[2021-12-23] MEDS: Hydrocodone-Acetamin 15 ML UDCUP PO PRN ×3 (03:02→21:23)
[2021-12-23] MEDS: diphenhydrAMINE 25 MG CAP PO PRN ×2 (03:05→21:24)
[2021-12-23] MEDS: D5 1/2 NS w/20 mEq KCL 1,000 ML IV SCH ×2 (04:15→22:54)
[2021-12-23 07:27] LABS: #Basophils 0.1 thou/uL (0.0-0.2); #Eosinphils 0.2 thou/uL (0.0-0.7); #Lymphocytes 2.1 thou/uL (1.20-3.40); #Monocytes 0.7 thou/uL (0.11-0.59); #Neutrophils 4.1 thou/uL (1.40-6.50); %Basophils 0.8 % (0.0-1.0); %Eosinophils 2.7 % (0.0-10.0); %Lymphocytes 29.1 % (21.0-51.0); %Monocytes 9.7 % (0.0-10.0); %Neutrophils 57.7 % (42.0-75.0); Mean Corpuscular HGB CONC 31.9 g/dL (32.0-36.0); Mean Corpuscular Hemoglobin 33.6 pg (27.0-31.0); Mean Platelet Volume 7.5 fL (7.4-10.4); Platelet Count 319 thou/uL (130-400); RBC Distribution Width 12.5 % (11.5-14.5); Red Blood Cell (RBC) Count 2.68 mill/uL (4.20-5.40)
[2021-12-23 07:45] LABS: Anion Gap 12 mmol/L (10-20); BUN (Urea Nitrogen) 21 mg/dL (7.0-18.7); Calc. Creatinine Clearance 98 mL/min (70-130); Calcium 8.5 mg/dL (7.8-10.44); Carbon Dioxide 27 mmol/L (22-29); Chloride 103 mmol/L (98-107); Glucose 107 mg/dL (70-105); Potassium 4.2 mmol/L (3.5-5.1); Sodium 138 mmol/L (136-145)
[2021-12-23] MEDS: Enoxaparin Sodium 40 MG/0.4 ML SYRINGE SC SCH (10:01)
[2021-12-23] MEDS: Flecainide 50 MG TAB PO SCH ×2 (10:02→21:22)
[2021-12-23] MEDS: Gabapentin 300 MG CAP PO SCH ×3 (10:02→21:23)
[2021-12-23] MEDS: Pantoprazole 40 MG VIAL IVP SCH (10:02)
[2021-12-23] MEDS: Polyethylene Glycol 3350 17 GM Packet PER TUBE SCH (10:03)
[2021-12-23] MEDS: Mineral Oil PER 1 ML PER TUBE SCH (11:00)
[2021-12-23] MEDS: Dronabinol 2.5 MG CAP PO SCH ×2 (11:35→19:05)
[2021-12-23] MEDS: tiZANidine HCl 4 MG TAB PO PRN (11:35)
[2021-12-23] MEDS: FAT EMULSION IV SCH (15:15)
[2021-12-23] MEDS: TRACE ELEMENT IV SCH (15:15)
[2021-12-23] MEDS: [UNRECOGNIZED DRUG - OTHER] IV SCH (15:15)
[2021-12-23] MEDS: MULTIVITAMINS IV SCH (15:15)
[2021-12-23] MEDS: Promethazine 25 MG TAB PO PRN (15:50)
[2021-12-23] MEDS: Zolpidem Tartrate 5 MG TAB PO PRN (21:23)
[2021-12-24] MEDS: tiZANidine HCl 4 MG TAB PO PRN ×3 (00:50→22:09)
[2021-12-24] MEDS: Meropenem 1 GM in Sodium Chloride 0.9% 100 ML IVPB SCH ×3 (01:25→18:35)
[2021-12-24] MEDS: D5 1/2 NS w/20 mEq KCL 1,000 ML IV SCH ×2 (03:30→23:03)
[2021-12-24] MEDS: Hydrocodone-Acetamin 15 ML UDCUP PO PRN ×3 (03:39→16:19)
[2021-12-24] MEDS: diphenhydrAMINE 50 MG/ML VIAL IVP PRN (06:01)
[2021-12-24] MEDS: Enoxaparin Sodium 40 MG/0.4 ML SYRINGE SC SCH (09:21)
[2021-12-24] MEDS: Mineral Oil PER 1 ML PER TUBE SCH (09:22)
[2021-12-24] MEDS: Pantoprazole 40 MG VIAL IVP SCH (09:22)
[2021-12-24] MEDS: Polyethylene Glycol 3350 17 GM Packet PER TUBE SCH (09:22)
[2021-12-24] MEDS: Flecainide 50 MG TAB PO SCH ×2 (09:22→22:10)
[2021-12-24] MEDS: Gabapentin 300 MG CAP PO SCH ×3 (09:22→22:08)
[2021-12-24] MEDS: fentaNYL 50 mcg/hour Patch TD SCH (09:33)
[2021-12-24] MEDS: Dronabinol 2.5 MG CAP PO SCH ×2 (12:27→18:36)
[2021-12-24] MEDS: Multivitamins, Adult 10 ML, TRACE ELEMENT CONCENTRATE 1 ML in CLINIMIX E 5/20 2,000 ML IV SCH (14:31)
[2021-12-24] MEDS: Promethazine 25 MG TAB PO PRN (18:42)
[2021-12-24] MEDS: Zolpidem Tartrate 5 MG TAB PO PRN (22:10)
[2021-12-25] MEDS: ALPRAZolam 1 MG TAB PO PRN ×2 (00:56→23:59)
[2021-12-25] MEDS: Meropenem 1 GM in Sodium Chloride 0.9% 100 ML IVPB SCH ×3 (01:39→20:15)
[2021-12-25] MEDS: Hydrocodone-Acetamin 15 ML UDCUP PO PRN ×4 (01:40→23:59)
[2021-12-25] MEDS: Promethazine 25 MG TAB PO PRN (10:16)
[2021-12-25] MEDS: Gabapentin 300 MG CAP PO SCH ×3 (10:17→21:59)
[2021-12-25] MEDS: Enoxaparin Sodium 40 MG/0.4 ML SYRINGE SC SCH (10:18)
[2021-12-25] MEDS: Pantoprazole 40 MG VIAL IVP SCH (10:19)
[2021-12-25] MEDS: Flecainide 50 MG TAB PO SCH ×2 (10:22→21:58)
[2021-12-25] MEDS: Dronabinol 2.5 MG CAP PO SCH ×2 (11:21→18:42)
[2021-12-25] MEDS: tiZANidine HCl 4 MG TAB PO PRN ×2 (13:33→21:59)
[2021-12-25] MEDS: D5 1/2 NS w/20 mEq KCL 1,000 ML IV SCH ×3 (13:46→20:00)
[2021-12-25] MEDS: Polyethylene Glycol 3350 17 GM Packet PER TUBE SCH (14:52)
[2021-12-25] MEDS: Mineral Oil PER 1 ML PER TUBE SCH (14:52)
[2021-12-25] MEDS: [UNRECOGNIZED DRUG - OTHER] IV SCH (14:58)
[2021-12-25] MEDS: TRACE ELEMENT IV SCH (14:58)
[2021-12-25] MEDS: FAT EMULSION IV SCH (14:58)
[2021-12-25] MEDS: MULTIVITAMINS IV SCH (14:58)
[2021-12-25] MEDS: diphenhydrAMINE 50 MG/ML VIAL IVP PRN (18:42)
[2021-12-25] MEDS: Zolpidem Tartrate 5 MG TAB PO PRN (21:58)
[2021-12-26] MEDS: Meropenem 1 GM in Sodium Chloride 0.9% 100 ML IVPB SCH ×3 (03:01→17:05)
[2021-12-26] MEDS: Hydrocodone-Acetamin 15 ML UDCUP PO PRN ×2 (04:29→13:29)
[2021-12-26] MEDS: D5 1/2 NS w/20 mEq KCL 1,000 ML IV SCH ×2 (05:53→13:32)
[2021-12-26] MEDS: Enoxaparin Sodium 40 MG/0.4 ML SYRINGE SC SCH (09:39)
[2021-12-26] MEDS: Gabapentin 300 MG CAP PO SCH ×3 (09:40→21:36)
[2021-12-26] MEDS: ALPRAZolam 1 MG TAB PO PRN (09:41)
[2021-12-26] MEDS: Flecainide 50 MG TAB PO SCH ×2 (09:41→21:36)
[2021-12-26] MEDS: Mineral Oil PER 1 ML PER TUBE SCH (09:42)
[2021-12-26] MEDS: Polyethylene Glycol 3350 17 GM Packet PER TUBE SCH (09:43)
[2021-12-26] MEDS: Pantoprazole 40 MG VIAL IVP SCH (09:43)
[2021-12-26] MEDS: Dronabinol 2.5 MG CAP PO SCH ×2 (11:17→17:08)
[2021-12-26] MEDS ORDERED: Multivitamins, Adult 10 ML, TRACE ELEMENT CONCENTRATE 1 ML in D15W-AA 5% with Lytes 2,0... IV SCH (14:00)
[2021-12-26] MEDS: Promethazine 25 MG TAB PO PRN (17:06)
[2021-12-26] MEDS: Zolpidem Tartrate 5 MG TAB PO PRN (21:36)
[2021-12-26] MEDS: tiZANidine HCl 4 MG TAB PO PRN (21:36)
[2021-12-27] MEDS: Hydrocodone-Acetamin 15 ML UDCUP PO PRN ×4 (00:35→20:56)
[2021-12-27] MEDS: ALPRAZolam 1 MG TAB PO PRN ×2 (00:35→17:36)
[2021-12-27] MEDS: D5 1/2 NS w/20 mEq KCL 1,000 ML IV SCH ×2 (00:49→10:21)
[2021-12-27] MEDS: Meropenem 1 GM in Sodium Chloride 0.9% 100 ML IVPB SCH ×3 (02:43→17:30)
[2021-12-27] MEDS: Promethazine 25 MG TAB PO PRN (03:46)
[2021-12-27 05:25] LABS: Anion Gap 11 mmol/L (10-20); BUN (Urea Nitrogen) 23 mg/dL (7.0-18.7); Calc. Creatinine Clearance 95 mL/min (70-130); Calcium 8.3 mg/dL (7.8-10.44); Carbon Dioxide 29 mmol/L (22-29); Chloride 102 mmol/L (98-107); Glucose 91 mg/dL (70-105); Sodium 138 mmol/L (136-145)
[2021-12-27] MEDS: Flecainide 50 MG TAB PO SCH ×2 (08:01→20:56)
[2021-12-27] MEDS: Mineral Oil PER 1 ML PER TUBE SCH (08:01)
[2021-12-27] MEDS: Polyethylene Glycol 3350 17 GM Packet PER TUBE SCH (08:01)
[2021-12-27] MEDS: Pantoprazole 40 MG VIAL IVP SCH (08:01)
[2021-12-27] MEDS: Enoxaparin Sodium 40 MG/0.4 ML SYRINGE SC SCH (08:01)
[2021-12-27] MEDS: Gabapentin 300 MG CAP PO SCH ×3 (08:01→20:56)
[2021-12-27] MEDS: tiZANidine HCl 4 MG TAB PO PRN ×2 (10:20→20:56)
[2021-12-27] MEDS: Dronabinol 2.5 MG CAP PO SCH ×2 (10:36→17:29)
[2021-12-27] MEDS: diphenhydrAMINE 50 MG/ML VIAL IVP PRN (15:35)
[2021-12-27] MEDS: Zolpidem Tartrate 5 MG TAB PO PRN (20:56)
[2021-12-28] MEDS: D5 1/2 NS w/20 mEq KCL 1,000 ML IV SCH ×2 (01:30→10:11)
[2021-12-28] MEDS: Meropenem 1 GM in Sodium Chloride 0.9% 100 ML IVPB SCH ×2 (01:30→10:00)
[2021-12-28] MEDS: ALPRAZolam 1 MG TAB PO PRN (01:59)
[2021-12-28] MEDS: Hydrocodone-Acetamin 15 ML UDCUP PO PRN ×2 (06:19→10:04)
[2021-12-28] MEDS: tiZANidine HCl 4 MG TAB PO PRN (10:01)
[2021-12-28] MEDS: Enoxaparin Sodium 40 MG/0.4 ML SYRINGE SC SCH (10:02)
[2021-12-28] MEDS: Pantoprazole 40 MG VIAL IVP SCH (10:02)
[2021-12-28] MEDS: Flecainide 50 MG TAB PO SCH (10:02)
[2021-12-28] MEDS: Gabapentin 300 MG CAP PO SCH ×2 (10:03→14:02)
[2021-12-28] MEDS: Mineral Oil PER 1 ML PER TUBE SCH (10:11)
[2021-12-28] MEDS: Polyethylene Glycol 3350 17 GM Packet PER TUBE SCH (10:11)
[2021-12-28] MEDS ORDERED: Fat Emulsion 250 ML, Multivitamins, Adult 10 ML, TRACE ELEMENT CONCENTRATE 1 ML in D15W... IV SCH (14:00)
[2021-12-28] MEDS: Dronabinol 2.5 MG CAP PO SCH (14:04)
[2021-12-28] MEDS: Promethazine 25 MG TAB PO PRN (14:13)
[2021-12-28 16:23] VITALS: BP 120/87; TEMP 97.4
== END 2021-12-28 15:30 | disposition home or self-care (01) | DRG 356 ==
LOC: SDC 07:07 → T4-B 09:50 → OBSVTOIN 11-24 15:35 → SJJU 11-24 19:35 → CCU 11-26 13:26 → SJJU 11-30 12:14
PROVIDERS: ADMIT Surgery; ATTEND Internal Medicine Gastroenterology
PROC: 0D788ZZ Dilation of Small Intestine, Via Natural or Artificial Opening Endoscopic (ICD-10-PCS; 2021-11-23)
PROC: 0DH64UZ Insertion of Feeding Device into Stomach, Percutaneous Endoscopic Approach (ICD-10-PCS; 2021-11-24)
PROC: 0W9G4ZZ Drainage of Peritoneal Cavity, Percutaneous Endoscopic Approach (ICD-10-PCS; principal; 2021-11-26)
PROC: 3E033XZ Introduction of Vasopressor into Peripheral Vein, Percutaneous Approach (ICD-10-PCS; 2021-11-26)
PROC: 3E03329 Introduction of Other Anti-infective into Peripheral Vein, Percutaneous Approach (ICD-10-PCS; 2021-11-26)
PROC: 02HV33Z Insertion of Infusion Device into Superior Vena Cava, Percutaneous Approach (ICD-10-PCS; 2021-11-26)
PROC: 3E0336Z Introduction of Nutritional Substance into Peripheral Vein, Percutaneous Approach (ICD-10-PCS; 2021-11-26)
PROC: 0W9J3ZZ Drainage of Pelvic Cavity, Percutaneous Approach (ICD-10-PCS; 2021-12-08)
PROC: 02HV33Z Insertion of Infusion Device into Superior Vena Cava, Percutaneous Approach (ICD-10-PCS; 2021-12-08)
PROC: B548ZZA Ultrasonography of Superior Vena Cava, Guidance (ICD-10-PCS; 2021-12-08)
DX: K94.19 Other complications of enterostomy (principal); E43 Unspecified severe protein-calorie malnutrition; K63.1 Perforation of intestine (nontraumatic); R65.21 Severe sepsis with septic shock; A41.9 Sepsis, unspecified organism; K65.1 Peritoneal abscess; K65.9 Peritonitis, unspecified; K91.31 Postprocedural partial intestinal obstruction; R64 Cachexia; F11.20 Opioid dependence, uncomplicated; K94.23 Gastrostomy malfunction; N13.30 Unspecified hydronephrosis; J90 Pleural effusion, not elsewhere classified; I31.3 Pericardial effusion (noninflammatory); E27.40 Unspecified adrenocortical insufficiency; K56.51 Intestinal adhesions [bands], with partial obstruction; K56.7 Ileus, unspecified; Y83.8 Other surgical procedures as the cause of abnormal reaction of the patient, or of later complication, without mention of misadventure at the time of the procedure; Z20.822 Contact with and (suspected) exposure to COVID-19; K21.9 Gastro-esophageal reflux disease without esophagitis; F41.9 Anxiety disorder, unspecified; I48.91 Unspecified atrial fibrillation; I10 Essential (primary) hypertension; G47.33 Obstructive sleep apnea (adult) (pediatric); K27.9 Peptic ulcer, site unspecified, unspecified as acute or chronic, without hemorrhage or perforation; K58.9 Irritable bowel syndrome, unspecified; G89.4 Chronic pain syndrome; E66.01 Morbid (severe) obesity due to excess calories; K56.41 Fecal impaction; Z68.21 Body mass index [BMI] 21.0-21.9, adult; Z98.84 Bariatric surgery status; Z90.49 Acquired absence of other specified parts of digestive tract; Z90.710 Acquired absence of both cervix and uterus; Z79.899 Other long term (current) drug therapy; Z88.5 Allergy status to narcotic agent; Z99.89 Dependence on other enabling machines and devices
CPT/HCPCS: 36415; 36416; 36569; 36600; 47010; 49060; 71045; 74018; 74177; 76000; 77012; 80048; 80053; 80202; 81001; 82533; 82565; 82805; 83036; 83605; 83735; 84100; 84145; 85025; 85060; 87040; 87070; 87077; 87186; 87205; 93005; 93010; C1729; C1751; C9113; G0378; J0690; J1100; J1200; J1642; J1644; J1650; J1720; J1885; J2185; J2250; J2370; J2405; J2543; J2550; J2704; J3010; J3370; J3475; J3480; J3490; J7030; J7050; J7120; Q0167; Q0169; Q9963; Q9967; S0020; U0002; U0003; U0005

== ENCOUNTER 2022-02-02 10:47 | Outpatient (CLI) | payer OTHER | END 2022-02-02 10:48 | disposition home or self-care (01) | LOC: BICRAD 10:47 | PROVIDERS: ATTEND Surgery | DX: Z00.00 Encounter for general adult medical examination without abnormal findings (principal) | CPT/HCPCS: 74018 ==

== ENCOUNTER 2022-02-06 23:05 | Observation (INO) | payer BC, SELFPAY ==
[2022-02-06] MEDS ORDERED: Fentanyl 100 MCG/2 ML VIAL ONE (23:48)
[2022-02-07] MEDS ORDERED: Ondansetron PF 4 MG/2 ML Vial ONE (00:03)
[2022-02-07] MEDS ORDERED: Lorazepam (BATCHED) 2 MG/ML SYR ONE (01:23)
[2022-02-07] MEDS ORDERED: Vancomycin 1 GM/200 ML BAG ONE (02:14)
[2022-02-07] MEDS ORDERED: Fentanyl 100 MCG/2 ML VIAL SLOW IVP PRN ×2 (03:13→03:28)
[2022-02-07] MEDS ORDERED: Ondansetron ODT 4 MG TAB SL PRN (03:15)
[2022-02-07] MEDS ORDERED: Sodium Chloride 0.9% 1,000 ML IV SCH ×3 (03:15→03:30)
[2022-02-07] MEDS ORDERED: Ondansetron PF 4 MG/2 ML Vial IVP PRN (03:15)
[2022-02-07] MEDS ORDERED: Acetaminophen 325 MG TAB PO PRN (03:26)
[2022-02-07] MEDS ORDERED: HYDROcodone/Acetaminophen 5/325 mg Tablet PO PRN (03:26)
[2022-02-07 03:35] VITALS: BMI 16.9
[2022-02-07] MEDS: Sodium Chloride 0.9% 1,000 ML IV SCH ×3 (04:07→20:50)
[2022-02-07 04:37] LABS: #Eosinphils 0.2 thou/uL (0.0-0.7); #Lymphocytes 2.5 thou/uL (1.20-3.40); #Monocytes 0.5 thou/uL (0.11-0.59); #Neutrophils 5.8 thou/uL (1.40-6.50); %Basophils 0.4 % (0.0-1.0); %Eosinophils 1.8 % (0.0-10.0); %Lymphocytes 27.7 % (21.0-51.0); %Monocytes 5.7 % (0.0-10.0); %Neutrophils 64.5 % (42.0-75.0); Hemoglobin 10.2 g/dL (12.0-16.0); Mean Corpuscular Hemoglobin 32.4 pg (27.0-31.0); Mean Corpuscular Volume 98.1 fL (78.0-98.0); Mean Platelet Volume 7.5 fL (7.4-10.4); Platelet Count 348 thou/uL (130-400); RBC Distribution Width 11.9 % (11.5-14.5); Red Blood Cell (RBC) Count 3.16 mill/uL (4.20-5.40)
[2022-02-07 04:55] LABS: ALT (SGPT) Less than 7 U/L (8-55); AST (SGOT) 13 U/L (5-34); Albumin 3.2 g/dL (3.5-5.0); Alkaline Phosphatase 128 U/L (40-110); Anion Gap 10 mmol/L (10-20); BUN (Urea Nitrogen) 4 mg/dL (7.0-18.7); Bilirubin, Total 0.5 mg/dL (0.2-1.2); Calc. Creatinine Clearance 83 mL/min (70-130); Calcium 8.3 mg/dL (7.8-10.44); Carbon Dioxide 28 mmol/L (22-29); Chloride 106 mmol/L (98-107); Estimated GFR 110; Globulin 3.6 g/dL (2.4-3.5); Glucose 99 mg/dL (70-105); Potassium 3.4 mmol/L (3.5-5.1); Protein, Total 6.8 g/dL (6.0-8.3); Sodium 141 mmol/L (136-145)
[2022-02-07 06:52] LABS: SARS-CoV-2 NAA Rapid Test Not Detected (NotDetected)
[2022-02-07] MEDS: Ketorolac Tromethamine 30 MG/ML VIAL IVP PRN ×3 (06:52→18:44)
[2022-02-07] MEDS ORDERED: ALPRAZolam 1 MG TAB PO PRN (13:39)
[2022-02-07] MEDS ORDERED: tiZANidine HCl 4 MG TAB PO PRN (13:39)
[2022-02-07] MEDS ORDERED: GASTROGRAFIN 30 ML BOT ONE (14:18)
[2022-02-07] MEDS ORDERED: Zolpidem Tartrate 5 MG TAB PO PRN (14:20)
[2022-02-07] MEDS: Ondansetron ODT 4 MG TAB PO PRN (14:43)
[2022-02-07] MEDS: HYDROcodone/Acetaminophen 10/325 mg Tablet PO PRN ×2 (14:44→20:42)
[2022-02-07] MEDS ORDERED: Vancomycin HCl 750 MG in Sodium Chloride 0.9% 250 ML 250 ML IVPB SCH (15:00)
[2022-02-07] MEDS ORDERED: Dronabinol 2.5 MG CAP PO SCH (17:00)
[2022-02-07] MEDS: Gabapentin 300 MG CAP PO SCH ×2 (17:11→20:42)
[2022-02-07] MEDS: Flecainide 50 MG TAB PO SCH (20:42)
[2022-02-08] MEDS: HYDROcodone/Acetaminophen 10/325 mg Tablet PO PRN ×2 (00:35→04:52)
[2022-02-08] MEDS: Ketorolac Tromethamine 30 MG/ML VIAL IVP PRN (03:14)
[2022-02-08] MEDS ORDERED: Nystatin Powder 15 GM BOT TOP PRN (03:24)
[2022-02-08] MEDS: Sodium Chloride 0.9% 1,000 ML IV SCH (07:29)
[2022-02-08 07:34] LABS: #Eosinphils 0.2 thou/uL (0.0-0.7); #Lymphocytes 3.2 thou/uL (1.20-3.40); #Monocytes 0.5 thou/uL (0.11-0.59); #Neutrophils 2.8 thou/uL (1.40-6.50); %Basophils 0.5 % (0.0-1.0); %Eosinophils 2.4 % (0.0-10.0); %Monocytes 7.9 % (0.0-10.0); %Neutrophils 41.3 % (42.0-75.0); Hemoglobin 9.2 g/dL (12.0-16.0); Mean Corpuscular HGB CONC 32.9 g/dL (32.0-36.0); Mean Corpuscular Hemoglobin 33.2 pg (27.0-31.0); Mean Platelet Volume 7.9 fL (7.4-10.4); Platelet Count 328 thou/uL (130-400); RBC Distribution Width 12.1 % (11.5-14.5); Red Blood Cell (RBC) Count 2.78 mill/uL (4.20-5.40); White Blood Cell (WBC) Count 6.7 thou/uL (4.8-10.8)
[2022-02-08 07:44] LABS: ALT (SGPT) Less than 7 U/L (8-55); AST (SGOT) 13 U/L (5-34); Albumin 2.8 g/dL (3.5-5.0); Alkaline Phosphatase 104 U/L (40-110); Anion Gap 9 mmol/L (10-20); BUN (Urea Nitrogen) 5 mg/dL (7.0-18.7); Bilirubin, Total 0.3 mg/dL (0.2-1.2); Calc. Creatinine Clearance 83 mL/min (70-130); Calcium 7.9 mg/dL (7.8-10.44); Carbon Dioxide 27 mmol/L (22-29); Chloride 110 mmol/L (98-107); Estimated GFR 110; Glucose 97 mg/dL (70-105); Potassium 3.7 mmol/L (3.5-5.1); Protein, Total 5.8 g/dL (6.0-8.3); Sodium 142 mmol/L (136-145)
[2022-02-08] MEDS: Gabapentin 300 MG CAP PO SCH (08:49)
[2022-02-08] MEDS: Flecainide 50 MG TAB PO SCH (08:49)
[2022-02-08] MEDS: Ondansetron ODT 4 MG TAB PO PRN (08:49)
[2022-02-08 08:57] VITALS: BP 119/79; TEMP 97.9
[2022-02-08] MEDS ORDERED: Multivit, Therapeutic 1 TAB PO SCH (09:00)
== END 2022-02-08 10:24 | disposition home or self-care (01) ==
LOC: ERS 23:05 → SURG B 02-07 01:54
PROVIDERS: ADMIT Internal Medicine; ATTEND Internal Medicine
DX: K94.29 Other complications of gastrostomy (principal); E87.6 Hypokalemia; E88.09 Other disorders of plasma-protein metabolism, not elsewhere classified; I48.91 Unspecified atrial fibrillation; I10 Essential (primary) hypertension; D64.9 Anemia, unspecified; M79.7 Fibromyalgia; G47.30 Sleep apnea, unspecified; E46 Unspecified protein-calorie malnutrition; Z68.1 Body mass index [BMI] 19.9 or less, adult; Z79.899 Other long term (current) drug therapy; Z88.5 Allergy status to narcotic agent; Z98.84 Bariatric surgery status; Z20.822 Contact with and (suspected) exposure to COVID-19
CPT/HCPCS: 36415; 43762; 74018; 80053; 85025; 96374; 96375; G0378; J1642; J1885; J2060; J2405; J3010; J3370; J7050; Q0162; Q0167; Q9963; U0002

== ENCOUNTER 2022-10-06 21:08 | Inpatient (IN) | payer BC, OTHER, SELFPAY ==
[2022-10-06 22:54] LABS: #Neutrophils 14.1 thou/uL (1.40-6.50); %Basophils 0.1 % (0.0-1.0); %Eosinophils 0.3 % (0.0-10.0); %Lymphocytes 6.3 % (21.0-51.0); %Monocytes 6.1 % (0.0-10.0); %Neutrophils 87.2 % (42.0-75.0); Hemoglobin 11.1 g/dL (12.0-16.0); Mean Corpuscular HGB CONC 34.1 g/dL (32.0-36.0); Mean Corpuscular Hemoglobin 35.3 pg (27.0-31.0); Mean Platelet Volume 8.6 fL (7.4-10.4); Platelet Count 142 10x3/uL (130-400); RBC Distribution Width 10.7 % (11.5-14.5); Red Blood Cell (RBC) Count 3.13 mill/uL (4.20-5.40); White Blood Cell (WBC) Count 16.2 10x3/uL (4.8-10.8)
[2022-10-06 23:13] LABS: ALT (SGPT) 183 U/L (8-55); AST (SGOT) 297 U/L (5-34); Albumin 3.2 g/dL (3.5-5.0); Alkaline Phosphatase 130 U/L (40-110); Anion Gap 7 mmol/L (10-20); BUN (Urea Nitrogen) 13 mg/dL (7.0-18.7); Bilirubin, Total 0.6 mg/dL (0.2-1.2); Calc. Creatinine Clearance 0 mL/min (70-130); Calcium 7.2 mg/dL (7.8-10.44); Carbon Dioxide 24 mmol/L (22-29); Chloride 113 mmol/L (98-107); Estimated GFR 107; Globulin 2.4 g/dL (2.4-3.5); Glucose 101 mg/dL (70-105); Lipase 8 U/L (8-78); Protein, Total 5.6 g/dL (6.0-8.3); Sodium 140 mmol/L (136-145)
[2022-10-06] MEDS ORDERED: Sodium Chloride 0.9% 1,000 ML IV SCH (23:45)
[2022-10-06] MEDS ORDERED: Piperacillin/Tazobactam 3.375 GM in Sodium Chloride 0.9% 100 ML IVPB SCH (23:45)
[2022-10-07 00:01] LABS: HBCM Index 0.07 S/CO (0-0.79); HBSAg Index 0.24 S/CO (0-0.99); Hep A IgM AB Non-Reactive (NonReactive); Hep A IgM S/CO 0.22 S/CO (0-0.79); Hep B Surf Ag Non-Reactive S/CO (NonReactive); Hep C IgG Ab Non-Reactive (NonReactive); Hep C Index 0.15 S/CO (0-0.79); Hepatitis B Core IgM Abs Non-Reactive (NonReactive)
[2022-10-07] MEDS ORDERED: Ketorolac Tromethamine 30 MG/ML VIAL IVP SCH (00:15)
[2022-10-07 00:27] LABS: Lactic Acid 0.8 mmol/L (0.5-2.2)
[2022-10-07] MEDS ORDERED: Ketorolac Tromethamine 30 MG/ML VIAL ONE (01:19)
[2022-10-07] MEDS ORDERED: Ondansetron PF 4 MG/2 ML Vial ONE (01:20)
[2022-10-07] MEDS ORDERED: Piperacillin/Tazobactam 3.375 GM VIAL ONE (02:16)
[2022-10-07] MEDS ORDERED: fentaNYL 50 mcg/mL 1 mL Vial ONE (03:12)
[2022-10-07] MEDS ORDERED: Fentanyl 100 MCG/2 ML VIAL SLOW IVP SCH (03:15)
[2022-10-07 04:47] LABS: #Eosinphils 0.1 thou/uL (0.0-0.7); #Lymphocytes 0.9 thou/uL (1.20-3.40); #Monocytes 0.6 thou/uL (0.11-0.59); #Neutrophils 13.2 thou/uL (1.40-6.50); %Basophils 0.1 % (0.0-1.0); %Eosinophils 0.5 % (0.0-10.0); %Lymphocytes 5.9 % (21.0-51.0); %Neutrophils 89.5 % (42.0-75.0); Hemoglobin 10.3 g/dL (12.0-16.0); Mean Corpuscular HGB CONC 33.9 g/dL (32.0-36.0); Mean Corpuscular Hemoglobin 35.3 pg (27.0-31.0); Mean Platelet Volume 9.1 fL (7.4-10.4); Platelet Count 140 10x3/uL (130-400); RBC Distribution Width 10.7 % (11.5-14.5); Red Blood Cell (RBC) Count 2.91 mill/uL (4.20-5.40); White Blood Cell (WBC) Count 14.7 10x3/uL (4.8-10.8)
[2022-10-07 04:49] VITALS: BMI 18.3
[2022-10-07 05:06] LABS: ALT (SGPT) 158 U/L (8-55); AST (SGOT) 191 U/L (5-34); Albumin 3.3 g/dL (3.5-5.0); Alkaline Phosphatase 129 U/L (40-110); Anion Gap 9 mmol/L (10-20); BUN (Urea Nitrogen) 12 mg/dL (7.0-18.7); Bilirubin, Total 0.8 mg/dL (0.2-1.2); Calc. Creatinine Clearance 78 mL/min (70-130); Calcium 7.6 mg/dL (7.8-10.44); Carbon Dioxide 24 mmol/L (22-29); Chloride 113 mmol/L (98-107); Estimated GFR 102; Globulin 2.3 g/dL (2.4-3.5); Glucose 88 mg/dL (70-105); Magnesium 1.9 mg/dL (1.6-2.6); Potassium 3.9 mmol/L (3.5-5.1); Protein, Total 5.6 g/dL (6.0-8.3); Sodium 142 mmol/L (136-145)
[2022-10-07] MEDS: Piperacillin/Tazobactam 3.375 GM in Sodium Chloride 0.9% 100 ML IVPB SCH ×3 (05:41→23:30)
[2022-10-07] MEDS ORDERED: Piperacillin/Tazobactam 3.375 GM in Sodium Chloride 0.9% 100 ML IVPB SCH (06:00)
[2022-10-07] MEDS: Pantoprazole 40 MG VIAL IVP SCH (08:08)
[2022-10-07] MEDS: Ondansetron PF 4 MG/2 ML Vial IVP PRN ×2 (08:08→14:23)
[2022-10-07] MEDS: Flecainide 50 MG TAB PO SCH ×2 (08:08→20:16)
[2022-10-07] MEDS ORDERED: Acetaminophen 500 MG TAB PO PRN (08:15)
[2022-10-07] MEDS ORDERED: oxyCODONE 5 MG TAB PO PRN (09:11)
[2022-10-07] MEDS ORDERED: Fleet Saline Enema 133 ML BOT PR SCH ×2 (13:15→16:15)
[2022-10-07] MEDS ORDERED: Bisacodyl 10 MG SUPP PR PRN (16:16)
[2022-10-07] MEDS ORDERED: ALPRAZolam 1 MG TAB PO PRN (16:17)
[2022-10-07] MEDS ORDERED: Promethazine 25 MG TAB PO PRN (16:17)
[2022-10-07] MEDS: Diclofenac 1% 100 GM GEL TP SCH ×2 (16:47→20:15)
[2022-10-07] MEDS: Polyethylene Glycol 3350 17 GM Packet PO SCH (21:24)
[2022-10-07] MEDS ORDERED: Zolpidem Tartrate 5 MG TAB PO PRN (23:43)
[2022-10-08] MEDS ORDERED: Fleet Saline Enema 133 ML BOT PR SCH (01:30)
[2022-10-08] MEDS: Piperacillin/Tazobactam 3.375 GM in Sodium Chloride 0.9% 100 ML IVPB SCH (06:00)
[2022-10-08 06:49] LABS: #Eosinphils 0.1 thou/uL (0.0-0.7); #Lymphocytes 1.7 thou/uL (1.20-3.40); #Monocytes 0.5 thou/uL (0.11-0.59); #Neutrophils 9.2 thou/uL (1.40-6.50); %Basophils 0.1 % (0.0-1.0); %Eosinophils 0.9 % (0.0-10.0); %Lymphocytes 14.5 % (21.0-51.0); %Monocytes 4.7 % (0.0-10.0); %Neutrophils 79.8 % (42.0-75.0); Hemoglobin 11.5 g/dL (12.0-16.0); Mean Corpuscular HGB CONC 34.3 g/dL (32.0-36.0); Mean Corpuscular Hemoglobin 35.2 pg (27.0-31.0); Mean Platelet Volume 9.4 fL (7.4-10.4); Platelet Count 153 10x3/uL (130-400); RBC Distribution Width 10.5 % (11.5-14.5); Red Blood Cell (RBC) Count 3.26 mill/uL (4.20-5.40); White Blood Cell (WBC) Count 11.5 10x3/uL (4.8-10.8)
[2022-10-08 07:00] LABS: Prothrombin Time 13.7 sec (12.0-14.7)
[2022-10-08 07:14] LABS: ALT (SGPT) 103 U/L (8-55); AST (SGOT) 63 U/L (5-34); Albumin 3.3 g/dL (3.5-5.0); Alkaline Phosphatase 121 U/L (40-110); Anion Gap 10 mmol/L (10-20); BUN (Urea Nitrogen) 9 mg/dL (7.0-18.7); Bilirubin, Total 0.5 mg/dL (0.2-1.2); Calc. Creatinine Clearance 77 mL/min (70-130); Calcium 8.3 mg/dL (7.8-10.44); Carbon Dioxide 25 mmol/L (22-29); Chloride 108 mmol/L (98-107); Estimated GFR 100; Globulin 2.7 g/dL (2.4-3.5); Glucose 90 mg/dL (70-105); Iron 38 ug/dL (50-170); Iron Binding Capacity, Total 304 mcg/dL (265-497); Magnesium 2.1 mg/dL (1.6-2.6); Sodium 139 mmol/L (136-145)
[2022-10-08 08:17] LABS: HBSAB Concentration 1344.29 mIU/mL; Hep B Surf AB Reactive (NonReactive)
[2022-10-08] MEDS: Flecainide 50 MG TAB PO SCH (08:21)
[2022-10-08] MEDS: Diclofenac 1% 100 GM GEL TP SCH ×3 (08:21→13:48)
[2022-10-08] MEDS: Pantoprazole 40 MG VIAL IVP SCH (08:21)
[2022-10-08] MEDS: Polyethylene Glycol 3350 17 GM Packet PO SCH ×2 (08:22→14:47)
[2022-10-08 12:08] VITALS: BP 130/85; TEMP 98.5
[2022-10-10 15:20] LABS: ANA Symphony (Qualitative) Negative (Negative); ANA Symphony (Quantitative) 0.3 Ratio (< 0.7 Negative); dsDNA IgG Antibody 0.9 IU/mL (<10 Negative)
[2022-10-10 16:18] LABS: EliA Vaculitis New Method **** NEW METHOD ****; Mitochondrial Ab 1.3 U/mL (<4 Negative)
== END 2022-10-08 16:10 | disposition home or self-care (01) | DRG 389 ==
LOC: ERS 21:08 → ERHOLD 23:33 → T4-B 10-07 04:13
PROVIDERS: ADMIT Hospitalist; ATTEND Hospitalist
DX: K56.41 Fecal impaction (principal); I47.1 Supraventricular tachycardia; G89.29 Other chronic pain; M54.50 Low back pain, unspecified; M79.7 Fibromyalgia; K76.89 Other specified diseases of liver; K21.9 Gastro-esophageal reflux disease without esophagitis; K83.8 Other specified diseases of biliary tract; Z90.49 Acquired absence of other specified parts of digestive tract; Z88.6 Allergy status to analgesic agent; Z88.5 Allergy status to narcotic agent; Z90.710 Acquired absence of both cervix and uterus; Z98.51 Tubal ligation status; Z82.49 Family history of ischemic heart disease and other diseases of the circulatory system
CPT/HCPCS: 36415; 76705; 78226; 80053; 80074; 80176; 82103; 82550; 83516; 83540; 83550; 83605; 83690; 83735; 85025; 85610; 86015; 86038; 86225; 86706; 86708; 87040; 96374; 96375; A9537; C9113; J1885; J2405; J2543; J3010; J3490; J7050; Q0169